=== PATIENT | male | born 1945 | race Caucasian/White ===

== ENCOUNTER 2016-11-23 20:48 | Inpatient (IN) ==
[~2016-11-23 20:48] MED LIST: *HR* Amiodarone 150 MG/3 ML VIAL IVPB ONE; *HR* EPINEPHrine 1 MG/10 ML SYRINGE IVP ONE; *HR* Magnesium Sulfate 2 GM/50 ML PIGGYBACK IVPB ONE; *HR* Norepinephrine 4 MG/4 ML VIAL IVC ONE
[2016-11-23] MEDS: Norepinephrine 4 MG in D5% in Water 250 ML IVC SCH (21:12)
--- NOTE | 2016-11-23 21:24 | Emergency Department Note ---
Disposition Clinical Impression: Acute myocardial infarction Qualifiers: Myocardial infarction ST status: ST elevation myocardial infarction Involved coronary artery: unspecified coronary artery Qualified Code(s): I21.3 - ST elevation (STEMI) myocardial infarction of unspecified site Disposition: Admitted As Inpatient Condition: Critical Time of Disposition: 21:00 CPR HPI - General Chief Complaint: ED Cardiac Arrest/CPR Stated Complaint: CODE Time Seen by Provider: 11/23/16 21:19 Source: patient Mode of arrival: ambulatory Limitations: no limitations Nursing Notes Reviewed: Yes Vital Signs Reviewed: Yes - History of Present Illness HPI Narrative: 71-year-old male who arrived to [facility] [place] emergency department after collapsing prior to arrival in 's vehicle. states that he was complaining of epigastric pain radiating into his back just prior to arrival. The patient was found unresponsive and was pulled out of his ' s vehicle area and the patient was brought into the emergency Department immediately and it was noted the patient did not have a pulse. The patient was apneic as well. The patient had CPR started on him in normal ACLS fashion. The patient was chosen to be intubated at that time. The patient continued to receive ACLS protocol. The patient did note to have fine ventricular fibrillation on monitor. The patient was shocked 4 times in total starting to 300 J doses and 2 with 360 doses. The patient also received 3 doses of epinephrine as well as 1 amp of bicarbonate, 1 bag of magnesium, a bolus of amiodarone, and 1 L fluid. The patient did have spontaneous return of circulation with a pulse in the upper 50s. The patient's blood pressure initially was in the 130s systolic. The patient was started on Levothroid, EKG was obtained. After observing what appears to be possible J-point elevation/ ischemia in lateral leads, the tool or die drawing checker was notified. After speaking with Dr. Mendenhall in cardiology P agreed that the patient can go to the Medical Device Engineer. Witnessed Arrest: Yes Pt Complaint: collapsed during rest Onset (ago): Just [employer] Timing confirmed by: spouse Place: other Bystander CPR Performed: No Downtime Before ACLS Arrival (mins): 0 Initial Findings in the Field: unresponsive ROSC in the Field: No - Related Data Allergies Allergy/AdvReac Type Severity Reaction Status Date / Time No Known Allergies Allergy Verified 11/23/16 21:45 Limitations: ROS unobtainable due to patients medical condition CPR PMH - Past Medical History Medical history: Reports: COPD, hyperlipidemia Male Surgical history: Reports: non-contributory Psychiatric history: Reports: no psych history - Social History Smoking Status: Current every day smoker Alcohol use: Reports: unknown Drug use: Reports: none Physical Exam - General Limitations: other (obtunded) - Head Head exam: atraumatic, normocephalic, normal inspection - ENT ENT exam: normal oropharynx, mucous membranes moist - Neck Neck exam: Present: normal inspection - Chest Chest inspection: Present: normal inspection - Respiratory Respiratory exam: Present: other (Respiratory arrest, ) - Cardiovascular Cardiovascular exam: Present: other (Vfib, PEA, then NSR) - Abdominal Exam Abdominal exam: Present: soft, normal bowel sounds. Absent: distention - Extremities Exam Extremities exam: Present: other (Mild cyanosis on initial exam) - Neurological Exam Neurological exam: Present: other (Obtunded) - Skin Skin exam: Present: cyanosis Course Vital Signs Temperature 0 F L 11/23/16 20:48 Pulse Rate 0 11/23/16 20:48 Respiratory Rate 0 11/23/16 20:48 Blood Pressure 0/0 11/23/16 20:48 O2 Sat by Pulse Oximetry 92 11/23/16 20:48 Temperature 96.8 F L 11/24/16 00:15 Pulse Rate 55 11/24/16 00:24 Respiratory Rate 18 11/24/16 00:30 Blood Pressure 102/59 11/24/16 00:15 O2 Sat by Pulse Oximetry 98 11/24/16 00:30 Oxygen Delivery Oxygen Delivery Ventilator Cardiac Arrest/CPR - Lab Data Result diagrams: 11/23/16 20:59 11/23/16 20:59 Lab Results 11/23/16 11/23/16 11/23/16 Range/Units 20:58 20:59 20:59 WBC 12.9 H (4.3-11.1) K/mcL RBC 5.54 H (4.19-5.50) M/mcL Hgb 17.2 H (12.9-16.9) g/dL Hct 53.3 H (37.5-50.1) % MCV 96.2 (83.0-100.0) fL MCH 31.0 (28.0-33.3) pg MCHC 32.3 (31.6-35.5) g/dL RDW 13.8 (11.5-14.5) % Plt Count 208 (140-400) K/mcL MPV 9.7 (9.4-12.4) fL Immature Gran % 0.5 (0-4) % Seg Neutrophils % 50.6 % Lymphocytes % 37.9 % Monocytes % 7.8 % Eosinophils % 2.7 % Basophils % 0.5 % Neutrophils # 6.5 (1.6-8.9) K/mcL Lymphocytes # 4.9 H (0.6-4.6) K/mcL Monocytes # 1.0 (0.0-1.3) K/mcL Eosinophils # 0.4 (0.0-0.6) K/mcL Basophils # 0.1 (0.0-0.2) K/mcL Nucleated RBCs/100 WBC 0.2 H (0) /100 WBC Sodium 140 (136-145) mEq/L Potassium 3.9 (3.5-4.5) mEq/L Chloride 101 (98-109) mEq/L Carbon Dioxide 29 (19-29) mEq/L BUN 14 (8-26) mg/dL Creatinine 1.35 H (0.72-1.25) mg/dL Est GFR ( Amer) > 60 (> 60) Est GFR (Non-Af Amer) 52 L (> 60) BUN/Creatinine Ratio 10 (6-26) Glucose 95 (70-99) mg/dL POC Glucose 108 H (58-89) Calculated Osmolality 290 (280-300) Lactic Acid (0.5-2.2) mmol/L Calcium 9.8 (8.6-10.8) mg/dL Total Bilirubin 0.5 (0.2-1.2) mg/dL AST 21 (5-34) Units/L ALT 26 (0-55) Units/L Alkaline Phosphatase 91 (38-126) Units/L Troponin I (0-0.03) ng/mL Serum Total Protein 8.0 (6.0-8.3) g/dL Albumin 4.1 (3.5-5.0) g/dL Globulin 3.9 H (2.4-3.5) g/dL Albumin/Globulin Ratio 1.1 (1.1-2.2) 04/06/17 04/06/17 Range/Units 20:59 20:59 WBC (4.3-11.1) K/mcL RBC (4.19-5.50) M/mcL Hgb (12.9-16.9) g/dL Hct (37.5-50.1) % MCV (83.0-100.0) fL MCH (28.0-33.3) pg MCHC (31.6-35.5) g/dL RDW (11.5-14.5) % Plt Count (140-400) K/mcL MPV (9.4-12.4) fL Immature Gran % (0-4) % Seg Neutrophils % % Lymphocytes % % Monocytes % % Eosinophils % % Basophils % % Neutrophils # (1.6-8.9) K/mcL Lymphocytes # (0.6-4.6) K/mcL Monocytes # (0.0-1.3) K/mcL Eosinophils # (0.0-0.6) K/mcL Basophils # (0.0-0.2) K/mcL Nucleated RBCs/100 WBC (0) /100 WBC Sodium (136-145) mEq/L Potassium (3.5-4.5) mEq/L Chloride (98-109) mEq/L Carbon Dioxide (19-29) mEq/L BUN (8-26) mg/dL Creatinine (0.72-1.25) mg/dL Est GFR ( Amer) (> 60) Est GFR (Non-Af Amer) (> 60) BUN/Creatinine Ratio (6-26) Glucose (70-99) mg/dL POC Glucose (58-89) Calculated Osmolality (280-300) Lactic Acid 2.4 H (0.5-2.2) mmol/L Calcium (8.6-10.8) mg/dL Total Bilirubin (0.2-1.2) mg/dL AST (5-34) Units/L ALT (0-55) Units/L Alkaline Phosphatase (38-126) Units/L Troponin I 0.05 H* (0-0.03) ng/mL Serum Total Protein (6.0-8.3) g/dL Albumin (3.5-5.0) g/dL Globulin (2.4-3.5) g/dL Albumin/Globulin Ratio (1.1-2.2) - EKG Data EKG attestation: Yes I reviewed and interpreted this EKG. EKG results narrative: Heart rate 66 bpm. QTC [address] elevation in leads V3, V4, V5. Reciprocal changes in leads 2, 3, aVF. Critical Care Time Critical Care Time: Yes Total Critical Care Time: 91 Attestation: Acute outpatient cardiac arrest w/ resuccitation in the ER; Attestation Statement - Attestation Attestation: Dr Maki note: Patient was seen in conjunction with resident Dr Li; please see his charting for complete documentation. I spent [id number] time with the patient and I agree with the patient's treatment and disposition. The patient was brought to the hospital by family in a private automobile. Apparently prior to getting out of the car he became unresponsive. He told the family he has been having chest pain for weeks and it got worse today. When he was found in the car by ER staff he had no pulse. He was brought quickly to the trauma bay 21 and CPR was started. Patient had immediate compressions, bag valve mask ventilation. He was intubated, an intraosseous line was started, multiple IVs were started, patient was given epinephrine medication. He was defibrillated many times for what we recognized as ventricular fibrillation. He was intubated stiffly without complication. After sustained efforts and CPR the patient was found to have a pulse. EKG is concerning for mild J-point elevation and an ST elevation DE. Dr. Davalos the catheter lab was called except the patient as a Medical Device Engineer patient and requested that "the patient. In the ER the patient is moving all 4 extremities and over the ventilator. Sedation was required.
[2016-11-23] MEDS ORDERED: *HR* FentaNYL (PF) 250 MCG/5 ML VIAL ONE (21:28)
[2016-11-23] MEDS ORDERED: *HR* Midazolam HCl 5 MG/5 ML VIAL IVP ONE (21:28)
[2016-11-23] MEDS ORDERED: *HR* Heparin 10,000 UNIT/10 ML VIAL ONE (21:29)
[2016-11-23] MEDS ORDERED: 0.9 % Sodium Chloride 1,000 ML ONE ×2 (21:29→21:45)
[2016-11-23] MEDS ORDERED: Nitroglycerin 1,000 MCG/10 ML VIAL IV ONE (21:29)
[2016-11-23] MEDS ORDERED: Heparin 1,000 UNITS/500 mL NS 500 ML ONE (21:29)
[2016-11-23 21:36] LABS: Basophils # 0.1 K/mcL (0.0-0.2); Basophils % 0.5 %; Eosinophils # 0.4 K/mcL (0.0-0.6); Eosinophils % 2.7 %; Hematocrit 53.3 % (37.5-50.1); Hemoglobin 17.2 g/dL (12.9-16.9); Immature Granulocytes % 0.5 % (0-4); Lymphocytes # 4.9 K/mcL (0.6-4.6); Lymphocytes % 37.9 %; Mean Corpuscular HGB Conc 32.3 g/dL (31.6-35.5); Mean Corpuscular Volume 96.2 fL (83.0-100.0); Mean Platelet Volume 9.7 fL (9.4-12.4); Monocytes % 7.8 %; Neutrophils # 6.5 K/mcL (1.6-8.9); Nucleated Red Blood Cells 0.2 /100 WBC (0); Platelet Count 208 K/mcL (140-400); Red Blood Count 5.54 M/mcL (4.19-5.50); Red Cell Distribution Width 13.8 % (11.5-14.5); Segmented Neutrophils % 50.6 %
[2016-11-23] MEDS ORDERED: *HR* LORazepam 2 MG/ML VIAL ONE (21:43)
[2016-11-23 21:47] LABS: Alanine Aminotransferase 26 Units/L (0-55); Albumin 4.1 g/dL (3.5-5.0); Albumin/Globulin Ratio 1.1 (1.1-2.2); Alkaline Phosphatase 91 Units/L (38-126); Aspartate Amino Transferase 21 Units/L (5-34); BUN/Creatinine Ratio 10 (6-26); Bilirubin,Total 0.5 mg/dL (0.2-1.2); Blood Urea Nitrogen 14 mg/dL (8-26); Calcium 9.8 mg/dL (8.6-10.8); Carbon Dioxide 29 mEq/L (19-29); Chloride 101 mEq/L (98-109); Globulin 3.9 g/dL (2.4-3.5); Glucose 95 mg/dL (70-99); Osmolality,Calculated 290 (280-300); Potassium 3.9 mEq/L (3.5-4.5); Sodium 140 mEq/L (136-145); eGFR For African Americans > 60 (> 60); eGFR For Non-African Americans 52 (> 60)
--- NOTE | 2016-11-23 21:58 | Pre-Sedation Evaluation ---
Pre-sedation evaluation - Pre-sedation checklist Date of procedure: 11/23/16 Procedure: [facility] Recent Vitals: Last Vital Signs Temp 0 F L 11/23/16 20:48 Pulse 0 11/23/16 20:48 Resp 0 11/23/16 20:48 BP 0/0 11/23/16 20:48 Pulse Ox 92 11/23/16 21:10 H&P (including ROS) documented in medical record: Yes Previous reaction to sedatives/anesthetics: No Dietary Status: unknown Airway Assessment: Patient can open mouth completely, TMJ function normal ASA Classification *see protocol: CLASS II-Mild systemic disease, E-EMERGENCY- Add to any of the above to indicate emergent Plan of Care: Pt appropriate candidate for procedure/moderate/conscious sedation , Risks/benefits of procedure/sedation discussed w/ patient/family, If not NPO; Risk of intake outweiged by necessity to perform procedure
[2016-11-23] MEDS ORDERED: *HR* Morphine 2 MG/ML SYRINGE IVP PRN (22:00)
[2016-11-23] MEDS ORDERED: Ondansetron 4 MG/2 ML VIAL IVP PRN (22:00)
[2016-11-23] MEDS ORDERED: Tirofiban 12.5 MG/250ML 12.5 MG/250 ML BAG IVC SCH (22:00)
--- NOTE | 2016-11-23 22:00 | Cardiology History & Physical ---
Date of Encounter: 11/23/16 Time of Encounter: 22:00 Assessment and Plan (1) Cardiac arrest Current Visit: Yes Status: Acute Emergent LHC. Therapeutic hypothermia was discussed with ED and to be initiated there with ice packs to optimize possible neurological recovery. Prognosis poor. The assessment and plan as outlined above was discussed with the patient and/or family members who expressed understanding and agreement. All questions were answered. (2) STEMI (ST elevation myocardial infarction) Current Visit: Yes Status: Acute Anterior current of injury. Emergent LHC to delineate any coronary disease amenable to intervention. EF assessment will be complete.The assessment and plan as outlined above was discussed with the patient and/or family members who expressed understanding and agreement. All questions were answered. Qualifiers: Involved coronary artery: other coronary artery Qualified Code(s): I21.29 - ST elevation (STEMI) myocardial infarction involving other sites History of Present Illness Chief complaint: VF cardiac arrest HPI: Mr. Syed is a 71 year old male with no previous cardiac history who arrived to [facility] emergency department after collapsing prior to arrival in 's vehicle. states that he was complaining of epigastric pain radiating into his back just prior to arrival and has had ongoing chest discomfort for more than a week. The patient was found unresponsive and was pulled out of his 's vehicle area and the patient was brought into the emergency Department immediately and it was noted the patient was pulseless. He underwent ACLS for approximately 15 minutes. The patient was chosen to be intubated at that time. The patient continued to receive ACLS protocol. The patient did note to have fine ventricular fibrillation on monitor. The patient was shocked 4 times in total starting to 300 J doses and 2 with 360 doses. The patient also received 3 doses of epinephrine as well as 1 amp of bicarb, 1 bag of magnesium, a bolus of amiodarone, and 1 L fluid. The patient did have spontaneous return of circulation with a pulse in the upper 50s. The patient's blood pressure initially was in the 130s systolic. The patient was started on Levothroid, EKG was obtained. EKG was suggestive of anterior current of injury and STEMI page was activated. Past Med Surg Social Fam HX - Past Medical History Medical history: COPD, hyperlipidemia Psychiatric history: no psych history - Past Surgical History Surgical History: non-contributory - Social History Smoking Status: Current every day smoker Smokeless Tobacco Status: Yes Alcohol use: unknown Drug use: none Medications and Allergies Celecoxib [Celebrex] 200 mg PO BID 11/24/16 [History] Duloxetine HCl [Cymbalta] 60 mg PO DAILY 11/24/16 [History] Furosemide [Lasix] 20 mg PO DAILY PRN 11/24/16 [History] Umeclidinium Brm/Vilanterol Tr [Anoro Ellipta 62.5-25 Mcg INH] 1 puff IH DAILY 11/24/16 [History] Allergies No Known Allergies Allergy (Verified 11/23/16 21:45) ROS unobtainable: due to endotracheal tube, due to mental status All Systems Review: A 10-system review of systems was performed and is negative for pertinent findings except as documented above in the HPI. Physical Examination Vital Signs, Last 4 Hours Temp Pulse Resp BP Pulse Ox 11/23/16 21:10 92 11/23/16 20:48 0 F L 0 0 0/0 0 General: Other (intubated/sedated) HEENT: Atraumatic, Normocephaly Neck: No JVD Cardiac: Reg Rate and Rhythm Lungs: Other (coarse BS) Neuro: Other (intubated/sedated) Abdomen: Soft Skin: No rashes noted on visualized skin Musculoskeletal: No Chest Wall Tenderness Extremities: No Edema Results 11/26/16 03:29 11/26/16 14:35 Lab Results 11/23/16 11/23/16 11/23/16 20:59 20:59 20:59 WBC 12.9 H Hgb 17.2 H Hct 53.3 H Plt Count 208 Sodium 140 Potassium 3.9 Chloride 101 Carbon Dioxide 29 BUN 14 Creatinine 1.35 H Glucose 95 Calcium 9.8 Total Bilirubin 0.5 AST 21 ALT 26 Alkaline Phosphatase 91 Troponin I 0.05 H* - EKG Interpretation EKG results cardiology: personally reviewed (anterior current of injury)
[2016-11-23] MEDS ORDERED: Amiodarone Premix 360 MG/200 ML BAG IVC ONE (22:14)
[2016-11-23] MEDS ORDERED: Tirofiban 12.5 MG/250ML 12.5 MG/250 ML BAG ONE (22:20)
[2016-11-23] MEDS ORDERED: *HR* Ticagrelor 90 MG TABLET ONE (22:23)
[2016-11-23 23:03] LABS: ABG Base Excess -6.3 mEq/L (-2.0 to 3.0); ABG HCO3 23.9 mEQ/L (21-27); ABG Oxygen Saturation 98 % (95-98); ABG PCO2 67 mmHg (35-45); ABG PO2 132 mmHg (85-104)
[2016-11-23 23:06] LABS: ABG PH 7.16 pH Units (7.32-7.45); Blood Gas FiO2 100 %; Blood Gas Respiration Rate 12; Blood Gas VT 550 cc
[2016-11-23] MEDS ORDERED: 0.9 % Sodium Chloride 500 ML ONE (23:31)
--- NOTE | 2016-11-23 23:44 | Invasive Diagnostic Lab Proc ---
Name: Noah Syed Date of Study: 11/23/2016 Date: 1945 Ht: 70.1in Medical Record#: [id number] Age: 71 Wt: 287.00lb Gender: Male BSA: 2.44 Order #: [id number] BMI: 41.09 Physicians Procedure Physician: Hipolito Mendenhall MD, [facility] Referring MD: Referring MD: Staff Name Position Time In Marizol Hernandez RN Monitor 10:12 PM Federico Prescott RN Waiter Waitress 10:12 PM Angela, Aleah RT (R) Scrub 10:13 PM Indications Indication STEMI Procedures Performed Procedure L HRT ARTERY/VENTRICLE ANGIO PRQ CARD REVASC FL 1 VSL CENTRAL LINE PLACEMENT Pre-Procedure Checklist H\\T\\P is on chart. ID band is on and ID verified with patient. Patient NPO for procedure The procedure was described for the patient and questions were answered. Blood Pressure: 115/70 ECG is on chart. Rhythm: NSR Plan of Care Patient will tolerate the procedure without complications. Adequate level of comfort will be maintained. Hemodynamics will remain stable Patient will recover from procedure without complications. Respiratory function will be maintained. Cardiac rhythm will remain stable. Patient temperature will be maintained. Patient and/or family have verbalized understanding of the procedure. Patient Education Chief Complaint/Reason for Test: Cardiac Cath Developmental Category: Geriatric (65+ years) Developmentally Appropriate for Age: No Learning Barriers: Sedated Education Needs: Procedure Education Method: Verbal Information Taught: Cardiac Cath Educational Evaluation: Not ready to learn Note: STEMI, patient intubated and unresponsive, patient is not ready to learn at this time. Family will be educated Intravenous Access Time IV Size Location DC'd Fluid/Drip Rate Units RN 09:58 PM 18g 1 08/23" Patent On Arrival Rt upper extremity Amiodarone 33.3 ml/hr 09:58 PM 18g 1 4" Patent On Arrival Lt Antecubital Levophed 15 mcg/min 09:58 PM IO RLE tibia 11:02 PM Central Line Rt Femoral Allergies No Known Allergies NKMA Vital Signs Time BP (mmHg) HR (bpm) O2 Sat. RR (bpm) LOC 10:13 PM / % 1 = Reflexes present/moves spontaneously 10:13 PM / % 1 = Reflexes present/moves spontaneously 10:29 PM / % 1 = Reflexes present/moves spontaneously 10:05 PM 73 / 63 75 100 % 10:08 PM 115 / 70 74 95 % 19 10:10 PM 122 / 76 75 96 % 16 10:15 PM 105 / 61 67 % 32 10:21 PM 112 / 69 75 97 % 29 10:26 PM 124 / 75 75 97 % 19 10:30 PM 131 / 76 73 97 % 20 10:35 PM 130 / 79 69 97 % 10:40 PM 134 / 78 71 98 % 26 10:45 PM 130 / 80 71 97 % 17 10:51 PM 139 / 72 68 97 % 10:58 PM 129 / 73 67 98 % 19 10:44 PM / % 1 = Reflexes present/moves spontaneously 11:00 PM / % 1 = Reflexes present/moves spontaneously Procedural Medications Time Medication Dose Units Method Given By 10:16 PM Amiodarone 1 mg/min Intravenous Federico Prescott RN 10:19 PM Levophed 15 mcg/min Intravenous Federico Prescott RN 10:24 PM Aggrastat Bolus: 66.5 ml Intravenous Federico Prescott RN 10:24 PM Aggrastat 5mg/100ml 24 ml Intravenous Federico Prescott RN 10:33 PM Brilinta 180 mg OG Federico Prescott RN 09:58 PM Levophed 7.5 mcg/min Intravenous 09:58 PM versed 3.1 ml/hr Intravenous 10:12 PM Heparin 4000 units Intravenous Federico Prescott RN 11:08 PM Bicard 1 amp Intravenous Federico Prescott RN ASA Classification: CLASS II- Mild systemic disease (i.e. well-controlled diabetes, hypertension, asthma, cigarette smoking) Emergent Procedure: ASA score is assumed Osei Score Preprocedure Postprocedure Activity 0- Unable to move extremities or lift head Activity 0- Unable to move extremities or lift head Circulation 2- SBP +/= 20 points of pre-anesthetic level Circulation 2- SBP +/= 20 points of pre-anesthetic level Consciousness 0- Non-responsive Consciousness 0- Non-responsive O2 Saturation 0- O2 saturation 90% even with O2 supplement O2 Saturation 0- O2 saturation 90% even with O2 supplement Respiratory 1- Labored or limited respiration requires airway Respiratory 1- Labored or limited respiration requires airway Total Score 3 Total Score 3 Contrast Agent: Isovue Diagnostic Contrast: 166 ml Total Contrast: 166 ml Fluoro Dose: 1070 mGy Activated Clotting Time Time Seconds to Clot 10:49 PM 154 Procedure Log Time Note Enter By 09:57 PM Patient arrived to lab, ET tube in place, Respiratory at bedside, defib pads in place scoates 09:57 PM Pt arrived to label stitcher 2 at 21:57 scoates 09:58 PM Patient arrived at 21:58 with Levophed Intravenous drip @ 7.5 mcg/min scoates 09:58 PM Patient arrived at 21:58 with versed Intravenous drip @ 3.1 ml/hr scoates 10:04 PM CathStat 10:04 PM Case Start 10:05 PM Vitals capture started with the following parameters, Patient=Adult, Interval=5 min, Initial Svsehxji=207 mmHg, Deflation Rate=5 mmHg, Cuff placed on Left Arm 10:05 PM HR=75 bpm, NIBP=73/63 mmhg, FhD9=129.0 % 10:07 PM NIBP STAT measurement started. 10:08 PM HR=74 bpm, IQIZ=969/70 mmhg, SpO2=95.0 %, Resp=19 B/min 10:10 PM HR=75 bpm, QLGK=739/76 mmhg, SpO2=96.0 %, Resp=16 B/min, Comment=nsr 10:12 PM Time out performed according to hospital policy scoates 10:12 PM Marizol Hernandez RN Position: Monitor Time in: 22:12 scoates 10:12 PM Time: 22:12 Heparin 4000 units Intravenous Given by Federico Prescott RN scoates 10:12 PM Federico Prescott RN Position: Waiter Waitress Time in: 22:12 scoates 10:13 PM Sites, Aleah RT (R) Position: Scrub Time in: 22:13 scoates 10:13 PM Patient charges- Angio tray pack, Navilyst 3mm J, Pulse Oximetry and ACIST tubing and transducer scoates 10:13 PM Case Delayed No scoates 10:13 PM Hair removed from procedure site in emergency department using clippers. Bilateral groin prepped with Chloraprep by Marizol Hernandez RN, safety strap applied then patient was draped. Skin intact. scoates 10:13 PM Physician arrived 22:13 scoates 10:13 PM Meet and greet completed scoates 10:13 PM Procedure start 22: scoates 10:13 PM Time: 22:13 Patient comfortable and pain free: Yes scoates 10:13 PM Time: 22:13LOC: 1 = Reflexes present/moves spontaneously scoates 10:13 PM Clinical Presentation: STEMI or equivalent scoates 10:14 PM Access obtained by percutaneous puncture. 6Fr 11cm Terumo [place] sheath placed in right Femoral artery. [id number] scoates 10:15 PM HR=67 bpm, UPRG=192/61 mmhg, Resp=32 B/min, Comment=nsr 10:16 PM Time: 22:16 Amiodarone 1 mg/min Intravenous Given by Federico Prescott RN Juarez pump scoates 10:16 PM Recorded Pressure: Ao, HR=67, Condition=Condition 1 (Aorta) Ao 89/70/80 10:17 PM 5Fr FL 4 catheter inserted over the wire DNC scoates 10:17 PM LCA angiography performed in multiple views. scoates 10:18 PM Lesion found in Proximal LAD. Pre Stenosis: 100 Pre OZIEL Flow: 0: No Flow/No perfusion scoates 10:18 PM Coronary Dominance: right scoates 10:18 PM Catheter removed scoates 10:18 PM 5Fr FR 4 catheter inserted over the wire DNC scoates 10:19 PM RCA angiography performed in multiple views. scoates 10:19 PM Lesion found in Proximal RCA. Pre Stenosis: 30 Pre OZIEL Flow: scoates 10:19 PM Lesion found in Distal RCA. Pre Stenosis: 50 Pre OZIEL Flow: scoates 10:20 PM Time: 22:19 Levophed 15 mcg/min Intravenous Given by Federico Prescott RN Juarez pump scoates 10:20 PM PCI Status Emergency scoates 10:20 PM 6Fr EBU 3.5 Medtronic guide catheter was used to cannulate the PCI vessel successfully. reused? No scoates 10:21 PM HR=75 bpm, ZAWC=938/69 mmhg, SpO2=97.0 %, Resp=29 B/min 10:21 PM .014 PT Graphix 182cm guide wire across target lesion- successful. reused? No scoates 10:23 PM Inflation device was opened. scoates 10:23 PM Guide catheter removed intact. scoates 10:23 PM 6Fr CLS 3.5 Runway guide catheter was used to cannulate the PCI vessel successfully. reused? No scoates 10:23 PM Recorded Pressure: Ao, HR=73, Condition=Condition 1 (Aorta) Ao 104/74/87 10:24 PM Time: 22:24 Aggrastat Bolus: 66.5 ml Intravenous Given by Federico Prescott RN Juarez pump scoates 10:24 PM Time: 22:24 Aggrastat 5mg/100ml 24 ml Intravenous Given by Federico Prescott RN Juarez pump scoates 10:26 PM HR=75 bpm, RIWX=564/75 mmhg, SpO2=97.0 %, Resp=19 B/min, Comment=nsr 10:27 PM 2.5 mm x 15 mm Emerge Monorail balloon across target lesion- successful. reused? No scoates 10:28 PM Balloon inflated @ 10 jayden for 8 seconds scoates 10:28 PM Balloon inflated @ 14 jayden for 8 seconds scoates 10:29 PM Time: 22:13 Patient comfortable and pain free: Yes scoates 10:29 PM Time: 22:13LOC: 1 = Reflexes present/moves spontaneously scoates 10:29 PM Balloon catheter removed intact. scoates 10:30 PM 3.0mm x 24mm Synergy drug-eluting stent across target lesion- successful Lot #[id number] scoates 10:30 PM Recorded Pressure: Ao, HR=76, Condition=Condition 1 (Aorta) Ao 110/80/94 10:30 PM HR=73 bpm, MOHO=188/76 mmhg, SpO2=97.0 %, Resp=20 B/min, Comment=nsr 10:31 PM Stent deployed @ 16 jayden for 22 seconds scoates 10:32 PM OG tube placement verified with xray and by asculation by Federico MARRERO scoates 10:33 PM Time: 22:33 Brilinta 180 mg OG Given by Federico Prescott RN scoates 10:34 PM Stent delivery system removed intact. scoates 10:34 PM 3.5 mm x 20mm NC Emerge balloon across target lesion- successful. reused? No scoates 10:34 PM Balloon inflated @ 20 jayden for 15 seconds scoates 10:35 PM Balloon inflated @ 20 jayden for 15 seconds scoates 10:35 PM Balloon inflated @ 20 jayden for 6 seconds scoates 10:35 PM Recorded Pressure: Ao, HR=70, Condition=Condition 1 (Aorta) Ao 110/80/95 10:35 PM HR=69 bpm, ZSIB=003/79 mmhg, SpO2=97.0 %, Comment=nsr 10:37 PM Balloon catheter removed intact. scoates 10:37 PM 3.75 mm x 21mm NC Emerge balloon across target lesion- successful. reused? No scoates 10:37 PM Recorded Pressure: Ao, HR=72, Condition=Condition 1 (Aorta) Ao 112/80/95 10:38 PM Balloon inflated @ 16 jayden for 12 seconds scoates 10:38 PM Balloon inflated @ 20 jayden for 6 seconds scoates 10:40 PM Balloon inflated @ 24 jayden for 12 seconds scoates 10:40 PM HR=71 bpm, KBJN=873/78 mmhg, SpO2=98.0 %, Resp=26 B/min, Comment=nsr 10:41 PM Balloon catheter removed intact. scoates 10:41 PM Guide wire removed intact. scoates 10:44 PM Time: 22:29LOC: 1 = Reflexes present/moves spontaneously scoates 10:44 PM Time: 22:29 Patient comfortable and pain free: Yes scoates 10:44 PM Recorded Pressure: LV, HR=70, Condition=Condition 1 (Left Ventricle) LV 120/20/36 10:45 PM Recorded Pressure: LV, HR=70, Condition=Condition 1 (Left Ventricle) LV 49/-12/-2 10:45 PM HR=71 bpm, VESW=571/80 mmhg, SpO2=97.0 %, Resp=17 B/min, Comment=nsr 10:45 PM Recorded Pressure: LV, Ao, HR=71, Condition=Condition 1 (Left Ventricle) LV 125/21/43, (Aorta) Ao 122/78/97 10:46 PM Guide catheter removed intact. scoates 10:46 PM 5Fr Pigtail catheter inserted over the wire [facility] scoates 10:46 PM Catheter selectively placed in left ventricle scoates 10:46 PM Bolus angiogram of left Ventricle complete: 12 ml/sec for a total of 30 mls scoates 10:46 PM Catheter removed scoates 10:46 PM Bolus angiogram of right Femoral complete: 4 ml/sec for a total of 7 mls scoates 10:49 PM At 22:49 the ACT was 154 seconds. scoates 10:50 PM Procedure completed at 22:50 scoates 10:51 PM Sign out completed: Radiation Dose 1070 mGy Fluoro Time: 8.3 Isovue 370 - 200ml contrast 166 ml given by Hipolito Mendenhall MD, FACC. Complications: NoneCardiac Rehab Consult needed: YesConfirmed administered medications: Yes scoates 10:51 PM Isovue 370 - 200ml,1 Bottle(s) used. scoates 10:51 PM HR=68 bpm, PJUM=712/72 mmhg, SpO2=97.0 % 10:56 PM Central line placement complete to the R fem. scoates 10:57 PM aware of ACT, No more heparin ordered, no order to removed sheath at this time scoates 10:57 PM Vitals capture stopped. 10:57 PM Vitals capture started with the following parameters, Patient=Adult, Interval=5 min, Initial Umlrlyxj=386 mmHg, Deflation Rate=5 mmHg, Cuff placed on Left Arm 10:58 PM HR=67 bpm, BHKP=868/73 mmhg, SpO2=98 %, Resp=19 B/min 11:00 PM Time: 22:44 Patient comfortable and pain free: Yes scoates 11:00 PM Time: 22:44LOC: 1 = Reflexes present/moves spontaneously scoates 11:07 PM critical PH 7.16, Dr. Mendenhall notified, 1 amp bicarb ordered, RTS changed vent settings as well scoates 11:09 PM Time: 23:08 Bicard 1 amp Intravenous Given by Federico Prescott RN scoates 11:13 PM Post ECG NSR scoates 11:13 PM Post Blood Pressure 129/73 scoates 11:14 PM Site status No bleeding/hematoma - Rt Groin as reported by Sites, Aleah RT (R) at 23:14 scoates 11:14 PM Opsite applied scoates 11:14 PM Plavix, Effient or Brilinta given Yes scoates 11:14 PM Delay to floor No scoates 11:14 PM Family placed in consult room. scoates 11:14 PM Complications: None scoates 11:14 PM Fluoro Time: 8.3 scoates 11:14 PM Isovue 370 - 200ml contrast 166 ml given by Hipolito Mendenhall MD, FACC. scoates 11:14 PM Radiation Dose 1070 mGy scoates 11:15 PM 23:15 Post Pulses Bilateral DP 1+ scoates 11:15 PM Time: 23:00LOC: 1 = Reflexes present/moves spontaneously scoates 11:21 PM Report given to Maeve MARRERO Pt taken to ICU Room #7. 23:21 scoates 11:26 PM Patient out of room: 23:26 scoates 11:26 PM Education needs Procedure, Plan of Care, and Responsibilities of Patient in Care scoates 11:26 PM Information taught Cardiac Cath and PCI scoates 11:26 PM Learning barriers :Sedated and Cognitive scoates 11:26 PM Education Methods Verbal scoates 11:27 PM Education evaluation Not ready to learn, patient intubated and unresponsive scoates 11:29 PM Patient out of room: 23:29 scoates 11:29 PM patient taken to ICU at this time, on life pack, accompanied by Federico RN, Aleah ALCANTAR, and 3 respiratory therapists scoates Complications Complication None None Hemodynamics Pressures Site Systolic/A Wave Diastolic/V Wave Mean AO 89 70 80 AO 104 74 87 AO 110 80 94 AO 110 80 95 AO 112 80 95 LV 125 21 43 AO 122 78 97 LV 120 20 36 Post Procedure Information Blood Pressure: 129/73 mmHg Rhythm: NSR Post procedural instructions were given Closure Device Time Device Success/Fail 11/23/2016 11:21:00 PM Manual Compression - sheath to be pulled in ICU Site Checks Time Location Status Staff Sheath In? Note 11:14 PM Rt Groin No bleeding/hematoma Sites, Aleah RT (R) Pulses Time Site Pre-Procedure Post-Procedure Note 11/23/2016 11:15:00 PM Bilateral DP 1+ 11:15:00 PM Bilateral DP 1+ Updated by Marizol Boone RN on 11/23/2016 11:37:36 PM electronically signed on 11/23/2016 11:38:16 PM with status of Final
[2016-11-24] MEDS: FentaNYL (PF) 1,000 MCG in 0.9 % Sodium Chloride 80 ML IVC SCH ×3 (00:05→18:18)
[2016-11-24 00:25] LABS: INR 1.2; Prothrombin Time 12.5 Seconds (9.4-12.1)
[2016-11-24] MEDS: WATER IVC SCH ×2 (01:25→22:00)
[2016-11-24] MEDS: ROCURONIUM BROMIDE IVC SCH ×2 (01:25→22:00)
[2016-11-24] MEDS: D5 IVC SCH ×2 (01:25→22:00)
[2016-11-24] MEDS ORDERED: Amiodarone Premix 360 MG/200 ML BAG IVC ONE (03:19)
[2016-11-24 03:46] LABS: Basophils % 0.2 %; Eosinophils % 0.1 %; Immature Granulocytes % 1.5 % (0-4); Lymphocytes # 0.7 K/mcL (0.6-4.6); Lymphocytes % 3.9 %; Mean Corpuscular HGB Conc 32.7 g/dL (31.6-35.5); Mean Corpuscular Hemoglobin 31.1 pg (28.0-33.3); Mean Corpuscular Volume 95.3 fL (83.0-100.0); Mean Platelet Volume 9.4 fL (9.4-12.4); Monocytes # 1.3 K/mcL (0.0-1.3); Monocytes % 7.2 %; Neutrophils # 15.1 K/mcL (1.6-8.9); Platelet Count 219 K/mcL (140-400); Red Blood Count 5.14 M/mcL (4.19-5.50); Red Cell Distribution Width 13.9 % (11.5-14.5); Segmented Neutrophils % 87.1 %
[2016-11-24 04:03] LABS: BUN/Creatinine Ratio 15 (6-26); Blood Urea Nitrogen 18 mg/dL (8-26); Carbon Dioxide 18 mEq/L (19-29); Chloride 106 mEq/L (98-109); Glucose 228 mg/dL (70-99); Osmolality,Calculated 293 (280-300); Potassium 4.5 mEq/L (3.5-4.5); Sodium 137 mEq/L (136-145); eGFR For African Americans > 60 (> 60); eGFR For Non-African Americans > 60 (> 60)
[2016-11-24] MEDS: *HR* Enoxaparin 40 MG/0.4 ML SYRINGE SQ SCH (06:01)
[2016-11-24] MEDS: Aspirin 81 MG TAB.CHEW PO SCH (08:38)
[2016-11-24] MEDS: *HR* Ticagrelor 90 MG TABLET PO SCH ×2 (08:38→21:03)
--- NOTE | 2016-11-24 08:59 | Cardiology Progress Note ---
Date of Encounter: 11/24/16 Time of Encounter: 08:57 Assessment and Plan (1) Ventilatory failure Current Visit: Yes Status: Acute (2) Ischemic cardiomyopathy Current Visit: Yes Status: Acute (3) Cardiac arrest Current Visit: Yes Status: Acute Acute STEMI, cardiac arrest, s/p ACLS, emergent LHC with ABDON x1 to LAD. Resultant ischemic cardiomyopathy, LVEF by ventriculogram 30%. Currently intubated, sedated in ICU. Hemodynamically relatively stable - sinus bradycardia, MAP 60s. If BP/MAP worsens, will need to start pressors, but will monitor for now. Appreciate ICU consult re: ventilator, hypothermic protocol. Maintain Mg > 2, K > 4. Avoid ACEi/BB given hypotension/bradycardia. Continue aspirin/statin/Brilinita. Repeat chest xray. Poor prognosis given critical condition. Echocardiogram pending. The assessment and plan as outlined above was discussed with the patient and/or family members who expressed understanding and agreement. All questions were answered. (4) STEMI (ST elevation myocardial infarction) Current Visit: Yes Status: Acute Qualifiers: Qualified Code(s): I21.29 - ST elevation (STEMI) myocardial infarction involving other sites Discussion w patient/family: The assessment and plan as outlined above was discussed with the patient and/or family members who expressed understanding and agreement. All questions were answered. Thank you for involving us in the care of your patient. Please call with any questions. Subjective Principal diagnosis: STEMI, VF arrest Interval history: Events of last night noted. Reamins sedated, intubated, hypothermic protocol. HR 40s - sinus. Occasional junctional rhythm. MAP 65. Currently not on pressors. Objective Vital Signs, Last 4 Hours Temp Pulse Resp BP Pulse Ox 11/24/16 08:41 90.7 F L 40 18 86/52 100 11/24/16 08:17 18 91/55 100 11/24/16 07:32 89.6 F L 37 18 93/56 100 11/24/16 06:18 18 128/72 100 11/24/16 06:00 90.9 F L 35 18 131/74 100 11/24/16 05:00 92.1 F L 40 18 126/74 100 General: Other (Critically ill, but appears comfortable at this time. ) HEENT: Atraumatic, Normocephaly, Mucus Membranes Moist Cardiac: Other (Distant, bradycardic, no obvious murmurs) Lungs: Other (Mostly clear, no rhonchi on ventilator.) Abdomen: Soft, Non-Tender, Other (Venous/arterial sheats appear normal. No bleeding/hematoma. ) Skin: No rashes noted on visualized skin Musculoskeletal: No Chest Wall Tenderness Extremities: No Clubbing, No Cyanosis, No Edema Results 11/24/16 03:35 11/24/16 03:35 Lab Results 11/24/16 11/24/16 11/24/16 00:10 03:35 03:35 WBC 17.3 H Hgb 16.0 Hct 49.0 Plt Count 219 INR 1.2 Sodium 137 Potassium 4.5 Chloride 106 Carbon Dioxide 18 L BUN 18 Creatinine 1.18 Glucose 228 H Calcium 8.0 L D - Imaging and Cardiology Cardiac cath: report reviewed - EKG Interpretation EKG results cardiology: personally reviewed Consult Discharge Plan - Plan Referrals: NO,PCP [Primary Care Provider] -
[2016-11-24 09:01] LABS: ABG Base Excess -0.5 mEq/L (-2.0 to 3.0); ABG HCO3 24.2 mEQ/L (21-27); ABG Oxygen Saturation 95 % (95-98); ABG PCO2 39 mmHg (35-45); ABG PO2 77 mmHg (85-104); ABG TCO2 25.4 mEq/L (20-26); Blood Gas FiO2 60 %
--- NOTE | 2016-11-24 09:17 | Pulmonology Consult Note ---
<Henry Luu - Last Filed: 11/24/16 11:19> Date of Encounter: 11/24/16 Time of Encounter: 09:07 Assessment and Plan (1) Cardiac arrest Current Visit: Yes Status: Acute 71M hx of COPD, HLD, tobacco abuse presented unresponsive to ER, found to be in v. fib, underwent ACLSx 4 rounds, emergent intubation 4 times defibrillated, had ROSC and then emergent LHC where he had 100% occlusion of LAD and had a drug eluting stent placed. Then transfereed to ICU and started on hypothermia protocol. EKG showed a J-point elevation and ST elevation in leads V3-V4-V5. 2nd to STEMI LHC EF 25-30% CXR shows diffuse b/l patchy opacities Hypothermia protocol: Temperature goal between 34-36 degrees Celsius. Continue for 32 hours. Temperature goal reached at 4AM today, will d/c hypothermia tomorrow at noon. MAP 80-100: continue levaphed and titrate accordingly Glucose control: goal 140-180. Currently 135 Q4H accucheks. If glucose >200 will consider starting insulin drip. Electrolyte protocol: replace mag and ionized calcium and potassium as needed: Goal Mag>2 Goal K>4 Continue aspirin, statin,brilinita CXR in AM Cardiology on board NPO CBC and BMP in morning (2) Cardiogenic shock Current Visit: Yes Status: Acute 2nd to NSTEMI: lactic acid 2.4>3.0 will recheck later afternoon CXR shows b/l diffuse roger infiltrate: this is due to cardiogenic pulmonary edema. EF of 25-30%. Less likely ARDS leukocytosis elevation 2nd to cardiogenic shock: post stress elevation: CBC in AM continue levaphed (3) Acute and chronic respiratory failure Current Visit: Yes Status: Acute 2nd to cardiogenic shock and STEMI CXR diffuse patchy opacities explained by cardiogenic pulmonary edema Intubated and sedated, and paralyzed continue versed, fentanyl, and rocuronium CXR tomorrow AM GI prophylaxis Repeat ABG in afternoon Qualifiers: Respiratory failure complication: hypoxia and hypercapnia Qualified Code(s) : J96.21 - Acute and chronic respiratory failure with hypoxia; J96.22 - Acute and chronic respiratory failure with hypercapnia (4) DVT prophylaxis Current Visit: Yes Status: Acute Lovenox SQ 40mg History of Present Illness Consult date: 11/24/16 Requesting physician: Hipolito Mendenhall Reason for consult: other (vent management/hyopthermia protocol) Chief complaint: cardiac arrest History of present illness: 71 y/o male hx of COPD, HLD, cigarette smoking presented to ER with . Patient collapsed in car. He was having epigastric pain with radiation to back before arrival. He was pulled out of car brought to ER and found not to have pulse. ACLS was initiated and patient was intubated. Patient had ventricular fibrillation, was defibrillated 4 times in total. He recieved 3 doses of epi and 1 amp of bicarb, 1 bag of mag, a bolus of amiodaronae and 1L fluid. Had ROSC with pulse in 50s and BP in 130 systolic. Started on levophed. EKG showed ischemia in lateral leads. Underwent emergent LHC. Found to have complete LAD occlusion was received 1 drug eluding stent and sent to ICU for vent management and hypothermia protocol. Past Med Surg Social Fam HX - Past Medical History Medical history: COPD, hyperlipidemia Psychiatric history: no psych history - Past Surgical History Surgical History: non-contributory, other ([facility] 11/24/2016) - Social History Smoking Status: Current every day smoker Smokeless Tobacco Status: Yes Alcohol use: unknown Drug use: none Medications and Allergies Celecoxib [Celebrex] 200 mg PO BID 11/24/16 [History] Duloxetine HCl [Cymbalta] 60 mg PO DAILY 11/24/16 [History] Furosemide [Lasix] 20 mg PO DAILY PRN 11/24/16 [History] Umeclidinium Brm/Vilanterol Tr [Anoro Ellipta 62.5-25 Mcg INH] 1 puff IH DAILY 11/24/16 [History] Allergies No Known Allergies Allergy (Verified 11/23/16 21:45) ROS unobtainable: due to endotracheal tube All Systems: A 10-system review of systems was performed and is negative for pertinent findings except as documented above in the HPI. Physical Examination Vital Signs: Vital Signs, Last 4 Hours Temp Pulse Resp BP Pulse Ox 11/24/16 08:41 90.7 F L 40 18 86/52 100 11/24/16 08:17 18 91/55 100 11/24/16 07:32 89.6 F L 37 18 93/56 100 11/24/16 06:18 18 128/72 100 11/24/16 06:00 90.9 F L 35 18 131/74 100 General appearance: comatose Eyes: nonicteric ENT: other (intubated) Effort: other (mechanical ventilatior) Inspection: normal Auscultation: bilateral: diminished breath sounds, wheezes Cardiovascular: regular rate and rhythm, PVC's noted Gastrointestinal: absent bowel sounds, non-distended Integumentary: other (right I/o removed, right femoral CVC) Extremities: no edema, pulses normal, cool (hypothermia protocol ), cyanosis unable to assess due to mental status Ventilator Settings Ventilator Settings: Ventilator Settings, Last 8 Hours Ventilator Mode A/C Ventilator Mode A/C Ventilator Mode A/C Ventilator Mode A/C Ventilator Mode A/C Ventilator Mode A/C Ventilator Mode A/C Ventilator Mode A/C Ventilator Mode A/C Ventilator Mode A/C Ventilator Mode A/C Ventilator Mode A/C Ventilator Mode A/C Ventilator Mode A/C Ventilator Mode A/C Ventilator Mode A/C Ventilator Mode A/C Ventilator Mode A/C Ventilator Mode A/C Ventilator Mode A/C Ventilator Mode A/C Ventilator Mode A/C Ventilator Tidal Volume 550 Setting Ventilator Tidal Volume 550 Setting Ventilator Tidal Volume 550 Setting Ventilator Tidal Volume 550 Setting Ventilator Tidal Volume 550 Setting Ventilator Tidal Volume 550 Setting Ventilator Tidal Volume 550 Setting Ventilator Tidal Volume 550 Setting Ventilator Tidal Volume 550 Setting Ventilator Tidal Volume 550 Setting Ventilator Tidal Volume 550 Setting Ventilator Tidal Volume 550 Setting Ventilator Tidal Volume 550 Setting Ventilator Tidal Volume 550 Setting Ventilator Tidal Volume 550 Setting Ventilator Tidal Volume 550 Setting Ventilator Tidal Volume 550 Setting Ventilator Tidal Volume 550 Setting Ventilator Tidal Volume 550 Setting Ventilator Tidal Volume 550 Setting Ventilator Tidal Volume 550 Setting Ventilator Tidal Volume 550 Setting Ventilator Respiratory Rate 18 Setting Ventilator Respiratory Rate 18 Setting Ventilator Respiratory Rate 18 Setting Ventilator Respiratory Rate 18 Setting Ventilator Respiratory Rate 18 Setting Ventilator Respiratory Rate 18 Setting Ventilator Respiratory Rate 18 Setting Ventilator Respiratory Rate 18 Setting Ventilator Respiratory Rate 18 Setting Ventilator Respiratory Rate 18 Setting Ventilator Respiratory Rate 18 Setting Ventilator Respiratory Rate 18 Setting Ventilator Respiratory Rate 18 Setting Ventilator Respiratory Rate 18 Setting Ventilator Respiratory Rate 18 Setting Ventilator Respiratory Rate 18 Setting Ventilator Respiratory Rate 18 Setting Ventilator Respiratory Rate 18 Setting Ventilator Respiratory Rate 18 Setting Ventilator Respiratory Rate 18 Setting Ventilator Respiratory Rate 18 Setting Ventilator Respiratory Rate 18 Setting Actual Respiratory Rate 18 Actual Respiratory Rate 18 Actual Respiratory Rate 18 Actual Respiratory Rate 18 Actual Respiratory Rate 18 Actual Respiratory Rate 18 Actual Respiratory Rate 18 Actual Respiratory Rate 18 Actual Respiratory Rate 18 Actual Respiratory Rate 18 Actual Respiratory Rate 18 Actual Respiratory Rate 18 Actual Respiratory Rate 18 Actual Respiratory Rate 18 Actual Respiratory Rate 18 Actual Respiratory Rate 18 Actual Respiratory Rate 18 Actual Respiratory Rate 18 Actual Respiratory Rate 18 Actual Respiratory Rate 18 Actual Respiratory Rate 18 Actual Respiratory Rate 18 Positive End Expiratory 5 Pressure Positive End Expiratory 5 Pressure Positive End Expiratory 5 Pressure Positive End Expiratory 5 Pressure Positive End Expiratory 5 Pressure Positive End Expiratory 5 Pressure Positive End Expiratory 5 Pressure Positive End Expiratory 5 Pressure Positive End Expiratory 5 Pressure Positive End Expiratory 5 Pressure Positive End Expiratory 5 Pressure Positive End Expiratory 5 Pressure Positive End Expiratory 5 Pressure Positive End Expiratory 5 Pressure Positive End Expiratory 5 Pressure Positive End Expiratory 5 Pressure Positive End Expiratory 5 Pressure Positive End Expiratory 5 Pressure Positive End Expiratory 5 Pressure Positive End Expiratory 5 Pressure Positive End Expiratory 5 Pressure Positive End Expiratory 5 Pressure Peak Inspiratory Airway 34 Pressure Peak Inspiratory Airway 34 Pressure Peak Inspiratory Airway 33 Pressure Peak Inspiratory Airway 34 Pressure Peak Inspiratory Airway 33 Pressure Peak Inspiratory Airway 33 Pressure Peak Inspiratory Airway 33 Pressure Peak Inspiratory Airway 33 Pressure Peak Inspiratory Airway 33 Pressure Peak Inspiratory Airway 33 Pressure Peak Inspiratory Airway 33 Pressure Peak Inspiratory Airway 33 Pressure Peak Inspiratory Airway 33 Pressure Peak Inspiratory Airway 33 Pressure Peak Inspiratory Airway 33 Pressure Peak Inspiratory Airway 33 Pressure Peak Inspiratory Airway 34 Pressure Peak Inspiratory Airway 34 Pressure Peak Inspiratory Airway 34 Pressure Peak Inspiratory Airway 34 Pressure Peak Inspiratory Airway 36 Pressure Peak Inspiratory Airway 36 Pressure Results - Laboratory Findings CBC and BMP: 11/24/16 03:35 11/24/16 03:35 ABG ABG pH 7.40 pH Units (7.32-7.45) 11/24/16 08:50 ABG pCO2 39 mmHg (35-45) 11/24/16 08:50 ABG pO2 77 mmHg (85-104) L 11/24/16 08:50 ABG O2 Saturation 95 % (95-98) 11/24/16 08:50 PT/INR, D-dimer PT 12.5 Seconds (9.4-12.1) H 11/24/16 00:10 Abnormal lab findings: Abnormal lab results WBC 17.3 K/mcL (4.3-11.1) H 11/24/16 03:35 Neutrophils # 15.1 K/mcL (1.6-8.9) H 11/24/16 03:35 Nucleated RBCs/100 WBC 0.2 /100 WBC (0) H 11/23/16 20:59 PT 12.5 Seconds (9.4-12.1) H 11/24/16 00:10 ABG pO2 77 mmHg (85-104) L 11/24/16 08:50 Carbon Dioxide 18 mEq/L (19-29) L 11/24/16 03:35 Glucose 228 mg/dL (70-99) H 11/24/16 03:35 POC Glucose 158 (58-89) H 11/24/16 07:41 Lactic Acid 2.4 mmol/L (0.5-2.2) H 11/23/16 20:59 Calcium 8.0 mg/dL (8.6-10.8) L D 11/24/16 03:35 Troponin I 0.05 ng/mL (0-0.03) H* 11/23/16 20:59 Globulin 3.9 g/dL (2.4-3.5) H 11/23/16 20:59 - Diagnostic Findings Chest x-ray: report reviewed - Clinical Findings Intake & Output: Intake & Output 11/23/16 11/24/16 11/24/16 23:59 07:59 15:59 Intake Total 0 / 0 790 / 790 0 / 0 Output Total 850 / 850 Balance 0 / 0 -60 / -60 0 / 0 Weight 124.3 kg Consult Discharge Plan - Plan Referrals: NO,PCP [Primary Care Provider] - <Seun Garcia - Last Filed: 11/24/16 23:48> Date of Encounter: 11/24/16 All Systems: A 10-system review of systems was performed and is negative for pertinent findings except as documented above in the HPI. Physical Examination Vital Signs: Vital Signs, Last 4 Hours Temp Pulse Resp BP Pulse Ox 11/24/16 16:13 94.1 F L 48 18 150/86 99 11/24/16 16:11 18 138/78 99 11/24/16 15:06 94.7 F L 48 18 138/78 99 11/24/16 14:02 94.8 F L 48 18 138/78 99 11/24/16 13:34 95 F L 48 18 132/76 99 Ventilator Settings Ventilator Settings: Ventilator Settings, Last 8 Hours Ventilator Mode A/C Ventilator Mode A/C Ventilator Mode A/C Ventilator Mode A/C Ventilator Mode A/C Ventilator Mode A/C Ventilator Mode A/C Ventilator Mode A/C Ventilator Mode A/C Ventilator Mode A/C Ventilator Tidal Volume 550 Setting Ventilator Tidal Volume 550 Setting Ventilator Tidal Volume 550 Setting Ventilator Tidal Volume 550 Setting Ventilator Tidal Volume 550 Setting Ventilator Tidal Volume 550 Setting Ventilator Tidal Volume 550 Setting Ventilator Tidal Volume 550 Setting Ventilator Tidal Volume 550 Setting Ventilator Tidal Volume 550 Setting Ventilator Respiratory Rate 18 Setting Ventilator Respiratory Rate 18 Setting Ventilator Respiratory Rate 18 Setting Ventilator Respiratory Rate 18 Setting Ventilator Respiratory Rate 18 Setting Ventilator Respiratory Rate 18 Setting Ventilator Respiratory Rate 18 Setting Ventilator Respiratory Rate 18 Setting Ventilator Respiratory Rate 18 Setting Ventilator Respiratory Rate 18 Setting Actual Respiratory Rate 18 Actual Respiratory Rate 18 Actual Respiratory Rate 18 Actual Respiratory Rate 18 Actual Respiratory Rate 18 Actual Respiratory Rate 18 Actual Respiratory Rate 18 Actual Respiratory Rate 18 Actual Respiratory Rate 18 Actual Respiratory Rate 18 Positive End Expiratory 5 Pressure Positive End Expiratory 5 Pressure Positive End Expiratory 5 Pressure Positive End Expiratory 5 Pressure Positive End Expiratory 5 Pressure Positive End Expiratory 5 Pressure Positive End Expiratory 5 Pressure Positive End Expiratory 5 Pressure Positive End Expiratory 5 Pressure Positive End Expiratory 5 Pressure Peak Inspiratory Airway 35 Pressure Peak Inspiratory Airway 35 Pressure Peak Inspiratory Airway 32 Pressure Peak Inspiratory Airway 32 Pressure Peak Inspiratory Airway 33 Pressure Peak Inspiratory Airway 32 Pressure Peak Inspiratory Airway 32 Pressure Peak Inspiratory Airway 32 Pressure Peak Inspiratory Airway 34 Pressure Peak Inspiratory Airway 34 Pressure Results - Laboratory Findings CBC and BMP: 11/24/16 03:35 11/24/16 03:35 ABG ABG pH 7.44 pH Units (7.32-7.45) 11/24/16 14:05 ABG pCO2 35 mmHg (35-45) 11/24/16 14:05 ABG pO2 113 mmHg (85-104) H 11/24/16 14:05 ABG O2 Saturation 99 % (95-98) H 11/24/16 14:05 PT/INR, D-dimer PT 12.5 Seconds (9.4-12.1) H 11/24/16 00:10 Abnormal lab findings: Abnormal lab results WBC 17.3 K/mcL (4.3-11.1) H 11/24/16 03:35 Neutrophils # 15.1 K/mcL (1.6-8.9) H 11/24/16 03:35 Nucleated RBCs/100 WBC 0.2 /100 WBC (0) H 11/23/16 20:59 PT 12.5 Seconds (9.4-12.1) H 11/24/16 00:10 ABG pO2 113 mmHg (85-104) H 11/24/16 14:05 ABG O2 Saturation 99 % (95-98) H 11/24/16 14:05 Carbon Dioxide 18 mEq/L (19-29) L 11/24/16 03:35 Glucose 228 mg/dL (70-99) H 11/24/16 03:35 POC Glucose 111 (58-89) H 11/24/16 16:12 Lactic Acid 3.0 mmol/L (0.5-2.2) H 11/24/16 08:50 Calcium 8.0 mg/dL (8.6-10.8) L D 11/24/16 03:35 Troponin I 0.05 ng/mL (0-0.03) H* 11/23/16 20:59 Globulin 3.9 g/dL (2.4-3.5) H 11/23/16 20:59 - Clinical Findings Intake & Output: Intake & Output 11/24/16 11/24/16 11/24/16 07:59 15:59 23:59 Intake Total 790 / 790 165.9 / 165.9 Output Total 850 / 850 450 / 450 Balance -60 / -60 -284.1 / -284.1 Weight 124.3 kg - Attending Attestation I examined this patient and my medical decision-making was reviewed with the NEWS CORRESPONDENT/PA/Advanced Practice Nurse/Resident Physician. I agree with the documented findings, disposition and treatment plan as described except to the extent set forth below. Patient seen and examined. Labs, radiology, chart personally reviewed. 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 There is a possibility that patient has anoxic/hypoxic brain injury and hopefully Targeted Temp. Therapy and change fo target 32-36 C. Pulmonary: Acceptable oxygenation and ventilation. Lowered FIO2 gradually to keep SPO2 >90%. Repeat ABG was reviewed. Cardiovascular: cardiogentic shock and keep MAP to the higher range around 80 mmHg. Cardiology is following up as well. GI: Nutrition per dietary and GI prophylaxis per routine. Keep NPO for now. Heme: DVT prophylaxis per routine ID: CXR more suggestive of pulmonary edema and no evidence of infection Renal; urine out put and renal funtion reviewed Endorcine: blood glucose is monitored. Tight controlo of hyper calcemai. Lines: all lines checked and no evidence of infections Skin: skin care to prevent pressure ulcers per nursing routine care I spent 35 min of Critical Care time with this patient. It involved decision making of high complexity to assess, manipulate, and support vital organ system failure and/or to prevent further life threatening deterioration of the patient' s condition. The time involved in the performance of separately reportable procedures was not counted toward critical care time.
[2016-11-24 09:18] LABS: Magnesium 2.5 mg/dL (1.6-2.6)
--- NOTE | 2016-11-24 09:45 | Invasive Diagnostic Lab ---
Name: Noah Syed Date of Study: 11/23/2016 Date: 1945 Ht: 178.0 cm /70.1 in Medical Record#: [id number] Age: 71 Wt: 130.2 kg / 287.00 lb Account/Order#: [id number] Gender: Male BSA: 2.44 Order #: [id number] Fluoro Dose: 1070 mGy BMI: 41.09 Procedure Physician: Hipolito Mendenhall MD, [facility] Referring MD: Referring MD: Procedures Performed: LEFT HEART CATH PCI of Acute ND CENTRAL LINE PLACEMENT Indications: STEMI, Cardiac Arrest Impressions: There is severe one vessel coronary artery disease. There is severe LV Dysfunction EF 25-30% Patient had successful PTCA/Drug-Eluting Stent placement in the proximal LAD. Guarded neurological prognosis Recommendations: Optimal medical therapy of patient's disease. Aggressive risk factor modification. Patient being referred for cardiac rehab. Supportive care in ICU with therapeutic hypothermia with neurological evaluation over next 36-48 hours History/Risk Factors: EMERGENT LHC, patient intubated and unresponsive, limited history Dyslipidemia Current/Recent Smoker Chronic Lung Disease Procedure Access obtained in the right Femoral artery by percutaneous puncture Patient had successful PTCA/Drug-Eluting Stent placement in the proximal LAD. Complications: None, None Contrast: Isovue 166ml Closure Device: Manual Compression - sheath to be pulled in ICU Hemodynamics: Pressures Site Systolic/ A Wave Diastolic/ V Wave End Diastolic/ Mean HR AO 89 70 80 67 AO 104 74 87 73 AO 110 80 94 76 AO 110 80 95 70 AO 112 80 95 72 LV 125 21 43 71 AO 122 78 97 70 LV 120 20 36 70 LV Ventriculography Ejection Method: LV Gram Ejection Fraction: 25-30% Wall Motion: FRAZIER Anterobasal Severe Hypokinesis Anterolateral Severe Hypokinesis Apical: Severe Hypokinesis Inferoapical Normal Inferobasal Normal Coronary Dominance: right Lesion Findings/Interventions * Left Main Coronary Artery The LMCA has 30% stenosis * Left Anterior Descending There is a 24 mm long, 100% stenosis in the Proximal-mid LAD. The lesion has a OZIEL flow of 0. An intervention was performed on the Proximal LAD with a final stenosis of 0%. There were no lesion complications. The final OZIEL flow was 3. Small diagonal 1 was occluded after PCI, unable to wire/pass balloon. Patient hemodynamically stable. * Circumflex The Circumflex has 30% stenosis The 1st Marginal has 30% stenosis * Right Coronary Artery There is a 30% stenosis in the Proximal RCA. There is a 50% stenosis in the Distal RCA. Interventional Device(s) Vessel Segment Type Name Diameter (mm) Length (mm) Proximal LAD Balloon Emerge Monorail 2.5 15 Proximal LAD Drug Eluting Stent Synergy 3 24 Proximal LAD Balloon NC Emerge 3.5 20 Proximal LAD Balloon NC Emerge 3.75 21 Updated by Marizol Boone RN on 11/23/2016 11:37:03 PM Hipolito Mendenhall MD, FACC electronically signed on 11/24/2016 9:39:06 AM with status of Final
[2016-11-24] MEDS: Norepinephrine 4 MG in D5% in Water 250 ML IVC SCH (10:34)
[2016-11-24] MEDS ORDERED: Sodium Phosphate 30 MMOL in D5% in Water 100 ML IVPB PRN (10:59)
[2016-11-24] MEDS ORDERED: Lacri-Lube 3.5 GM TUBE BOTH EYES PRN (10:59)
[2016-11-24] MEDS: Lacri-Lube 3.5 GM TUBE BOTH EYES SCH ×3 (11:34→21:03)
[2016-11-24] MEDS: Pantoprazole 40 MG VIAL IVP SCH (11:34)
[2016-11-24] MEDS ORDERED: Perflutren Lipid Microsphere 1.3 ML in 0.9 % Sodium Chloride 8.7 ML IVP ONE (13:23)
[2016-11-24 14:29] LABS: ABG Base Excess 0.2 mEq/L (-2.0 to 3.0); ABG HCO3 23.8 mEQ/L (21-27); ABG Oxygen Saturation 99 % (95-98); ABG PCO2 35 mmHg (35-45); ABG PH 7.44 pH Units (7.32-7.45); ABG PO2 113 mmHg (85-104); ABG TCO2 24.9 mEq/L (20-26); Blood Gas FiO2 60 %
--- NOTE | 2016-11-24 16:22 | Electrocardiograph Report ---
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
--- NOTE | 2016-11-24 16:22 | Electrocardiograph Report ---
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
--- NOTE | 2016-11-24 16:46 | ECHO - Doppler Report ---
Echo with Imaging Enhancement Agent Name: Noah Syed Date of Study: 11/24/2016 Date: 1945 Ht: 70.0 in Medical Record#: [id number] Age: 71 Wt: 274.0 lb Gender: Male BSA: 2.39 Order #: [id number] Location: [facility] Room #: ICU07 Reading Physician: Renetta Egan DO Sql Server Architect: Rafal Solitario RN Ordering Physician: Hipolito Mendenhall MD, [facility] Primary Physician: None Indications: Acute Coronary Syndrome Impressions: LVEF 15-20%. Severe global reduction of LV systolic function. Definity was given. There is no evidence of left ventricular thrombus. There is evidence of moderate diastolic dysfunction of the left ventricle. RV is not well visualized in all views. In the subcostal view, RV size and function appear normal. Mild aortic regurgitation. Mild mitral regurgitation. No pulmonary hypertension. Left Ventricular Wall Motion: Rest Echo Findings The apex, apical inferior, mid inferior, basal inferior, apical anterior, mid anterior, basal anterior, apical septal, mid inferior septal, basal inferior septal, apical lateral, mid anterior lateral, basal anterior lateral, mid anterior septal, mid inferior lateral, basal anterior septal and basal inferior lateral webster were hypokinetic. Findings: Study Quality * Technically sub-optimal due to body habitus. ECG Findings * Sinus bradycardia. Aortic Valve * Aortic valve not well visualized. * No aortic stenosis. * Mild aortic regurgitation. Mitral Valve * Normal mitral valve structure. * No mitral stenosis. * Mild mitral regurgitation. Tricuspid Valve * Tricuspid valve not well visualized. * Trace tricuspid regurgitation. * Estimated RA pressure is 3 mmHg. Pulmonic Valve * Pulmonic valve is not well visualized. * No pulmonic stenosis. * No pulmonic regurgitation. Pulmonary Artery * Pulmonary artery not well visualized. Left Atrium * Normal left atrial size. Right Atrium * Normal right atrial size. Left Ventricle * Moderate left ventricular diastolic dysfunction. * There is no LV thrombus. * Definity echo contrast was used. * LVEF 15-20%. * Normal LV size. Pericardium * There is no pericardial effusion present. Interatrial Septum * No evidence of PFO by color Doppler. IVC * Normal IVC dimensions and inspiratory collapse. Aorta * Suboptimally evaluated. Right Ventricle * RV is not well visualized in all views (Poor SAX, off-axis apicals). In the subcostal view, RV size and function appear normal. Lat S Juan normal. History 10/27/2012 a Previous Echo was performed. Contrast: Definity 1.3 ml in 8.7 ml of saline 3 ml. Measurements: BP: 137/ 78 2D Normal Values IVSd: 1.10 cm 0.6 - 1.0 cm LVIDd: 5.60 cm 3.7 - 5.6 cm LVPWd: 1.30 cm 0.6 - 1.1 cm LVIDs: 3.80 cm 1.5 - 3.6 cm LA: 3.30 cm 2.0 - 4.0cm %FS: 30.90 cm >25 % LA volume: 80 Mitral Valve Peak E:.49 m/sec Peak A:.33 m/sec E/A Ratio:1.5 Peak E' Lat Juan:2.92 cm/s Peak E' Med Juan:3.31 cm/s E/E' Lat Ratio:16.9 E/E' Med Ratio:14.9 Aortic Valve AI pressure Half-time: 932.00 msec Updated by Renetta Egan on 11/24/2016 4:38:52 PM electronically signed on 11/24/2016 4:41:30 PM with status of Final Wall Motion Gandhi: 1=Normal, 2=Hypokinesis, 3=Akinesis, 4=Dyskinesis, 5=Aneurysmal, 6=Hyperkinetic, X=Not Visualized (Blank)=Missing
[2016-11-24] MEDS: Chlorhexidine Rinse 15 ML MOUTHWASH MM SCH (21:02)
[2016-11-25] MEDS: FentaNYL (PF) 1,000 MCG in 0.9 % Sodium Chloride 80 ML IVC SCH
[2016-11-25] MEDS: Lacri-Lube 3.5 GM TUBE BOTH EYES SCH ×7 (00:01→23:50)
[2016-11-25 03:58] LABS: Basophils % 0.2 %; Eosinophils # 0.1 K/mcL (0.0-0.6); Eosinophils % 0.9 %; Hematocrit 44.9 % (37.5-50.1); Hemoglobin 15.2 g/dL (12.9-16.9); Immature Granulocytes % 0.3 % (0-4); Lymphocytes # 1.1 K/mcL (0.6-4.6); Lymphocytes % 10.8 %; Mean Corpuscular HGB Conc 33.9 g/dL (31.6-35.5); Mean Corpuscular Hemoglobin 31.4 pg (28.0-33.3); Mean Corpuscular Volume 92.8 fL (83.0-100.0); Mean Platelet Volume 9.6 fL (9.4-12.4); Monocytes # 0.7 K/mcL (0.0-1.3); Monocytes % 6.8 %; Neutrophils # 8.3 K/mcL (1.6-8.9); Platelet Count 153 K/mcL (140-400); Red Blood Count 4.84 M/mcL (4.19-5.50); Red Cell Distribution Width 14.1 % (11.5-14.5)
[2016-11-25 04:08] LABS: Ionized Calcium 1.11 mmol/L (1.15-1.35)
[2016-11-25 04:10] LABS: BUN/Creatinine Ratio 25 (6-26); Blood Urea Nitrogen 19 mg/dL (8-26); Calcium 8.3 mg/dL (8.6-10.8); Carbon Dioxide 21 mEq/L (19-29); Chloride 107 mEq/L (98-109); Glucose 111 mg/dL (70-99); Osmolality,Calculated 289 (280-300); Potassium 4.1 mEq/L (3.5-4.5); Sodium 138 mEq/L (136-145); eGFR For African Americans > 60 (> 60); eGFR For Non-African Americans > 60 (> 60)
[2016-11-25 04:39] LABS: ABG Base Excess 1.5 mEq/L (-2.0 to 3.0); ABG HCO3 24.9 mEQ/L (21-27); ABG Oxygen Saturation 96 % (95-98); ABG PCO2 35 mmHg (35-45); ABG PH 7.46 pH Units (7.32-7.45); ABG PO2 75 mmHg (85-104)
[2016-11-25 04:41] LABS: Blood Gas FiO2 40 %
[2016-11-25] MEDS: *HR* Enoxaparin 40 MG/0.4 ML SYRINGE SQ SCH (06:20)
[2016-11-25] MEDS: FentaNYL (PF) 3,000 MCG in 0.9 % Sodium Chloride 240 ML IVC SCH (06:20)
--- NOTE | 2016-11-25 07:14 | Pulmonology Progress Note ---
<Otilio Wright - Last Filed: 11/25/16 10:30> Date of Encounter: 11/25/16 Time of Encounter: 07:14 Assessment and Plan (1) Cardiac arrest with ventricular fibrillation Current Visit: Yes Status: Acute Pt is still on hypothermia protocol, current temp is 93.2F, this will continue until noon today, and will reassess again during that time, family members were all updated at bed time. Initially in the ER, he was found to be in v. fib arrest, underwent ACLSx 4 rounds, emergent intubation performed, had ROSC and then emergent LHC where he had 100% occlusion of LAD and had a drug eluting stent placed. Then transfereed to ICU and started on hypothermia protocol. Temperature goal between 34-36 degrees Celsius. Continue for 32 hours (until today's noon). MAP 80-100: continue levaphed and titrate accordingly Glucose control: goal 140-180. Electrolyte protocol: replace mag and ionized calcium and potassium as needed: Goal Mag>2 and Goal K>4. Continue aspirin, statin, brilinita, echo showed LVEF 15 to 20% with severe global reduction of LV sys fxn and moderate diastolic dys fxn. (2) Cardiogenic shock Current Visit: Yes Status: Acute His lactic acid now normalized, repeated CXR showed improved pulmonary edema, currently he is on levophed and MAP is above 80, LHC showed 100% occlusion of LAD and had a drug eluting stent placed, echo showed EF of 15 to 20%, will con' t with pressor support now. (3) CAD (coronary artery disease) Current Visit: Yes Status: Acute LHC showed 100% occlusion of LAD and had a drug eluting stent placed, cardiology on board, con't statin, ASA and brilinta. Qualifiers: Qualified Code(s): I25.10 - Atherosclerotic heart disease of [place] coronary artery without angina pectoris (4) Lactic acidosis Current Visit: Yes Status: Acute Resolved, likely 2/2 circulatory failure from v-fib arrest, currently on levophed, MAP is above 80 with good pulses and perfusion. (5) Leucocytosis Current Visit: Yes Status: Acute Resolved, likely reactive from v-fib arrest, no sign of infection, no indication for abx, will con't to monitor it. Qualifiers: Qualified Code(s): D72.829 - Elevated white blood cell count, unspecified (6) DVT prophylaxis Current Visit: Yes Status: Acute Lovenox SQ daily. Subjective Principal diagnosis: V-Fib arrest Interval history: Pt seen and examined, no acute events overnight, currently on hypothermia protocol, ends at noon today, current temp is 93.2F, currently onn rocuronium, fentanyl and versed drip. Objective PUL Vital signs: Last Vital Signs Temp 93.2 F L 11/25/16 07:00 Pulse 47 11/25/16 07:00 Resp 18 11/25/16 07:00 BP 142/80 11/25/16 07:00 Pulse Ox 98 11/25/16 07:00 General appearance: no acute distress, other (on iv sedation) Eyes: nonicteric ENT: oropharynx moist Neck: supple Auscultation: bilateral: diminished breath sounds, wheezes Cardiovascular: regular rate and rhythm Gastrointestinal: hypoactive bowel sounds, soft, non-distended Integumentary: normal Extremities: no edema, no clubbing, pulses normal, cool (hypothermia protocol) Musculoskeletal: no deformities pupils equal and round, other (iv sedation) Ventilator Settings Ventilator Settings: Ventilator Settings, Last 8 Hours Ventilator Mode A/C Ventilator Mode A/C Ventilator Mode A/C Ventilator Mode A/C Ventilator Mode A/C Ventilator Mode A/C Ventilator Mode A/C Ventilator Tidal Volume 550 Setting Ventilator Tidal Volume 550 Setting Ventilator Tidal Volume 550 Setting Ventilator Tidal Volume 550 Setting Ventilator Tidal Volume 550 Setting Ventilator Tidal Volume 550 Setting Ventilator Tidal Volume 550 Setting Ventilator Respiratory Rate 18 Setting Ventilator Respiratory Rate 18 Setting Ventilator Respiratory Rate 18 Setting Ventilator Respiratory Rate 18 Setting Ventilator Respiratory Rate 18 Setting Ventilator Respiratory Rate 18 Setting Ventilator Respiratory Rate 18 Setting Actual Respiratory Rate 18 Actual Respiratory Rate 18 Actual Respiratory Rate 18 Actual Respiratory Rate 18 Actual Respiratory Rate 18 Actual Respiratory Rate 18 Positive End Expiratory 5 Pressure Positive End Expiratory 5 Pressure Positive End Expiratory 5 Pressure Positive End Expiratory 5 Pressure Positive End Expiratory 5 Pressure Positive End Expiratory 5 Pressure Positive End Expiratory 5 Pressure Peak Inspiratory Airway 45 Pressure Peak Inspiratory Airway 42 Pressure Peak Inspiratory Airway 43 Pressure Peak Inspiratory Airway 41 Pressure Peak Inspiratory Airway 40 Pressure Peak Inspiratory Airway 40 Pressure Results - Laboratory Findings CBC and BMP: 11/25/16 03:45 11/25/16 03:45 ABG ABG pH 7.46 pH Units (7.32-7.45) H 11/25/16 04:30 ABG pCO2 35 mmHg (35-45) 11/25/16 04:30 ABG pO2 75 mmHg (85-104) L 11/25/16 04:30 ABG O2 Saturation 96 % (95-98) 11/25/16 04:30 PT/INR, D-dimer PT 12.5 Seconds (9.4-12.1) H 11/24/16 00:10 Abnormal lab findings: Abnormal lab results Nucleated RBCs/100 WBC 0.2 /100 WBC (0) H 11/23/16 20:59 PT 12.5 Seconds (9.4-12.1) H 11/24/16 00:10 ABG pH 7.46 pH Units (7.32-7.45) H 11/25/16 04:30 ABG pO2 75 mmHg (85-104) L 11/25/16 04:30 Glucose 111 mg/dL (70-99) H 11/25/16 03:45 POC Glucose 118 (58-89) H 11/25/16 06:12 Lactic Acid 3.0 mmol/L (0.5-2.2) H 11/24/16 08:50 Calcium 8.3 mg/dL (8.6-10.8) L 11/25/16 03:45 Ionized Calcium 1.11 mmol/L (1.15-1.35) L 11/25/16 03:45 Troponin I 0.05 ng/mL (0-0.03) H* 11/23/16 20:59 Globulin 3.9 g/dL (2.4-3.5) H 11/23/16 20:59 - Clinical Findings Intake & Output: Intake & Output 11/24/16 11/24/16 11/25/16 15:59 23:59 07:59 Intake Total 165.9 / 165.9 90.0 / 90.0 174.1 / 174.1 Output Total 450 / 450 425 / 425 300 / 300 Balance -284.1 / -284.1 -335.0 / -335.0 -125.9 / -125.9 Weight 127.5 kg Consult Discharge Plan - Plan Referrals: NO,PCP [Primary Care Provider] - <Seun Garcia - Last Filed: 11/25/16 11:28> Date of Encounter: 11/25/16 Objective PUL Vital signs: Last Vital Signs Temp 95.7 F L 04/08/17 11:07 Pulse 65 11/25/16 11:07 Resp 16 11/25/16 11:07 BP 128/61 11/25/16 11:07 Pulse Ox 97 11/25/16 11:07 Ventilator Settings Ventilator Settings: Ventilator Settings, Last 8 Hours Ventilator Mode A/C Ventilator Mode A/C Ventilator Mode A/C Ventilator Mode A/C Ventilator Mode A/C Ventilator Mode A/C Ventilator Mode A/C Ventilator Mode A/C Ventilator Mode A/C Ventilator Tidal Volume 550 Setting Ventilator Tidal Volume 550 Setting Ventilator Tidal Volume 550 Setting Ventilator Tidal Volume 550 Setting Ventilator Tidal Volume 550 Setting Ventilator Tidal Volume 550 Setting Ventilator Tidal Volume 550 Setting Ventilator Tidal Volume 550 Setting Ventilator Tidal Volume 550 Setting Ventilator Respiratory Rate 16 Setting Ventilator Respiratory Rate 16 Setting Ventilator Respiratory Rate 16 Setting Ventilator Respiratory Rate 16 Setting Ventilator Respiratory Rate 16 Setting Ventilator Respiratory Rate 18 Setting Ventilator Respiratory Rate 18 Setting Ventilator Respiratory Rate 18 Setting Ventilator Respiratory Rate 18 Setting Actual Respiratory Rate 16 Actual Respiratory Rate 16 Actual Respiratory Rate 16 Actual Respiratory Rate 16 Actual Respiratory Rate 16 Actual Respiratory Rate 18 Actual Respiratory Rate 18 Actual Respiratory Rate 18 Positive End Expiratory 5 Pressure Positive End Expiratory 5 Pressure Positive End Expiratory 5 Pressure Positive End Expiratory 5 Pressure Positive End Expiratory 5 Pressure Positive End Expiratory 5 Pressure Positive End Expiratory 5 Pressure Positive End Expiratory 5 Pressure Positive End Expiratory 5 Pressure Peak Inspiratory Airway 38 Pressure Peak Inspiratory Airway 39 Pressure Peak Inspiratory Airway 38 Pressure Peak Inspiratory Airway 38 Pressure Peak Inspiratory Airway 44 Pressure Peak Inspiratory Airway 45 Pressure Peak Inspiratory Airway 42 Pressure Peak Inspiratory Airway 43 Pressure Results - Laboratory Findings CBC and BMP: 11/25/16 03:45 11/25/16 03:45 ABG ABG pH 7.46 pH Units (7.32-7.45) H 11/25/16 04:30 ABG pCO2 35 mmHg (35-45) 11/25/16 04:30 ABG pO2 75 mmHg (85-104) L 11/25/16 04:30 ABG O2 Saturation 96 % (95-98) 11/25/16 04:30 PT/INR, D-dimer PT 12.5 Seconds (9.4-12.1) H 11/24/16 00:10 Abnormal lab findings: Abnormal lab results Nucleated RBCs/100 WBC 0.2 /100 WBC (0) H 11/23/16 20:59 PT 12.5 Seconds (9.4-12.1) H 11/24/16 00:10 ABG pH 7.46 pH Units (7.32-7.45) H 11/25/16 04:30 ABG pO2 75 mmHg (85-104) L 11/25/16 04:30 Glucose 111 mg/dL (70-99) H 11/25/16 03:45 POC Glucose 123 (58-89) H 11/25/16 11:05 Calcium 8.3 mg/dL (8.6-10.8) L 11/25/16 03:45 Ionized Calcium 1.11 mmol/L (1.15-1.35) L 11/25/16 03:45 Troponin I 0.05 ng/mL (0-0.03) H* 11/23/16 20:59 Globulin 3.9 g/dL (2.4-3.5) H 11/23/16 20:59 - Clinical Findings Intake & Output: Intake & Output 11/24/16 11/25/16 11/25/16 23:59 07:59 15:59 Intake Total 90.0 / 90.0 174.1 / 174.1 Output Total 425 / 425 450 / 450 Balance -335.0 / -335.0 -275.9 / -275.9 Weight 127.5 kg - Attending Attestation I examined this patient and my medical decision-making was reviewed with the MASTER COOK/PA/Advanced Practice Nurse/Resident Physician. I agree with the documented findings, disposition and treatment plan as described except to the extent set forth below. Patient seen and examined. Labs, radiology, chart personally reviewed. 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 Pulmonary: Acceptable oxygenation and ventilation and lower RR on the vent due to respiratory alkalosis and his CXR on my review there is improvement of his pulmonary edema. No plan for any SBT at this time. Cardiovascular: Cardiogenic shock and continue Levophed. Rewarming will start around noon today. I'm hoping he will have meaningful neurological recovery after ROSC. Discussed with family at bedside. GI: Nutrition per dietary and GI prophylaxis per routine. Keep NPO for now. Heme: DVT prophylaxis per routine ID: no evidence of infections. Renal; urine out put and renal funtion reviewed Endorcine: blood glucose is monitored Lines: all lines checked and no evidence of infections Skin: skin care to prevent pressure ulcers per nursing routine care I spent 35 min of Critical Care time with this patient. It involved decision making of high complexity to assess, manipulate, and support vital organ system failure and/or to prevent further life threatening deterioration of the patient' s condition. The time involved in the performance of separately reportable procedures was not counted toward critical care time.
[2016-11-25] MEDS: Pantoprazole 40 MG VIAL IVP SCH (08:21)
[2016-11-25] MEDS: Chlorhexidine Rinse 15 ML MOUTHWASH MM SCH ×2 (08:21→22:07)
[2016-11-25] MEDS: Aspirin 81 MG TAB.CHEW PO SCH (08:21)
[2016-11-25] MEDS: *HR* Ticagrelor 90 MG TABLET PO SCH ×2 (08:21→22:08)
[2016-11-25] MEDS ORDERED: *HR* Meperidine 25 MG/ML SYRINGE IVP PRN ×2 (10:01→10:09)
--- NOTE | 2016-11-25 11:56 | Cardiology Progress Note ---
Date of Encounter: 11/25/16 Time of Encounter: 11:54 Assessment and Plan (1) Ventilatory failure Current Visit: Yes Status: Acute Cardiac arrest s/p LHC. Appreciate ICU support. (2) Ischemic cardiomyopathy Current Visit: Yes Status: Acute Severe ICMP s/p STEMI/cardiac arrest/PCI to LAD. LVEF 15-20% per TTE. BP remains hypertensive, but HR somewhat bradycardic. May not tolerate aggressive BB dose. Will hold BB until warming process completed, sedation decreased - HR should hopefully improve. Start ACEi. Rhonchi of lungs and pulmonary edema on CXR - start low dose lasix. Consider aldactone in near future. Continue DAPT, statin for ACS event and PCI. (3) Cardiac arrest Current Visit: Yes Status: Acute Acute STEMI, cardiac arrest, s/p ACLS, emergent LHC with ABDON x1 to LAD. Resultant ischemic cardiomyopathy. Currently intubated, sedated in ICU. Remains hemodynamically stable. If BP/MAP worsens, will need to start pressors, but will monitor for now. Appreciate ICU care re: ventilator, hypothermic protocol. Maintain Mg > 2, K > 4. Poor prognosis given critical condition. (4) STEMI (ST elevation myocardial infarction) Current Visit: Yes Status: Acute See comments under ICMP/cardiac arrest. Qualifiers: Involved coronary artery: other coronary artery Qualified Code(s): I21.29 - ST elevation (STEMI) myocardial infarction involving other sites Discussion w patient/family: The assessment and plan as outlined above was discussed with the patient and/or family members who expressed understanding and agreement. All questions were answered. Thank you for involving us in the care of your patient. Please call with any questions. Subjective Principal diagnosis: V-Fib arrest Interval history: Overall, patient remains stable. Still sedated, intubated. Warming protocol started. HR 50s-60s. BP actually hypertensive. Remains off pressors. Objective Vital Signs, Last 4 Hours Temp Pulse Resp BP Pulse Ox 11/25/16 11:07 95.7 F L 58 16 128/61 97 11/25/16 10:15 95.9 F L 62 16 140/74 99 11/25/16 09:38 95.4 F L 62 16 137/76 99 11/25/16 08:21 94.5 F L 55 16 150/80 99 11/25/16 08:04 16 155/87 99 General: Other (Sedated, intubated, critical condition. ) HEENT: Atraumatic, Normocephaly Cardiac: Other (Distant, but regular. No obvious murmurs. ) Neuro: Other (Sedated) Abdomen: Soft, Non-Tender Skin: No rashes noted on visualized skin Musculoskeletal: No Chest Wall Tenderness Extremities: No Clubbing, No Cyanosis, No Edema Results 11/25/16 03:45 11/25/16 03:45 Lab Results 11/25/16 11/25/16 03:45 03:45 WBC 10.2 Hgb 15.2 Hct 44.9 Plt Count 153 Sodium 138 Potassium 4.1 Chloride 107 Carbon Dioxide 21 BUN 19 Creatinine 0.76 Glucose 111 H Calcium 8.3 L Magnesium 2.0 - Imaging and Cardiology Echo: report reviewed Cardiac cath: report reviewed Consult Discharge Plan - Plan Referrals: NO,PCP [Primary Care Provider] -
[2016-11-25 17:10] LABS: Basophils % 0.2 %; Hematocrit 45.6 % (37.5-50.1); Hemoglobin 14.7 g/dL (12.9-16.9); Immature Granulocytes % 0.3 % (0-4); Lymphocytes # 0.7 K/mcL (0.6-4.6); Lymphocytes % 5.1 %; Mean Corpuscular HGB Conc 32.2 g/dL (31.6-35.5); Mean Corpuscular Hemoglobin 30.9 pg (28.0-33.3); Mean Corpuscular Volume 95.8 fL (83.0-100.0); Mean Platelet Volume 9.9 fL (9.4-12.4); Monocytes % 7.7 %; Neutrophils # 11.2 K/mcL (1.6-8.9); Platelet Count 182 K/mcL (140-400); Red Blood Count 4.76 M/mcL (4.19-5.50); Red Cell Distribution Width 14.4 % (11.5-14.5); Segmented Neutrophils % 86.7 %
[2016-11-25] MEDS: Furosemide 40 MG/4 ML VIAL IVP SCH (17:15)
[2016-11-25 17:21] LABS: BUN/Creatinine Ratio 20 (6-26); Blood Urea Nitrogen 22 mg/dL (8-26); Calcium 8.1 mg/dL (8.6-10.8); Carbon Dioxide 24 mEq/L (19-29); Chloride 105 mEq/L (98-109); Glucose 137 mg/dL (70-99); Osmolality,Calculated 291 (280-300); Potassium 4.9 mEq/L (3.5-4.5); Sodium 138 mEq/L (136-145); eGFR For African Americans > 60 (> 60); eGFR For Non-African Americans > 60 (> 60)
[2016-11-25] MEDS ORDERED: Magnesium Sulfate 2 GM in D5% in Water 100 ML IVPB STA (18:00)
[2016-11-25] MEDS: Magnesium Sulfate 2 GM in D5% in Water 100 ML IVPB PRN (18:03)
--- NOTE | 2016-11-25 18:10 | Event Note ---
Date of Encounter: 11/25/16 Time of Encounter: 18:03 Patient being re-warmed, sedation stopped. Some spontaneous movement witnessed. Patient demonstrated a prolonged period of polymorphic VT/torsades de pointes. QTc prolonged > 500 ms. Pharmacy contacted and will review for any prolonging QT drugs. Recent BMP - normal K+. Previous magnesium pending, but previous normal. Going ahead with magnesium bolus. Currently on low dose norepinephrine. Will continue to monitor. Further recommendations to follow. Family updated, prognosis is very poor.
[2016-11-25] MEDS: Norepinephrine 4 MG in D5% in Water 250 ML IVC SCH (22:08)
[2016-11-25 22:43] LABS: Basophils % 0.1 %; Hematocrit 44.8 % (37.5-50.1); Hemoglobin 14.5 g/dL (12.9-16.9); Immature Granulocytes % 0.4 % (0-4); Lymphocytes # 0.8 K/mcL (0.6-4.6); Lymphocytes % 5.3 %; Mean Corpuscular HGB Conc 32.4 g/dL (31.6-35.5); Mean Corpuscular Volume 95.9 fL (83.0-100.0); Monocytes # 1.2 K/mcL (0.0-1.3); Monocytes % 7.4 %; Neutrophils # 13.8 K/mcL (1.6-8.9); Platelet Count 200 K/mcL (140-400); Red Blood Count 4.67 M/mcL (4.19-5.50); Red Cell Distribution Width 14.5 % (11.5-14.5); Segmented Neutrophils % 86.8 %
[2016-11-25 22:49] LABS: INR 1.1; Prothrombin Time 12.4 Seconds (9.4-12.1)
[2016-11-25 22:50] LABS: Ionized Calcium 1.05 mmol/L (1.15-1.35)
[2016-11-25 22:51] LABS: Activated Partial Thrombo Time 32.3 Seconds (26.0-36.0)
[2016-11-25 23:00] LABS: Alanine Aminotransferase 91 Units/L (0-55); Albumin/Globulin Ratio 0.9 (1.1-2.2); Alkaline Phosphatase 73 Units/L (38-126); Aspartate Amino Transferase 95 Units/L (5-34); BUN/Creatinine Ratio 17 (6-26); Blood Urea Nitrogen 23 mg/dL (8-26); Calcium 8.1 mg/dL (8.6-10.8); Carbon Dioxide 25 mEq/L (19-29); Chloride 104 mEq/L (98-109); Globulin 3.2 g/dL (2.4-3.5); Glucose 180 mg/dL (70-99); Magnesium 2.4 mg/dL (1.6-2.6); Osmolality,Calculated 294 (280-300); Potassium 4.3 mEq/L (3.5-4.5); Sodium 138 mEq/L (136-145); eGFR For African Americans > 60 (> 60); eGFR For Non-African Americans 53 (> 60)
[2016-11-25] MEDS ORDERED: Amiodarone Premix 360 MG/200 ML BAG IVC ONE (23:03)
[2016-11-25] MEDS ORDERED: Amiodarone Premix 150 MG/100 ML BAG IVPB ONE (23:03)
[2016-11-25 23:10] LABS: Bilirubin,Total 0.9 mg/dL (0.2-1.2); Total Protein 6.2 g/dL (6.0-8.3)
--- NOTE | 2016-11-25 23:14 | Event Note ---
Date of Encounter: 11/25/16 Time of Encounter: 23:04 I responded to a code blue as called by ICU staff on this patient. Pt developed polymorphic VT and was pulseless. He received defibrillation at 200 J and chest compressions for one round before I arrived. Once I arrived, he has a pulse and stable BP. Telemetry showed PVC's intermixed with sinus rhythm. EKG revealed sinus rhythm with lateral wall ischemia -- unchanged from prior EKG today. However, his QTc was improved now and 421 ms. I called and discussed with Dr. Denis. He recommended starting Amiodarone bolus and drip per protocol. I ordered STAT labs, which are pending. I will correct electrolytes as needed. I updated the family and conveyed to them the poor prognosis. Patient remains full code for now.
[2016-11-25 23:24] LABS: ABG Base Excess 1.7 mEq/L (-2.0 to 3.0); ABG HCO3 27.2 mEQ/L (21-27); ABG Oxygen Saturation 93 % (95-98); ABG PCO2 45 mmHg (35-45); ABG PH 7.39 pH Units (7.32-7.45); ABG PO2 66 mmHg (85-104); ABG TCO2 28.6 mEq/L (20-26)
[2016-11-25 23:25] LABS: Blood Gas FiO2 40 %
[2016-11-25] MEDS: Calcium Gluconate 1,000 MG in D5% in Water 100 ML IVPB PRN (23:36)
[2016-11-25] MEDS: D5 IVC SCH (23:51)
[2016-11-25] MEDS: WATER IVC SCH (23:51)
[2016-11-25] MEDS: ROCURONIUM BROMIDE IVC SCH (23:51)
[2016-11-26] MEDS ORDERED: Magnesium Sulfate 2 GM in D5% in Water 100 ML IVPB ONE (00:10)
[2016-11-26] MEDS ORDERED: 0.9 % Sodium Chloride 1,000 ML ONE (01:08)
[2016-11-26 03:42] LABS: Basophils % 0.1 %; Hematocrit 41.3 % (37.5-50.1); Hemoglobin 13.5 g/dL (12.9-16.9); Immature Granulocytes % 0.3 % (0-4); Lymphocytes # 0.5 K/mcL (0.6-4.6); Lymphocytes % 3.5 %; Mean Corpuscular HGB Conc 32.7 g/dL (31.6-35.5); Mean Corpuscular Hemoglobin 31.3 pg (28.0-33.3); Mean Corpuscular Volume 95.6 fL (83.0-100.0); Mean Platelet Volume 9.9 fL (9.4-12.4); Monocytes # 0.8 K/mcL (0.0-1.3); Monocytes % 6.1 %; Neutrophils # 12.5 K/mcL (1.6-8.9); Platelet Count 180 K/mcL (140-400); Red Blood Count 4.32 M/mcL (4.19-5.50); Red Cell Distribution Width 14.4 % (11.5-14.5)
[2016-11-26 03:52] LABS: BUN/Creatinine Ratio 17 (6-26); Blood Urea Nitrogen 22 mg/dL (8-26); Calcium 8.4 mg/dL (8.6-10.8); Carbon Dioxide 24 mEq/L (19-29); Chloride 104 mEq/L (98-109); Glucose 195 mg/dL (70-99); Magnesium 2.8 mg/dL (1.6-2.6); Osmolality,Calculated 293 (280-300); Potassium 4.1 mEq/L (3.5-4.5); Sodium 137 mEq/L (136-145); eGFR For African Americans > 60 (> 60); eGFR For Non-African Americans 54 (> 60)
[2016-11-26] MEDS: Lacri-Lube 3.5 GM TUBE BOTH EYES SCH ×5 (04:22→20:19)
[2016-11-26 04:33] LABS: ABG Base Excess 2.5 mEq/L (-2.0 to 3.0); ABG HCO3 27.9 mEQ/L (21-27); ABG Oxygen Saturation 93 % (95-98); ABG PCO2 45 mmHg (35-45); ABG PO2 66 mmHg (85-104); ABG TCO2 29.3 mEq/L (20-26)
[2016-11-26 04:34] LABS: Blood Gas FiO2 40 %; Blood Gas PEEP 5 cm H2O; Blood Gas Respiration Rate 16; Blood Gas VT 550 cc
[2016-11-26] MEDS: Calcium Gluconate 1,000 MG in D5% in Water 100 ML IVPB PRN ×2 (05:12→20:19)
[2016-11-26] MEDS: *HR* Enoxaparin 40 MG/0.4 ML SYRINGE SQ SCH (05:14)
[2016-11-26] MEDS: Amiodarone Premix 360 MG/200 ML BAG IVC SCH ×2 (05:32→17:58)
[2016-11-26] MEDS: FentaNYL (PF) 3,000 MCG in 0.9 % Sodium Chloride 240 ML IVC SCH (05:33)
--- NOTE | 2016-11-26 05:51 | Pulmonology Progress Note ---
Addendum entered and electronically signed by Otilio Wright DO 11/26/16 12:52: Head CT showed large left middle cerebral artery territory infarct involving nearly the entire left middle artery territory that appears to be subacute, no significant midline shift. Neurology has been consulted, family members were updated on the result of head CT, code status was discussed with them with telecommunications support and neurologist, changing code status to DNR CCA, NO CHEST COMPRESSION and 1 SHOCK is allowed in case of cardiac arrest requiring defibrillation. Original Note: <Otilio Wright - Last Filed: 11/26/16 12:08> Date of Encounter: 11/26/16 Time of Encounter: 05:51 Assessment and Plan (1) Cardiac arrest with ventricular fibrillation Current Visit: Yes Status: Acute Hypothermic protocol stopped at noon yesterday, around 6 PM last night patient had a prolonged period of polymorphic ventricular tachycardia/torsades de pointes, QTc prolonged more than 500 ms, magnesium bolus was given. Around 11 PM GRAYSON CUBA was called, patient developed pulseless polymorphic ventricular tachycardia and he received one-time defibrillation at 200 J with CPR 1 and soon after, patient's pulse came back with stable blood pressure, currently patient is on amiodarone drip, family members were all updated at bed time this morning. Initially in the ER, he was found to be in v. fib arrest, underwent ACLSx 4 rounds, emergent intubation performed, had ROSC and then emergent LHC where he had 100% occlusion of LAD and had a drug eluting stent placed. Then transfereed to ICU and started on hypothermia protocol. Continue aspirin, statin, lisinopril, and brilinita, echo showed LVEF 15 to 20% with severe global reduction of LV sys fxn and moderate diastolic dys fxn. We will obtain Head CT without contrast today to assess for anoxic brain injury from cardiac arrest 2 days ago. (2) Cardiogenic shock Current Visit: Yes Status: Acute His lactic acid now normalized, repeated CXR showed improved pulmonary edema, currently he is on levophed and MAP is above 80, LHC showed 100% occlusion of LAD and had a drug eluting stent placed, echo showed EF of 15 to 20%, will con' t with pressor support now. (3) CAD (coronary artery disease) Current Visit: Yes Status: Acute LHC showed 100% occlusion of LAD and had a drug eluting stent placed, cardiology on board, con't statin, lisinopril, ASA and brilinta. Qualifiers: Qualified Code(s): I25.10 - Atherosclerotic heart disease of [place] coronary artery without angina pectoris (4) Lactic acidosis Current Visit: Yes Status: Acute Resolved, likely 2/2 circulatory failure from v-fib arrest, currently on levophed, MAP is above 80 with good pulses and perfusion. (5) Leucocytosis Current Visit: Yes Status: Acute Improving, likely reactive from v-fib arrest, no sign of infection, no indication for abx, will con't to monitor it. Qualifiers: Qualified Code(s): D72.829 - Elevated white blood cell count, unspecified (6) DVT prophylaxis Current Visit: Yes Status: Acute Lovenox SQ daily. Subjective Principal diagnosis: V-Fib arrest Interval history: Pt seen and examined, hypothermic protocol stopped at noon yesterday, around 6 PM last night patient had a prolonged period of polymorphic ventricular tachycardia/torsades de pointes, QTc prolonged more than 500 ms, magnesium bolus was given. Around 11 PM GRAYSON CUBA was called, patient developed pulseless polymorphic ventricular tachycardia and he received one-time defibrillation at 200 J with CPR 1 and soon after, patient's pulse came back with stable blood pressure. This morning patient made nonpurposeful movement, remained on IV sedation. Objective PUL Vital signs: Last Vital Signs Temp 98.3 F 11/26/16 03:49 Pulse 61 11/26/16 05:00 Resp 16 11/26/16 05:00 BP 99/60 11/26/16 05:00 Pulse Ox 95 11/26/16 05:00 General appearance: no acute distress, other (On IV sedation) Eyes: nonicteric ENT: oropharynx moist Neck: supple Auscultation: bilateral: diminished breath sounds (at base) Cardiovascular: regular rate and rhythm Gastrointestinal: normoactive bowel sounds, soft, non-distended Integumentary: normal Extremities: no cyanosis, no edema, no clubbing, pink and warm, pulses normal Musculoskeletal: no deformities pupils equal and round (Constricted), other (On IV sedation, intermittent nonpurposeful movements) Ventilator Settings Ventilator Settings: Ventilator Settings, Last 8 Hours Ventilator Mode VC+ Ventilator Mode A/C Ventilator Mode A/C Ventilator Mode A/C Ventilator Mode A/C Ventilator Mode A/C Ventilator Mode VC+ Ventilator Tidal Volume 550 Setting Ventilator Tidal Volume 550 Setting Ventilator Tidal Volume 550 Setting Ventilator Tidal Volume 550 Setting Ventilator Tidal Volume 550 Setting Ventilator Tidal Volume 550 Setting Ventilator Tidal Volume 550 Setting Ventilator Respiratory Rate 16 Setting Ventilator Respiratory Rate 16 Setting Ventilator Respiratory Rate 16 Setting Ventilator Respiratory Rate 16 Setting Ventilator Respiratory Rate 16 Setting Ventilator Respiratory Rate 16 Setting Ventilator Respiratory Rate 16 Setting Actual Respiratory Rate 16 Actual Respiratory Rate 16 Actual Respiratory Rate 16 Actual Respiratory Rate 16 Actual Respiratory Rate 16 Positive End Expiratory 5 Pressure Positive End Expiratory 5 Pressure Positive End Expiratory 5 Pressure Positive End Expiratory 5 Pressure Positive End Expiratory 5 Pressure Positive End Expiratory 5 Pressure Positive End Expiratory 5 Pressure Peak Inspiratory Airway 33 Pressure Peak Inspiratory Airway 34 Pressure Peak Inspiratory Airway 36 Pressure Peak Inspiratory Airway 35 Pressure Peak Inspiratory Airway 33 Pressure Results - Laboratory Findings CBC and BMP: 11/26/16 03:29 11/26/16 03:29 ABG ABG pH 7.40 pH Units (7.32-7.45) 11/26/16 04:25 ABG pCO2 45 mmHg (35-45) 11/26/16 04:25 ABG pO2 66 mmHg (85-104) L 11/26/16 04:25 ABG O2 Saturation 93 % (95-98) L 11/26/16 04:25 PT/INR, D-dimer PT 12.4 Seconds (9.4-12.1) H 11/25/16 22:30 Abnormal lab findings: Abnormal lab results WBC 13.8 K/mcL (4.3-11.1) H 11/26/16 03:29 Neutrophils # 12.5 K/mcL (1.6-8.9) H 11/26/16 03:29 Lymphocytes # 0.5 K/mcL (0.6-4.6) L 11/26/16 03:29 Nucleated RBCs/100 WBC 0.2 /100 WBC (0) H 11/23/16 20:59 PT 12.4 Seconds (9.4-12.1) H 11/25/16 22:30 ABG pO2 66 mmHg (85-104) L 11/26/16 04:25 ABG HCO3 27.9 mEQ/L (21-27) H 11/26/16 04:25 ABG Total CO2 29.3 mEq/L (20-26) H 11/26/16 04:25 ABG O2 Saturation 93 % (95-98) L 11/26/16 04:25 Creatinine 1.31 mg/dL (0.72-1.25) H 11/26/16 03:29 Est GFR (Non-Af Amer) 54 (> 60) L 11/26/16 03:29 Glucose 195 mg/dL (70-99) H 11/26/16 03:29 POC Glucose 168 (58-89) H 11/25/16 23:48 Lactic Acid 2.3 mmol/L (0.5-2.2) H 11/25/16 22:30 Calcium 8.4 mg/dL (8.6-10.8) L 11/26/16 03:29 Ionized Calcium 1.08 mmol/L (1.15-1.35) L 11/26/16 04:03 Magnesium 2.8 mg/dL (1.6-2.6) H 11/26/16 03:29 AST 95 Units/L (5-34) H 11/25/16 22:30 ALT 91 Units/L (0-55) H 11/25/16 22:30 Troponin I 24.64 ng/mL (0-0.03) H* 11/25/16 22:30 Albumin 3.0 g/dL (3.5-5.0) L D 11/25/16 22:30 Albumin/Globulin Ratio 0.9 (1.1-2.2) L 11/25/16 22:30 - Clinical Findings Intake & Output: Intake & Output 11/25/16 11/25/16 11/26/16 15:59 23:59 07:59 Intake Total 190 / 190 424 / 424 764 / 764 Output Total 100 / 100 950 / 950 100 / 100 Balance 90 / 90 -526 / -526 664 / 664 Weight 129 kg Consult Discharge Plan - Plan Referrals: NO,PCP [Primary Care Provider] - <Seun Garcia - Last Filed: 11/26/16 20:05> Date of Encounter: 11/26/16 Objective PUL Vital signs: Last Vital Signs Temp 98.3 F 11/26/16 07:18 Pulse 63 11/26/16 09:00 Resp 16 11/26/16 09:00 BP 105/58 11/26/16 09:00 Pulse Ox 94 11/26/16 09:00 Ventilator Settings Ventilator Settings: Ventilator Settings, Last 8 Hours Ventilator Mode VC+ Ventilator Mode VC+ Ventilator Mode VC+ Ventilator Mode VC+ Ventilator Mode VC+ Ventilator Mode VC+ Ventilator Mode A/C Ventilator Mode A/C Ventilator Tidal Volume 550 Setting Ventilator Tidal Volume 550 Setting Ventilator Tidal Volume 550 Setting Ventilator Tidal Volume 550 Setting Ventilator Tidal Volume 550 Setting Ventilator Tidal Volume 550 Setting Ventilator Tidal Volume 550 Setting Ventilator Tidal Volume 550 Setting Ventilator Respiratory Rate 16 Setting Ventilator Respiratory Rate 16 Setting Ventilator Respiratory Rate 16 Setting Ventilator Respiratory Rate 16 Setting Ventilator Respiratory Rate 16 Setting Ventilator Respiratory Rate 16 Setting Ventilator Respiratory Rate 16 Setting Ventilator Respiratory Rate 16 Setting Actual Respiratory Rate 16 Actual Respiratory Rate 16 Actual Respiratory Rate 16 Actual Respiratory Rate 25 Actual Respiratory Rate 19 Actual Respiratory Rate 16 Actual Respiratory Rate 16 Positive End Expiratory 5 Pressure Positive End Expiratory 5 Pressure Positive End Expiratory 5 Pressure Positive End Expiratory 5 Pressure Positive End Expiratory 5 Pressure Positive End Expiratory 5 Pressure Positive End Expiratory 5 Pressure Positive End Expiratory 5 Pressure Peak Inspiratory Airway 30 Pressure Peak Inspiratory Airway 31 Pressure Peak Inspiratory Airway 31 Pressure Peak Inspiratory Airway 42 Pressure Peak Inspiratory Airway 35 Pressure Peak Inspiratory Airway 33 Pressure Peak Inspiratory Airway 34 Pressure Results - Laboratory Findings CBC and BMP: 11/26/16 03:29 11/26/16 14:35 ABG ABG pH 7.40 pH Units (7.32-7.45) 11/26/16 04:25 ABG pCO2 45 mmHg (35-45) 11/26/16 04:25 ABG pO2 66 mmHg (85-104) L 11/26/16 04:25 ABG O2 Saturation 93 % (95-98) L 11/26/16 04:25 PT/INR, D-dimer PT 12.4 Seconds (9.4-12.1) H 11/25/16 22:30 Abnormal lab findings: Abnormal lab results WBC 13.8 K/mcL (4.3-11.1) H 11/26/16 03:29 Neutrophils # 12.5 K/mcL (1.6-8.9) H 11/26/16 03:29 Lymphocytes # 0.5 K/mcL (0.6-4.6) L 11/26/16 03:29 Nucleated RBCs/100 WBC 0.2 /100 WBC (0) H 11/23/16 20:59 PT 12.4 Seconds (9.4-12.1) H 11/25/16 22:30 ABG pO2 66 mmHg (85-104) L 11/26/16 04:25 ABG HCO3 27.9 mEQ/L (21-27) H 11/26/16 04:25 ABG Total CO2 29.3 mEq/L (20-26) H 11/26/16 04:25 ABG O2 Saturation 93 % (95-98) L 11/26/16 04:25 Creatinine 1.31 mg/dL (0.72-1.25) H 11/26/16 03:29 Est GFR (Non-Af Amer) 54 (> 60) L 11/26/16 03:29 Glucose 195 mg/dL (70-99) H 11/26/16 03:29 POC Glucose 168 (58-89) H 11/25/16 23:48 Lactic Acid 2.3 mmol/L (0.5-2.2) H 11/25/16 22:30 Calcium 8.4 mg/dL (8.6-10.8) L 11/26/16 03:29 Ionized Calcium 1.08 mmol/L (1.15-1.35) L 11/26/16 04:03 Magnesium 2.8 mg/dL (1.6-2.6) H 11/26/16 03:29 AST 95 Units/L (5-34) H 11/25/16 22:30 ALT 91 Units/L (0-55) H 11/25/16 22:30 Troponin I 24.64 ng/mL (0-0.03) H* 11/25/16 22:30 Albumin 3.0 g/dL (3.5-5.0) L D 11/25/16 22:30 Albumin/Globulin Ratio 0.9 (1.1-2.2) L 11/25/16 22:30 - Clinical Findings Intake & Output: Intake & Output 11/25/16 11/26/16 11/26/16 23:59 07:59 15:59 Intake Total 424 / 424 979 / 979 145 / 145 Output Total 950 / 950 100 / 100 Balance -526 / -526 879 / 879 145 / 145 Weight 129 kg - Attending Attestation I examined this patient and my medical decision-making was reviewed with the COMPUTER SYSTEMS SOFTWARE ARCHITECT/PA/Advanced Practice Nurse/Resident Physician. I agree with the documented findings, disposition and treatment plan as described except to the extent set forth below. Patient seen and examined. Labs, radiology, chart personally reviewed. Agree with resident's history and physical, assessment, plan with following comments: VIDEO OPERATOR: Patient does not follows commands, however family stated he did and he is not moving the right side for that reason will need head CT to evaluate for any VIDEO OPERATOR events/strokes after his code blue, Pulmonary: Acceptable oxygenation and ventilation. Briefly changed to spontaneous breathing trial and clearly patient is breathing over the vent. Continue vent support at this time since patient still requiring vasopressor and mental status is not normal. Cardiovascular: Cardiogenic shock status post ROSC. Patient had defibrillation for cardiac events/arrhythmia. Management per cardiology team. GI: Nutrition per dietary and GI prophylaxis per routine Heme: DVT prophylaxis per routine ID: No evidence of infections however aspiration pneumonia could have happened, but he is not requiring any higher FIO2 and no need for antibiotics for now and will closely monitor. Renal; urine out put and renal funtion reviewed Endorcine: blood glucose is monitored Lines: all lines checked and no evidence of infections Skin: skin care to prevent pressure ulcers per nursing routine care Discussed with the family at the bedside Dr. Evelio Zimmerman (neurologist) and myself in the presence of nurses had family meeting and explained to them about the poor prognosis because of the stroke and his cardiomyopathy and we discussed transferring to [place] for further intervention versus supportive care and family stated patient would not wish to be on life supports for long time or being in nursing homes. They don't want any more chest compression, however because he responded to defibrillation last night, they want to try defibrillation and medications, but no chest compression and if continue to have arrythmias, they don't want patient to have repeated shocks. Palliative consult would be appropriate to be consulted tomorrow. Primary team notified. I spent 45 min of Critical Care time with this patient. It involved decision making of high complexity to assess, manipulate, and support vital organ system failure and/or to prevent further life threatening deterioration of the patient' s condition. The time involved in the performance of separately reportable procedures was not counted toward critical care time.
[2016-11-26] MEDS: Aspirin 81 MG TAB.CHEW PO SCH (07:47)
[2016-11-26] MEDS: Chlorhexidine Rinse 15 ML MOUTHWASH MM SCH ×2 (07:47→22:13)
[2016-11-26] MEDS: Furosemide 40 MG/4 ML VIAL IVP SCH (07:47)
[2016-11-26] MEDS: *HR* Ticagrelor 90 MG TABLET PO SCH ×2 (07:47→22:13)
[2016-11-26] MEDS: Pantoprazole 40 MG VIAL IVP SCH (07:48)
[2016-11-26] MEDS ORDERED: *HR* EPINEPHrine 1 MG/10 ML SYRINGE IVP ONE (08:52)
[2016-11-26] MEDS ORDERED: *HR* Amiodarone Premix 150 MG/100 ML BAG IVPB ONE (08:52)
[2016-11-26] MEDS ORDERED: *HR* Amiodarone Premix 360 MG/200 ML BAG IVC ONE (08:52)
[2016-11-26] MEDS ORDERED: *HR* Magnesium Sulfate 2 GM/50 ML PIGGYBACK IVPB ONE (08:52)
[2016-11-26] MEDS: Norepinephrine 4 MG in D5% in Water 250 ML IVC SCH (11:46)
--- NOTE | 2016-11-26 11:53 | Cardiology Progress Note ---
Date of Encounter: 11/26/16 Time of Encounter: 11:50 Assessment and Plan (1) Ventilatory failure Current Visit: Yes Status: Acute Cardiac arrest s/p LHC, PCI, severe CMP. Now with large MCA stroke. Appreciate ICU support. (2) Ischemic cardiomyopathy Current Visit: Yes Status: Acute Severe ICMP s/p STEMI/cardiac arrest/PCI to LAD. LVEF 15-20% per TTE. Intermittently requiring low dose levophed this AM, so unable to tolerate BB/ ACEi therapy. Prolonged QTc improved, TdP seems better. Less ventricular ectopy since starting amiodarone. Continue DAPT, statin therapy. (3) Cardiac arrest Current Visit: Yes Status: Acute Acute STEMI, cardiac arrest, s/p ACLS, emergent LHC with ABDON x1 to LAD. Resultant ischemic cardiomyopathy. Appreciate ICU care re: ventilator, hypothermic protocol. Maintain Mg > 2, K > 4. Poor prognosis given critical condition. (4) STEMI (ST elevation myocardial infarction) Current Visit: Yes Status: Acute See comments under ICMP/cardiac arrest. Qualifiers: Involved coronary artery: other coronary artery Qualified Code(s): I21.29 - ST elevation (STEMI) myocardial infarction involving other sites (5) Acute ischemic left MCA stroke Current Visit: Yes Status: Acute Newly diagnosed large left MCA stroke. Neurology consultation requested. Discussion w patient/family: The assessment and plan as outlined above was discussed with the patient and/or family members who expressed understanding and agreement. All questions were answered. Thank you for involving us in the care of your patient. Please call with any questions. Subjective Principal diagnosis: V-Fib arrest Interval history: Events of yesterday noted. Patient seen and examined earlier this morning. Prolonged QT, Torsades de pointes. Responsed well to magnesium bolus, but returned in the evening requiring defribillation x1. QT shortened overnight. Placed on amiodarone frequent ventricular ventricular ectopy, which seems improved. Patient off sedation this am, but on low dose levophed. Some movement noted by nursing and family, but appeared one sided. CT obtained, which demonstrated a large MCA infarct. Objective Vital Signs, Last 4 Hours Temp Pulse Resp BP Pulse Ox 11/26/16 11:36 16 127/72 96 11/26/16 11:13 98.3 F 59 16 125/77 96 11/26/16 10:53 63 17 125/71 96 11/26/16 09:00 63 16 105/58 94 11/26/16 08:06 59 16 137/72 94 11/26/16 07:54 18 114/77 94 General: Other (critically ill) HEENT: Atraumatic, Normocephaly, Mucus Membranes Moist Neck: No JVD Cardiac: Other (Slightly irregular rhythm, but no significant murmurs appreciated. Distant. ) Lungs: Other (Few rhonchi noted. ) Neuro: Other (Off sedation. Some movement reported. ) Abdomen: Soft, Non-Tender, Other (Obese) Skin: No rashes noted on visualized skin Musculoskeletal: No Chest Wall Tenderness Extremities: No Clubbing, No Cyanosis, Other (Mild edema) Results 11/26/16 03:29 11/26/16 03:29 Lab Results 11/25/16 11/25/16 11/25/16 16:30 16:30 16:30 WBC 13.0 H Hgb 14.7 Hct 45.6 Plt Count 182 INR APTT 33.2 Sodium 138 Potassium 4.9 H Chloride 105 Carbon Dioxide 24 BUN 22 Creatinine 1.09 Glucose 137 H Calcium 8.1 L Magnesium Total Bilirubin AST ALT Alkaline Phosphatase Troponin I 11/25/16 11/25/16 11/25/16 16:55 22:30 22:30 WBC 15.9 H Hgb 14.5 Hct 44.8 Plt Count 200 INR 1.1 APTT 32.3 Sodium Potassium Chloride Carbon Dioxide BUN Creatinine Glucose Calcium Magnesium 2.1 Total Bilirubin AST ALT Alkaline Phosphatase Troponin I 11/25/16 11/25/16 11/26/16 22:30 22:30 03:29 WBC 13.8 H Hgb 13.5 Hct 41.3 Plt Count 180 INR APTT Sodium 138 Potassium 4.3 Chloride 104 Carbon Dioxide 25 BUN 23 Creatinine 1.32 H Glucose 180 H Calcium 8.1 L Magnesium 2.4 Total Bilirubin 0.9 D AST 95 H ALT 91 H Alkaline Phosphatase 73 Troponin I 24.64 H* 11/26/16 03:29 WBC Hgb Hct Plt Count INR APTT Sodium 137 Potassium 4.1 Chloride 104 Carbon Dioxide 24 BUN 22 Creatinine 1.31 H Glucose 195 H Calcium 8.4 L Magnesium 2.8 H Total Bilirubin AST ALT Alkaline Phosphatase Troponin I - Imaging and Cardiology Echo: report reviewed Cardiac cath: report reviewed - EKG Interpretation EKG results cardiology: personally reviewed (QT improved on today's ecg.) Consult Discharge Plan - Plan Referrals: NO,PCP [Primary Care Provider] -
--- NOTE | 2016-11-26 12:50 | Neurology - Consult Note ---
Date of Encounter: 11/26/16 Time of Encounter: 12:46 Assessment and Plan (1) Acute ischemic left MCA stroke Current Visit: Yes Status: Acute This case is indeed a very complicated. I suspect that after the initial myocardial infarction inadequate cerebral perfusion likely resulted in some element of anoxic brain injury. I also believe that he likely suffered from the acute left cerebral hemispheric infarction at around the same time that the FL occurred. The CT scan of the brain showed a tremendously large area of infarct involving most of the territory of the left middle cerebral artery. Only sparing of a minor bit of the anterior territory of the left middle cerebral artery. Considering movements of the fourth day of this I believe that we will have likely reached the maximal point of cerebral edema. Because of this, large infarction he is going to have permanent right hemiparesis as well as some element of expressive or receptive aphasia. He may also have some severe cognitive difficulties on top of this if he did not fact suffered anoxic brain injury. Also because of the tremendous amount of injury to his heart and the fact that he has an ejection fraction of around only 15% a good outcome here is not likely. Dr. Garcia and I had a very extensive discussion with multiple family members and nursing addressing are concerns and expectations with the family. We did explain to the family that a good outcome in this case is not likely. The family at this point I am however is not ready to withhold all advanced life support measures. However in the event of a cardiopulmonary arrest we will follow through with the shocks and 1 round of medication therapy. If there is no response after one full round of the protocol then they are willing to allow nature to take its course. We are in full agreement with this decision. I will follow. Clinical care time spent with the patient, speaking with the family, reviewing the chart, and reviewing test results including the CT scan of the brain was 90 minutes. The documentation in the history of HPI and plan were at least partially created by [employer] voice recognition technology by Dr. Zimmerman. Errors in grammar, wording or other phrases may exist. If errors are found after the documentation signed, they will be addressed individually in the addendum section of this document when appropriate. History of Present Illness HPI: Mr. Syed is a 71 year old male who is seen for neurologic consultation in the intensive care unit secondary to acute left cerebral hemispheric infarct following a myocardial infarction infarction and possible anoxic brain injury. The abdomen was admitted to the [facility] on 11/23/2016. However apparently he has been complaining of chest pain for weeks now. While in the car was widely apparently acutely lost consciousness. He was unresponsive. It is unsure whether he was breathing or had agonal respirations. She brought him to the [facility] where he was unconscious upon arrival and pulseless. Apparently 3 or 4 rounds of CPR were initiated. Ultimately he was found to have had an acute STEMI. Immediate cardiac catheterization revealed that the LAD was on percent occluded. He has been minimally responsive since the onset. However, he was late last night identified to not be moving the right arm. It is questionable as to whether or not he has better has not been following commands. A stat CT scan of the head revealed a very large infarct involving most of the left middle cerebral artery territory. There is also a question of subacute areas of infarct present as well. There is mass effect to some extent however the ventricular system was not occluded. There is no hydrocephalus. However there are loss of cortical sulci markings in the left cerebral hemisphere. Past Med Surg Social Fam HX - Past Medical History Medical history: COPD, hyperlipidemia Psychiatric history: no psych history - Past Surgical History Surgical History: non-contributory, other ([facility] 11/24/2016) - Social History Smoking Status: Current every day smoker Smokeless Tobacco Status: Yes Alcohol use: unknown Drug use: none Medications and Allergies Celecoxib [Celebrex] 200 mg PO BID 11/24/16 [History] Duloxetine HCl [Cymbalta] 60 mg PO DAILY 11/24/16 [History] Furosemide [Lasix] 20 mg PO DAILY PRN 11/24/16 [History] Umeclidinium Brm/Vilanterol Tr [Anoro Ellipta 62.5-25 Mcg INH] 1 puff IH DAILY 11/24/16 [History] Allergies No Known Allergies Allergy (Verified 11/23/16 21:45) ROS unobtainable: due to mental status All Systems: A 10-system review of systems was performed and is negative for pertinent findings except as documented above in the HPI. Physical Examination - Vital Signs Vital Signs: Initial Vital Signs Temp Pulse Resp BP Pulse Ox 0 F L 0 0 0/0 92 11/23/16 20:48 11/23/16 20:48 11/23/16 20:48 11/23/16 20:48 11/23/16 20:48 - Exam Exam: Neurologic examination was performed and finds the following: Cerebral-he is currently unconscious. He does not open his eyes to voice however does open his eyes to tactile stimulation. He does have a left gaze preference but does not make specific eye contact. 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 Without constant stimulation he quickly drift back off into unconsciousness. There are no spontaneous movements identified there are no involuntary movements identified. No posturing is present. Cranial nerves-pupils both equal and reactive to light. There is no pupillary dilatation. He does have a left gaze preference. I am unable to inspect most of the other cranial nerves. He is breathing slightly above the ventilator. Motor exam-he does have flaccid paralysis of the right upper and right lower extremities. He has good tone and movement of the left upper extremity. He does withdrawal to tactile stimulation of the plantar aspect of the left foot. I believe this is reflex activity. He does not voluntarily follow commands only with movement. No involuntary movements identified. No atrophy is present. Sensory examination-on this portion of the examination is difficult to assess in a comatose patient. However he does respond appropriately to tactile stimulation involving the left hemisoma. DTRs-absent throughout. No Babinski signs are present. No clonus is present. Results - Laboratory Findings CBC and BMP: 11/26/16 03:29 11/26/16 03:29 Abnormal lab findings: Abnormal lab results WBC 13.8 K/mcL (4.3-11.1) H 11/26/16 03:29 Neutrophils # 12.5 K/mcL (1.6-8.9) H 11/26/16 03:29 Lymphocytes # 0.5 K/mcL (0.6-4.6) L 11/26/16 03:29 Nucleated RBCs/100 WBC 0.2 /100 WBC (0) H 11/23/16 20:59 PT 12.4 Seconds (9.4-12.1) H 11/25/16 22:30 ABG pO2 66 mmHg (85-104) L 11/26/16 04:25 ABG HCO3 27.9 mEQ/L (21-27) H 11/26/16 04:25 ABG Total CO2 29.3 mEq/L (20-26) H 11/26/16 04:25 ABG O2 Saturation 93 % (95-98) L 11/26/16 04:25 Creatinine 1.31 mg/dL (0.72-1.25) H 11/26/16 03:29 Est GFR (Non-Af Amer) 54 (> 60) L 11/26/16 03:29 Glucose 195 mg/dL (70-99) H 11/26/16 03:29 POC Glucose 117 (58-89) H 11/26/16 11:11 Lactic Acid 2.3 mmol/L (0.5-2.2) H 11/25/16 22:30 Calcium 8.4 mg/dL (8.6-10.8) L 11/26/16 03:29 Ionized Calcium 1.08 mmol/L (1.15-1.35) L 11/26/16 04:03 Magnesium 2.8 mg/dL (1.6-2.6) H 11/26/16 03:29 AST 95 Units/L (5-34) H 11/25/16 22:30 ALT 91 Units/L (0-55) H 11/25/16 22:30 Troponin I 24.64 ng/mL (0-0.03) H* 11/25/16 22:30 Albumin 3.0 g/dL (3.5-5.0) L D 11/25/16 22:30 Albumin/Globulin Ratio 0.9 (1.1-2.2) L 11/25/16 22:30 Consult Discharge Plan - Plan Referrals: NO,PCP [Primary Care Provider] -
[2016-11-26 14:55] LABS: Ionized Calcium 1.08 mmol/L (1.15-1.35)
[2016-11-26 15:03] LABS: BUN/Creatinine Ratio 21 (6-26); Blood Urea Nitrogen 26 mg/dL (8-26); Calcium 8.1 mg/dL (8.6-10.8); Carbon Dioxide 26 mEq/L (19-29); Chloride 104 mEq/L (98-109); Glucose 143 mg/dL (70-99); Magnesium 2.4 mg/dL (1.6-2.6); Osmolality,Calculated 293 (280-300); Potassium 3.9 mEq/L (3.5-4.5); Sodium 138 mEq/L (136-145); eGFR For African Americans > 60 (> 60); eGFR For Non-African Americans 57 (> 60)
[2016-11-26 15:30] LABS: Phosphorous 2.6 mg/dL (2.3-4.7)
[2016-11-27] MEDS: Lacri-Lube 3.5 GM TUBE BOTH EYES SCH ×6 (00:27→21:07)
[2016-11-27] MEDS: D5 IVC SCH (00:27)
[2016-11-27] MEDS: WATER IVC SCH (00:27)
[2016-11-27] MEDS: ROCURONIUM BROMIDE IVC SCH (00:27)
[2016-11-27] MEDS: FentaNYL (PF) 3,000 MCG in 0.9 % Sodium Chloride 240 ML IVC SCH (03:07)
[2016-11-27] MEDS: Amiodarone Premix 360 MG/200 ML BAG IVC SCH ×3 (03:08→17:48)
[2016-11-27 04:35] LABS: ABG Base Excess 4.6 mEq/L (-2.0 to 3.0); ABG HCO3 28.3 mEQ/L (21-27); ABG Oxygen Saturation 99 % (95-98); ABG PCO2 38 mmHg (35-45); ABG PH 7.48 pH Units (7.32-7.45); ABG PO2 108 mmHg (85-104); ABG TCO2 29.5 mEq/L (20-26); Blood Gas FiO2 40 %
[2016-11-27 04:43] LABS: BUN/Creatinine Ratio 23 (6-26); Basophils % 0.1 %; Blood Urea Nitrogen 26 mg/dL (8-26); Carbon Dioxide 24 mEq/L (19-29); Chloride 103 mEq/L (98-109); Hematocrit 37.4 % (37.5-50.1); Hemoglobin 12.3 g/dL (12.9-16.9); Immature Granulocytes % 0.5 % (0-4); Ionized Calcium 1.09 mmol/L (1.15-1.35); Lymphocytes # 0.9 K/mcL (0.6-4.6); Mean Corpuscular HGB Conc 32.9 g/dL (31.6-35.5); Mean Corpuscular Hemoglobin 31.1 pg (28.0-33.3); Mean Corpuscular Volume 94.7 fL (83.0-100.0); Mean Platelet Volume 10.1 fL (9.4-12.4); Monocytes # 0.9 K/mcL (0.0-1.3); Monocytes % 7.3 %; Neutrophils # 9.8 K/mcL (1.6-8.9); Platelet Count 142 K/mcL (140-400); Potassium 3.8 mEq/L (3.5-4.5); Red Blood Count 3.95 M/mcL (4.19-5.50); Red Cell Distribution Width 14.2 % (11.5-14.5); Segmented Neutrophils % 84.1 %; Sodium 136 mEq/L (136-145); eGFR For African Americans > 60 (> 60)
[2016-11-27 04:44] LABS: Calcium 8.4 mg/dL (8.6-10.8); Glucose 128 mg/dL (70-99); Osmolality,Calculated 288 (280-300); eGFR For Non-African Americans > 60 (> 60)
[2016-11-27] MEDS ORDERED: *HR* Atropine Sulfate 1 MG/10 ML SYRINGE ONE (04:50)
[2016-11-27] MEDS ORDERED: 0.9 % Sodium Chloride 1,000 ML ONE (04:50)
[2016-11-27] MEDS: Potassium Chloride 40 MEQ/200 ML BAG IVPB PRN ×2 (05:54→18:19)
[2016-11-27] MEDS: *HR* Enoxaparin 40 MG/0.4 ML SYRINGE SQ SCH (05:54)
[2016-11-27 05:56] LABS: Magnesium 2.2 mg/dL (1.6-2.6)
[2016-11-27] MEDS: Calcium Gluconate 1,000 MG in D5% in Water 100 ML IVPB PRN ×2 (06:19→18:20)
--- NOTE | 2016-11-27 08:04 | Cardiology Progress Note ---
Date of Encounter: 11/27/16 Time of Encounter: 08:00 Assessment and Plan (1) Cardiac arrest Current Visit: Yes Status: Acute s/p VF arrest with tDP with prolonged QT secondary to hypothermia. Continue amiodarone. Occasional bradycardia without hypotension. The assessment and plan as outlined above was discussed with the patient and/or family members who expressed understanding and agreement. All questions were answered. (2) STEMI (ST elevation myocardial infarction) Current Visit: Yes Status: Acute s/p PCI LAD. Aspirin/brilinta, and statin. Qualifiers: Involved coronary artery: other coronary artery Qualified Code(s): I21.29 - ST elevation (STEMI) myocardial infarction involving other sites (3) Acute ischemic left MCA stroke Current Visit: Yes Status: Acute Per Neurology: This case is indeed a very complicated. I suspect that after the initial myocardial infarction inadequate cerebral perfusion likely resulted in some element of anoxic brain injury. I also believe that he likely suffered from the acute left cerebral hemispheric infarction at around the same time that the [place] occurred. The CT scan of the brain showed a tremendously large area of infarct involving most of the territory of the left middle cerebral artery. Only sparing of a minor bit of the anterior territory of the left middle cerebral artery. Considering movements of the fourth day of this I believe that we will have likely reached the maximal point of cerebral edema. Because of this, large infarction he is going to have permanent right hemiparesis as well as some element of expressive or receptive aphasia. He may also have some severe cognitive difficulties on top of this if he did not fact suffered anoxic brain injury. Also because of the tremendous amount of injury to his heart and the fact that he has an ejection fraction of around only 15% a good outcome here is not likely. Dr. Garcia and I had a very extensive discussion with multiple family members and nursing addressing are concerns and expectations with the family. We did explain to the family that a good outcome in this case is not likely. The family at this point I am however is not ready to withhold all advanced life support measures. However in the event of a cardiopulmonary arrest we will follow through with the shocks and 1 round of medication therapy. If there is no response after one full round of the protocol then they are willing to allow nature to take its course. We are in full agreement with this decision. I will follow. Clinical care time spent with the patient, speaking with the family, reviewing the chart, and reviewing test results including the CT scan of the brain was 90 minutes. The documentation in the history of HPI and plan were at least partially created by [employer] voice recognition technology by Dr. Zimmerman. Errors in grammar, wording or other phrases may exist. If errors are found after the documentation signed, they will be addressed individually in the addendum section of this document when appropriate. (4) CHF (congestive heart failure) Current Visit: Yes Status: Acute BB/ACEI when tolerated. Qualifiers: Congestive heart failure type: systolic Congestive heart failure chronicity : acute Qualified Code(s): I50.21 - Acute systolic (congestive) heart failure Discussion w patient/family: The assessment and plan as outlined above was discussed with the patient and/or family members who expressed understanding and agreement. All questions were answered. Thank you for involving us in the care of your patient. Please call with any questions. Subjective Principal diagnosis: V-Fib arrest Interval history: Patient is intubated / sedated. He opens eyes and moves left arm/leg to voice but not purposefully to me. Objective Vital Signs, Last 4 Hours Pulse Pulse Resp BP Pulse Ox 11/27/16 07:33 67 11/27/16 06:10 16 102/71 95 11/27/16 06:00 67 16 102/71 95 11/27/16 05:33 56 11/27/16 05:00 56 16 118/71 96 11/27/16 04:19 16 122/66 98 General: Other (intubated / sedated) HEENT: Atraumatic Neck: No JVD Cardiac: Other (bradycardia S1 S 2) Lungs: Normal Breath Sounds Neuro: Other (eyes and left side move to voice) Abdomen: Soft Skin: No rashes noted on visualized skin Musculoskeletal: No Chest Wall Tenderness Extremities: No Edema Results 11/27/16 04:20 11/27/16 04:20 Lab Results 11/26/16 11/27/16 11/27/16 14:35 04:20 04:20 WBC 11.7 H Hgb 12.3 L Hct 37.4 L Plt Count 142 Sodium 138 136 Potassium 3.9 3.8 Chloride 104 103 Carbon Dioxide 26 24 BUN 26 26 Creatinine 1.25 1.11 Glucose 143 H 128 H Calcium 8.1 L 8.4 L Magnesium 2.4 2.2 - EKG Interpretation EKG results cardiology: personally reviewed Consult Discharge Plan - Plan Referrals: NO,PCP [Primary Care Provider] -
[2016-11-27] MEDS: Chlorhexidine Rinse 15 ML MOUTHWASH MM SCH ×2 (09:08→21:07)
[2016-11-27] MEDS: Pantoprazole 40 MG VIAL IVP SCH (09:08)
[2016-11-27] MEDS: Furosemide 40 MG/4 ML VIAL IVP SCH (09:08)
[2016-11-27] MEDS: *HR* Ticagrelor 90 MG TABLET PO SCH ×2 (09:09→21:06)
[2016-11-27] MEDS: Aspirin 81 MG TAB.CHEW PO SCH (09:09)
--- NOTE | 2016-11-27 09:27 | Electrocardiograph Report ---
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
--- NOTE | 2016-11-27 09:53 | Neurology Progress Note ---
<Otilio Wright - Last Filed: 11/27/16 11:45> Date of Encounter: 11/27/16 Time of Encounter: 09:53 Assessment and Plan (1) Acute ischemic left MCA stroke Current Visit: Yes Status: Acute Head CT showed large left middle cerebral artery territory infarct involving nearly the entire left middle artery territory that appears to be subacute, no significant midline shift, likely this is due to anoxic brain injury resulted from v-fib cardiac arrest that happened when he presented to the ER initially, likely pt will suffer permanent right hemiparesis as well as some element of expressive aphasia on top of severe cognitive difficulties as a result of this huge left MCA infarction, after long discussion with family member yesterday with floorwalker, code status has changed to DNR CCA but it changed to full code last night, no chest compression but one round of shock and medication therapy, pt is currently on ASA, statin and brillinta, with stable BP, we will con't to follow along with ICU team. Subjective Principal diagnosis: Large left middle cerebral artery territory infarct Interval history: Pt seen and examined, no acute events overnight, currently he is still on fentanyl IV sedation, patient will open his eyes to voice and somewhat squeeze my hand on the left side and follow simple commands by moving his left lower leg but this could just be reflex activity to tactile stimulation and not necessary voluntarily following commands, flaccid paralysis of the right upper and right lower extremities. Objective - Constitutional Vitals: Temp Pulse Resp BP Pulse Ox 98.5 F 53 16 113/72 98 11/27/16 08:30 11/27/16 09:00 11/27/16 09:00 11/27/16 09:00 11/27/16 09:00 General appearance: Present: A&O X 0 (on iv sedation), morbidly obese, no acute distress. Absent: cooperative - Head Head exam: Present: atraumatic, normal inspection, normocephalic - Eye Eye exam: Present: PERRL (but no pupillary dilatation). Absent: EOMI (left gaze preference) - Extremities Exam Extremities exam: Present: warm, radial pulses palpable and symetrical Additional comments: Squeeze my hand on the left side and follow simple commands by moving his left lower leg but this could just be reflex activity to tactile stimulation and not necessary voluntarily following commands, flaccid paralysis of the right upper and right lower extremities. - Neurological Exam Sensorimotor examination: Present: other (on iv sedation, difficult to assess full neuro exam on comatose pt, but he does respond appropriately to tactile stimulation involving left upper/lower extremities, he has good tone/movement of left upper extremity.) Mental Status Examination: Present: does not follow commands, opens eyes to voice. Absent: alert (on iv sedation), makes eye contact, follows simple commands, answers questions by nodding yes or no Results - Laboratory Findings CBC and BMP: 11/27/16 04:20 11/27/16 04:20 Abnormal lab findings: Abnormal lab results WBC 11.7 K/mcL (4.3-11.1) H 11/27/16 04:20 RBC 3.95 M/mcL (4.19-5.50) L 11/27/16 04:20 Hgb 12.3 g/dL (12.9-16.9) L 11/27/16 04:20 Hct 37.4 % (37.5-50.1) L 11/27/16 04:20 Neutrophils # 9.8 K/mcL (1.6-8.9) H 11/27/16 04:20 Nucleated RBCs/100 WBC 0.2 /100 WBC (0) H 11/23/16 20:59 PT 12.4 Seconds (9.4-12.1) H 11/25/16 22:30 ABG pH 7.48 pH Units (7.32-7.45) H 11/27/16 04:23 ABG pO2 108 mmHg (85-104) H 11/27/16 04:23 ABG HCO3 28.3 mEQ/L (21-27) H 11/27/16 04:23 ABG Total CO2 29.5 mEq/L (20-26) H 11/27/16 04:23 ABG O2 Saturation 99 % (95-98) H 11/27/16 04:23 ABG Base Excess 4.6 mEq/L (-2.0 to 3.0) H 11/27/16 04:23 Glucose 128 mg/dL (70-99) H 11/27/16 04:20 POC Glucose 121 (58-89) H 11/26/16 16:07 Lactic Acid 2.3 mmol/L (0.5-2.2) H 11/25/16 22:30 Calcium 8.4 mg/dL (8.6-10.8) L 11/27/16 04:20 Ionized Calcium 1.09 mmol/L (1.15-1.35) L 11/27/16 04:20 AST 95 Units/L (5-34) H 11/25/16 22:30 ALT 91 Units/L (0-55) H 11/25/16 22:30 Troponin I 24.64 ng/mL (0-0.03) H* 11/25/16 22:30 Albumin 3.0 g/dL (3.5-5.0) L D 11/25/16 22:30 Albumin/Globulin Ratio 0.9 (1.1-2.2) L 11/25/16 22:30 Consult Discharge Plan - Plan Referrals: NO,PCP [Primary Care Provider] - <Evelio Zimmerman - Last Filed: 11/27/16 14:44> Date of Encounter: 11/27/16 Time of Encounter: 14:36 Assessment and Plan (1) Acute ischemic left MCA stroke Current Visit: Yes Status: Acute As above. Pt. is somewhat more alert today, however still not following commands , not absolutely convinced he visually tracts. No attempts to speak on the vent. Family is still very hopeful. Will check stat CT brain to assess swelling. Subjective Interval history: The chart was reviewed, the pt was seen and examined independently, case discussed with Dr. Wright and nursing. I agree with Dr. Wright's assessment as stated above. Objective - Constitutional Vitals: Temp Pulse Resp BP Pulse Ox 97.7 F 51 16 128/69 96 11/27/16 13:13 11/27/16 14:00 11/27/16 14:00 11/27/16 14:00 11/27/16 14:00 - Neurological Exam Sensorimotor examination: Present: other Motor Examination: Present: other (Normal tone of the LUE/LLE, moves them freely. Flaccid paralysis of the RUE/RLE. No involuntary movements.) Mental Status Examination: Present: does not follow commands Additional comments: Pt. does turn his head away from noxious stimulation and grimmaces. He is not following commands however. Results - Laboratory Findings CBC and BMP: 11/27/16 04:20 11/27/16 04:20 Abnormal lab findings: Abnormal lab results WBC 11.7 K/mcL (4.3-11.1) H 11/27/16 04:20 RBC 3.95 M/mcL (4.19-5.50) L 11/27/16 04:20 Hgb 12.3 g/dL (12.9-16.9) L 11/27/16 04:20 Hct 37.4 % (37.5-50.1) L 11/27/16 04:20 Neutrophils # 9.8 K/mcL (1.6-8.9) H 11/27/16 04:20 Nucleated RBCs/100 WBC 0.2 /100 WBC (0) H 11/23/16 20:59 PT 12.4 Seconds (9.4-12.1) H 11/25/16 22:30 ABG pH 7.48 pH Units (7.32-7.45) H 11/27/16 04:23 ABG pO2 108 mmHg (85-104) H 11/27/16 04:23 ABG HCO3 28.3 mEQ/L (21-27) H 11/27/16 04:23 ABG Total CO2 29.5 mEq/L (20-26) H 11/27/16 04:23 ABG O2 Saturation 99 % (95-98) H 11/27/16 04:23 ABG Base Excess 4.6 mEq/L (-2.0 to 3.0) H 11/27/16 04:23 Glucose 128 mg/dL (70-99) H 11/27/16 04:20 POC Glucose 121 (58-89) H 11/26/16 16:07 Lactic Acid 2.3 mmol/L (0.5-2.2) H 11/25/16 22:30 Calcium 8.4 mg/dL (8.6-10.8) L 11/27/16 04:20 Ionized Calcium 1.09 mmol/L (1.15-1.35) L 11/27/16 04:20 AST 95 Units/L (5-34) H 11/25/16 22:30 ALT 91 Units/L (0-55) H 11/25/16 22:30 Troponin I 24.64 ng/mL (0-0.03) H* 11/25/16 22:30 Albumin 3.0 g/dL (3.5-5.0) L D 11/25/16 22:30 Albumin/Globulin Ratio 0.9 (1.1-2.2) L 11/25/16 22:30
[2016-11-27] MEDS ORDERED: Lidocaine -MPF 1% 5 ML AMPUL INFILT ONE (15:07)
--- NOTE | 2016-11-27 16:20 | Pulmonology Progress Note ---
<Jordi Bingham - Last Filed: 11/27/16 16:18> Date of Encounter: 11/27/16 Time of Encounter: 16:18 Assessment and Plan (1) Cardiac arrest with ventricular fibrillation Current Visit: Yes Status: Acute Initially in the ER, he was found to be in v. fib arrest, underwent ACLSx 4 rounds, emergent intubation performed, had ROSC and then emergent LHC where he had 100% occlusion of LAD and had a drug eluting stent placed. Then transfereed to ICU and started on hypothermia protocol. Continue aspirin, statin, lisinopril, and brilinita, echo showed LVEF 15 to 20% with severe global reduction of LV sys fxn and moderate diastolic dys fxn. Repeat head CT ordered today per neurology. Prognosis discussed further with family today. Will consult palliative care tomorrow morning. Consult to nutrition to start trickle tube feedings. Continue amiodarone drip. (2) Cardiogenic shock Current Visit: Yes Status: Acute Repeated CXR showed improved pulmonary edema, currently he is on levophed and MAP is above 80, LHC showed 100% occlusion of LAD and had a drug eluting stent placed, echo showed EF of 15 to 20%, will continue with pressor support now. (3) CAD (coronary artery disease) Current Visit: Yes Status: Acute LHC showed 100% occlusion of LAD and had a drug eluting stent placed, cardiology on board, continue statin, lisinopril, ASA and brilinta. Qualifiers: Coronary Disease-Associated Artery/Lesion type: [place] artery [place] vs. transplanted heart: [place] heart Associated angina: angina presence unspecified Qualified Code(s): I25.10 - Atherosclerotic heart disease of [place] coronary artery without angina pectoris (4) Lactic acidosis Current Visit: Yes Status: Acute Most likely secondary to cardiac arrest. Currently on levophed. (5) Leucocytosis Current Visit: Yes Status: Acute Improving, continue to monitor. No signs of infection at this time. 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 Has been stable today. Underwent repeat head CT per neurology. Has been stable today without any additional events. He remains on IV sedation and is intubated. Objective PUL Vital signs: Last Vital Signs Temp 97.7 F 11/27/16 13:13 Pulse 57 11/27/16 15:53 Resp 16 11/27/16 15:00 BP 140/84 11/27/16 15:00 Pulse Ox 96 11/27/16 15:00 General appearance: other (sedated) Neck: supple Auscultation: bilateral: diminished breath sounds Cardiovascular: regular rate and rhythm Gastrointestinal: normoactive bowel sounds, soft, non-distended Integumentary: normal Extremities: no cyanosis Musculoskeletal: no deformities other (sedated) Ventilator Settings Ventilator Settings: Ventilator Settings, Last 8 Hours Ventilator Mode VC+ Ventilator Mode VC+ Ventilator Mode VC+ Ventilator Mode VC+ Ventilator Mode VC+ Ventilator Mode VC+ Ventilator Mode VC+ Ventilator Tidal Volume 550 Setting Ventilator Tidal Volume 550 Setting Ventilator Tidal Volume 550 Setting Ventilator Tidal Volume 550 Setting Ventilator Tidal Volume 550 Setting Ventilator Tidal Volume 550 Setting Ventilator Tidal Volume 550 Setting Ventilator Respiratory Rate 16 Setting Ventilator Respiratory Rate 16 Setting Ventilator Respiratory Rate 16 Setting Ventilator Respiratory Rate 16 Setting Ventilator Respiratory Rate 16 Setting Ventilator Respiratory Rate 16 Setting Ventilator Respiratory Rate 16 Setting Actual Respiratory Rate 16 Actual Respiratory Rate 16 Actual Respiratory Rate 16 Actual Respiratory Rate 16 Actual Respiratory Rate 16 Actual Respiratory Rate 16 Actual Respiratory Rate 16 Positive End Expiratory 5 Pressure Positive End Expiratory 5 Pressure Positive End Expiratory 5 Pressure Positive End Expiratory 5 Pressure Positive End Expiratory 5 Pressure Positive End Expiratory 5 Pressure Positive End Expiratory 5 Pressure Peak Inspiratory Airway 36 Pressure Peak Inspiratory Airway 38 Pressure Peak Inspiratory Airway 36 Pressure Peak Inspiratory Airway 38 Pressure Peak Inspiratory Airway 38 Pressure Peak Inspiratory Airway 38 Pressure Peak Inspiratory Airway 40 Pressure Results - Laboratory Findings CBC and BMP: 11/27/16 04:20 11/27/16 04:20 ABG ABG pH 7.48 pH Units (7.32-7.45) H 11/27/16 04:23 ABG pCO2 38 mmHg (35-45) 11/27/16 04:23 ABG pO2 108 mmHg (85-104) H 11/27/16 04:23 ABG O2 Saturation 99 % (95-98) H 11/27/16 04:23 PT/INR, D-dimer PT 12.4 Seconds (9.4-12.1) H 11/25/16 22:30 Abnormal lab findings: Abnormal lab results WBC 11.7 K/mcL (4.3-11.1) H 11/27/16 04:20 RBC 3.95 M/mcL (4.19-5.50) L 11/27/16 04:20 Hgb 12.3 g/dL (12.9-16.9) L 11/27/16 04:20 Hct 37.4 % (37.5-50.1) L 11/27/16 04:20 Neutrophils # 9.8 K/mcL (1.6-8.9) H 11/27/16 04:20 Nucleated RBCs/100 WBC 0.2 /100 WBC (0) H 11/23/16 20:59 PT 12.4 Seconds (9.4-12.1) H 11/25/16 22:30 ABG pH 7.48 pH Units (7.32-7.45) H 11/27/16 04:23 ABG pO2 108 mmHg (85-104) H 11/27/16 04:23 ABG HCO3 28.3 mEQ/L (21-27) H 11/27/16 04:23 ABG Total CO2 29.5 mEq/L (20-26) H 11/27/16 04:23 ABG O2 Saturation 99 % (95-98) H 11/27/16 04:23 ABG Base Excess 4.6 mEq/L (-2.0 to 3.0) H 11/27/16 04:23 Glucose 128 mg/dL (70-99) H 11/27/16 04:20 POC Glucose 121 (58-89) H 11/26/16 16:07 Lactic Acid 2.3 mmol/L (0.5-2.2) H 11/25/16 22:30 Calcium 8.4 mg/dL (8.6-10.8) L 11/27/16 04:20 Ionized Calcium 1.09 mmol/L (1.15-1.35) L 11/27/16 04:20 AST 95 Units/L (5-34) H 11/25/16 22:30 ALT 91 Units/L (0-55) H 11/25/16 22:30 Troponin I 24.64 ng/mL (0-0.03) H* 11/25/16 22:30 Albumin 3.0 g/dL (3.5-5.0) L D 11/25/16 22:30 Albumin/Globulin Ratio 0.9 (1.1-2.2) L 11/25/16 22:30 - Clinical Findings Intake & Output: Intake & Output 11/27/16 11/27/16 11/27/16 07:59 15:59 23:59 Intake Total 225 / 225 310 / 310 Output Total 300 / 300 1100 / 1100 Balance -75 / -75 -790 / -790 Weight 126.6 kg Consult Discharge Plan - Plan Referrals: NO,PCP [Primary Care Provider] - <Stevan Mccracken - Last Filed: 11/27/16 17:06> Date of Encounter: 11/27/16 Objective PUL Vital signs: Last Vital Signs Temp 97.7 F 11/27/16 13:13 Pulse 57 11/27/16 15:53 Resp 16 11/27/16 15:00 BP 140/84 11/27/16 15:00 Pulse Ox 96 11/27/16 15:00 Ventilator Settings Ventilator Settings: Ventilator Settings, Last 8 Hours Ventilator Mode VC+ Ventilator Mode VC+ Ventilator Mode VC+ Ventilator Mode VC+ Ventilator Mode VC+ Ventilator Mode VC+ Ventilator Tidal Volume 550 Setting Ventilator Tidal Volume 550 Setting Ventilator Tidal Volume 550 Setting Ventilator Tidal Volume 550 Setting Ventilator Tidal Volume 550 Setting Ventilator Tidal Volume 550 Setting Ventilator Respiratory Rate 16 Setting Ventilator Respiratory Rate 16 Setting Ventilator Respiratory Rate 16 Setting Ventilator Respiratory Rate 16 Setting Ventilator Respiratory Rate 16 Setting Ventilator Respiratory Rate 16 Setting Actual Respiratory Rate 16 Actual Respiratory Rate 16 Actual Respiratory Rate 16 Actual Respiratory Rate 16 Actual Respiratory Rate 16 Actual Respiratory Rate 16 Positive End Expiratory 5 Pressure Positive End Expiratory 5 Pressure Positive End Expiratory 5 Pressure Positive End Expiratory 5 Pressure Positive End Expiratory 5 Pressure Positive End Expiratory 5 Pressure Peak Inspiratory Airway 36 Pressure Peak Inspiratory Airway 38 Pressure Peak Inspiratory Airway 36 Pressure Peak Inspiratory Airway 38 Pressure Peak Inspiratory Airway 38 Pressure Peak Inspiratory Airway 38 Pressure Results - Laboratory Findings CBC and BMP: 11/27/16 04:20 11/27/16 16:25 ABG ABG pH 7.48 pH Units (7.32-7.45) H 11/27/16 04:23 ABG pCO2 38 mmHg (35-45) 11/27/16 04:23 ABG pO2 108 mmHg (85-104) H 11/27/16 04:23 ABG O2 Saturation 99 % (95-98) H 11/27/16 04:23 PT/INR, D-dimer PT 12.4 Seconds (9.4-12.1) H 11/25/16 22:30 Abnormal lab findings: Abnormal lab results WBC 11.7 K/mcL (4.3-11.1) H 11/27/16 04:20 RBC 3.95 M/mcL (4.19-5.50) L 11/27/16 04:20 Hgb 12.3 g/dL (12.9-16.9) L 11/27/16 04:20 Hct 37.4 % (37.5-50.1) L 11/27/16 04:20 Neutrophils # 9.8 K/mcL (1.6-8.9) H 11/27/16 04:20 Nucleated RBCs/100 WBC 0.2 /100 WBC (0) H 11/23/16 20:59 PT 12.4 Seconds (9.4-12.1) H 11/25/16 22:30 ABG pH 7.48 pH Units (7.32-7.45) H 11/27/16 04:23 ABG pO2 108 mmHg (85-104) H 11/27/16 04:23 ABG HCO3 28.3 mEQ/L (21-27) H 11/27/16 04:23 ABG Total CO2 29.5 mEq/L (20-26) H 11/27/16 04:23 ABG O2 Saturation 99 % (95-98) H 11/27/16 04:23 ABG Base Excess 4.6 mEq/L (-2.0 to 3.0) H 11/27/16 04:23 Glucose 128 mg/dL (70-99) H 11/27/16 04:20 POC Glucose 121 (58-89) H 11/26/16 16:07 Lactic Acid 2.3 mmol/L (0.5-2.2) H 11/25/16 22:30 Calcium 8.4 mg/dL (8.6-10.8) L 11/27/16 04:20 Ionized Calcium 1.09 mmol/L (1.15-1.35) L 11/27/16 04:20 AST 95 Units/L (5-34) H 11/25/16 22:30 ALT 91 Units/L (0-55) H 11/25/16 22:30 Troponin I 24.64 ng/mL (0-0.03) H* 11/25/16 22:30 Albumin 3.0 g/dL (3.5-5.0) L D 11/25/16 22:30 Albumin/Globulin Ratio 0.9 (1.1-2.2) L 11/25/16 22:30 - Clinical Findings Intake & Output: Intake & Output 11/27/16 11/27/16 11/27/16 07:59 15:59 23:59 Intake Total 225 / 225 310 / 310 Output Total 300 / 300 1100 / 1100 Balance -75 / -75 -790 / -790 Weight 126.6 kg - Attending Attestation I have reviewed the documentation, examined the pt, reviewed labs and imaging, and discussed the case on multidisciplinary rounds. Agree with the documentation above. Pt has poor prognosis. Discussed prognosis with pt's and explained that his prognosis is very poor and recovery potential limited beyond his current state. He remains full code in the event of acute dysrhythmia but no further. Discussed what pt's wishes would be for further life prolonging measures such as trach and PEG.
[2016-11-27 16:49] LABS: Potassium 3.8 mEq/L (3.5-4.5)
[2016-11-27 17:07] LABS: Ionized Calcium 1.07 mmol/L (1.15-1.35)
[2016-11-28] MEDS: Lacri-Lube 3.5 GM TUBE BOTH EYES SCH ×7 (00:21→23:33)
[2016-11-28] MEDS: Albuterol 2.5 MG/3 ML NEBULIZER IH PRN ×2 (01:12→04:22)
[2016-11-28 04:51] LABS: Ionized Calcium 1.11 mmol/L (1.15-1.35)
[2016-11-28 05:00] LABS: Phosphorous 2.5 mg/dL (2.3-4.7)
[2016-11-28 05:05] LABS: Magnesium 1.9 mg/dL (1.6-2.6)
[2016-11-28] MEDS: *HR* Enoxaparin 40 MG/0.4 ML SYRINGE SQ SCH (05:14)
[2016-11-28] MEDS: Magnesium Sulfate 2 GM in D5% in Water 100 ML IVPB PRN (05:40)
[2016-11-28] MEDS: Amiodarone Premix 360 MG/200 ML BAG IVC SCH ×2 (07:08→20:10)
--- NOTE | 2016-11-28 08:48 | Neurology Progress Note ---
<Otilio Wright - Last Filed: 11/28/16 08:44> Date of Encounter: 11/28/16 Time of Encounter: 08:44 Assessment and Plan (1) Acute ischemic left MCA stroke Current Visit: Yes Status: Acute Repeated head CT yesterday showed stable large zone of encephalomalacia, left middle cerebral artery distribution nonhemorrhagic infarction, the degree of mass effect and sulcal compression is unchanged. 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 This morning patient was on CPAP breathing trial, hopefully patient can be extubated today and weaned off of IV fentanyl sedation , and then we can fully assess his current neurological status, no neurological improvement compared to yesterday, he still does not follow simple commands but responds to tactile stimulation with reflex activity on the left upper/lower extremities. 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 Objective - Constitutional Vitals: Temp Pulse Resp BP Pulse Ox 98.1 F 58 19 164/100 97 11/28/16 07:35 11/28/16 08:05 11/28/16 08:14 11/28/16 08:14 11/28/16 08:14 General appearance: Present: A&O X 0 (on light fentanyl iv sedation), morbidly obese, no acute distress. Absent: cooperative - Head Head exam: Present: atraumatic, normal inspection, normocephalic - Eye Eye exam: Present: normal appearance, PERRL. Absent: periorbital swelling Pupils: Absent: irregular, unequal - Extremities Exam Extremities exam: Present: normal capillary refill, warm, radial pulses palpable and symetrical. Absent: pedal edema Additional comments: Squeeze my hand on the left side but does not follow simple commands, moving his left lower leg occasionally but this could just be reflex activity to tactile stimulation, flaccid paralysis of the right upper and right lower extremities. - Neurological Exam Sensorimotor examination: Present: flaccid paralysis (On right upper and lower extremities), other (on iv sedation, difficult to assess full neuro exam on comatose pt, but he does respond appropriately to tactile stimulation involving left upper/lower extremities, he has good tone/movement of left upper extremity. ). Absent: rigidity Motor Examination: Absent: grossly full strength in all extremities, full strength in all major muscle groups Mental Status Examination: Present: does not follow commands, opens eyes to voice. Absent: alert, follows commands appropriately, answers questions appropriately, makes eye contact, follows simple commands, answers questions by nodding yes or no Results - Laboratory Findings CBC and BMP: 11/27/16 04:20 11/28/16 04:30 Abnormal lab findings: Abnormal lab results WBC 11.7 K/mcL (4.3-11.1) H 11/27/16 04:20 RBC 3.95 M/mcL (4.19-5.50) L 11/27/16 04:20 Hgb 12.3 g/dL (12.9-16.9) L 11/27/16 04:20 Hct 37.4 % (37.5-50.1) L 11/27/16 04:20 Neutrophils # 9.8 K/mcL (1.6-8.9) H 11/27/16 04:20 Nucleated RBCs/100 WBC 0.2 /100 WBC (0) H 11/23/16 20:59 PT 12.4 Seconds (9.4-12.1) H 11/25/16 22:30 ABG pH 7.48 pH Units (7.32-7.45) H 11/27/16 04:23 ABG pO2 108 mmHg (85-104) H 11/27/16 04:23 ABG HCO3 28.3 mEQ/L (21-27) H 11/27/16 04:23 ABG Total CO2 29.5 mEq/L (20-26) H 11/27/16 04:23 ABG O2 Saturation 99 % (95-98) H 11/27/16 04:23 ABG Base Excess 4.6 mEq/L (-2.0 to 3.0) H 11/27/16 04:23 Glucose 128 mg/dL (70-99) H 11/27/16 04:20 POC Glucose 114 (58-89) H 11/28/16 00:06 Lactic Acid 2.3 mmol/L (0.5-2.2) H 11/25/16 22:30 Calcium 8.4 mg/dL (8.6-10.8) L 11/27/16 04:20 Ionized Calcium 1.11 mmol/L (1.15-1.35) L 11/28/16 04:30 AST 95 Units/L (5-34) H 11/25/16 22:30 ALT 91 Units/L (0-55) H 11/25/16 22:30 Troponin I 24.64 ng/mL (0-0.03) H* 11/25/16 22:30 Albumin 3.0 g/dL (3.5-5.0) L D 11/25/16 22:30 Albumin/Globulin Ratio 0.9 (1.1-2.2) L 11/25/16 22:30 Consult Discharge Plan - Plan Referrals: NO,PCP [Primary Care Provider] - <Evelio Zimmerman - Last Filed: 11/28/16 14:54> Date of Encounter: 11/28/16 Time of Encounter: 14:48 Assessment and Plan (1) Acute ischemic left MCA stroke Current Visit: Yes Status: Acute I agree with Dr. Wright's examination and assessment as stated above. The patient seems to be stabilizing. He is increasingly more alert, however I am not convinced that he is processing external stimuli on a higher level. He is not following commands. He does tend to search and look toward his left. I see no voluntary or involuntary movements of the right upper or right lower extremities. It was explained to the family that he may stabilizing his condition. At this point in time the issue of nutrition is coming to the forefront. From a neurologic perspective, only time will tell to what extent he fully recovers. Again, he may have anoxic encephalopathy superimposed on the acute very large left MCA infarct. This will ultimately resulted in severe speech and language difficulties, as well as permanent right hemapheresis. Rehabilitation, will be difficult under the circumstances. I will follow peripherally. Subjective Interval history: The chart was reviewed, patient was seen and examined independently. Case was discussed with Dr. Wright, as well as ICU personnel. I agree with Dr. Wright's assessment as stated above. Objective - Constitutional Vitals: Temp Pulse Resp BP Pulse Ox 98.0 F 63 14 177/75 98 11/28/16 11:32 11/28/16 13:00 11/28/16 13:45 11/28/16 13:45 11/28/16 13:45 Results - Laboratory Findings CBC and BMP: 11/27/16 04:20 11/28/16 04:30 Abnormal lab findings: Abnormal lab results WBC 11.7 K/mcL (4.3-11.1) H 11/27/16 04:20 RBC 3.95 M/mcL (4.19-5.50) L 11/27/16 04:20 Hgb 12.3 g/dL (12.9-16.9) L 11/27/16 04:20 Hct 37.4 % (37.5-50.1) L 11/27/16 04:20 Neutrophils # 9.8 K/mcL (1.6-8.9) H 11/27/16 04:20 Nucleated RBCs/100 WBC 0.2 /100 WBC (0) H 11/23/16 20:59 PT 12.4 Seconds (9.4-12.1) H 11/25/16 22:30 ABG pH 7.48 pH Units (7.32-7.45) H 11/27/16 04:23 ABG pO2 108 mmHg (85-104) H 11/27/16 04:23 ABG HCO3 28.3 mEQ/L (21-27) H 11/27/16 04:23 ABG Total CO2 29.5 mEq/L (20-26) H 11/27/16 04:23 ABG O2 Saturation 99 % (95-98) H 11/27/16 04:23 ABG Base Excess 4.6 mEq/L (-2.0 to 3.0) H 11/27/16 04:23 Glucose 128 mg/dL (70-99) H 11/27/16 04:20 POC Glucose 134 (58-89) H 11/28/16 11:07 Lactic Acid 2.3 mmol/L (0.5-2.2) H 11/25/16 22:30 Calcium 8.4 mg/dL (8.6-10.8) L 11/27/16 04:20 Ionized Calcium 1.11 mmol/L (1.15-1.35) L 11/28/16 04:30 AST 95 Units/L (5-34) H 11/25/16 22:30 ALT 91 Units/L (0-55) H 11/25/16 22:30 Troponin I 24.64 ng/mL (0-0.03) H* 11/25/16 22:30 Albumin 3.0 g/dL (3.5-5.0) L D 11/25/16 22:30 Albumin/Globulin Ratio 0.9 (1.1-2.2) L 11/25/16 22:30
--- NOTE | 2016-11-28 08:59 | Palliative - Consult Note ---
<CeballosSergio - Last Filed: 11/28/16 11:38> Date of Encounter: 11/28/16 Time of Encounter: 08:53 - Assessment and Plan (1) Goals of care, counseling/discussion Current Visit: Yes Status: Acute Assessment and plan: Discussed at length with [place] and their daughter about code status and they are agreeable to changing him to DNR - CCA - DO NOT RE-INTUBATE They would like more family to present during time of extubation but are still hopeful that he can make some recovery and tolerate being off ventilator Spoke to family that given his two episodes of cardiac arrest and significant CVA, he certainly has poor prognosis (2) Cardiac arrest Current Visit: Yes Status: Acute Assessment and plan: Management per primary team, he is currently intubated and sedated on Amio drip Plan is to wean sedation and extubate today once necessary family is present (3) Acute ischemic left MCA stroke Current Visit: Yes Status: Acute Assessment and plan: Large infarct in left MCA territory seen, head CT yesterday showed stable size and appearance Management per Neurology team Palliative-CN HPI - Data of Consult Patient: new to practice Consult date: 11/28/16 Requesting Physician: Hipolito Mendenhall MD Primary Care Provider: PCP NO - Consult Narrative Palliative Care/Comfort Measures: Palliative care Reason for consult: cardiac arrest, discuss goals of care History of present illness: Mr. Syed is a 71 year old male who presented in cardiac arrest on November 23. He received 4 rounds of CPR including 4 shocks and 3 doses of epinephrine. STEMI alert was activated and he was emergently taken to the [facility] where 100 % occlusion of LAD with ABDON. He was transferred to the ICU still intubated and was started on hypothermia protocol. Unfortunately on the night of November 25, another CODE BLUE was called as he went into pulseless V. tach but he had return of spontaneous circulation after 1 round of CPR. He is to have right- sided weakness while intubated and sedated in ICU, and head CT demonstrated a large left middle cerebral territory CVA. Family is currently at bedside including [place] and their daughter. They recently changed his code status last Sunday from DNR-CCA to full code and still desire aggressive care for now until he can be off sedation/intubation to fully assess his neurological function. He does not have a living will or elected a medical power of city attorney. CC: Hipolito Mendenhall MD Past Med Surg Social Fam HX - Past Medical History Medical history: COPD, hyperlipidemia Psychiatric history: no psych history - Past Surgical History Surgical History: non-contributory - Social History Smoking Status: Current every day smoker Smokeless Tobacco Status: Yes Alcohol use: unknown Drug use: none Medications and Allergies Celecoxib [Celebrex] 200 mg PO BID 11/24/16 [History] Duloxetine HCl [Cymbalta] 60 mg PO DAILY 11/24/16 [History] Furosemide [Lasix] 20 mg PO DAILY PRN 11/24/16 [History] Umeclidinium Brm/Vilanterol Tr [Anoro Ellipta 62.5-25 Mcg INH] 1 puff IH DAILY 11/24/16 [History] Allergies No Known Allergies Allergy (Verified 11/23/16 21:45) ROS unobtainable: due to endotracheal tube Palliative Care-Exam - Constitutional Vitals: Temp Pulse Resp BP Pulse Ox 98.1 F 58 19 164/100 97 11/28/16 07:35 11/28/16 08:05 11/28/16 08:14 11/28/16 08:14 11/28/16 08:14 General appearance: Present: obese - Head Head Exam: Present: atraumatic, normal inspection, normocephalic - Eye Eye exam: Present: PERRL - ENT ENT exam: Present: mucous membranes moist - Respiratory Respiratory exam: Present: rhonchi - Cardiovascular Cardiovascular exam: Present: bradycardia Additional comments: distant heart sounds - GI/Abdominal Exam GI/Abdominal exam: Present: normal bowel sounds, soft - Neurological Exam Additional comments: 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, absent on right side; does not track objects or make purposeful movements Internal Medicine - CN: Reslt - Labs CBC & Chem 7: 11/27/16 04:20 11/28/16 04:30 Labs: BMP 11/27/16 11/28/16 16:25 04:30 Potassium 3.8 4.0 - ABG Interpretation ABG results: ABG ABG pH 7.48 pH Units (7.32-7.45) H 11/27/16 04:23 ABG pCO2 38 mmHg (35-45) 11/27/16 04:23 ABG pO2 108 mmHg (85-104) H 11/27/16 04:23 ABG O2 Saturation 99 % (95-98) H 11/27/16 04:23 PT/INR, D-dimer PT 12.4 Seconds (9.4-12.1) H 11/25/16 22:30 - Impressions Impressions Head CT 11/27/16 14:43 IMPRESSION: Stable large zone of encephalomalacia, left middle cerebral artery distribution nonhemorrhagic infarction. The degree of mass effect and sulcal compression is unchanged. Persistent moderate fluid in the maxillary and sphenoid sinuses. D/ / Bismark Branch MD / Bismark Branch MD Interpreting Provider: Bismark Branch MD Consult Discharge Plan - Plan Referrals: NO,PCP [Primary Care Provider] - Palliative Quality Palliative Quality: Screen for Code Status: Yes, Screen for Goals of Care: Yes, Screen for Pain: NA, If Pain Regimen Started, Initiate Bowel Regimen: NA, Screen for Nausea/Vomitting: NA Code Status: 11/24/16 11:54 FULL [Resuscitation Status: Active] [RES] Routine Comment: Resuscitation Status: Full Code 11/26/16 19:48 FULL [Resuscitation Status: Active] [RES] Routine Comment: Resuscitation Status: Full Code 11/26/16 20:36 FULL [Resuscitation Status: Active] [RES] Routine Comment: Per pt's . Dr Al was notified by RN Resuscitation Status: Full Code <Reed Garnica - Last Filed: 11/28/16 12:04> Date of Encounter: 11/28/16 Palliative-CN HPI - Data of Consult Requesting Physician: Hipolito Mendenhall MD Primary Care Provider: PCP NO - Consult Narrative History of present illness: Mr. Syed is a 71 year old male CC: Hipolito Mendenhall MD Palliative Care-Exam - Constitutional Vitals: Temp Pulse Resp BP Pulse Ox 98.0 F 63 17 159/89 98 11/28/16 11:32 11/28/16 11:32 11/28/16 11:23 11/28/16 11:23 11/28/16 11:23 Internal Medicine - CN: Reslt - Labs CBC & Chem 7: 11/27/16 04:20 11/28/16 04:30 Labs: BMP 11/27/16 11/28/16 16:25 04:30 Potassium 3.8 4.0 - ABG Interpretation ABG results: ABG ABG pH 7.48 pH Units (7.32-7.45) H 11/27/16 04:23 ABG pCO2 38 mmHg (35-45) 11/27/16 04:23 ABG pO2 108 mmHg (85-104) H 11/27/16 04:23 ABG O2 Saturation 99 % (95-98) H 11/27/16 04:23 PT/INR, D-dimer PT 12.4 Seconds (9.4-12.1) H 11/25/16 22:30 - Impressions Impressions Head CT 11/27/16 14:43 IMPRESSION: Stable large zone of encephalomalacia, left middle cerebral artery distribution nonhemorrhagic infarction. The degree of mass effect and sulcal compression is unchanged. Persistent moderate fluid in the maxillary and sphenoid sinuses. D/ / Bismark Branch MD / Bismark Branch MD Interpreting Provider: Bismark Branch MD - Attending Attestation I examined this patient and my medical decision-making was reviewed with the ISOLATION WASHER/PA/Advanced Practice Nurse/Resident Physician. I agree with the documented findings, disposition and treatment plan as described except to the extent set forth below. Palliative Quality Code Status: 11/24/16 11:54 FULL [Resuscitation Status: Active] [RES] Routine Comment: Resuscitation Status: Full Code 11/26/16 19:48 FULL [Resuscitation Status: Active] [RES] Routine Comment: Resuscitation Status: Full Code 11/28/16 11:19 CODE [Resuscitation Status: Active] [RES] Routine Comment: currently intubated, but do not RE-intubate Resuscitation Status: [id number]
[2016-11-28] MEDS: Pantoprazole 40 MG VIAL IVP SCH (09:31)
[2016-11-28] MEDS: Aspirin 81 MG TAB.CHEW PO SCH (09:31)
[2016-11-28] MEDS: *HR* Ticagrelor 90 MG TABLET PO SCH ×2 (09:31→20:27)
[2016-11-28] MEDS: Furosemide 40 MG/4 ML VIAL IVP SCH (09:31)
[2016-11-28] MEDS: Chlorhexidine Rinse 15 ML MOUTHWASH MM SCH ×2 (09:31→20:27)
--- NOTE | 2016-11-28 10:15 | Cardiology Progress Note ---
Date of Encounter: 11/28/16 Time of Encounter: 08:30 Assessment and Plan (1) Cardiac arrest Current Visit: Yes Status: Acute s/p VF arrest and 4 rounds ACLS. Continue amiodarone gtt. Convert to oral when able. Occasional bradycardia. Avg HR 54 bpm, min HR 44. No recurrent ventricular arrhythmia seen. S/p PCI to his proximal LAD. Potassium 4.0 and magnesium 1.9 today. The assessment and plan as outlined above was discussed with the patient and/or family members who expressed understanding and agreement. All questions were answered. (2) STEMI (ST elevation myocardial infarction) Current Visit: Yes Status: Acute s/p PCI to the proximal LAD. Aspirin/brilinta, and statin. Add BB when able. Qualifiers: Involved coronary artery: other coronary artery Qualified Code(s): I21.29 - ST elevation (STEMI) myocardial infarction involving other sites (3) Ischemic cardiomyopathy Current Visit: Yes Status: Acute Severe ICMP s/p STEMI/cardiac arrest/PCI to LAD. LVEF 15-20% per TTE. Initially unable to tolerate BB/ACEi therapy. Levophed now off. Now hypertensive. Prolonged QTc improved. Repeat EKG today. No ventricular ectopy over last 24 hours. Continue DAPT, statin therapy. Start harrison-inhibitor and bb. Now hypertensive, discussed with neurology resident, if ok with wild from b/p standpoint start low dose lisinopril. No bb d/t bradycardia at this time continue amio. Agree with IV lasix. 1+ BLE edema. (4) Acute ischemic left MCA stroke Current Visit: Yes Status: Acute Per nuerology: Repeated head CT yesterday showed stable large zone of encephalomalacia, left middle cerebral artery distribution nonhemorrhagic infarction, the degree of mass effect and sulcal compression is unchanged. 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 This morning patient was on CPAP breathing trial, hopefully patient can be extubated today and weaned off of IV fentanyl sedation , and then we can fully assess his current neurological status, no neurological improvement compared to yesterday, he still does not follow simple commands but responds to tactile stimulation with reflex activity on the left upper/lower extremities. Per cardiology: Appreciate neurology input. CVA likely result from v-fib arrest. Palliative care consulted today. Discussion w patient/family: The assessment and plan as outlined above was discussed with the patient and/or family members who expressed understanding and agreement. All questions were answered. Thank you for involving us in the care of your patient. Please call with any questions. Subjective Principal diagnosis: STEMI/ Large left middle cerebral artery territory infarct Interval history: Pt opening eyes and moving left side. Appears to be non-purposeful. Will not follow commands. No acute distress noted. On c-pap trial. Palliative care to see today. at bedside. Denies questions. Objective Vital Signs, Last 4 Hours Temp Pulse Resp BP Pulse Ox 11/28/16 09:26 16 169/94 98 11/28/16 09:00 57 16 169/94 98 11/28/16 08:14 19 164/100 97 11/28/16 08:05 58 11/28/16 08:00 58 13 164/91 96 11/28/16 07:35 98.1 F 11/28/16 06:21 13 157/85 96 General: Other (Opening eyes on ventilator. ) HEENT: Atraumatic, Normocephaly, Mucus Membranes Moist, Other (ET tube intact.) Neck: No JVD, Normal carotid pulses Cardiac: Reg Rate and Rhythm, Other (SB- junctional rhythm ) Lungs: Normal Breath Sounds, No Wheeze, Rales, Rhonchi Neuro: Other (Moving left side. Non-purposeful movement. ) Abdomen: Soft, Other (Round) Skin: No rashes noted on visualized skin Musculoskeletal: No Chest Wall Tenderness Extremities: Other (1+ BLE edema. ) Results 11/27/16 04:20 11/28/16 04:30 Lab Results 11/27/16 11/28/16 16:25 04:30 Potassium 3.8 4.0 Magnesium 1.9 Consult Discharge Plan - Plan Referrals: NO,PCP [Primary Care Provider] -
--- NOTE | 2016-11-28 13:09 | Pulmonology Progress Note ---
<Roman Rao - Last Filed: 11/28/16 16:10> Date of Encounter: 11/28/16 Time of Encounter: 13:07 Assessment and Plan (1) Cardiac arrest with ventricular fibrillation Current Visit: Yes Status: Acute Initially in the ER - found to be in V. Fib arrest. Underwent ACLS x4 rounds, emergent incubation, had ROSC. Emergent LHC found 100% occlusion of LAD with subsequent placement of drug eluding stent. Transferred to ICU where hypothermia protocol initiated. [facility] Nov: 100% LAD occlusion with ABDON placement. EF 15-20%. Continue aspirin, statin, lisinopril, brilinita. Continue amiodarone drip. Continue fentanyl drip. Will plan to extubate tonight. If patient does well, will plan for rehabilitation. Else, will plan for palliative care. Cardiology following. Their input appreciated. (2) Acute ischemic left MCA stroke Current Visit: Yes Status: Acute Likely due to anoxic brain injury secondary from V. Fib cardiac arrest. Patient on fentanyl sedation; complete evaluation of neurologic status is impaired. No neurologic improvement from yesterday. CT Nov: Radiology interpretation as zone of stable encephalomalacia, left MCA distribution nonhemorrhagic infarction. The degree of mass effect and sulcal compression is unchanged. Neurology on board. Their input is appreciated. (3) Cardiogenic shock Current Visit: Yes Status: Acute As above. (4) CAD (coronary artery disease) Current Visit: Yes Status: Acute As above. Qualifiers: Coronary Disease-Associated Artery/Lesion type: [place] artery [place] vs. transplanted heart: standing [place] heart Associated angina: angina presence unspecified Qualified Code(s): I25.10 - Atherosclerotic heart disease of [place] coronary artery without angina pectoris (5) Lactic acidosis Current Visit: Yes Status: Acute Likely secondary to cardiac arrest. (6) Leucocytosis Current Visit: Yes Status: Acute Improving. No clinical signs of infection at this time. Will continue to monitor. Qualifiers: Leukocytosis type: unspecified Qualified Code(s): D72.829 - Elevated white blood cell count, unspecified (7) DVT prophylaxis Current Visit: Yes Status: Acute Lovenox SQ Qdaily. Subjective Principal diagnosis: STEMI/ Large left middle cerebral artery territory infarct Interval history: ICU day 6. Patient seen and examined. He has been stable today. Repeat head CT per neurology. He remains intubated on IV Fentanyl sedation. I spoke with his daughter at bedside. She re-affirmed his code status was changed, no re- intubation, no feeding tube. She is in contact with family members; she requests extubation trial around 19:00 this evening when the patient's other children can be bedside. Objective PUL Vital signs: Last Vital Signs Temp 98.0 F 11/28/16 11:32 Pulse 63 11/28/16 11:32 Resp 17 11/28/16 11:23 BP 159/89 11/28/16 11:23 Pulse Ox 98 11/28/16 11:23 General appearance: other (sedated, intubated) Eyes: nonicteric ENT: oropharynx moist Neck: supple Auscultation: bilateral: diminished breath sounds Cardiovascular: regular rate and rhythm Gastrointestinal: normoactive bowel sounds, soft, non-distended Integumentary: normal Extremities: no cyanosis, cool, edema (trace bilateral pedal edema) Ventilator Settings Ventilator Settings: Ventilator Settings, Last 8 Hours Ventilator Mode CPAP Ventilator Mode CPAP Ventilator Mode CPAP Ventilator Mode CPAP Ventilator Mode CPAP Ventilator Mode CPAP Ventilator Mode CPAP Ventilator Mode CPAP Actual Respiratory Rate 19 Actual Respiratory Rate 15 Actual Respiratory Rate 15 Actual Respiratory Rate 15 Actual Respiratory Rate 15 Actual Respiratory Rate 18 Actual Respiratory Rate 15 Actual Respiratory Rate 15 Positive End Expiratory 5 Pressure Positive End Expiratory 5 Pressure Positive End Expiratory 5 Pressure Positive End Expiratory 5 Pressure Positive End Expiratory 5 Pressure Positive End Expiratory 5 Pressure Positive End Expiratory 5 Pressure Positive End Expiratory 5 Pressure Peak Inspiratory Airway 16 Pressure Peak Inspiratory Airway 16 Pressure Peak Inspiratory Airway 16 Pressure Peak Inspiratory Airway 16 Pressure Peak Inspiratory Airway 16 Pressure Peak Inspiratory Airway 17 Pressure Peak Inspiratory Airway 17 Pressure Peak Inspiratory Airway 17 Pressure Results - Laboratory Findings CBC and BMP: 11/27/16 04:20 11/28/16 04:30 ABG ABG pH 7.48 pH Units (7.32-7.45) H 11/27/16 04:23 ABG pCO2 38 mmHg (35-45) 11/27/16 04:23 ABG pO2 108 mmHg (85-104) H 11/27/16 04:23 ABG O2 Saturation 99 % (95-98) H 11/27/16 04:23 PT/INR, D-dimer PT 12.4 Seconds (9.4-12.1) H 11/25/16 22:30 Abnormal lab findings: Abnormal lab results WBC 11.7 K/mcL (4.3-11.1) H 11/27/16 04:20 RBC 3.95 M/mcL (4.19-5.50) L 11/27/16 04:20 Hgb 12.3 g/dL (12.9-16.9) L 11/27/16 04:20 Hct 37.4 % (37.5-50.1) L 11/27/16 04:20 Neutrophils # 9.8 K/mcL (1.6-8.9) H 11/27/16 04:20 Nucleated RBCs/100 WBC 0.2 /100 WBC (0) H 11/23/16 20:59 PT 12.4 Seconds (9.4-12.1) H 11/25/16 22:30 ABG pH 7.48 pH Units (7.32-7.45) H 11/27/16 04:23 ABG pO2 108 mmHg (85-104) H 11/27/16 04:23 ABG HCO3 28.3 mEQ/L (21-27) H 11/27/16 04:23 ABG Total CO2 29.5 mEq/L (20-26) H 11/27/16 04:23 ABG O2 Saturation 99 % (95-98) H 11/27/16 04:23 ABG Base Excess 4.6 mEq/L (-2.0 to 3.0) H 11/27/16 04:23 Glucose 128 mg/dL (70-99) H 11/27/16 04:20 POC Glucose 134 (58-89) H 11/28/16 11:07 Lactic Acid 2.3 mmol/L (0.5-2.2) H 11/25/16 22:30 Calcium 8.4 mg/dL (8.6-10.8) L 11/27/16 04:20 Ionized Calcium 1.11 mmol/L (1.15-1.35) L 11/28/16 04:30 AST 95 Units/L (5-34) H 11/25/16 22:30 ALT 91 Units/L (0-55) H 11/25/16 22:30 Troponin I 24.64 ng/mL (0-0.03) H* 11/25/16 22:30 Albumin 3.0 g/dL (3.5-5.0) L D 11/25/16 22:30 Albumin/Globulin Ratio 0.9 (1.1-2.2) L 11/25/16 22:30 - Diagnostic Findings Chest x-ray: report reviewed CT scan - chest: report reviewed - Clinical Findings Intake & Output: Intake & Output 11/27/16 11/28/16 11/28/16 23:59 07:59 15:59 Intake Total 560 / 560 200 / 200 104 / 104 Output Total 350 / 350 425 / 425 1250 / 1250 Balance 210 / 210 -225 / -225 -1146 / -1146 Weight 125.9 kg Consult Discharge Plan - Plan Referrals: NO,PCP [Primary Care Provider] - <Stevan Mccracken - Last Filed: 11/29/16 07:40> Date of Encounter: 11/29/16 Objective PUL Vital signs: Last Vital Signs Temp 98.3 F 11/29/16 04:00 Pulse 85 11/29/16 06:00 Resp 18 11/29/16 06:00 BP 121/84 11/29/16 06:00 Pulse Ox 95 11/29/16 06:00 Ventilator Settings Ventilator Settings: Ventilator Settings, Last 8 Hours Ventilator Mode VC+ Ventilator Mode VC+ Ventilator Mode VC+ Ventilator Mode VC+ Ventilator Mode VC+ Ventilator Mode VC+ Ventilator Mode VC+ Ventilator Mode VC+ Ventilator Tidal Volume 550 Setting Ventilator Tidal Volume 550 Setting Ventilator Tidal Volume 550 Setting Ventilator Tidal Volume 550 Setting Ventilator Tidal Volume 550 Setting Ventilator Tidal Volume 550 Setting Ventilator Tidal Volume 550 Setting Ventilator Tidal Volume 550 Setting Ventilator Respiratory Rate 14 Setting Ventilator Respiratory Rate 14 Setting Ventilator Respiratory Rate 16 Setting Ventilator Respiratory Rate 16 Setting Ventilator Respiratory Rate 16 Setting Ventilator Respiratory Rate 16 Setting Ventilator Respiratory Rate 16 Setting Ventilator Respiratory Rate 16 Setting Actual Respiratory Rate 17 Actual Respiratory Rate 16 Actual Respiratory Rate 16 Actual Respiratory Rate 16 Positive End Expiratory 5 Pressure Positive End Expiratory 5 Pressure Positive End Expiratory 5 Pressure Positive End Expiratory 5 Pressure Positive End Expiratory 5 Pressure Positive End Expiratory 5 Pressure Positive End Expiratory 5 Pressure Positive End Expiratory 5 Pressure Peak Inspiratory Airway 16 Pressure Peak Inspiratory Airway 21 Pressure Peak Inspiratory Airway 30 Pressure Peak Inspiratory Airway 24 Pressure Results - Laboratory Findings CBC and BMP: 11/29/16 03:55 11/29/16 03:55 ABG ABG pH 7.47 pH Units (7.32-7.45) H 11/29/16 04:40 ABG pCO2 43 mmHg (35-45) 11/29/16 04:40 ABG pO2 65 mmHg (85-104) L 11/29/16 04:40 ABG O2 Saturation 94 % (95-98) L 11/29/16 04:40 PT/INR, D-dimer PT 12.4 Seconds (9.4-12.1) H 11/25/16 22:30 Abnormal lab findings: Abnormal lab results WBC 11.6 K/mcL (4.3-11.1) H 11/29/16 03:55 RBC 3.95 M/mcL (4.19-5.50) L 11/29/16 03:55 Hgb 12.5 g/dL (12.9-16.9) L 11/29/16 03:55 Neutrophils # 9.6 K/mcL (1.6-8.9) H 11/29/16 03:55 Monocytes # 1.4 K/mcL (0.0-1.3) H 11/29/16 03:55 Nucleated RBCs/100 WBC 0.2 /100 WBC (0) H 11/23/16 20:59 PT 12.4 Seconds (9.4-12.1) H 11/25/16 22:30 ABG pH 7.47 pH Units (7.32-7.45) H 11/29/16 04:40 ABG pO2 65 mmHg (85-104) L 11/29/16 04:40 ABG HCO3 31.3 mEQ/L (21-27) H 11/29/16 04:40 ABG Total CO2 32.6 mEq/L (20-26) H 11/29/16 04:40 ABG O2 Saturation 94 % (95-98) L 11/29/16 04:40 ABG Base Excess 6.8 mEq/L (-2.0 to 3.0) H 11/29/16 04:40 Potassium 3.2 mEq/L (3.5-4.5) L 11/29/16 03:55 Glucose 138 mg/dL (70-99) H 11/29/16 03:55 POC Glucose 122 (58-89) H 11/29/16 00:10 Lactic Acid 2.3 mmol/L (0.5-2.2) H 11/25/16 22:30 Calcium 8.5 mg/dL (8.6-10.8) L 11/29/16 03:55 Ionized Calcium 1.08 mmol/L (1.15-1.35) L 11/29/16 03:55 Total Bilirubin 1.4 mg/dL (0.2-1.2) H 11/29/16 03:55 AST 57 Units/L (5-34) H 11/29/16 03:55 Troponin I 24.64 ng/mL (0-0.03) H* 11/25/16 22:30 Serum Total Protein 5.7 g/dL (6.0-8.3) L 11/29/16 03:55 Albumin 2.5 g/dL (3.5-5.0) L 11/29/16 03:55 Albumin/Globulin Ratio 0.8 (1.1-2.2) L 11/29/16 03:55 - Clinical Findings Intake & Output: Intake & Output 11/28/16 11/28/16 11/29/16 15:59 23:59 07:59 Intake Total 214 / 214 200 / 200 Output Total 2400 / 2400 250 / 250 330 / 330 Balance -2186 / -2186 -50 / -50 -330 / -330 Weight 122.334 kg - Attending Attestation I have examined the pt and discussed his case on multidisciplinary rounds. I agree with documentation of the resident. Discussed case with pt's who feels that he would not want prolonged artificial life support. Will plan for terminal extubation. Encouraged pt's to wait until morning to ensure that all available resources are at our disposal for optimal management in the case of respiratory failure. She is agreeable. Will plan for extubation in the the morning with family at the bedside.
[2016-11-28] MEDS: FentaNYL (PF) 3,000 MCG in 0.9 % Sodium Chloride 240 ML IVC SCH (15:15)
--- NOTE | 2016-11-28 19:12 | Electrocardiograph Report ---
[address] [place] [address] Test Date: 2016-11-28 Pat Name: Noah Syed Department: 109 Room: [facility] Gender: M [employer]: [facility] : 1945 Requested By: Galindo Hutton Order Number: [id number] Reading MD: Jossie Walker Measurements Intervals [place] Rate: 56 P: 52 ND: 170 QRS: -3 QRSD: 99 T: 156 QT: 447 QTc: 439 Interpretive Statements SINUS BRADYCARDIA WITH OCCASIONAL SUPRAVENTRICULAR PREMATURE COMPLEXES SEPTAL MYOCARDIAL INFARCTION, PROBABLY OLD Electronically Signed On 11-28-2016 19:11:33 EDT by Jossie Walker
[2016-11-29] MEDS: Lacri-Lube 3.5 GM TUBE BOTH EYES SCH ×3 (04:09→11:21)
[2016-11-29 04:39] LABS: Ionized Calcium 1.08 mmol/L (1.15-1.35)
[2016-11-29 04:42] LABS: Basophils % 0.1 %; Eosinophils % 0.2 %; Hematocrit 37.8 % (37.5-50.1); Hemoglobin 12.5 g/dL (12.9-16.9); Immature Granulocytes % 0.6 % (0-4); Lymphocytes # 0.6 K/mcL (0.6-4.6); Lymphocytes % 4.9 %; Mean Corpuscular HGB Conc 33.1 g/dL (31.6-35.5); Mean Corpuscular Hemoglobin 31.6 pg (28.0-33.3); Mean Corpuscular Volume 95.7 fL (83.0-100.0); Mean Platelet Volume 10.2 fL (9.4-12.4); Monocytes # 1.4 K/mcL (0.0-1.3); Monocytes % 11.6 %; Neutrophils # 9.6 K/mcL (1.6-8.9); Platelet Count 168 K/mcL (140-400); Red Blood Count 3.95 M/mcL (4.19-5.50); Red Cell Distribution Width 13.9 % (11.5-14.5); Segmented Neutrophils % 82.6 %
[2016-11-29 04:53] LABS: ABG Base Excess 6.8 mEq/L (-2.0 to 3.0); ABG HCO3 31.3 mEQ/L (21-27); ABG Oxygen Saturation 94 % (95-98); ABG PCO2 43 mmHg (35-45); ABG PH 7.47 pH Units (7.32-7.45); ABG PO2 65 mmHg (85-104); ABG TCO2 32.6 mEq/L (20-26)
[2016-11-29 04:57] LABS: Blood Gas FiO2 30 %; Blood Gas PEEP 5 cm H2O; Blood Gas Respiration Rate 16; Blood Gas VT 550 cc
[2016-11-29 05:03] LABS: Alanine Aminotransferase 49 Units/L (0-55); Albumin 2.5 g/dL (3.5-5.0); Albumin/Globulin Ratio 0.8 (1.1-2.2); Alkaline Phosphatase 70 Units/L (38-126); Aspartate Amino Transferase 57 Units/L (5-34); BUN/Creatinine Ratio 24 (6-26); Bilirubin,Total 1.4 mg/dL (0.2-1.2); Blood Urea Nitrogen 24 mg/dL (8-26); Calcium 8.5 mg/dL (8.6-10.8); Carbon Dioxide 29 mEq/L (19-29); Chloride 102 mEq/L (98-109); Globulin 3.2 g/dL (2.4-3.5); Glucose 138 mg/dL (70-99); Magnesium 1.8 mg/dL (1.6-2.6); Osmolality,Calculated 296 (280-300); Phosphorous 2.8 mg/dL (2.3-4.7); Potassium 3.2 mEq/L (3.5-4.5); Sodium 140 mEq/L (136-145); Total Protein 5.7 g/dL (6.0-8.3); eGFR For African Americans > 60 (> 60); eGFR For Non-African Americans > 60 (> 60)
[2016-11-29] MEDS: *HR* Enoxaparin 40 MG/0.4 ML SYRINGE SQ SCH (05:33)
--- NOTE | 2016-11-29 08:09 | Neurology Progress Note ---
<Otilio Wright - Last Filed: 11/29/16 08:51> Date of Encounter: 11/29/16 Time of Encounter: 08:09 Assessment and Plan (1) Acute ischemic left MCA stroke Current Visit: Yes Status: Acute Patient is more alert than yesterday, currently he is on minimum fentanyl IV sedation and on CPAP breathing trial, when all family members are present in the room, patient will be ready to be extubated, when patient is completely off of IV sedation and extubated, then we can fully assess his current neurological status. Repeated head CT showed stable large zone of encephalomalacia, left middle cerebral artery distribution nonhemorrhagic infarction, the degree of mass effect and sulcal compression is unchanged. 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 From my perspective, he still does not follow simple commands but responds to tactile stimulation with reflex activity on the left upper/lower extremities, not so much of manifesting voluntary movement, patient seems to be stabilizing however he is not processing external stimuli on the higher level, will come back and reassess patient's neurological status after extubation and off of IV sedation. Subjective Principal diagnosis: STEMI/ Large left middle cerebral artery territory infarct Interval history: Pt seen and examined, no acute events overnight except patient pulled his Bell resulted in a traumatic bloody urine last night, currently he is still on light fentanyl IV sedation and he is on CPAP trial this morning, when all family members are in the room, patient will be ready to be extubated, he is more alert than yesterday however no significant neurological improvement compared to yesterday, patient will still open his eyes to voice and squeeze my hand on the left side to tactile stimulation, likely this is just a reflex activity, not so much of voluntary movement, from my perspective he is not following simple commands, he will move his left lower leg occasionally, 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 Objective - Constitutional Vitals: Temp Pulse Resp BP Pulse Ox 98.3 F 72 23 174/90 95 11/29/16 04:00 11/29/16 07:00 11/29/16 07:41 11/29/16 07:00 11/29/16 07:41 General appearance: Present: A&O X 0 (on light fentanyl iv sedation), morbidly obese, no acute distress. Absent: cooperative - Head Head exam: Present: atraumatic, normal inspection, normocephalic - Eye Eye exam: Present: PERRL (No dilation) - Extremities Exam Extremities exam: Present: normal capillary refill, normal inspection, pedal edema (Mild nonpitting bilateral), warm, radial pulses palpable and symetrical. Absent: cyanotic Additional comments: Squeeze my hand on the left side but does not follow simple commands, moving his left lower leg occasionally but this could just be reflex activity to tactile stimulation, flaccid paralysis of the right upper and right lower extremities. - Neurological Exam Sensorimotor examination: Present: flaccid paralysis (On right upper and lower extremities), other (on iv sedation, difficult to assess full neuro exam on sedation, but he does respond appropriately to tactile stimulation involving left upper/lower extremities, he has good tone/movement of left upper extremity) . Absent: rigidity Motor Examination: Absent: grossly full strength in all extremities, full strength in all major muscle groups Mental Status Examination: Present: awake, does not follow commands, opens eyes to voice. Absent: alert, oriented to person, oriented to place, oriented to time, follows commands appropriately, answers questions appropriately, makes eye contact, follows simple commands, answers questions by nodding yes or no Results - Laboratory Findings CBC and BMP: 11/29/16 03:55 11/29/16 03:55 Abnormal lab findings: Abnormal lab results WBC 11.6 K/mcL (4.3-11.1) H 11/29/16 03:55 RBC 3.95 M/mcL (4.19-5.50) L 11/29/16 03:55 Hgb 12.5 g/dL (12.9-16.9) L 11/29/16 03:55 Neutrophils # 9.6 K/mcL (1.6-8.9) H 11/29/16 03:55 Monocytes # 1.4 K/mcL (0.0-1.3) H 11/29/16 03:55 Nucleated RBCs/100 WBC 0.2 /100 WBC (0) H 11/23/16 20:59 PT 12.4 Seconds (9.4-12.1) H 11/25/16 22:30 ABG pH 7.47 pH Units (7.32-7.45) H 11/29/16 04:40 ABG pO2 65 mmHg (85-104) L 11/29/16 04:40 ABG HCO3 31.3 mEQ/L (21-27) H 11/29/16 04:40 ABG Total CO2 32.6 mEq/L (20-26) H 11/29/16 04:40 ABG O2 Saturation 94 % (95-98) L 11/29/16 04:40 ABG Base Excess 6.8 mEq/L (-2.0 to 3.0) H 11/29/16 04:40 Potassium 3.2 mEq/L (3.5-4.5) L 11/29/16 03:55 Glucose 138 mg/dL (70-99) H 11/29/16 03:55 POC Glucose 122 (58-89) H 11/29/16 00:10 Lactic Acid 2.3 mmol/L (0.5-2.2) H 11/25/16 22:30 Calcium 8.5 mg/dL (8.6-10.8) L 11/29/16 03:55 Ionized Calcium 1.08 mmol/L (1.15-1.35) L 11/29/16 03:55 Total Bilirubin 1.4 mg/dL (0.2-1.2) H 11/29/16 03:55 AST 57 Units/L (5-34) H 11/29/16 03:55 Troponin I 24.64 ng/mL (0-0.03) H* 11/25/16 22:30 Serum Total Protein 5.7 g/dL (6.0-8.3) L 11/29/16 03:55 Albumin 2.5 g/dL (3.5-5.0) L 11/29/16 03:55 Albumin/Globulin Ratio 0.8 (1.1-2.2) L 11/29/16 03:55 Consult Discharge Plan - Plan Referrals: NO,PCP [Primary Care Provider] - <Evelio Zimmerman - Last Filed: 11/29/16 14:54> Date of Encounter: 11/29/16 Time of Encounter: 14:45 Assessment and Plan (1) Acute ischemic left MCA stroke Current Visit: Yes Status: Acute Reluctant with the correction of the medical record. I agree that the left MCA stroke is likely the result of consequences from ventricular fibrillation versus a mural thrombus. However the anoxic brain injury was secondary to the subsequent WI, cardiogenic shock and subsequent global cerebral hypoperfusion. In any regard I did speak with his daughter today who is at the bedside. I otherwise agree with Dr. Wright's impressions as stated above. Ongoing risk factor mgmt will be paramount. I will revaluate at your request. Subjective Interval history: Chart was reviewed, patient is seen and examined independently. The case was discussed with Dr. Wright. He is increasingly more alert by the day. Today he definitely makes eye contact. He is awake alert and aware of what is going on. He does not however follow commands for me. He does not attempt to speak. He still maintains the flaccid right hemiparesis. No involuntary movements or seizure activity are identified. Objective - Constitutional Vitals: Temp Pulse Resp BP Pulse Ox 97.5 F L 75 16 128/79 99 11/29/16 09:00 11/29/16 14:00 11/29/16 14:00 11/29/16 14:00 11/29/16 14:00 - Neurological Exam Mental Status Examination: Present: makes eye contact (He does make eye contact for me.) Results - Laboratory Findings CBC and BMP: 11/29/16 03:55 11/29/16 03:55 Abnormal lab findings: Abnormal lab results WBC 11.6 K/mcL (4.3-11.1) H 11/29/16 03:55 RBC 3.95 M/mcL (4.19-5.50) L 11/29/16 03:55 Hgb 12.5 g/dL (12.9-16.9) L 11/29/16 03:55 Neutrophils # 9.6 K/mcL (1.6-8.9) H 11/29/16 03:55 Monocytes # 1.4 K/mcL (0.0-1.3) H 11/29/16 03:55 Nucleated RBCs/100 WBC 0.2 /100 WBC (0) H 11/23/16 20:59 PT 12.4 Seconds (9.4-12.1) H 11/25/16 22:30 ABG pH 7.47 pH Units (7.32-7.45) H 11/29/16 04:40 ABG pO2 65 mmHg (85-104) L 11/29/16 04:40 ABG HCO3 31.3 mEQ/L (21-27) H 11/29/16 04:40 ABG Total CO2 32.6 mEq/L (20-26) H 11/29/16 04:40 ABG O2 Saturation 94 % (95-98) L 11/29/16 04:40 ABG Base Excess 6.8 mEq/L (-2.0 to 3.0) H 11/29/16 04:40 Potassium 3.2 mEq/L (3.5-4.5) L 11/29/16 03:55 Glucose 138 mg/dL (70-99) H 11/29/16 03:55 POC Glucose 141 (58-89) H 11/29/16 12:13 Lactic Acid 2.3 mmol/L (0.5-2.2) H 11/25/16 22:30 Calcium 8.5 mg/dL (8.6-10.8) L 11/29/16 03:55 Ionized Calcium 1.08 mmol/L (1.15-1.35) L 11/29/16 03:55 Total Bilirubin 1.4 mg/dL (0.2-1.2) H 11/29/16 03:55 AST 57 Units/L (5-34) H 11/29/16 03:55 Troponin I 24.64 ng/mL (0-0.03) H* 11/25/16 22:30 Serum Total Protein 5.7 g/dL (6.0-8.3) L 11/29/16 03:55 Albumin 2.5 g/dL (3.5-5.0) L 11/29/16 03:55 Albumin/Globulin Ratio 0.8 (1.1-2.2) L 11/29/16 03:55
[2016-11-29] MEDS: Amiodarone Premix 360 MG/200 ML BAG IVC SCH (08:27)
[2016-11-29] MEDS: Chlorhexidine Rinse 15 ML MOUTHWASH MM SCH (08:27)
[2016-11-29] MEDS: Pantoprazole 40 MG VIAL IVP SCH (08:28)
[2016-11-29] MEDS: *HR* Ticagrelor 90 MG TABLET PO SCH ×2 (08:28→19:47)
[2016-11-29] MEDS: Furosemide 40 MG/4 ML VIAL IVP SCH (08:28)
[2016-11-29] MEDS: Aspirin 81 MG TAB.CHEW PO SCH (08:28)
--- NOTE | 2016-11-29 08:42 | Palliative Progress Note ---
<Sergio Ceballos - Last Filed: 11/29/16 08:39> Date of Encounter: 11/29/16 Time of Encounter: 08:39 - Assessment and plan (1) Goals of care, counseling/discussion Current Visit: Yes Status: Acute Assessment and plan: Family at bedside still wants to proceed to extubation today They have agreed to no re-intubation or CPR if he were to lose his pulse again and have repeatedly stated that he would not want trach/PEG Continue with DNR-CCA/DNI status Will re-evaluate hospice eligibility once extubated to fully assess neurological function (2) Cardiac arrest Current Visit: Yes Status: Acute Assessment and plan: Management per primary team, he is currently intubated and on Amio drip Plan is to extubate today once necessary family is present (3) Acute ischemic left MCA stroke Current Visit: Yes Status: Acute Assessment and plan: Large infarct in left MCA territory seen; repeat head CT showed stable size Management per Neurology team - Time Spent With Patient Total time spent is greater than 50% in coordination of care (as documented) at patient's floor/unit and/or counseling patient: - Subjective Interval history: Pt seen and examined this morning. He remains intubated but is awake and is holding 's hand upon entering the room. states that he has been more alert than yesterday and nods his heads when asking certain questions. However, when I tried asking him if he felt any pain he did not move his head nor was he was able to blink to yes/no questions. He did not follow commands appropriately when asking him to wiggle his toes. states that all necessary family members are present for when he gets extubated. - Constitutional Vitals: Abnormal lab results WBC 11.6 K/mcL (4.3-11.1) H 11/29/16 03:55 RBC 3.95 M/mcL (4.19-5.50) L 11/29/16 03:55 Hgb 12.5 g/dL (12.9-16.9) L 11/29/16 03:55 Neutrophils # 9.6 K/mcL (1.6-8.9) H 11/29/16 03:55 Monocytes # 1.4 K/mcL (0.0-1.3) H 11/29/16 03:55 Nucleated RBCs/100 WBC 0.2 /100 WBC (0) H 11/23/16 20:59 PT 12.4 Seconds (9.4-12.1) H 11/25/16 22:30 ABG pH 7.47 pH Units (7.32-7.45) H 11/29/16 04:40 ABG pO2 65 mmHg (85-104) L 11/29/16 04:40 ABG HCO3 31.3 mEQ/L (21-27) H 11/29/16 04:40 ABG Total CO2 32.6 mEq/L (20-26) H 11/29/16 04:40 ABG O2 Saturation 94 % (95-98) L 11/29/16 04:40 ABG Base Excess 6.8 mEq/L (-2.0 to 3.0) H 11/29/16 04:40 Potassium 3.2 mEq/L (3.5-4.5) L 11/29/16 03:55 Glucose 138 mg/dL (70-99) H 11/29/16 03:55 POC Glucose 122 (58-89) H 11/29/16 00:10 Lactic Acid 2.3 mmol/L (0.5-2.2) H 11/25/16 22:30 Calcium 8.5 mg/dL (8.6-10.8) L 11/29/16 03:55 Ionized Calcium 1.08 mmol/L (1.15-1.35) L 11/29/16 03:55 Total Bilirubin 1.4 mg/dL (0.2-1.2) H 11/29/16 03:55 AST 57 Units/L (5-34) H 11/29/16 03:55 Troponin I 24.64 ng/mL (0-0.03) H* 11/25/16 22:30 Serum Total Protein 5.7 g/dL (6.0-8.3) L 11/29/16 03:55 Albumin 2.5 g/dL (3.5-5.0) L 11/29/16 03:55 Albumin/Globulin Ratio 0.8 (1.1-2.2) L 11/29/16 03:55 - Head Head exam: Present: atraumatic, normal inspection, normocephalic - Eye Eye exam: Present: PERRL - Respiratory Respiratory exam: Present: rhonchi - Cardiovascular Cardiovascular exam: Present: RRR, +S1, +S2 - GI/Abdominal GI/Abdominal exam: Present: soft - Neurological Exam Additional comments: Still unable to move right side, but does have tool filer hand reflex when holding left hand and moves left arm and leg spontaneously Unable to track objects with eyes Palliative Quality Palliative Quality: Screen for Code Status: Yes, Screen for Goals of Care: Yes, Screen for Pain: NA, If Pain Regimen Started, Initiate Bowel Regimen: NA, Screen for Nausea/Vomitting: NA Code Status: 11/24/16 11:54 FULL [Resuscitation Status: Active] [RES] Routine Comment: Resuscitation Status: Full Code 11/26/16 19:48 FULL [Resuscitation Status: Active] [RES] Routine Comment: Resuscitation Status: Full Code 11/28/16 11:19 CODE [Resuscitation Status: Active] [RES] Routine Comment: currently intubated, but do not RE-intubate Resuscitation Status: [id number] - Labs CBC & Chem 7: 11/29/16 03:55 11/29/16 03:55 Labs: Laboratory Results - last 24 hr 11/28/16 11/28/16 11/29/16 11:07 17:49 00:10 WBC RBC Hgb Hct MCV MCH MCHC RDW Plt Count MPV Immature Gran % Seg Neutrophils % Lymphocytes % Monocytes % Eosinophils % Basophils % Neutrophils # Lymphocytes # Monocytes # Eosinophils # Basophils # ABG pH ABG pCO2 ABG pO2 ABG HCO3 ABG Total CO2 ABG O2 Saturation ABG Base Excess Respiration Rate Blood Gas Modality Inspired O2 Tidal Volume PEEP Sodium Potassium Chloride Carbon Dioxide BUN Creatinine Est GFR ( Amer) Est GFR (Non-Af Amer) BUN/Creatinine Ratio Glucose POC Glucose 134 H 122 H 122 H Calculated Osmolality Calcium Ionized Calcium Phosphorus Magnesium Total Bilirubin AST ALT Alkaline Phosphatase Ammonia Serum Total Protein Albumin Globulin Albumin/Globulin Ratio 11/29/16 11/29/16 11/29/16 03:55 03:55 04:38 WBC 11.6 H RBC 3.95 L Hgb 12.5 L Hct 37.8 MCV 95.7 MCH 31.6 MCHC 33.1 RDW 13.9 Plt Count 168 MPV 10.2 Immature Gran % 0.6 Seg Neutrophils % 82.6 Lymphocytes % 4.9 Monocytes % 11.6 Eosinophils % 0.2 Basophils % 0.1 Neutrophils # 9.6 H Lymphocytes # 0.6 Monocytes # 1.4 H Eosinophils # 0.0 Basophils # 0.0 ABG pH ABG pCO2 ABG pO2 ABG HCO3 ABG Total CO2 ABG O2 Saturation ABG Base Excess Respiration Rate Blood Gas Modality Inspired O2 Tidal Volume PEEP Sodium 140 Potassium 3.2 L Chloride 102 Carbon Dioxide 29 BUN 24 Creatinine 0.99 Est GFR ( Amer) > 60 Est GFR (Non-Af Amer) > 60 BUN/Creatinine Ratio 24 Glucose 138 H POC Glucose Calculated Osmolality 296 Calcium 8.5 L Ionized Calcium 1.08 L Phosphorus 2.8 Magnesium 1.8 Total Bilirubin 1.4 H AST 57 H ALT 49 Alkaline Phosphatase 70 Ammonia 24 Serum Total Protein 5.7 L Albumin 2.5 L Globulin 3.2 Albumin/Globulin Ratio 0.8 L 11/29/16 04:40 WBC RBC Hgb Hct MCV MCH MCHC RDW Plt Count MPV Immature Gran % Seg Neutrophils % Lymphocytes % Monocytes % Eosinophils % Basophils % Neutrophils # Lymphocytes # Monocytes # Eosinophils # Basophils # ABG pH 7.47 H ABG pCO2 43 ABG pO2 65 L ABG HCO3 31.3 H ABG Total CO2 32.6 H ABG O2 Saturation 94 L ABG Base Excess 6.8 H Respiration Rate 16 Blood Gas Modality VCT Inspired O2 30 Tidal Volume 550 PEEP 5 Sodium Potassium Chloride Carbon Dioxide BUN Creatinine Est GFR ( Amer) Est GFR (Non-Af Amer) BUN/Creatinine Ratio Glucose POC Glucose Calculated Osmolality Calcium Ionized Calcium Phosphorus Magnesium Total Bilirubin AST ALT Alkaline Phosphatase Ammonia Serum Total Protein Albumin Globulin Albumin/Globulin Ratio - ABG Interpretation ABG results: ABG ABG pH 7.47 pH Units (7.32-7.45) H 11/29/16 04:40 ABG pCO2 43 mmHg (35-45) 11/29/16 04:40 ABG pO2 65 mmHg (85-104) L 11/29/16 04:40 ABG O2 Saturation 94 % (95-98) L 11/29/16 04:40 PT/INR, D-dimer PT 12.4 Seconds (9.4-12.1) H 11/25/16 22:30 Consult Discharge Plan - Plan Referrals: NO,PCP [Primary Care Provider] - <Reed Garnica - Last Filed: 11/29/16 09:03> Date of Encounter: 11/29/16 - Time Spent With Patient Total time spent is greater than 50% in coordination of care (as documented) at patient's floor/unit and/or counseling patient: - Constitutional Vitals: Abnormal lab results WBC 11.6 K/mcL (4.3-11.1) H 11/29/16 03:55 RBC 3.95 M/mcL (4.19-5.50) L 11/29/16 03:55 Hgb 12.5 g/dL (12.9-16.9) L 11/29/16 03:55 Neutrophils # 9.6 K/mcL (1.6-8.9) H 11/29/16 03:55 Monocytes # 1.4 K/mcL (0.0-1.3) H 11/29/16 03:55 Nucleated RBCs/100 WBC 0.2 /100 WBC (0) H 11/23/16 20:59 PT 12.4 Seconds (9.4-12.1) H 11/25/16 22:30 ABG pH 7.47 pH Units (7.32-7.45) H 11/29/16 04:40 ABG pO2 65 mmHg (85-104) L 11/29/16 04:40 ABG HCO3 31.3 mEQ/L (21-27) H 11/29/16 04:40 ABG Total CO2 32.6 mEq/L (20-26) H 11/29/16 04:40 ABG O2 Saturation 94 % (95-98) L 11/29/16 04:40 ABG Base Excess 6.8 mEq/L (-2.0 to 3.0) H 11/29/16 04:40 Potassium 3.2 mEq/L (3.5-4.5) L 11/29/16 03:55 Glucose 138 mg/dL (70-99) H 11/29/16 03:55 POC Glucose 122 (58-89) H 11/29/16 00:10 Lactic Acid 2.3 mmol/L (0.5-2.2) H 11/25/16 22:30 Calcium 8.5 mg/dL (8.6-10.8) L 11/29/16 03:55 Ionized Calcium 1.08 mmol/L (1.15-1.35) L 11/29/16 03:55 Total Bilirubin 1.4 mg/dL (0.2-1.2) H 11/29/16 03:55 AST 57 Units/L (5-34) H 11/29/16 03:55 Troponin I 24.64 ng/mL (0-0.03) H* 11/25/16 22:30 Serum Total Protein 5.7 g/dL (6.0-8.3) L 11/29/16 03:55 Albumin 2.5 g/dL (3.5-5.0) L 11/29/16 03:55 Albumin/Globulin Ratio 0.8 (1.1-2.2) L 11/29/16 03:55 - Attending Attestation I examined this patient and my medical decision-making was reviewed with the [employer]/PA/Advanced Practice Nurse/Resident Physician. I agree with the documented findings, disposition and treatment plan as described except to the extent set forth below. pt to be extubated today will be on hospitalist service until eval is complete Palliative Quality Code Status: 11/24/16 11:54 FULL [Resuscitation Status: Active] [RES] Routine Comment: Resuscitation Status: Full Code 11/26/16 19:48 FULL [Resuscitation Status: Active] [RES] Routine Comment: Resuscitation Status: Full Code 11/28/16 11:19 CODE [Resuscitation Status: Active] [RES] Routine Comment: currently intubated, but do not RE-intubate Resuscitation Status: [id number] - Labs CBC & Chem 7: 11/29/16 03:55 11/29/16 03:55 Labs: Laboratory Results - last 24 hr 11/28/16 11/28/16 11/29/16 11:07 17:49 00:10 WBC RBC Hgb Hct MCV MCH MCHC RDW Plt Count MPV Immature Gran % Seg Neutrophils % Lymphocytes % Monocytes % Eosinophils % Basophils % Neutrophils # Lymphocytes # Monocytes # Eosinophils # Basophils # ABG pH ABG pCO2 ABG pO2 ABG HCO3 ABG Total CO2 ABG O2 Saturation ABG Base Excess Respiration Rate Blood Gas Modality Inspired O2 Tidal Volume PEEP Sodium Potassium Chloride Carbon Dioxide BUN Creatinine Est GFR ( Amer) Est GFR (Non-Af Amer) BUN/Creatinine Ratio Glucose POC Glucose 134 H 122 H 122 H Calculated Osmolality Calcium Ionized Calcium Phosphorus Magnesium Total Bilirubin AST ALT Alkaline Phosphatase Ammonia Serum Total Protein Albumin Globulin Albumin/Globulin Ratio 11/29/16 11/29/16 11/29/16 03:55 03:55 04:38 WBC 11.6 H RBC 3.95 L Hgb 12.5 L Hct 37.8 MCV 95.7 MCH 31.6 MCHC 33.1 RDW 13.9 Plt Count 168 MPV 10.2 Immature Gran % 0.6 Seg Neutrophils % 82.6 Lymphocytes % 4.9 Monocytes % 11.6 Eosinophils % 0.2 Basophils % 0.1 Neutrophils # 9.6 H Lymphocytes # 0.6 Monocytes # 1.4 H Eosinophils # 0.0 Basophils # 0.0 ABG pH ABG pCO2 ABG pO2 ABG HCO3 ABG Total CO2 ABG O2 Saturation ABG Base Excess Respiration Rate Blood Gas Modality Inspired O2 Tidal Volume PEEP Sodium 140 Potassium 3.2 L Chloride 102 Carbon Dioxide 29 BUN 24 Creatinine 0.99 Est GFR ( Amer) > 60 Est GFR (Non-Af Amer) > 60 BUN/Creatinine Ratio 24 Glucose 138 H POC Glucose Calculated Osmolality 296 Calcium 8.5 L Ionized Calcium 1.08 L Phosphorus 2.8 Magnesium 1.8 Total Bilirubin 1.4 H AST 57 H ALT 49 Alkaline Phosphatase 70 Ammonia 24 Serum Total Protein 5.7 L Albumin 2.5 L Globulin 3.2 Albumin/Globulin Ratio 0.8 L 11/29/16 04:40 WBC RBC Hgb Hct MCV MCH MCHC RDW Plt Count MPV Immature Gran % Seg Neutrophils % Lymphocytes % Monocytes % Eosinophils % Basophils % Neutrophils # Lymphocytes # Monocytes # Eosinophils # Basophils # ABG pH 7.47 H ABG pCO2 43 ABG pO2 65 L ABG HCO3 31.3 H ABG Total CO2 32.6 H ABG O2 Saturation 94 L ABG Base Excess 6.8 H Respiration Rate 16 Blood Gas Modality VCT Inspired O2 30 Tidal Volume 550 PEEP 5 Sodium Potassium Chloride Carbon Dioxide BUN Creatinine Est GFR ( Amer) Est GFR (Non-Af Amer) BUN/Creatinine Ratio Glucose POC Glucose Calculated Osmolality Calcium Ionized Calcium Phosphorus Magnesium Total Bilirubin AST ALT Alkaline Phosphatase Ammonia Serum Total Protein Albumin Globulin Albumin/Globulin Ratio - ABG Interpretation ABG results: ABG ABG pH 7.47 pH Units (7.32-7.45) H 11/29/16 04:40 ABG pCO2 43 mmHg (35-45) 11/29/16 04:40 ABG pO2 65 mmHg (85-104) L 11/29/16 04:40 ABG O2 Saturation 94 % (95-98) L 11/29/16 04:40 PT/INR, D-dimer PT 12.4 Seconds (9.4-12.1) H 11/25/16 22:30
[2016-11-29] MEDS: Potassium Chloride 40 MEQ/200 ML BAG IVPB PRN (08:48)
--- NOTE | 2016-11-29 09:03 | Pulmonology Progress Note ---
Date of Encounter: 11/29/16 Time of Encounter: 07:00 Assessment and Plan (1) Cardiac arrest with ventricular fibrillation Current Visit: Yes Status: Acute Initially in the ER - found to be in V. Fib arrest. Underwent ACLS x4 rounds, emergent incubation, had ROSC. Emergent LHC found 100% occlusion of LAD with subsequent placement of drug eluding stent. Transferred to ICU where hypothermia protocol initiated. [facility] 06 Apr: 100% LAD occlusion with ABDON placement. EF 15-20%. Continue aspirin, statin, lisinopril, brilinita. Continue amiodarone drip. Continue fentanyl drip. Will plan to extubate today with family present. Patient passed his breathing trial this morning. If patient does well, will plan for rehabilitation. Else, will plan for palliative care. Patient remains DNR-CCA-Do No re-intubate. Cardiology following. Their input appreciated. Palliative care following. Their input appreciated. (2) Acute ischemic left MCA stroke Current Visit: Yes Status: Acute Likely due to anoxic brain injury secondary from V. Fib cardiac arrest. Patient on fentanyl sedation; complete evaluation of neurologic status is impaired. CT Nov: Radiology interpretation as zone of stable encephalomalacia, left MCA distribution nonhemorrhagic infarction. The degree of mass effect and sulcal compression is unchanged. Neurologic improvement from yesterday - When asked if he is in pain, patient shakes head no. When asked if he want the intubation tube out, patient shakes head yes. When asked to squeeze left hand, patient squeezes multiple times. Neurology is following. Their input is appreciated. (3) Cardiogenic shock Current Visit: Yes Status: Acute As above. (4) CAD (coronary artery disease) Current Visit: Yes Status: Acute As above. Qualifiers: Qualified Code(s): I25.10 - Atherosclerotic heart disease of [place] coronary artery without angina pectoris (5) Lactic acidosis Current Visit: Yes Status: Acute Likely secondary to cardiac arrest. (6) Leucocytosis Current Visit: Yes Status: Acute Improving. No clinical signs of infection at this time. Will continue to monitor. Qualifiers: Qualified Code(s): D72.829 - Elevated white blood cell count, unspecified (7) DVT prophylaxis Current Visit: Yes Status: Acute Lovenox SQ Qdaily. Subjective Principal diagnosis: STEMI/ Large left middle cerebral artery territory infarct Interval history: ICU day 7. Patient seen and examined. No acute event overnight. He has been stable today. He remains intubated on IV Fentanyl sedation. I spoke with his daughter at bedside; patient's family remains hopeful. Patient is able to shake head no to deny pain and nod head yes to affirm he want the intubation tube out. Objective PUL Vital signs: Last Vital Signs Temp 97.5 F L 11/29/16 08:10 Pulse 72 11/29/16 08:00 Resp 17 11/29/16 08:00 BP 155/107 11/29/16 08:00 Pulse Ox 99 11/29/16 08:00 General appearance: no acute distress, other (intubated, lightly sedated on fentanyl, responds appropriatly to hand squeeze and simple question as documented in Plan.) Eyes: nonicteric ENT: oropharynx moist Neck: supple Effort: normal Auscultation: bilateral: diminished breath sounds Cardiovascular: regular rate and rhythm Gastrointestinal: normoactive bowel sounds, soft, non-tender Integumentary: normal Extremities: no cyanosis, pink and warm, edema (trace BL pedal edema.) Musculoskeletal: no deformities pupils equal and round, other (right side flaccid paralysis. moving left lower extremity intermittantly. able to squeeze left hand on command.) Ventilator Settings Ventilator Settings: Ventilator Settings, Last 8 Hours Ventilator Mode CPAP Ventilator Mode CPAP Ventilator Mode CPAP Ventilator Mode VC+ Ventilator Mode VC+ Ventilator Mode VC+ Ventilator Mode VC+ Ventilator Mode VC+ Ventilator Mode VC+ Ventilator Tidal Volume 550 Setting Ventilator Tidal Volume 550 Setting Ventilator Tidal Volume 550 Setting Ventilator Tidal Volume 550 Setting Ventilator Tidal Volume 550 Setting Ventilator Tidal Volume 550 Setting Ventilator Respiratory Rate 14 Setting Ventilator Respiratory Rate 14 Setting Ventilator Respiratory Rate 16 Setting Ventilator Respiratory Rate 16 Setting Ventilator Respiratory Rate 16 Setting Ventilator Respiratory Rate 16 Setting Actual Respiratory Rate 18 Actual Respiratory Rate 19 Actual Respiratory Rate 18 Actual Respiratory Rate 17 Actual Respiratory Rate 16 Actual Respiratory Rate 16 Positive End Expiratory 5 Pressure Positive End Expiratory 5 Pressure Positive End Expiratory 5 Pressure Positive End Expiratory 5 Pressure Positive End Expiratory 5 Pressure Positive End Expiratory 5 Pressure Positive End Expiratory 5 Pressure Positive End Expiratory 5 Pressure Positive End Expiratory 5 Pressure Peak Inspiratory Airway 17 Pressure Peak Inspiratory Airway 17 Pressure Peak Inspiratory Airway 17 Pressure Peak Inspiratory Airway 16 Pressure Peak Inspiratory Airway 21 Pressure Peak Inspiratory Airway 30 Pressure Results - Laboratory Findings CBC and BMP: 11/29/16 03:55 11/29/16 03:55 ABG ABG pH 7.47 pH Units (7.32-7.45) H 11/29/16 04:40 ABG pCO2 43 mmHg (35-45) 11/29/16 04:40 ABG pO2 65 mmHg (85-104) L 11/29/16 04:40 ABG O2 Saturation 94 % (95-98) L 11/29/16 04:40 PT/INR, D-dimer PT 12.4 Seconds (9.4-12.1) H 11/25/16 22:30 Abnormal lab findings: Abnormal lab results WBC 11.6 K/mcL (4.3-11.1) H 11/29/16 03:55 RBC 3.95 M/mcL (4.19-5.50) L 11/29/16 03:55 Hgb 12.5 g/dL (12.9-16.9) L 11/29/16 03:55 Neutrophils # 9.6 K/mcL (1.6-8.9) H 11/29/16 03:55 Monocytes # 1.4 K/mcL (0.0-1.3) H 11/29/16 03:55 Nucleated RBCs/100 WBC 0.2 /100 WBC (0) H 11/23/16 20:59 PT 12.4 Seconds (9.4-12.1) H 11/25/16 22:30 ABG pH 7.47 pH Units (7.32-7.45) H 11/29/16 04:40 ABG pO2 65 mmHg (85-104) L 11/29/16 04:40 ABG HCO3 31.3 mEQ/L (21-27) H 11/29/16 04:40 ABG Total CO2 32.6 mEq/L (20-26) H 11/29/16 04:40 ABG O2 Saturation 94 % (95-98) L 11/29/16 04:40 ABG Base Excess 6.8 mEq/L (-2.0 to 3.0) H 11/29/16 04:40 Potassium 3.2 mEq/L (3.5-4.5) L 11/29/16 03:55 Glucose 138 mg/dL (70-99) H 11/29/16 03:55 POC Glucose 122 (58-89) H 11/29/16 00:10 Lactic Acid 2.3 mmol/L (0.5-2.2) H 11/25/16 22:30 Calcium 8.5 mg/dL (8.6-10.8) L 11/29/16 03:55 Ionized Calcium 1.08 mmol/L (1.15-1.35) L 11/29/16 03:55 Total Bilirubin 1.4 mg/dL (0.2-1.2) H 11/29/16 03:55 AST 57 Units/L (5-34) H 11/29/16 03:55 Troponin I 24.64 ng/mL (0-0.03) H* 11/25/16 22:30 Serum Total Protein 5.7 g/dL (6.0-8.3) L 11/29/16 03:55 Albumin 2.5 g/dL (3.5-5.0) L 11/29/16 03:55 Albumin/Globulin Ratio 0.8 (1.1-2.2) L 11/29/16 03:55 - Clinical Findings Intake & Output: Intake & Output 11/28/16 11/29/16 11/29/16 23:59 07:59 15:59 Intake Total 200 / 200 200 / 200 Output Total 250 / 250 330 / 330 300 / 300 Balance -50 / -50 -330 / -330 -100 / -100 Weight 122.334 kg Consult Discharge Plan - Plan Referrals: NO,PCP [Primary Care Provider] -
--- NOTE | 2016-11-29 10:13 | Cardiology Progress Note ---
Date of Encounter: 11/29/16 Time of Encounter: 08:30 Assessment and Plan (1) Cardiac arrest Current Visit: Yes Status: Acute S/p v-fib arrest on admission with ACLS and tDP and prolonged QTc on 11/25/16. QTc back to normal. Repeat EKG yesterday showed Qtc at 439. Underwent hypothermia protocal. Intubated on c-pap trial this morning. Off sedation. Planning for extubation this morning with family at bedside. Now DNRCCA- DNI. Palliative care input appreciated. Continue amiodarone gtt for now. If he starts taking oral we will convert to pill form. (2) STEMI (ST elevation myocardial infarction) Current Visit: Yes Status: Acute s/p STEMI, PCI to the proximal LAD 11/23/16. Continue aspirin,brilinta, and statin. BB held d/t bradycarda and junctional rhythm. Qualifiers: Involved coronary artery: other coronary artery Qualified Code(s): I21.29 - ST elevation (STEMI) myocardial infarction involving other sites (3) Ischemic cardiomyopathy Current Visit: Yes Status: Acute Severe ICMP s/p STEMI/cardiac arrest/PCI to LAD. LVEF 15-20% per TTE. Continue DAPT, statin therapy. Tolerating harrison-inhibitor. BLE edema resolved. Appears euvolemic. On IV lasix. Decrease to 20 mg IV BID. Cummulative I&O -6553 ml. Telemetry review shows avg HR 65 bpm. Nocturnal bradycardia seen with HR as low as 40 BPM. No pauses. Occasional short runs of SVT seen. HR now 90's will add low dose carvedilol later today if HR stays elevated after extubation. (4) Acute ischemic left MCA stroke Current Visit: Yes Status: Acute Per neurology: Patient is more alert than yesterday, currently he is on minimum fentanyl IV sedation and on CPAP breathing trial, when all family members are present in the room, patient will be ready to be extubated, when patient is completely off of IV sedation and extubated, then we can fully assess his current neurological status. Repeated head CT showed stable large zone of encephalomalacia, left middle cerebral artery distribution nonhemorrhagic infarction, the degree of mass effect and sulcal compression is unchanged. 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 From my perspective, he still does not follow simple commands but responds to tactile stimulation with reflex activity on the left upper/lower extremities, not so much of manifesting voluntary movement, patient seems to be stabilizing however he is not processing external stimuli on the higher level, will come back and reassess patient's neurological status after extubation and off of IV sedation. Cardiology: S/p left MCA stroke likely anoxic brain injury from v-fib arrest per neurology. Re-evaluate neurologic status once extubated. Appreciate neurology input. Discussion w patient/family: The assessment and plan as outlined above was discussed with the patient and/or family members who expressed understanding and agreement. All questions were answered. Thank you for involving us in the care of your patient. Please call with any questions. Subjective Principal diagnosis: STEMI/ Large left middle cerebral artery territory infarct Interval history: Pt opening eyes and moving left side. Appears to be non-purposeful and some purposeful movement per family . Will not follow commands on my exam but very restless. No acute distress noted. On c-pap trial. Planning for extubation this morning. Objective Vital Signs, Last 4 Hours Temp Pulse Resp BP Pulse Ox 11/29/16 09:56 19 94 11/29/16 09:00 97.5 F L 64 14 171/84 94 11/29/16 08:10 97.5 F L 11/29/16 08:00 97.5 F L 72 17 155/107 99 11/29/16 07:41 18 95 11/29/16 07:00 72 18 174/90 99 General: Other (Awake and restless, intubated, non-purposeful movement on my exam. ) HEENT: Atraumatic, Normocephaly, Mucus Membranes Moist, Other (ET tube in place. ) Neck: No JVD, Normal carotid pulses Cardiac: Reg Rate and Rhythm, Normal S1 and S2, No Murmur Lungs: Normal Breath Sounds, No Wheeze, Rales, Rhonchi Neuro: Other (right side flaccid, favors left side. Pulling at things with left hand. Strong hand grasps left side and moves left leg. Raises head at times. ) Abdomen: Soft, Non-Tender Skin: No rashes noted on visualized skin Musculoskeletal: No Chest Wall Tenderness Extremities: No Clubbing, No Cyanosis, No Edema, Normal Pulses Results 11/29/16 03:55 11/29/16 03:55 Lab Results 11/29/16 11/29/16 03:55 03:55 WBC 11.6 H Hgb 12.5 L Hct 37.8 Plt Count 168 Sodium 140 Potassium 3.2 L Chloride 102 Carbon Dioxide 29 BUN 24 Creatinine 0.99 Glucose 138 H Calcium 8.5 L Magnesium 1.8 Total Bilirubin 1.4 H AST 57 H ALT 49 Alkaline Phosphatase 70 Consult Discharge Plan - Plan Referrals: NO,PCP [Primary Care Provider] -
[2016-11-29] MEDS: Calcium Gluconate 1,000 MG in D5% in Water 100 ML IVPB PRN (10:33)
[2016-11-29] MEDS ORDERED: Furosemide 20 MG/2 ML VIAL IVP SCH (10:33)
[2016-11-29] MEDS: Magnesium Sulfate 2 GM in D5% in Water 100 ML IVPB PRN (10:33)
--- NOTE | 2016-11-29 13:04 | Urology - Consult Note ---
Date of Encounter: 11/29/16 Time of Encounter: 13:01 - Assessment and Plan (1) Bell catheter problem Current Visit: Yes Status: Acute Assessment and plan: Urine is clearing without CBI or other intervention. I recommend continuing the Bell catheter at least 7 days to allow for urethral healing after the traumatic removal. At that point, the catheter can be removed at the discretion of the primary service. Patient is at high risk for recurrent retention because of his recent stroke. May require urologic evaluation in the future. Qualifiers: Encounter type: initial encounter Qualified Code(s): T83.9XXA - Unspecified complication of genitourinary prosthetic device, implant and graft, initial encounter Urology CN:HPI Consult date: 11/29/16 Reason for consult Urology: Gross Hematuria History of present illness: 71 yo ICU patient. traumatic Bell catheter removal with 10 mL balloon inflated last night. Catheter has been replaced with initial return of gross hematuria but has begun to clear during the day. No clot retention Past Med Surg Social Fam HX - Past Medical History Medical history: COPD, hyperlipidemia Psychiatric history: no psych history - Past Surgical History Surgical History: non-contributory - Social History Smoking Status: Current every day smoker Smokeless Tobacco Status: Yes Alcohol use: unknown Drug use: none Medications and Allergies Celecoxib [Celebrex] 200 mg PO BID 11/24/16 [History] Duloxetine HCl [Cymbalta] 60 mg PO DAILY 11/24/16 [History] Furosemide [Lasix] 20 mg PO DAILY PRN 11/24/16 [History] Umeclidinium Brm/Vilanterol Tr [Anoro Ellipta 62.5-25 Mcg INH] 1 puff IH DAILY 11/24/16 [History] Allergies No Known Allergies Allergy (Verified 11/23/16 21:45) Review of Systems ROS unobtainable: due to mental status Exam Initial Vital Signs Temp Pulse Resp BP Pulse Ox 0 F L 0 0 0/0 92 11/23/16 20:48 11/23/16 20:48 11/23/16 20:48 11/23/16 20:48 11/23/16 20:48 - General physical appearance Present: no distress - Eyes Present: other (Opens eyes to voice) - ENT Present: normal nares - Neck Present: no masses - Respiratory Present: normal respiratory effort - Abdomen Abdomen: Present: soft - Integumentary Present: no rash - Musculoskeletal Present: other - Additional Findings Bell catheter in place draining very slight hematuria, transparent in the catheter tube Urology Results - Labs 11/29/16 03:55 11/29/16 03:55 Abnormal lab results WBC 11.6 K/mcL (4.3-11.1) H 11/29/16 03:55 RBC 3.95 M/mcL (4.19-5.50) L 11/29/16 03:55 Hgb 12.5 g/dL (12.9-16.9) L 11/29/16 03:55 Neutrophils # 9.6 K/mcL (1.6-8.9) H 11/29/16 03:55 Monocytes # 1.4 K/mcL (0.0-1.3) H 11/29/16 03:55 Nucleated RBCs/100 WBC 0.2 /100 WBC (0) H 11/23/16 20:59 PT 12.4 Seconds (9.4-12.1) H 11/25/16 22:30 ABG pH 7.47 pH Units (7.32-7.45) H 11/29/16 04:40 ABG pO2 65 mmHg (85-104) L 11/29/16 04:40 ABG HCO3 31.3 mEQ/L (21-27) H 11/29/16 04:40 ABG Total CO2 32.6 mEq/L (20-26) H 11/29/16 04:40 ABG O2 Saturation 94 % (95-98) L 11/29/16 04:40 ABG Base Excess 6.8 mEq/L (-2.0 to 3.0) H 11/29/16 04:40 Potassium 3.2 mEq/L (3.5-4.5) L 11/29/16 03:55 Glucose 138 mg/dL (70-99) H 11/29/16 03:55 POC Glucose 141 (58-89) H 11/29/16 12:13 Lactic Acid 2.3 mmol/L (0.5-2.2) H 11/25/16 22:30 Calcium 8.5 mg/dL (8.6-10.8) L 11/29/16 03:55 Ionized Calcium 1.08 mmol/L (1.15-1.35) L 11/29/16 03:55 Total Bilirubin 1.4 mg/dL (0.2-1.2) H 11/29/16 03:55 AST 57 Units/L (5-34) H 11/29/16 03:55 Troponin I 24.64 ng/mL (0-0.03) H* 11/25/16 22:30 Serum Total Protein 5.7 g/dL (6.0-8.3) L 11/29/16 03:55 Albumin 2.5 g/dL (3.5-5.0) L 11/29/16 03:55 Albumin/Globulin Ratio 0.8 (1.1-2.2) L 11/29/16 03:55 Diabetes panel 11/29/16 Range/Units 03:55 Sodium 140 (136-145) mEq/L Potassium 3.2 L (3.5-4.5) mEq/L Chloride 102 (98-109) mEq/L Carbon Dioxide 29 (19-29) mEq/L BUN 24 (8-26) mg/dL Creatinine 0.99 (0.72-1.25) mg/dL Glucose 138 H (70-99) mg/dL Calcium 8.5 L (8.6-10.8) mg/dL AST 57 H (5-34) Units/L ALT 49 (0-55) Units/L Alkaline Phosphatase 70 (38-126) Units/L Albumin 2.5 L (3.5-5.0) g/dL Calcium panel 11/29/16 Range/Units 03:55 Calcium 8.5 L (8.6-10.8) mg/dL Phosphorus 2.8 (2.3-4.7) mg/dL Albumin 2.5 L (3.5-5.0) g/dL Pituitary panel 11/29/16 Range/Units 03:55 Sodium 140 (136-145) mEq/L Potassium 3.2 L (3.5-4.5) mEq/L Chloride 102 (98-109) mEq/L Carbon Dioxide 29 (19-29) mEq/L BUN 24 (8-26) mg/dL Creatinine 0.99 (0.72-1.25) mg/dL Glucose 138 H (70-99) mg/dL Calcium 8.5 L (8.6-10.8) mg/dL Adrenal panel 11/29/16 Range/Units 03:55 Sodium 140 (136-145) mEq/L Potassium 3.2 L (3.5-4.5) mEq/L Chloride 102 (98-109) mEq/L Carbon Dioxide 29 (19-29) mEq/L BUN 24 (8-26) mg/dL Creatinine 0.99 (0.72-1.25) mg/dL Glucose 138 H (70-99) mg/dL Calcium 8.5 L (8.6-10.8) mg/dL Total Bilirubin 1.4 H (0.2-1.2) mg/dL AST 57 H (5-34) Units/L ALT 49 (0-55) Units/L Alkaline Phosphatase 70 (38-126) Units/L Albumin 2.5 L (3.5-5.0) g/dL All other labs normal. Consult Discharge Plan - Plan Referrals: NO,PCP [Primary Care Provider] -
[2016-11-29] MEDS ORDERED: *HR* FentaNYL (PF) 100 MCG/2 ML VIAL IVP PRN (14:05)
[2016-11-29 16:45] LABS: Magnesium 2.3 mg/dL (1.6-2.6); Potassium 3.5 mEq/L (3.5-4.5)
[2016-11-29 17:08] LABS: Ionized Calcium 1.09 mmol/L (1.15-1.35)
[2016-11-29] MEDS ORDERED: Ondansetron 4 MG/2 ML VIAL IVP PRN (17:45)
[2016-11-29] MEDS ORDERED: Magnesium Sulfate 2 GM in D5% in Water 100 ML IVPB PRN (17:45)
[2016-11-29] MEDS ORDERED: Calcium Gluconate 1,000 MG in D5% in Water 100 ML IVPB PRN (17:45)
[2016-11-29] MEDS: Furosemide 20 MG TABLET PO SCH (18:18)
[2016-11-29] MEDS: Albuterol 2.5 MG/3 ML NEBULIZER IH PRN (19:43)
[2016-11-29] MEDS: *HR* Amiodarone 200 MG TABLET PO SCH (19:49)
[2016-11-29] MEDS: *HR* FentaNYL (PF) 100 MCG/2 ML VIAL IVP PRN ×2 (20:55→23:47)
[2016-11-30 03:09] LABS: Basophils % 0.1 %; Eosinophils % 0.3 %; Hematocrit 39.8 % (37.5-50.1); Immature Granulocytes % 0.5 % (0-4); Immature Platelets 4.9 % (1.1-6.1); Lymphocytes # 0.8 K/mcL (0.6-4.6); Lymphocytes % 7.4 %; Mean Corpuscular HGB Conc 32.7 g/dL (31.6-35.5); Mean Corpuscular Volume 94.8 fL (83.0-100.0); Mean Platelet Volume 9.7 fL (9.4-12.4); Monocytes # 1.6 K/mcL (0.0-1.3); Monocytes % 14.9 %; Neutrophils # 8.4 K/mcL (1.6-8.9); Platelet Count 205 K/mcL (140-400); Red Cell Distribution Width 13.7 % (11.5-14.5); Segmented Neutrophils % 76.8 %
[2016-11-30 03:29] LABS: BUN/Creatinine Ratio 24 (6-26); Blood Urea Nitrogen 24 mg/dL (8-26); Carbon Dioxide 28 mEq/L (19-29); Chloride 99 mEq/L (98-109); Glucose 101 mg/dL (70-99); Osmolality,Calculated 290 (280-300); Potassium 3.3 mEq/L (3.5-4.5); Sodium 138 mEq/L (136-145); eGFR For African Americans > 60 (> 60); eGFR For Non-African Americans > 60 (> 60)
[2016-11-30 03:40] LABS: Magnesium 2.3 mg/dL (1.6-2.6)
[2016-11-30] MEDS: *HR* Enoxaparin 40 MG/0.4 ML SYRINGE SQ SCH (05:01)
[2016-11-30] MEDS: Albuterol 2.5 MG/3 ML NEBULIZER IH PRN (08:08)
[2016-11-30] MEDS: Aspirin 81 MG TAB.CHEW PO SCH (08:14)
[2016-11-30] MEDS: *HR* Ticagrelor 90 MG TABLET PO SCH ×2 (08:14→20:58)
[2016-11-30] MEDS: Furosemide 20 MG TABLET PO SCH (08:15)
[2016-11-30] MEDS: Pantoprazole 40 MG VIAL IVP SCH (08:15)
[2016-11-30] MEDS: *HR* Amiodarone 200 MG TABLET PO SCH ×2 (08:15→20:58)
[2016-11-30] MEDS ORDERED: Albuterol 2.5 MG/3 ML NEBULIZER IH PRN (08:25)
--- NOTE | 2016-11-30 08:31 | Pulmonology Progress Note ---
Date of Encounter: 11/30/16 Time of Encounter: 08:27 Assessment and Plan (1) Cardiac arrest with ventricular fibrillation Current Visit: Yes Status: Acute Initially in the ER - found to be in V. Fib arrest. Underwent ACLS x4 rounds, emergent incubation, had ROSC. Emergent LHC found 100% occlusion of LAD with subsequent placement of drug eluding stent. Transferred to ICU where hypothermia protocol initiated. [facility] 06 Apr: 100% LAD occlusion with ABDON placement. EF 15-20%. - Continue aspirin, statin, lisinopril, brilinita. - Continue fentanyl 25mcg IVP PRN pain. Patient has done well since self-extubating yesterday. Currently on 4L NC. Breathing mildly labored; diffuse wheezes. - Begin duoneb scheduled Q6hr, albuterol neb Q2hr PRN. - Continue supplemental O2 PRN. Patient remains DNR-CCA-Do No re-intubate. - Consult to PT and OT. Cardiology following. Their input appreciated. Palliative care following. Their input appreciated. (2) Acute ischemic left MCA stroke Current Visit: Yes Status: Acute Likely due to anoxic brain injury secondary from V. Fib cardiac arrest. Patient on fentanyl sedation; complete evaluation of neurologic status is impaired. CT 10 Nov: Radiology interpretation as zone of stable encephalomalacia, left MCA distribution nonhemorrhagic infarction. The degree of mass effect and sulcal compression is unchanged. Neurologic improvement from yesterday - Patient responds to his name, follows you with his eyes and head as you walk around the room. When asked if he is in pain, patient shakes head no. Neurology is following. Their input is appreciated. (3) Cardiogenic shock Current Visit: Yes Status: Acute As above. (4) CAD (coronary artery disease) Current Visit: Yes Status: Acute As above. Qualifiers: Coronary Disease-Associated Artery/Lesion type: [place] artery [place] vs. transplanted heart: [place] heart Associated angina: angina presence unspecified Qualified Code(s): I25.10 - Atherosclerotic heart disease of [place] coronary artery without angina pectoris (5) Lactic acidosis Current Visit: Yes Status: Resolved Likely secondary to cardiac arrest. Resolved. (6) Leucocytosis Current Visit: Yes Status: Resolved Resolved. No clinical signs of infection at this time. Will continue to monitor. Qualifiers: Leukocytosis type: unspecified Qualified Code(s): D72.829 - Elevated white blood cell count, unspecified (7) DVT prophylaxis Current Visit: Yes Status: Acute Lovenox SQ Qdaily. Subjective Principal diagnosis: STEMI/ Large left middle cerebral artery territory infarct Interval history: ICU day 8. Patient seen and examined. No acute events overnight. He remains stable after self-extubation yesterday. He expresses desire to drink water; will repeat swallow study today. He denies pain. Patient's is bedside; she notes the patient has not slept in some time and is requesting a sleep aid. Discussed with her the risks of such medications in the context of the patient's current status; encouraged her to keep him awake and stimulated today so that he is more likely to sleep tonight. Patient recently attempted to pull out castaneda catheter causing some urethral trauma. Castaneda remains in place. Cardiology transitioned patient to PO medications anticipating successful swallow study and transfer to medical tele floor. Because of his non- reassuring swallow study yesterday, an NG tube order was placed. Patient expressed his desire to not have the NG tube; NG tube not placed. PO medications crushed, mixed with saline, and given PO which the patient tolerated well. Objective PUL Vital signs: Last Vital Signs Temp 98.7 F 11/30/16 07:36 Pulse 63 11/30/16 08:00 Resp 20 11/30/16 08:09 BP 145/90 11/30/16 08:00 Pulse Ox 97 11/30/16 08:09 General appearance: no acute distress, alert Eyes: nonicteric ENT: oropharynx dry Neck: supple Effort: mildly labored Auscultation: bilateral: diminished breath sounds, wheezes Cardiovascular: regular rate and rhythm Gastrointestinal: hypoactive bowel sounds, soft, non-tender, non-distended Integumentary: normal Extremities: no cyanosis, pink and warm, pulses normal, edema (trace bilateral pedal edema) Musculoskeletal: no deformities pupils equal and round, other (right sided flaccid paralysis. able to squeeze left hand and move left leg. GCS 15.) mood appropriate, affect normal Results - Laboratory Findings CBC and BMP: 11/30/16 03:05 11/30/16 03:05 ABG ABG pH 7.47 pH Units (7.32-7.45) H 11/29/16 04:40 ABG pCO2 43 mmHg (35-45) 11/29/16 04:40 ABG pO2 65 mmHg (85-104) L 11/29/16 04:40 ABG O2 Saturation 94 % (95-98) L 11/29/16 04:40 PT/INR, D-dimer PT 12.4 Seconds (9.4-12.1) H 11/25/16 22:30 Abnormal lab findings: Abnormal lab results Monocytes # 1.6 K/mcL (0.0-1.3) H 11/30/16 03:05 Nucleated RBCs/100 WBC 0.2 /100 WBC (0) H 11/23/16 20:59 PT 12.4 Seconds (9.4-12.1) H 11/25/16 22:30 ABG pH 7.47 pH Units (7.32-7.45) H 11/29/16 04:40 ABG pO2 65 mmHg (85-104) L 11/29/16 04:40 ABG HCO3 31.3 mEQ/L (21-27) H 11/29/16 04:40 ABG Total CO2 32.6 mEq/L (20-26) H 11/29/16 04:40 ABG O2 Saturation 94 % (95-98) L 11/29/16 04:40 ABG Base Excess 6.8 mEq/L (-2.0 to 3.0) H 11/29/16 04:40 Potassium 3.3 mEq/L (3.5-4.5) L 11/30/16 03:05 Glucose 101 mg/dL (70-99) H 11/30/16 03:05 POC Glucose 93 (58-89) H 11/30/16 02:34 Lactic Acid 2.3 mmol/L (0.5-2.2) H 11/25/16 22:30 Ionized Calcium 1.09 mmol/L (1.15-1.35) L 11/29/16 16:27 Total Bilirubin 1.4 mg/dL (0.2-1.2) H 11/29/16 03:55 AST 57 Units/L (5-34) H 11/29/16 03:55 Troponin I 24.64 ng/mL (0-0.03) H* 11/25/16 22:30 Serum Total Protein 5.7 g/dL (6.0-8.3) L 11/29/16 03:55 Albumin 2.5 g/dL (3.5-5.0) L 11/29/16 03:55 Albumin/Globulin Ratio 0.8 (1.1-2.2) L 11/29/16 03:55 - Clinical Findings Intake & Output: Intake & Output 11/29/16 11/30/16 11/30/16 23:59 07:59 15:59 Intake Total 310 / 310 Output Total 250 / 250 775 / 775 Balance 60 / 60 -775 / -775 Consult Discharge Plan - Plan Referrals: NO,PCP [Primary Care Provider] -
[2016-11-30] MEDS: Ipratropium/Albuterol Neb 3 ML IH SCH ×3 (11:18→22:19)
[2016-11-30] MEDS: Bisacodyl 10 MG RECTAL SUPPOSITORY RC SCH (12:05)
--- NOTE | 2016-11-30 12:21 | Palliative Progress Note ---
Date of Encounter: 11/30/16 Time of Encounter: 11:00 - Assessment and plan (1) Dysphagia Current Visit: Yes Status: Acute Assessment and plan: Speech therapy has been consulted and working with pt. Will re-eval tomorrow, possible modified barium testing. He may need some more time to recover from self extubation yesterday. Patient has made it known he does not desire NG tube for feeds. He is tolerated crushed meds in some water. Will follow closely. (2) Goals of care, counseling/discussion Current Visit: Yes Status: Acute Assessment and plan: Neuro status has improved, however, nutrition may still be an issue, and rt sided hemiparesis continues. With size of stroke, doubtful much recovery and pt will likely need rehab and possible placement. has left hospital, daughter at bedside. Discussed possible meeting with and kids involving social work tomorrow to discuss and give some education on options. Will continue to follow. - Time Spent With Patient Total time spent is greater than 50% in coordination of care (as documented) at patient's floor/unit and/or counseling patient: 25 - 35 minutes - Subjective Interval history: Patient awake and alert. Appears restless. Continues with expressive aphasia and right sided hemiparesis. Does follow some simple commands this am. Daughter at bedside. - Constitutional Vitals: Abnormal lab results Monocytes # 1.6 K/mcL (0.0-1.3) H 11/30/16 03:05 Nucleated RBCs/100 WBC 0.2 /100 WBC (0) H 11/23/16 20:59 PT 12.4 Seconds (9.4-12.1) H 11/25/16 22:30 ABG pH 7.47 pH Units (7.32-7.45) H 11/29/16 04:40 ABG pO2 65 mmHg (85-104) L 11/29/16 04:40 ABG HCO3 31.3 mEQ/L (21-27) H 11/29/16 04:40 ABG Total CO2 32.6 mEq/L (20-26) H 11/29/16 04:40 ABG O2 Saturation 94 % (95-98) L 11/29/16 04:40 ABG Base Excess 6.8 mEq/L (-2.0 to 3.0) H 11/29/16 04:40 Potassium 3.3 mEq/L (3.5-4.5) L 11/30/16 03:05 Glucose 101 mg/dL (70-99) H 11/30/16 03:05 POC Glucose 93 (58-89) H 11/30/16 02:34 Lactic Acid 2.3 mmol/L (0.5-2.2) H 11/25/16 22:30 Ionized Calcium 1.09 mmol/L (1.15-1.35) L 11/29/16 16:27 Total Bilirubin 1.4 mg/dL (0.2-1.2) H 11/29/16 03:55 AST 57 Units/L (5-34) H 11/29/16 03:55 Troponin I 24.64 ng/mL (0-0.03) H* 11/25/16 22:30 Serum Total Protein 5.7 g/dL (6.0-8.3) L 11/29/16 03:55 Albumin 2.5 g/dL (3.5-5.0) L 11/29/16 03:55 Albumin/Globulin Ratio 0.8 (1.1-2.2) L 11/29/16 03:55 General appearance: Present: no acute distress - Respiratory Respiratory exam: Present: decreased breath sounds, CTAB - Cardiovascular Cardiovascular exam: Present: +S1, +S2 - GI/Abdominal GI/Abdominal exam: Present: normal bowel sounds, soft - Extremities Exam Extremities exam: Present: normal capillary refill, normal inspection - Neurological Exam Neurological exam: Present: alert, altered Additional comments: Expressive aphasia. Right sided facial droop and hemiparesis. Follows some commands with left side. Smiling and making facial expressions to family - Skin Skin exam: Present: dry, pallor, warm Palliative Quality Palliative Quality: Screen for Code Status: Yes, Screen for Goals of Care: Yes, Screen for Pain: NA, If Pain Regimen Started, Initiate Bowel Regimen: NA, Screen for Nausea/Vomitting: NA Code Status: 11/24/16 11:54 FULL [Resuscitation Status: Active] [RES] Routine Comment: Resuscitation Status: Full Code 11/26/16 19:48 FULL [Resuscitation Status: Active] [RES] Routine Comment: Resuscitation Status: Full Code 11/28/16 11:19 CODE [Resuscitation Status: Active] [RES] Routine Comment: currently intubated, but do not RE-intubate Resuscitation Status: [id number] - Labs CBC & Chem 7: 11/30/16 03:05 11/30/16 03:05 Labs: Laboratory Results - last 24 hr 11/29/16 11/29/16 11/29/16 12:13 16:27 18:21 WBC RBC Hgb Hct MCV MCH MCHC RDW Plt Count MPV Immature Gran % Seg Neutrophils % Lymphocytes % Monocytes % Eosinophils % Basophils % Neutrophils # Lymphocytes # Monocytes # Eosinophils # Basophils # Immature Plt Fraction Sodium Potassium 3.5 Chloride Carbon Dioxide BUN Creatinine Est GFR ( Amer) Est GFR (Non-Af Amer) BUN/Creatinine Ratio Glucose POC Glucose 141 H 101 H Calculated Osmolality Calcium Ionized Calcium 1.09 L Magnesium 2.3 11/30/16 11/30/16 11/30/16 02:34 03:05 03:05 WBC 11.0 RBC 4.20 Hgb 13.0 Hct 39.8 MCV 94.8 MCH 31.0 MCHC 32.7 RDW 13.7 Plt Count 205 MPV 9.7 Immature Gran % 0.5 Seg Neutrophils % 76.8 Lymphocytes % 7.4 Monocytes % 14.9 Eosinophils % 0.3 Basophils % 0.1 Neutrophils # 8.4 Lymphocytes # 0.8 Monocytes # 1.6 H Eosinophils # 0.0 Basophils # 0.0 Immature Plt Fraction 4.9 Sodium 138 Potassium 3.3 L Chloride 99 Carbon Dioxide 28 BUN 24 Creatinine 1.01 Est GFR ( Amer) > 60 Est GFR (Non-Af Amer) > 60 BUN/Creatinine Ratio 24 Glucose 101 H POC Glucose 93 H Calculated Osmolality 290 Calcium 9.0 Ionized Calcium Magnesium 2.3 - ABG Interpretation ABG results: ABG ABG pH 7.47 pH Units (7.32-7.45) H 11/29/16 04:40 ABG pCO2 43 mmHg (35-45) 11/29/16 04:40 ABG pO2 65 mmHg (85-104) L 11/29/16 04:40 ABG O2 Saturation 94 % (95-98) L 11/29/16 04:40 PT/INR, D-dimer PT 12.4 Seconds (9.4-12.1) H 11/25/16 22:30 Consult Discharge Plan - Plan Referrals: NO,PCP [Primary Care Provider] -
[2016-11-30] MEDS: *HR* FentaNYL (PF) 100 MCG/2 ML VIAL IVP PRN ×3 (13:15→22:40)
[2016-11-30] MEDS ORDERED: Haloperidol Lactate 5 MG/ML VIAL ONE (18:04)
[2016-11-30] MEDS ORDERED: Haloperidol Lactate 5 MG/ML VIAL IVP ONE (18:07)
[2016-12-01 03:33] LABS: Basophils % 0.1 %; Eosinophils # 0.1 K/mcL (0.0-0.6); Eosinophils % 0.8 %; Hematocrit 40.1 % (37.5-50.1); Immature Granulocytes % 0.4 % (0-4); Lymphocytes # 1.1 K/mcL (0.6-4.6); Lymphocytes % 9.4 %; Mean Corpuscular HGB Conc 32.4 g/dL (31.6-35.5); Mean Corpuscular Hemoglobin 30.7 pg (28.0-33.3); Mean Corpuscular Volume 94.8 fL (83.0-100.0); Mean Platelet Volume 9.8 fL (9.4-12.4); Monocytes # 1.6 K/mcL (0.0-1.3); Monocytes % 14.3 %; Neutrophils # 8.4 K/mcL (1.6-8.9); Platelet Count 226 K/mcL (140-400); Red Blood Count 4.23 M/mcL (4.19-5.50); Red Cell Distribution Width 13.6 % (11.5-14.5)
[2016-12-01 03:48] LABS: BUN/Creatinine Ratio 27 (6-26); Blood Urea Nitrogen 25 mg/dL (8-26); Calcium 8.8 mg/dL (8.6-10.8); Carbon Dioxide 32 mEq/L (19-29); Chloride 103 mEq/L (98-109); Glucose 103 mg/dL (70-99); Osmolality,Calculated 299 (280-300); Potassium 3.4 mEq/L (3.5-4.5); Sodium 142 mEq/L (136-145); eGFR For African Americans > 60 (> 60); eGFR For Non-African Americans > 60 (> 60)
[2016-12-01] MEDS: Ipratropium/Albuterol Neb 3 ML IH SCH ×4 (04:02→22:50)
[2016-12-01] MEDS: *HR* Enoxaparin 40 MG/0.4 ML SYRINGE SQ SCH (06:05)
[2016-12-01] MEDS: Pantoprazole 40 MG VIAL IVP SCH (09:27)
--- NOTE | 2016-12-01 09:42 | Palliative Progress Note ---
Date of Encounter: 12/01/16 Time of Encounter: 11:30 - Assessment and plan (1) Agitation Current Visit: Yes Status: Acute Assessment and plan: Required Haldol in Icu yesterday, began on Seroquel last pm. Family does state that he has not slept well in last 2-3 days. At this point, he is restless but less alert. Not able to follow commands today. Monitor (2) Generalized pain Current Visit: Yes Status: Acute Assessment and plan: Fentanyl 25 mcg IVP currently being utilized for pain. Received x3 last 24 hours. Monitor (3) Dysphagia Current Visit: Yes Status: Acute Assessment and plan: Spoke with speech therapist - he was too lethargic and unable to follow commands this am. He has moist cough this am. + upper airway secretions heard with breathing. Less alert. (4) Goals of care, counseling/discussion Current Visit: Yes Status: Acute Assessment and plan: and 2 daughters updated on change in clinical condition. Patient with labored breathing and some apneic periods, congested. Discussed with them that I let Dr. Danielson know of his change of condition since I saw him yesterday and is very concerning. Angel Larios present and discussed rehab options. Discussed PEG placement for nutrition if it appears he is improving, but still would need supplemental nutrition. states she would consent if it appears he is improving and a good rehabilitation candidate, however, we did discuss that his condition today may begin another decline and discussed transition to comfort care. Will f/u this afternoon on pt clinical status. - Time Spent With Patient Total time spent is greater than 50% in coordination of care (as documented) at patient's floor/unit and/or counseling patient: Greater than 35 minutes - Subjective Interval history: Patient awake and alert. Continues with expressive aphasia and right sided hemiparesis. Difficult to awaken and drifts back to sleep quickly. Becomes agitated and restless at times. Color slightly dusky today and appears to be in moderate respiratory distress. Family at bedside. - Constitutional Vitals: Abnormal lab results WBC 11.2 K/mcL (4.3-11.1) H 12/01/16 03:26 Monocytes # 1.6 K/mcL (0.0-1.3) H 12/01/16 03:26 Nucleated RBCs/100 WBC 0.2 /100 WBC (0) H 11/23/16 20:59 PT 12.4 Seconds (9.4-12.1) H 11/25/16 22:30 ABG pH 7.47 pH Units (7.32-7.45) H 11/29/16 04:40 ABG pO2 65 mmHg (85-104) L 11/29/16 04:40 ABG HCO3 31.3 mEQ/L (21-27) H 11/29/16 04:40 ABG Total CO2 32.6 mEq/L (20-26) H 11/29/16 04:40 ABG O2 Saturation 94 % (95-98) L 11/29/16 04:40 ABG Base Excess 6.8 mEq/L (-2.0 to 3.0) H 11/29/16 04:40 Potassium 3.4 mEq/L (3.5-4.5) L 12/01/16 03:26 Carbon Dioxide 32 mEq/L (19-29) H 12/01/16 03:26 BUN/Creatinine Ratio 27 (6-26) H 12/01/16 03:26 Glucose 103 mg/dL (70-99) H 12/01/16 03:26 POC Glucose 108 (58-89) H 12/01/16 00:13 Lactic Acid 2.3 mmol/L (0.5-2.2) H 11/25/16 22:30 Ionized Calcium 1.09 mmol/L (1.15-1.35) L 11/29/16 16:27 Total Bilirubin 1.4 mg/dL (0.2-1.2) H 11/29/16 03:55 AST 57 Units/L (5-34) H 11/29/16 03:55 Troponin I 24.64 ng/mL (0-0.03) H* 11/25/16 22:30 Serum Total Protein 5.7 g/dL (6.0-8.3) L 11/29/16 03:55 Albumin 2.5 g/dL (3.5-5.0) L 11/29/16 03:55 Albumin/Globulin Ratio 0.8 (1.1-2.2) L 11/29/16 03:55 General appearance: Present: mild distress - Respiratory Additional comments: + upper airway secretions and scattered rhonchi to anterior chest - Cardiovascular Cardiovascular exam: Present: +S1, +S2 - GI/Abdominal GI/Abdominal exam: Present: normal bowel sounds, soft - Additional comments: Bell with lt pepper urine - Extremities Exam Extremities exam: Present: normal capillary refill, normal inspection - Neurological Exam Additional comments: Opens eyes when spoke to, but does not follow any commands and falls back to sleep quickly. No attempt to maintain communication with me as he did yesterday, , does not attempt to verbalize. Rt side remains flaccid. - Skin Skin exam: Present: dry, pallor, warm Palliative Quality Palliative Quality: Screen for Code Status: Yes, Screen for Goals of Care: Yes, Screen for Pain: NA, If Pain Regimen Started, Initiate Bowel Regimen: NA, Screen for Nausea/Vomitting: NA Code Status: 11/24/16 11:54 FULL [Resuscitation Status: Active] [RES] Routine Comment: Resuscitation Status: Full Code 11/26/16 19:48 FULL [Resuscitation Status: Active] [RES] Routine Comment: Resuscitation Status: Full Code 11/28/16 11:19 CODE [Resuscitation Status: Active] [RES] Routine Comment: currently intubated, but do not RE-intubate Resuscitation Status: [id number] - Labs CBC & Chem 7: 12/01/16 03:26 12/01/16 03:26 Labs: Laboratory Results - last 24 hr 11/30/16 12/01/16 12/01/16 17:15 00:13 03:26 WBC 11.2 H RBC 4.23 Hgb 13.0 Hct 40.1 MCV 94.8 MCH 30.7 MCHC 32.4 RDW 13.6 Plt Count 226 MPV 9.8 Immature Gran % 0.4 Seg Neutrophils % 75.0 Lymphocytes % 9.4 Monocytes % 14.3 Eosinophils % 0.8 Basophils % 0.1 Neutrophils # 8.4 Lymphocytes # 1.1 Monocytes # 1.6 H Eosinophils # 0.1 Basophils # 0.0 Sodium Potassium Chloride Carbon Dioxide BUN Creatinine Est GFR ( Amer) Est GFR (Non-Af Amer) BUN/Creatinine Ratio Glucose POC Glucose 108 H 108 H Calculated Osmolality Calcium 12/01/16 03:26 WBC RBC Hgb Hct MCV MCH MCHC RDW Plt Count MPV Immature Gran % Seg Neutrophils % Lymphocytes % Monocytes % Eosinophils % Basophils % Neutrophils # Lymphocytes # Monocytes # Eosinophils # Basophils # Sodium 142 Potassium 3.4 L Chloride 103 Carbon Dioxide 32 H BUN 25 Creatinine 0.93 Est GFR ( Amer) > 60 Est GFR (Non-Af Amer) > 60 BUN/Creatinine Ratio 27 H Glucose 103 H POC Glucose Calculated Osmolality 299 Calcium 8.8 - ABG Interpretation ABG results: ABG ABG pH 7.47 pH Units (7.32-7.45) H 11/29/16 04:40 ABG pCO2 43 mmHg (35-45) 11/29/16 04:40 ABG pO2 65 mmHg (85-104) L 11/29/16 04:40 ABG O2 Saturation 94 % (95-98) L 11/29/16 04:40 PT/INR, D-dimer PT 12.4 Seconds (9.4-12.1) H 11/25/16 22:30 Consult Discharge Plan - Plan Referrals: NO,PCP [Primary Care Provider] -
--- NOTE | 2016-12-01 13:12 | Pulmonology Progress Note ---
<Roman Rao - Last Filed: 12/01/16 13:22> Date of Encounter: 12/01/16 Time of Encounter: 07:00 Assessment and Plan (1) Cardiac arrest with ventricular fibrillation Current Visit: Yes Status: Acute Initially in the ER - found to be in V. Fib arrest. Underwent ACLS x4 rounds, emergent incubation, had ROSC. Emergent LHC found 100% occlusion of LAD with subsequent placement of drug eluding stent. Transferred to ICU where hypothermia protocol initiated. [facility] Nov: 100% LAD occlusion with ABDON placement. EF 15-20%. - Continue aspirin, statin, lisinopril, brilinita. - Continue fentanyl 25mcg IVP PRN pain. Patient has done well since self-extubating 11/29. Currently on 4L NC. Breathing mildly labored; diffuse wheezes. - Continue duoneb scheduled Q6hr, albuterol neb Q2hr PRN. - Continue supplemental O2 PRN. Patient remains DNR-CCA-Do No re-intubate. PT recommends inpatient physical therapy. Cardiology following. Their input appreciated. Palliative care following. Their input appreciated. Patient transferred from ICU to step down unit per cardiology. Remained in ICU due to bed availability. - Plan on transfer today. (2) Acute ischemic left MCA stroke Current Visit: Yes Status: Acute Likely due to anoxic brain injury secondary from V. Fib cardiac arrest. Patient on fentanyl sedation; complete evaluation of neurologic status is impaired. CT Nov: Radiology interpretation as zone of stable encephalomalacia, left MCA distribution nonhemorrhagic infarction. The degree of mass effect and sulcal compression is unchanged. Neurologically appears stable from yesterday - Patient responds to his name, follows you with his eyes and head as you walk around the room. When asked if he is in pain, patient shakes head no. He is able to follow basic commands with his left hand. Neurology is following. Their input is appreciated. (3) Cardiogenic shock Current Visit: Yes Status: Acute As above. (4) CAD (coronary artery disease) Current Visit: Yes Status: Acute As above. Qualifiers: Coronary Disease-Associated Artery/Lesion type: [place] artery [place] vs. transplanted heart: [place] heart Associated angina: angina presence unspecified Qualified Code(s): I25.10 - Atherosclerotic heart disease of [place] coronary artery without angina pectoris (5) Lactic acidosis Current Visit: Yes Status: Resolved Likely secondary to cardiac arrest. Resolved. (6) Leucocytosis Current Visit: Yes Status: Resolved Resolved. No clinical signs of infection at this time. Will continue to monitor. Qualifiers: Leukocytosis type: unspecified Qualified Code(s): D72.829 - Elevated white blood cell count, unspecified (7) DVT prophylaxis Current Visit: Yes Status: Acute Lovenox SQ Qdaily. Subjective Principal diagnosis: STEMI/ Large left middle cerebral artery territory infarct Interval history: ICU day 9. Patient seen and examined. No acute events overnight. He remains stable after self-extubation 11/29. Swallow study yesterday was not reassuring; he remains NPO. He denies pain. Objective PUL Vital signs: Last Vital Signs Temp 98.2 F 12/01/16 08:21 Pulse 77 12/01/16 11:00 Resp 20 12/01/16 11:00 BP 140/91 12/01/16 11:00 Pulse Ox 95 12/01/16 11:00 General appearance: no acute distress, other (mild sedation) Eyes: nonicteric ENT: oropharynx dry Neck: supple Effort: normal Auscultation: bilateral: diminished breath sounds Cardiovascular: regular rate and rhythm Gastrointestinal: hypoactive bowel sounds Integumentary: normal Extremities: no cyanosis, pink and warm, edema (trace bilateral pedal edema) Musculoskeletal: no deformities pupils equal and round, other (right flaccid paralysis, left upper and lower extremity strength 5/5.) affect normal Results - Laboratory Findings CBC and BMP: 12/01/16 03:26 12/01/16 03:26 ABG ABG pH 7.47 pH Units (7.32-7.45) H 11/29/16 04:40 ABG pCO2 43 mmHg (35-45) 11/29/16 04:40 ABG pO2 65 mmHg (85-104) L 11/29/16 04:40 ABG O2 Saturation 94 % (95-98) L 11/29/16 04:40 PT/INR, D-dimer PT 12.4 Seconds (9.4-12.1) H 11/25/16 22:30 Abnormal lab findings: Abnormal lab results WBC 11.2 K/mcL (4.3-11.1) H 12/01/16 03:26 Monocytes # 1.6 K/mcL (0.0-1.3) H 12/01/16 03:26 Nucleated RBCs/100 WBC 0.2 /100 WBC (0) H 11/23/16 20:59 PT 12.4 Seconds (9.4-12.1) H 11/25/16 22:30 ABG pH 7.47 pH Units (7.32-7.45) H 11/29/16 04:40 ABG pO2 65 mmHg (85-104) L 11/29/16 04:40 ABG HCO3 31.3 mEQ/L (21-27) H 11/29/16 04:40 ABG Total CO2 32.6 mEq/L (20-26) H 11/29/16 04:40 ABG O2 Saturation 94 % (95-98) L 11/29/16 04:40 ABG Base Excess 6.8 mEq/L (-2.0 to 3.0) H 11/29/16 04:40 Potassium 3.4 mEq/L (3.5-4.5) L 12/01/16 03:26 Carbon Dioxide 32 mEq/L (19-29) H 12/01/16 03:26 BUN/Creatinine Ratio 27 (6-26) H 12/01/16 03:26 Glucose 103 mg/dL (70-99) H 12/01/16 03:26 POC Glucose 108 (58-89) H 12/01/16 00:13 Lactic Acid 2.3 mmol/L (0.5-2.2) H 11/25/16 22:30 Ionized Calcium 1.09 mmol/L (1.15-1.35) L 11/29/16 16:27 Total Bilirubin 1.4 mg/dL (0.2-1.2) H 11/29/16 03:55 AST 57 Units/L (5-34) H 11/29/16 03:55 Troponin I 24.64 ng/mL (0-0.03) H* 11/25/16 22:30 Serum Total Protein 5.7 g/dL (6.0-8.3) L 11/29/16 03:55 Albumin 2.5 g/dL (3.5-5.0) L 11/29/16 03:55 Albumin/Globulin Ratio 0.8 (1.1-2.2) L 11/29/16 03:55 - Clinical Findings Intake & Output: Intake & Output 11/30/16 12/01/16 12/01/16 23:59 07:59 15:59 Output Total 400 / 400 525 / 525 Balance -400 / -400 -525 / -525 Weight 114 kg Consult Discharge Plan - Plan Referrals: NO,PCP [Primary Care Provider] - <Stevan Mccracken - Last Filed: 12/01/16 14:27> Date of Encounter: 12/01/16 Objective PUL Vital signs: Last Vital Signs Temp 98.2 F 12/01/16 08:21 Pulse 77 12/01/16 11:00 Resp 20 12/01/16 11:00 BP 140/91 12/01/16 11:00 Pulse Ox 95 12/01/16 11:00 Results - Laboratory Findings CBC and BMP: 12/01/16 03:26 12/01/16 03:26 ABG ABG pH 7.47 pH Units (7.32-7.45) H 11/29/16 04:40 ABG pCO2 43 mmHg (35-45) 11/29/16 04:40 ABG pO2 65 mmHg (85-104) L 11/29/16 04:40 ABG O2 Saturation 94 % (95-98) L 11/29/16 04:40 PT/INR, D-dimer PT 12.4 Seconds (9.4-12.1) H 11/25/16 22:30 Abnormal lab findings: Abnormal lab results WBC 11.2 K/mcL (4.3-11.1) H 12/01/16 03:26 Monocytes # 1.6 K/mcL (0.0-1.3) H 12/01/16 03:26 Nucleated RBCs/100 WBC 0.2 /100 WBC (0) H 11/23/16 20:59 PT 12.4 Seconds (9.4-12.1) H 11/25/16 22:30 ABG pH 7.47 pH Units (7.32-7.45) H 11/29/16 04:40 ABG pO2 65 mmHg (85-104) L 11/29/16 04:40 ABG HCO3 31.3 mEQ/L (21-27) H 11/29/16 04:40 ABG Total CO2 32.6 mEq/L (20-26) H 11/29/16 04:40 ABG O2 Saturation 94 % (95-98) L 11/29/16 04:40 ABG Base Excess 6.8 mEq/L (-2.0 to 3.0) H 11/29/16 04:40 Potassium 3.4 mEq/L (3.5-4.5) L 12/01/16 03:26 Carbon Dioxide 32 mEq/L (19-29) H 12/01/16 03:26 BUN/Creatinine Ratio 27 (6-26) H 12/01/16 03:26 Glucose 103 mg/dL (70-99) H 12/01/16 03:26 POC Glucose 108 (58-89) H 12/01/16 00:13 Lactic Acid 2.3 mmol/L (0.5-2.2) H 11/25/16 22:30 Ionized Calcium 1.09 mmol/L (1.15-1.35) L 11/29/16 16:27 Total Bilirubin 1.4 mg/dL (0.2-1.2) H 11/29/16 03:55 AST 57 Units/L (5-34) H 11/29/16 03:55 Troponin I 24.64 ng/mL (0-0.03) H* 11/25/16 22:30 Serum Total Protein 5.7 g/dL (6.0-8.3) L 11/29/16 03:55 Albumin 2.5 g/dL (3.5-5.0) L 11/29/16 03:55 Albumin/Globulin Ratio 0.8 (1.1-2.2) L 11/29/16 03:55 - Clinical Findings Intake & Output: Intake & Output 11/30/16 12/01/16 12/01/16 23:59 07:59 15:59 Output Total 400 / 400 525 / 525 Balance -400 / -400 -525 / -525 Weight 114 kg - Attending Attestation I have seen and examined the patient, reviewed all pertinent labs, and reviewed all imaging. The case was discussed in multidisciplinary Rounds and I agree with resident's note is written with the following additions. CNC SPECIALIST: Status post left middle cerebral stroke with near complete right hemiparesis. Patient's mental status improved significantly over the course of the past 3 days. Cardiovascular: Status post ventricular fibrillation arrest. Also status post PCI to left anterior descending. Now hemodynamically stable without evidence of ongoing ischemia. Currently stable without requirement for ongoing support. No acute issues. Pulmonary: Airway clearance appears improved after addition of bronchodilators. No acute issues. Nephrology: No acute issues. GI: Swallow study today pending the patient currently nothing by mouth. Patient refuses enteral feeding tubes. ID: No acute issues. Hem/Onc: No acute issues. Endocrinology: No acute issues. Musculoskeletal: Patient with severe deficits following large stroke. Has been evaluated by physical therapy and occupational therapy. Will plan for further discussion with patient and family regarding rehabilitation potential and discharge planning. Disposition: Appropriate for transfer to internal medicine service. Recommend continued discussion with social work occupational and physical therapy for most appropriate placement for optimized rehabilitation.
[2016-12-01] MEDS: Aspirin 81 MG TAB.CHEW PO SCH (17:33)
[2016-12-01] MEDS: Furosemide 20 MG TABLET PO SCH (17:34)
[2016-12-01] MEDS: *HR* Amiodarone 200 MG TABLET PO SCH ×2 (17:34→21:08)
[2016-12-01] MEDS: Bisacodyl 10 MG RECTAL SUPPOSITORY RC SCH (17:34)
[2016-12-01] MEDS: *HR* Ticagrelor 90 MG TABLET PO SCH ×2 (17:34→21:07)
--- NOTE | 2016-12-01 17:34 | Internal Medicine Consult Note ---
Date of Encounter: 12/01/16 Time of Encounter: 17:03 - Assessment and Plan (1) Acute and chronic respiratory failure Current Visit: Yes Status: Acute Assessment and plan: Pt self extubated. At this time he is quite wheezy and rhoncherous. Will add IV steroids and continue aerosols. He has a lot of secretions so will try Scopolamine. Qualifiers: Respiratory failure complication: hypoxia and hypercapnia Qualified Code(s) : J96.21 - Acute and chronic respiratory failure with hypoxia; J96.22 - Acute and chronic respiratory failure with hypercapnia (2) Acute ischemic left MCA stroke Current Visit: Yes Status: Acute Assessment and plan: Supportive care for now. (3) STEMI (ST elevation myocardial infarction) Current Visit: Yes Status: Acute Assessment and plan: S/P ABDON - has been on Brilinta but now NPO. Will change ASA to rectal. High risk for aspiration with PO intake. Will not keep in an NG. Qualifiers: Involved coronary artery: LAD coronary artery Qualified Code(s): I21.02 - ST elevation (STEMI) myocardial infarction involving left anterior descending coronary artery (4) Dysphagia Current Visit: Yes Status: Acute Assessment and plan: NPO for now. Qualifiers: Dysphagia type: oropharyngeal phase Qualified Code(s): R13.12 - Dysphagia, oropharyngeal phase (5) Agitation Current Visit: Yes Status: Acute (6) Generalized pain Current Visit: Yes Status: Acute Assessment and plan: PRN Morphine for now. Internal Medicine - CN: HPI - Data of Consult Patient: new to practice Consult date: 12/01/16 Requesting Physician: Hipolito Mendenhall MD - Consult Narrative History of present illness: Mr. Syed is a 71 year old male presented to ED and found to be in v fib arrest. He has successful ROSC and was taken to cardiac cath and had stent placed in LAD. Subsequently he was found to have a large L MCA distribution CVA. He self extubated on 11/29. He was transferred to [facility] this morning. This AM he was noted to be less responsive than he had been in the ICU. He is dyspneic and wheezing as well as having Omar Li respirations. He does not follow commands for me. There is some concern for worsening of the stroke. I did speak to his and daughter Muriel. feels he should have a PEG for nutrition to see if he can improve. Does not feel he can tolerate a Dobhoff. Continue DNRCCA/DNI Past Med Surg Social Fam HX - Past Medical History Medical history: COPD, hyperlipidemia Psychiatric history: no psych history - Past Surgical History Surgical History: angioplasty/stent - Social History Smoking Status: Current every day smoker Smokeless Tobacco Status: Yes Alcohol use: unknown Drug use: none - Additional Family History Additional family history: Family history unobtainable. Pt aphasic ROS unobtainable: due to mental status Internal Medicine - CN: Meds Celecoxib [Celebrex] 200 mg PO BID 11/24/16 [History] Duloxetine HCl [Cymbalta] 60 mg PO DAILY 11/24/16 [History] Furosemide [Lasix] 20 mg PO DAILY PRN 11/24/16 [History] Umeclidinium Brm/Vilanterol Tr [Anoro Ellipta 62.5-25 Mcg INH] 1 puff IH DAILY 11/24/16 [History] Allergies No Known Allergies Allergy (Verified 11/23/16 21:45) Internal Medicine - CN: Exam - Constitutional Vitals: Temp Pulse Resp BP Pulse Ox 98.5 F 79 16 126/96 97 12/01/16 15:00 12/01/16 15:00 12/01/16 15:51 12/01/16 15:00 12/01/16 15:51 General appearance IM: Present: disheveled Exam: Restless in bed. Does reach out and hold 's hand. - Head Head exam: Present: normocephalic - Eye Eye exam: Present: conjuntiva pink - ENT ENT exam: Present: mucous membranes dry - Neck Neck exam general surgery: Present: full ROM. Absent: lymphadenopathy, tenderness - Respiratory Respiratory exam: Present: chest wall tenderness, decreased breath sounds, prolonged expiratory phase, rhonchi, wheezes - Cardiovascular Cardiovascular exam IM: Present: RRR. Absent: systolic murmur, tachycardia - GI/Abdominal GI/Abdominal exam IM: Present: diminished bowel sounds, soft. Absent: tenderness - Extremities Exam Extremities exam IM: Present: pedal edema, warm - Neurological Exam Neurological exam: Present: alert, altered, motor sensory deficit - Expanded Neurological Exam Neurological exam expanded: Present: expressive aphasia Speech: Present: expressive aphasia Neuro motor strength exam: RUE: 0, RLE: 0 Internal Medicine - CN: Reslt - Labs CBC & Chem 7: 12/01/16 03:26 12/01/16 03:26 Labs: Short CBC 12/01/16 Range/Units 03:26 WBC 11.2 H (4.3-11.1) K/mcL Hgb 13.0 (12.9-16.9) g/dL Hct 40.1 (37.5-50.1) % Plt Count 226 (140-400) K/mcL Neutrophils # 8.4 (1.6-8.9) K/mcL BMP 12/01/16 03:26 Sodium 142 Potassium 3.4 L Chloride 103 Carbon Dioxide 32 H BUN 25 Creatinine 0.93 Glucose 103 H Calcium 8.8 - ABG Interpretation ABG results: ABG ABG pH 7.47 pH Units (7.32-7.45) H 11/29/16 04:40 ABG pCO2 43 mmHg (35-45) 11/29/16 04:40 ABG pO2 65 mmHg (85-104) L 11/29/16 04:40 ABG O2 Saturation 94 % (95-98) L 11/29/16 04:40 PT/INR, D-dimer PT 12.4 Seconds (9.4-12.1) H 11/25/16 22:30 Consult Discharge Plan - Plan Referrals: NO,PCP [Primary Care Provider] -
[2016-12-01] MEDS ORDERED: *HR* Morphine 2 MG/ML SYRINGE IVP ONE (17:37)
[2016-12-01] MEDS: Scopolamine Patch 1.5 MG PATCH.TD72 TD SCH (18:16)
[2016-12-01] MEDS: methylPREDNISolone 125 MG/2 ML VIAL IVP SCH ×2 (18:18→23:25)
[2016-12-02] MEDS: Ipratropium/Albuterol Neb 3 ML IH SCH ×4 (04:35→21:45)
[2016-12-02] MEDS: methylPREDNISolone 125 MG/2 ML VIAL IVP SCH ×3 (05:04→22:38)
[2016-12-02] MEDS: *HR* Enoxaparin 40 MG/0.4 ML SYRINGE SQ SCH (05:04)
[2016-12-02 05:39] LABS: Hematocrit 41.1 % (37.5-50.1); Hemoglobin 13.4 g/dL (12.9-16.9); Mean Corpuscular HGB Conc 32.6 g/dL (31.6-35.5); Mean Corpuscular Hemoglobin 31.3 pg (28.0-33.3); Mean Platelet Volume 9.6 fL (9.4-12.4); Platelet Count 235 K/mcL (140-400); Red Blood Count 4.28 M/mcL (4.19-5.50); Red Cell Distribution Width 13.6 % (11.5-14.5)
[2016-12-02 05:54] LABS: BUN/Creatinine Ratio 29 (6-26); Blood Urea Nitrogen 27 mg/dL (8-26); Calcium 9.3 mg/dL (8.6-10.8); Carbon Dioxide 28 mEq/L (19-29); Chloride 104 mEq/L (98-109); Glucose 156 mg/dL (70-99); Osmolality,Calculated 300 (280-300); Potassium 3.5 mEq/L (3.5-4.5); Sodium 141 mEq/L (136-145); eGFR For African Americans > 60 (> 60); eGFR For Non-African Americans > 60 (> 60)
[2016-12-02] MEDS: Bisacodyl 10 MG RECTAL SUPPOSITORY RC SCH (08:45)
[2016-12-02] MEDS: Pantoprazole 40 MG VIAL IVP SCH (08:45)
[2016-12-02] MEDS: Aspirin 81 MG TAB.CHEW PO SCH (08:45)
--- NOTE | 2016-12-02 11:47 | Palliative Progress Note ---
Date of Encounter: 12/02/16 Time of Encounter: 10:50 - Assessment and plan (1) Agitation Current Visit: Yes Status: Acute (2) Generalized pain Current Visit: Yes Status: Acute Assessment and plan: Has been transitioned to low dose Morphine per hospitalist. Monitor. Noted he does have history of chronic back pain from injury. Dr. Roman Barreto cares for his pain stimulator. (3) Dysphagia Current Visit: Yes Status: Acute Assessment and plan: Continues. Speech therapy following closely. Will likely require PEG Qualifiers: Dysphagia type: oropharyngeal phase Qualified Code(s): R13.12 - Dysphagia, oropharyngeal phase (4) Goals of care, counseling/discussion Current Visit: Yes Status: Acute Assessment and plan: Respiratory status has improved today and more communicative. Participated with PT and less agitated. D/W Dr. Danielson - if clinical status remains stable, likely surgical consult for PEG on Sunday. Palliative will f/u Sunday. - Time Spent With Patient Total time spent is greater than 50% in coordination of care (as documented) at patient's floor/unit and/or counseling patient: 25 - 35 minutes - Subjective Interval history: Patient more alert today, multiple visitors and in room. Follows commands with left side, right sided hemiparesis remains. PT in and he sat on edge of bed reports. Less congested and respirations not labored today - Constitutional Vitals: Abnormal lab results WBC 11.4 K/mcL (4.3-11.1) H 12/02/16 05:15 Monocytes # 1.6 K/mcL (0.0-1.3) H 12/01/16 03:26 Nucleated RBCs/100 WBC 0.2 /100 WBC (0) H 11/23/16 20:59 PT 12.4 Seconds (9.4-12.1) H 11/25/16 22:30 ABG pH 7.47 pH Units (7.32-7.45) H 11/29/16 04:40 ABG pO2 65 mmHg (85-104) L 11/29/16 04:40 ABG HCO3 31.3 mEQ/L (21-27) H 11/29/16 04:40 ABG Total CO2 32.6 mEq/L (20-26) H 11/29/16 04:40 ABG O2 Saturation 94 % (95-98) L 11/29/16 04:40 ABG Base Excess 6.8 mEq/L (-2.0 to 3.0) H 11/29/16 04:40 BUN 27 mg/dL (8-26) H 12/02/16 05:15 BUN/Creatinine Ratio 29 (6-26) H 12/02/16 05:15 Glucose 156 mg/dL (70-99) H 12/02/16 05:15 POC Glucose 132 (58-89) H 12/01/16 23:57 Lactic Acid 2.3 mmol/L (0.5-2.2) H 11/25/16 22:30 Ionized Calcium 1.09 mmol/L (1.15-1.35) L 11/29/16 16:27 Total Bilirubin 1.4 mg/dL (0.2-1.2) H 11/29/16 03:55 AST 57 Units/L (5-34) H 11/29/16 03:55 Troponin I 24.64 ng/mL (0-0.03) H* 11/25/16 22:30 Serum Total Protein 5.7 g/dL (6.0-8.3) L 11/29/16 03:55 Albumin 2.5 g/dL (3.5-5.0) L 11/29/16 03:55 Albumin/Globulin Ratio 0.8 (1.1-2.2) L 11/29/16 03:55 General appearance: Present: no acute distress - Respiratory Additional comments: Some upper airway secretions noted. Faint exp wheezed anterior chest - Cardiovascular Cardiovascular exam: Present: +S1, +S2 - GI/Abdominal GI/Abdominal exam: Present: normal bowel sounds, soft - Additional comments: Urine clear yellow - Extremities Exam Extremities exam: Present: normal capillary refill, normal inspection - Neurological Exam Neurological exam: Present: alert Additional comments: Remains with expressive aphagia. Right sided hemiparesis continues - Skin Skin exam: Present: dry, warm Palliative Quality Palliative Quality: Screen for Code Status: Yes, Screen for Goals of Care: Yes, Screen for Pain: NA, If Pain Regimen Started, Initiate Bowel Regimen: NA, Screen for Nausea/Vomitting: NA Code Status: 11/24/16 11:54 FULL [Resuscitation Status: Active] [RES] Routine Comment: Resuscitation Status: Full Code 11/26/16 19:48 FULL [Resuscitation Status: Active] [RES] Routine Comment: Resuscitation Status: Full Code 11/28/16 11:19 CODE [Resuscitation Status: Active] [RES] Routine Comment: currently intubated, but do not RE-intubate Resuscitation Status: [id number] - Labs CBC & Chem 7: 12/02/16 05:15 12/02/16 05:15 Labs: Laboratory Results - last 24 hr 12/01/16 12/02/16 12/02/16 23:57 05:15 05:15 WBC 11.4 H RBC 4.28 Hgb 13.4 Hct 41.1 MCV 96.0 MCH 31.3 MCHC 32.6 RDW 13.6 Plt Count 235 MPV 9.6 Sodium 141 Potassium 3.5 Chloride 104 Carbon Dioxide 28 BUN 27 H Creatinine 0.94 Est GFR ( Amer) > 60 Est GFR (Non-Af Amer) > 60 BUN/Creatinine Ratio 29 H Glucose 156 H POC Glucose 132 H Calculated Osmolality 300 Calcium 9.3 - Impressions Impressions Head CT 12/01/16 18:01 IMPRESSION: Large left middle cerebral artery territory infarct that is similar in appearance to the prior study. There is slight increased hyperdensity in the high aspect of the infarct that may represent cortical laminar necrosis versus petechial hemorrhage. No large hemorrhage. D/ / 12/01/2016 19:51:35 Mariama Grande MD / bcarter Interpreting Provider: Mariama Grande MD - ABG Interpretation ABG results: ABG ABG pH 7.47 pH Units (7.32-7.45) H 11/29/16 04:40 ABG pCO2 43 mmHg (35-45) 11/29/16 04:40 ABG pO2 65 mmHg (85-104) L 11/29/16 04:40 ABG O2 Saturation 94 % (95-98) L 11/29/16 04:40 PT/INR, D-dimer PT 12.4 Seconds (9.4-12.1) H 11/25/16 22:30 Consult Discharge Plan - Plan Referrals: NO,PCP [Primary Care Provider] -
[2016-12-02] MEDS ORDERED: *HR* Metoprolol 5 MG/5 ML VIAL IVP SCH (12:00)
[2016-12-02] MEDS: *HR* Ticagrelor 90 MG TABLET PO SCH ×2 (14:04→22:50)
[2016-12-02] MEDS: *HR* Amiodarone 200 MG TABLET PO SCH ×2 (14:04→22:50)
--- NOTE | 2016-12-02 14:07 | Internal Med Progress Note ---
Date of Encounter: 12/02/16 Time of Encounter: 08:00 - Assessment and plan (1) Acute and chronic respiratory failure Current Visit: Yes Status: Acute Assessment and plan: Appears due to upper airway congestion - ? related to self extubation. Currently on IV steroids and seems to be a little better today. Qualifiers: Respiratory failure complication: hypoxia and hypercapnia Qualified Code(s) : J96.21 - Acute and chronic respiratory failure with hypoxia; J96.22 - Acute and chronic respiratory failure with hypercapnia (2) Acute ischemic left MCA stroke Current Visit: Yes Status: Acute Assessment and plan: Supportive care at this time. (3) STEMI (ST elevation myocardial infarction) Current Visit: Yes Status: Acute Assessment and plan: Brlinta will be attempted to be given orally. Qualifiers: Involved coronary artery: LAD coronary artery Qualified Code(s): I21.02 - ST elevation (STEMI) myocardial infarction involving left anterior descending coronary artery (4) Dysphagia Current Visit: Yes Status: Acute Assessment and plan: Pt with significant dysphagia. Discussed with at bedside. Plan for consult to place PEG early in week. Qualifiers: Dysphagia type: oropharyngeal phase Qualified Code(s): R13.12 - Dysphagia, oropharyngeal phase (5) Agitation Current Visit: Yes Status: Acute Assessment and plan: Still quite restless. PRN pain meds. (6) Generalized pain Current Visit: Yes Status: Acute Assessment and plan: Related to CPR/resususcitation. - Subjective Interval history: Mr. Syed is currently admitted for acute cardiac arrest due to acute STEMI and cardiogenic shock. Subsequently he has had a large MCA CVA. He is high risk due to potential for aspiration and worsening respiratory and cardiac status. Mr. Syed is alert today. He follows commands and squeezes my hand with L hand. R side flaccid. Still with some wheezing but appears to be in upper airway. No fever or chills noted. No cough. No diarrhea. - Constitutional Vitals: Temp Pulse Resp BP Pulse Ox 98.1 F 74 20 153/95 98 12/02/16 07:58 12/02/16 07:58 12/02/16 11:00 12/02/16 07:58 12/02/16 11:00 General appearance: Present: disheveled Exam: Alert. Restless. - Head Head exam: Present: normocephalic - Eye Eye exam: Present: conjuntiva pink - ENT ENT exam: Present: mucous membranes dry - Respiratory Additional comments: Upper airway congestion noted. Lungs clear at this time. - Cardiovascular Cardiovascular exam: Present: distant heart sounds, RRR. Absent: tachycardia - GI/Abdominal GI/Abdominal exam: Present: normal bowel sounds, soft. Absent: tenderness - Extremities Exam Extremities exam: Present: pedal edema, warm - Neurological Exam Neurological exam: Present: alert Additional comments: Flaccid on R. Follows commands on L. - Skin Skin exam: Present: warm. Absent: rash Internal Medicine: Result - Labs CBC & Chem 7: 12/02/16 05:15 12/02/16 05:15 Labs: Short CBC 12/02/16 Range/Units 05:15 WBC 11.4 H (4.3-11.1) K/mcL Hgb 13.4 (12.9-16.9) g/dL Hct 41.1 (37.5-50.1) % Plt Count 235 (140-400) K/mcL BMP 12/02/16 05:15 Sodium 141 Potassium 3.5 Chloride 104 Carbon Dioxide 28 BUN 27 H Creatinine 0.94 Glucose 156 H Calcium 9.3 - ABG Interpretation ABG results: ABG ABG pH 7.47 pH Units (7.32-7.45) H 11/29/16 04:40 ABG pCO2 43 mmHg (35-45) 11/29/16 04:40 ABG pO2 65 mmHg (85-104) L 11/29/16 04:40 ABG O2 Saturation 94 % (95-98) L 11/29/16 04:40 PT/INR, D-dimer PT 12.4 Seconds (9.4-12.1) H 11/25/16 22:30 - Impressions Impressions Head CT 12/01/16 18:01 IMPRESSION: Large left middle cerebral artery territory infarct that is similar in appearance to the prior study. There is slight increased hyperdensity in the high aspect of the infarct that may represent cortical laminar necrosis versus petechial hemorrhage. No large hemorrhage. D/ / 12/01/2016 19:51:35 Mariama Grande MD / [email or web address] Interpreting Provider: Mariama Grande MD Consult Discharge Plan - Plan Referrals: NO,PCP [Primary Care Provider] -
[2016-12-02] MEDS: *HR* Morphine 2 MG/ML SYRINGE IVP PRN (18:19)
[2016-12-02] MEDS: *HR* Metoprolol 5 MG/5 ML VIAL IVP SCH (22:39)
[2016-12-03] MEDS: *HR* Morphine 2 MG/ML SYRINGE IVP PRN (00:35)
[2016-12-03] MEDS ORDERED: hydrOXYzine pamoate 25 MG CAPSULE PO ONE (02:48)
[2016-12-03] MEDS ORDERED: Haloperidol Lactate 5 MG/ML VIAL IVP ONE (02:58)
[2016-12-03] MEDS: methylPREDNISolone 125 MG/2 ML VIAL IVP SCH ×4 (03:18→21:05)
[2016-12-03] MEDS: *HR* Metoprolol 5 MG/5 ML VIAL IVP SCH ×4 (03:22→21:05)
[2016-12-03] MEDS: Ipratropium/Albuterol Neb 3 ML IH SCH ×4 (04:41→21:30)
[2016-12-03] MEDS: *HR* Enoxaparin 40 MG/0.4 ML SYRINGE SQ SCH (06:30)
[2016-12-03] MEDS ORDERED: *HR* Morphine 2 MG/ML SYRINGE IVP PRN (08:36)
[2016-12-03] MEDS ORDERED: Furosemide 40 MG/4 ML VIAL IVP SCH (09:00)
[2016-12-03] MEDS: Aspirin 81 MG TAB.CHEW PO SCH (09:41)
[2016-12-03] MEDS: *HR* Ticagrelor 90 MG TABLET PO SCH (09:49)
[2016-12-03] MEDS: *HR* Amiodarone 200 MG TABLET PO SCH (09:49)
[2016-12-03] MEDS: D5% in 0.45% NACL 1,000 ML IVC SCH (09:57)
[2016-12-03] MEDS: Levofloxacin 750 MG/150 ML 750 MG/150 ML BAG IVPB SCH (10:03)
[2016-12-03] MEDS: Pantoprazole 40 MG VIAL IVP SCH (10:11)
[2016-12-03] MEDS: Bisacodyl 10 MG RECTAL SUPPOSITORY RC SCH (10:12)
[2016-12-03] MEDS: Nicotine 14 MG PATCH.TD24 TD SCH (10:30)
[2016-12-03] MEDS: Budesonide Neb 0.25 MG/2 ML IH SCH ×2 (10:41→21:31)
--- NOTE | 2016-12-03 11:26 | Internal Med Progress Note ---
Date of Encounter: 12/03/16 Time of Encounter: 08:15 - Assessment and plan (1) Acute and chronic respiratory failure Current Visit: Yes Status: Acute Assessment and plan: Continues to have upper airway congestion - ? if related to self extubation. Will try some inhaled budesonide and continue IV steroids. Qualifiers: Respiratory failure complication: hypoxia and hypercapnia Qualified Code(s) : J96.21 - Acute and chronic respiratory failure with hypoxia; J96.22 - Acute and chronic respiratory failure with hypercapnia (2) Pneumonia Current Visit: Yes Status: Suspected Assessment and plan: Suspect patient may have had significant aspiration with the arrest. Has had bilateral infiltrates that are improving (? fluid). Has some leukocytosis still so will treat with Levaquin at this time. Qualifiers: Pneumonia type: aspiration pneumonia Aspiration pneumonia type: due to gastric secretions Laterality: bilateral Lung location: lower lobe of lung Qualified Code(s): J69.0 - Pneumonitis due to inhalation of food and vomit (3) Acute ischemic left MCA stroke Current Visit: Yes Status: Acute Assessment and plan: Supportive care at this time. Will reassess swallowing tomorrow. (4) STEMI (ST elevation myocardial infarction) Current Visit: Yes Status: Acute Assessment and plan: Appears to be tolerating oral Brilinta. Qualifiers: Involved coronary artery: LAD coronary artery Qualified Code(s): I21.02 - ST elevation (STEMI) myocardial infarction involving left anterior descending coronary artery (5) Dysphagia Current Visit: Yes Status: Acute Assessment and plan: Pt with significant dysphagia. Reassess speech tomorrow. If unable to take PO - anticipate PEG. Qualifiers: Dysphagia type: oropharyngeal phase Qualified Code(s): R13.12 - Dysphagia, oropharyngeal phase (6) Agitation Current Visit: Yes Status: Acute Assessment and plan: Still quite restless. PRN pain meds. (7) Generalized pain Current Visit: Yes Status: Acute Assessment and plan: Related to CPR/resususcitation. - Subjective Interval history: Mr. Syed is currently admitted for acute cardiac arrest due to acute STEMI and cardiogenic shock. Subsequently he has had a large MCA CVA. He is high risk due to potential for aspiration and worsening respiratory and cardiac status. Mr. Syed is alert but continues to be very restless. He is trying to get out of bed and slides down in bed. No fever noted. Still coughing and congested. Upper airway wheeze still noted. Does not rest well and has not been sleeping much. is here and says he seems to be trying to talk to her. Has been tolerating taking Brlinta and Amiodarone with minimal water. CXR yesterday shows improving bilateral infiltrates. - Constitutional Vitals: Temp Pulse Resp BP Pulse Ox 97.8 F 82 16 165/77 94 12/03/16 07:42 12/03/16 07:42 12/03/16 10:41 12/03/16 07:42 12/03/16 10:41 General appearance: Present: disheveled Exam: Restless in bed. - Head Head exam: Present: normocephalic - Eye Eye exam: Present: conjuntiva pink - ENT ENT exam: Present: mucous membranes dry - Respiratory Respiratory exam: Present: wheezes Additional comments: Upper airway wheeze noted when lying flat in bed. - Cardiovascular Cardiovascular exam: Present: RRR. Absent: tachycardia - GI/Abdominal GI/Abdominal exam: Present: soft. Absent: mass, tenderness - Extremities Exam Extremities exam: Present: pedal edema, warm. Absent: tenderness - Neurological Exam Neurological exam: Present: alert Additional comments: Flaccid on R. Expressive aphasia. - Psychiatric Psychiatric exam: Present: agitated - Skin Skin exam: Present: dry, warm. Absent: rash Internal Medicine: Result - Labs CBC & Chem 7: 12/02/16 05:15 12/02/16 05:15 - ABG Interpretation ABG results: ABG ABG pH 7.47 pH Units (7.32-7.45) H 11/29/16 04:40 ABG pCO2 43 mmHg (35-45) 11/29/16 04:40 ABG pO2 65 mmHg (85-104) L 11/29/16 04:40 ABG O2 Saturation 94 % (95-98) L 11/29/16 04:40 PT/INR, D-dimer PT 12.4 Seconds (9.4-12.1) H 11/25/16 22:30 - Impressions Impressions Chest X-Ray 12/02/16 16:46 IMPRESSION: Interval improvement in scattered airspace opacities. D/ / Ness Farooq MD / Ness Farooq MD Interpreting Provider: Ness Farooq MD Consult Discharge Plan - Plan Referrals: NO,PCP [Primary Care Provider] -
[2016-12-03] MEDS ORDERED: *HR* LORazepam 2 MG/ML VIAL IVP ONE (18:07)
[2016-12-03 18:59] LABS: Basophils % 0.1 %; Immature Granulocytes % 0.8 % (0-4); Lymphocytes # 0.5 K/mcL (0.6-4.6); Lymphocytes % 2.9 %; Mean Corpuscular HGB Conc 32.6 g/dL (31.6-35.5); Mean Corpuscular Hemoglobin 30.8 pg (28.0-33.3); Mean Corpuscular Volume 94.5 fL (83.0-100.0); Mean Platelet Volume 9.6 fL (9.4-12.4); Monocytes # 0.7 K/mcL (0.0-1.3); Monocytes % 3.9 %; Neutrophils # 15.4 K/mcL (1.6-8.9); Platelet Count 305 K/mcL (140-400); Red Blood Count 4.55 M/mcL (4.19-5.50); Red Cell Distribution Width 13.5 % (11.5-14.5); Segmented Neutrophils % 92.3 %
[2016-12-03] MEDS ORDERED: Vancomycin 1,750 MG in D5% in Water 250 ML IVPB SCH (19:00)
[2016-12-03 19:11] LABS: Alanine Aminotransferase 73 Units/L (0-55); Albumin 3.1 g/dL (3.5-5.0); Albumin/Globulin Ratio 0.8 (1.1-2.2); Alkaline Phosphatase 91 Units/L (38-126); Aspartate Amino Transferase 67 Units/L (5-34); BUN/Creatinine Ratio 26 (6-26); Bilirubin,Total 1.2 mg/dL (0.2-1.2); Blood Urea Nitrogen 34 mg/dL (8-26); Calcium 9.2 mg/dL (8.6-10.8); Carbon Dioxide 29 mEq/L (19-29); Chloride 109 mEq/L (98-109); Globulin 3.7 g/dL (2.4-3.5); Glucose 166 mg/dL (70-99); Osmolality,Calculated 321 (280-300); Potassium 3.2 mEq/L (3.5-4.5); Total Protein 6.8 g/dL (6.0-8.3); eGFR For African Americans > 60 (> 60); eGFR For Non-African Americans 54 (> 60)
[2016-12-03 19:12] LABS: Sodium 150 mEq/L (136-145)
[2016-12-03] MEDS: Piperacillin/Tazobactam 3.375 GM in D5% in Water (Mini-Bag+) 100 ML IVPB SCH (19:24)
[2016-12-03] MEDS: Vancomycin 1,750 MG in D5% in Water 500 ML IVPB SCH (23:02)
--- NOTE | 2016-12-03 23:54 | Event Note ---
<Jose M Wen - Last Filed: 12/04/16 03:42> Date of Encounter: 12/04/16 Time of Encounter: 23:30 Paged concerning electrolyte abnormalities -Elevated Na and low K in the setting of ACLS/Brain injury -Cr elevated.Patient failed swallow study. Started on fluids today. Inpatient pharmacy called and notified of Cr increase. Instructed to continue vanc. Working differential: New onset Diabetes Insipidus following traumatic brain injury. RISSA Plan -Labs ordered to evaluate. Awaiting results to treat. -Continue Vanc -Acute Hypernatremia: Consider D5w 1/2NS at 3 to 6mL/kg/hr till Na 145, then decrease fluids to 1mL/kg/hr till Na 140. -Consider adding Desmopressin if central DI <Fabian Kirkpatrick - Last Filed: 12/05/16 23:21> Date of Encounter: 12/04/16 My signature below is to certify that this patient is under my care and that I, or the Resident Physician, working with me (Dr. Wen), has had a face-to- face encounter with this patient. For this encounter, I have reviewed the documentation, treatment plan, and medical decision making. Cumulative laboratory and radiographic database was reviewed, considered and discussed. My medical decision-making was reviewed with the Resident Physician, Dr. Jose M Wen. I agree with the documented findings, disposition and treatment plan as described except to the extent set forth below. Orders written.
[2016-12-04] MEDS: Piperacillin/Tazobactam 3.375 GM in D5% in Water (Mini-Bag+) 100 ML IVPB SCH ×4 (00:12→23:55)
[2016-12-04 00:34] LABS: VBG HCO3 35.9 mEq/L (21-27); VBG PH 7.4 pH Units (7.32-7.42)
[2016-12-04 00:37] LABS: Bilirubin,Urine Negative (Negative); Blood,Urine Negative (Negative); Clarity,Urine Cloudy (Clear); Color,Urine Yellow (Yellow); Glucose,Urine (UA) Normal (Normal); Ketones,Urine Negative (Negative); Leukocyte Esterase,Urine Negative (Negative); Nitrite,Urine Negative (Negative); PH,Urine 5.5 pH Units (5.0-8.0); Protein,Urine Negative (Neg-Trace); Urobilinogen,Urine Normal (Normal)
[2016-12-04 00:39] LABS: Magnesium 2.8 mg/dL (1.6-2.6); Phosphorous 4.2 mg/dL (2.3-4.7)
[2016-12-04 00:40] LABS: Bacteria,Urine None Seen per hpf (None-Few); Hyaline Casts,Urine None Seen per lpf (None-Few); RBC,Urine 0-3 per hpf (0-3); Squamous Epithelial Cell,Urine Many per lpf (None-Few); WBC,Urine 0-3 per hpf (0-3)
[2016-12-04 00:41] LABS: Calcium 8.8 mg/dL (8.6-10.8); Potassium 3.6 mEq/L (3.5-4.5)
[2016-12-04 00:53] LABS: Creatinine,Urine 156 mg/dL
[2016-12-04 01:08] LABS: Sodium, Urine < 20.0 mEq/L
[2016-12-04] MEDS: *HR* Ticagrelor 90 MG TABLET PO SCH ×3 (03:07→21:03)
[2016-12-04] MEDS: *HR* Amiodarone 200 MG TABLET PO SCH ×3 (03:07→21:04)
[2016-12-04] MEDS: *HR* Metoprolol 5 MG/5 ML VIAL IVP SCH ×4 (03:08→21:02)
[2016-12-04] MEDS: methylPREDNISolone 125 MG/2 ML VIAL IVP SCH ×4 (03:17→21:03)
[2016-12-04] MEDS: Ipratropium/Albuterol Neb 3 ML IH SCH ×4 (05:30→22:58)
[2016-12-04] MEDS: *HR* Enoxaparin 40 MG/0.4 ML SYRINGE SQ SCH (05:56)
--- NOTE | 2016-12-04 09:03 | Palliative Progress Note ---
<Sergio Ceballos - Last Filed: 12/04/16 09:01> Date of Encounter: 12/04/16 Time of Encounter: 09:01 - Assessment and plan (1) Goals of care, counseling/discussion Current Visit: Yes Status: Acute Assessment and plan: Spoke to at bedside who is still in agreement with placing PEG tube and then rehab upon discharge Patient will be getting barium swallow likely tomorrow and may possibly get PEG tube sometime afterwards Will leave code status at DNR CCA/DNI (2) Dysphagia Current Visit: Yes Status: Acute Assessment and plan: Speech therapist following, appreciate recommendations Will await results of barium swallow prior to PEG placement Qualifiers: Dysphagia type: oropharyngeal phase Qualified Code(s): R13.12 - Dysphagia, oropharyngeal phase - Time Spent With Patient Total time spent is greater than 50% in coordination of care (as documented) at patient's floor/unit and/or counseling patient: - Subjective Interval history: Pt seen and examined this morning. He appears to be resting comfortably in bed and has his eyes open and is able to track objects. Still unable to talk or move his right side. is at beside and states that he does sometimes shake his head and respond to commands, but at the moment he is unable to move his toes or blink his eyes when asked. He also does not shake or nod his head when I asked him to tell me if he was in any pain. - Constitutional Vitals: Abnormal lab results WBC 16.7 K/mcL (4.3-11.1) H 12/03/16 18:39 Neutrophils # 15.4 K/mcL (1.6-8.9) H 12/03/16 18:39 Lymphocytes # 0.5 K/mcL (0.6-4.6) L 12/03/16 18:39 Nucleated RBCs/100 WBC 0.2 /100 WBC (0) H 11/23/16 20:59 PT 12.4 Seconds (9.4-12.1) H 11/25/16 22:30 ABG pH 7.47 pH Units (7.32-7.45) H 11/29/16 04:40 ABG pO2 65 mmHg (85-104) L 11/29/16 04:40 ABG HCO3 31.3 mEQ/L (21-27) H 11/29/16 04:40 ABG Total CO2 32.6 mEq/L (20-26) H 11/29/16 04:40 ABG O2 Saturation 94 % (95-98) L 11/29/16 04:40 ABG Base Excess 6.8 mEq/L (-2.0 to 3.0) H 11/29/16 04:40 VBG pCO2 58 mmHg (41-51) H 12/04/16 00:05 VBG pO2 63 mmHg (25-40) H 12/04/16 00:05 VBG HCO3 35.9 mEq/L (21-27) H 12/04/16 00:05 Sodium 148 mEq/L (136-145) H 12/04/16 00:05 BUN 34 mg/dL (8-26) H 12/04/16 00:05 Creatinine 1.44 mg/dL (0.72-1.25) H 12/04/16 00:05 Est GFR ( Amer) 59 (> 60) L 12/04/16 00:05 Est GFR (Non-Af Amer) 48 (> 60) L 12/04/16 00:05 Glucose 209 mg/dL (70-99) H 12/04/16 00:05 POC Glucose 139 (58-89) H 12/03/16 01:25 Calculated Osmolality 320 (280-300) H 12/04/16 00:05 Ionized Calcium 1.09 mmol/L (1.15-1.35) L 11/29/16 16:27 Magnesium 2.8 mg/dL (1.6-2.6) H 12/04/16 00:05 AST 67 Units/L (5-34) H 12/03/16 18:39 ALT 73 Units/L (0-55) H 12/03/16 18:39 Troponin I 24.64 ng/mL (0-0.03) H* 11/25/16 22:30 Albumin 3.1 g/dL (3.5-5.0) L 12/03/16 18:39 Globulin 3.7 g/dL (2.4-3.5) H 12/03/16 18:39 Albumin/Globulin Ratio 0.8 (1.1-2.2) L 12/03/16 18:39 Urine Clarity Cloudy (Clear) A 12/04/16 00:15 Ur Specific [place] 1.030 (1.010-1.025) H 12/04/16 00:15 Ur Squamous Epith Cells Many per lpf (None-Few) H 12/04/16 00:15 Urine Total Protein 15 mg/dL (1-14) H 12/04/16 00:15 General appearance: Present: obese - Head Head exam: Present: atraumatic, normal inspection, normocephalic - Eye Eye exam: Present: PERRL, sclera anicteric - Respiratory Respiratory exam: Present: rales - Cardiovascular Cardiovascular exam: Present: +S1, +S2 - GI/Abdominal GI/Abdominal exam: Present: soft. Absent: firm, guarding, rebound, rigid Palliative Quality Palliative Quality: Screen for Code Status: Yes, Screen for Goals of Care: Yes, Screen for Pain: NA, If Pain Regimen Started, Initiate Bowel Regimen: NA, Screen for Nausea/Vomitting: NA Code Status: 11/24/16 11:54 FULL [Resuscitation Status: Active] [RES] Routine Comment: Resuscitation Status: Full Code 11/26/16 19:48 FULL [Resuscitation Status: Active] [RES] Routine Comment: Resuscitation Status: Full Code 11/28/16 11:19 CODE [Resuscitation Status: Active] [RES] Routine Comment: currently intubated, but do not RE-intubate Resuscitation Status: [id number] - Labs CBC & Chem 7: 12/03/16 18:39 12/04/16 00:05 Labs: Laboratory Results - last 24 hr 12/03/16 12/03/16 12/04/16 18:39 18:39 00:05 WBC 16.7 H RBC 4.55 Hgb 14.0 Hct 43.0 MCV 94.5 MCH 30.8 MCHC 32.6 RDW 13.5 Plt Count 305 MPV 9.6 Immature Gran % 0.8 Seg Neutrophils % 92.3 Lymphocytes % 2.9 Monocytes % 3.9 Eosinophils % 0.0 Basophils % 0.1 Neutrophils # 15.4 H Lymphocytes # 0.5 L Monocytes # 0.7 Eosinophils # 0.0 Basophils # 0.0 VBG pH VBG pCO2 VBG pO2 VBG HCO3 Sodium 150 H D 148 H Potassium 3.2 L 3.6 Chloride 109 109 Carbon Dioxide 29 28 BUN 34 H 34 H Creatinine 1.30 H 1.44 H Est GFR ( Amer) > 60 59 L Est GFR (Non-Af Amer) 54 L 48 L BUN/Creatinine Ratio 26 24 Glucose 166 H 209 H Calculated Osmolality 321 H 320 H Lactic Acid Calcium 9.2 8.8 Phosphorus Magnesium Total Bilirubin 1.2 AST 67 H ALT 73 H Alkaline Phosphatase 91 Serum Total Protein 6.8 Albumin 3.1 L Globulin 3.7 H Albumin/Globulin Ratio 0.8 L Urine Color Urine Clarity Urine pH Ur Specific [place] Urine Protein Urine Glucose (UA) Urine Ketones Urine Blood Urine Nitrite Urine Bilirubin Urine Urobilinogen Ur Leukocyte Esterase Urine Microscopic RBC Urine Microscopic WBC Ur Squamous Epith Cells Urine Bacteria Hyaline Casts Ur Culture Indicated? Urine Osmolality Urine Creatinine Protein/Creatinin Ratio Urine Sodium Urine Total Protein 12/04/16 12/04/16 12/04/16 00:05 00:05 00:05 WBC RBC Hgb Hct MCV MCH MCHC RDW Plt Count MPV Immature Gran % Seg Neutrophils % Lymphocytes % Monocytes % Eosinophils % Basophils % Neutrophils # Lymphocytes # Monocytes # Eosinophils # Basophils # VBG pH 7.40 VBG pCO2 58 H VBG pO2 63 H VBG HCO3 35.9 H Sodium Potassium Chloride Carbon Dioxide BUN Creatinine Est GFR ( Amer) Est GFR (Non-Af Amer) BUN/Creatinine Ratio Glucose Calculated Osmolality Lactic Acid 1.5 Calcium Phosphorus 4.2 Magnesium 2.8 H Total Bilirubin AST ALT Alkaline Phosphatase Serum Total Protein Albumin Globulin Albumin/Globulin Ratio Urine Color Urine Clarity Urine pH Ur Specific [place] Urine Protein Urine Glucose (UA) Urine Ketones Urine Blood Urine Nitrite Urine Bilirubin Urine Urobilinogen Ur Leukocyte Esterase Urine Microscopic RBC Urine Microscopic WBC Ur Squamous Epith Cells Urine Bacteria Hyaline Casts Ur Culture Indicated? Urine Osmolality Urine Creatinine Protein/Creatinin Ratio Urine Sodium Urine Total Protein 12/04/16 12/04/16 12/04/16 00:15 00:15 00:15 WBC RBC Hgb Hct MCV MCH MCHC RDW Plt Count MPV Immature Gran % Seg Neutrophils % Lymphocytes % Monocytes % Eosinophils % Basophils % Neutrophils # Lymphocytes # Monocytes # Eosinophils # Basophils # VBG pH VBG pCO2 VBG pO2 VBG HCO3 Sodium Potassium Chloride Carbon Dioxide BUN Creatinine Est GFR ( Amer) Est GFR (Non-Af Amer) BUN/Creatinine Ratio Glucose Calculated Osmolality Lactic Acid Calcium Phosphorus Magnesium Total Bilirubin AST ALT Alkaline Phosphatase Serum Total Protein Albumin Globulin Albumin/Globulin Ratio Urine Color Yellow Urine Clarity Cloudy A Urine pH 5.5 Ur Specific [place] 1.030 H Urine Protein Negative Urine Glucose (UA) Normal Urine Ketones Negative Urine Blood Negative Urine Nitrite Negative Urine Bilirubin Negative Urine Urobilinogen Normal Ur Leukocyte Esterase Negative Urine Microscopic RBC 0-3 Urine Microscopic WBC 0-3 Ur Squamous Epith Cells Many H Urine Bacteria None Seen Hyaline Casts None Seen Ur Culture Indicated? NO Urine Osmolality 850 Urine Creatinine 156 Protein/Creatinin Ratio 0.10 Urine Sodium < 20.0 Urine Total Protein 15 H - ABG Interpretation ABG results: ABG ABG pH 7.47 pH Units (7.32-7.45) H 11/29/16 04:40 ABG pCO2 43 mmHg (35-45) 11/29/16 04:40 ABG pO2 65 mmHg (85-104) L 11/29/16 04:40 ABG O2 Saturation 94 % (95-98) L 11/29/16 04:40 PT/INR, D-dimer PT 12.4 Seconds (9.4-12.1) H 11/25/16 22:30 Consult Discharge Plan - Plan Referrals: NO,PCP [Primary Care Provider] - <Reed Garnica - Last Filed: 12/04/16 15:55> Date of Encounter: 12/04/16 - Time Spent With Patient Total time spent is greater than 50% in coordination of care (as documented) at patient's floor/unit and/or counseling patient: - Constitutional Vitals: Abnormal lab results WBC 16.7 K/mcL (4.3-11.1) H 12/03/16 18:39 Neutrophils # 15.4 K/mcL (1.6-8.9) H 12/03/16 18:39 Lymphocytes # 0.5 K/mcL (0.6-4.6) L 12/03/16 18:39 Nucleated RBCs/100 WBC 0.2 /100 WBC (0) H 11/23/16 20:59 PT 12.4 Seconds (9.4-12.1) H 11/25/16 22:30 ABG pH 7.47 pH Units (7.32-7.45) H 11/29/16 04:40 ABG pO2 65 mmHg (85-104) L 11/29/16 04:40 ABG HCO3 31.3 mEQ/L (21-27) H 11/29/16 04:40 ABG Total CO2 32.6 mEq/L (20-26) H 11/29/16 04:40 ABG O2 Saturation 94 % (95-98) L 11/29/16 04:40 ABG Base Excess 6.8 mEq/L (-2.0 to 3.0) H 11/29/16 04:40 VBG pCO2 58 mmHg (41-51) H 12/04/16 00:05 VBG pO2 63 mmHg (25-40) H 12/04/16 00:05 VBG HCO3 35.9 mEq/L (21-27) H 12/04/16 00:05 Potassium 3.1 mEq/L (3.5-4.5) L 12/04/16 14:10 BUN 33 mg/dL (8-26) H 12/04/16 14:10 Creatinine 1.27 mg/dL (0.72-1.25) H 12/04/16 14:10 Est GFR (Non-Af Amer) 56 (> 60) L 12/04/16 14:10 Glucose 326 mg/dL (70-99) H 12/04/16 14:10 POC Glucose 175 (58-89) H 12/03/16 22:55 Calculated Osmolality 312 (280-300) H 12/04/16 14:10 Calcium 8.4 mg/dL (8.6-10.8) L 12/04/16 14:10 Ionized Calcium 1.09 mmol/L (1.15-1.35) L 11/29/16 16:27 Magnesium 2.8 mg/dL (1.6-2.6) H 12/04/16 00:05 AST 67 Units/L (5-34) H 12/03/16 18:39 ALT 73 Units/L (0-55) H 12/03/16 18:39 Troponin I 24.64 ng/mL (0-0.03) H* 11/25/16 22:30 Albumin 3.1 g/dL (3.5-5.0) L 12/03/16 18:39 Globulin 3.7 g/dL (2.4-3.5) H 12/03/16 18:39 Albumin/Globulin Ratio 0.8 (1.1-2.2) L 12/03/16 18:39 Urine Clarity Cloudy (Clear) A 12/04/16 00:15 Ur Specific [place] 1.030 (1.010-1.025) H 12/04/16 00:15 Ur Squamous Epith Cells Many per lpf (None-Few) H 12/04/16 00:15 Urine Total Protein 15 mg/dL (1-14) H 12/04/16 00:15 - Attending Attestation I examined this patient and my medical decision-making was reviewed with the Resident Physician. I agree with the documented findings, disposition and treatment plan as described except to the extent set forth below. Palliative Quality Code Status: 11/24/16 11:54 FULL [Resuscitation Status: Active] [RES] Routine Comment: Resuscitation Status: Full Code 11/26/16 19:48 FULL [Resuscitation Status: Active] [RES] Routine Comment: Resuscitation Status: Full Code 11/28/16 11:19 CODE [Resuscitation Status: Active] [RES] Routine Comment: currently intubated, but do not RE-intubate Resuscitation Status: [id number] - Labs CBC & Chem 7: 12/03/16 18:39 12/04/16 14:10 Labs: Laboratory Results - last 24 hr 12/03/16 12/03/16 12/03/16 05:28 18:39 18:39 WBC 16.7 H RBC 4.55 Hgb 14.0 Hct 43.0 MCV 94.5 MCH 30.8 MCHC 32.6 RDW 13.5 Plt Count 305 MPV 9.6 Immature Gran % 0.8 Seg Neutrophils % 92.3 Lymphocytes % 2.9 Monocytes % 3.9 Eosinophils % 0.0 Basophils % 0.1 Neutrophils # 15.4 H Lymphocytes # 0.5 L Monocytes # 0.7 Eosinophils # 0.0 Basophils # 0.0 VBG pH VBG pCO2 VBG pO2 VBG HCO3 Sodium 150 H D Potassium 3.2 L Chloride 109 Carbon Dioxide 29 BUN 34 H Creatinine 1.30 H Est GFR ( Amer) > 60 Est GFR (Non-Af Amer) 54 L BUN/Creatinine Ratio 26 Glucose 166 H POC Glucose 145 H Calculated Osmolality 321 H Lactic Acid Calcium 9.2 Phosphorus Magnesium Total Bilirubin 1.2 AST 67 H ALT 73 H Alkaline Phosphatase 91 Serum Total Protein 6.8 Albumin 3.1 L Globulin 3.7 H Albumin/Globulin Ratio 0.8 L Urine Color Urine Clarity Urine pH Ur Specific [place] Urine Protein Urine Glucose (UA) Urine Ketones Urine Blood Urine Nitrite Urine Bilirubin Urine Urobilinogen Ur Leukocyte Esterase Urine Microscopic RBC Urine Microscopic WBC Ur Squamous Epith Cells Urine Bacteria Hyaline Casts Ur Culture Indicated? Urine Osmolality Urine Creatinine Protein/Creatinin Ratio Urine Sodium Urine Total Protein 12/03/16 12/04/16 12/04/16 22:55 00:05 00:05 WBC RBC Hgb Hct MCV MCH MCHC RDW Plt Count MPV Immature Gran % Seg Neutrophils % Lymphocytes % Monocytes % Eosinophils % Basophils % Neutrophils # Lymphocytes # Monocytes # Eosinophils # Basophils # VBG pH VBG pCO2 VBG pO2 VBG HCO3 Sodium 148 H Potassium 3.6 Chloride 109 Carbon Dioxide 28 BUN 34 H Creatinine 1.44 H Est GFR ( Amer) 59 L Est GFR (Non-Af Amer) 48 L BUN/Creatinine Ratio 24 Glucose 209 H POC Glucose 175 H Calculated Osmolality 320 H Lactic Acid 1.5 Calcium 8.8 Phosphorus Magnesium Total Bilirubin AST ALT Alkaline Phosphatase Serum Total Protein Albumin Globulin Albumin/Globulin Ratio Urine Color Urine Clarity Urine pH Ur Specific [place] Urine Protein Urine Glucose (UA) Urine Ketones Urine Blood Urine Nitrite Urine Bilirubin Urine Urobilinogen Ur Leukocyte Esterase Urine Microscopic RBC Urine Microscopic WBC Ur Squamous Epith Cells Urine Bacteria Hyaline Casts Ur Culture Indicated? Urine Osmolality Urine Creatinine Protein/Creatinin Ratio Urine Sodium Urine Total Protein 12/04/16 12/04/16 12/04/16 00:05 00:05 00:15 WBC RBC Hgb Hct MCV MCH MCHC RDW Plt Count MPV Immature Gran % Seg Neutrophils % Lymphocytes % Monocytes % Eosinophils % Basophils % Neutrophils # Lymphocytes # Monocytes # Eosinophils # Basophils # VBG pH 7.40 VBG pCO2 58 H VBG pO2 63 H VBG HCO3 35.9 H Sodium Potassium Chloride Carbon Dioxide BUN Creatinine Est GFR ( Amer) Est GFR (Non-Af Amer) BUN/Creatinine Ratio Glucose POC Glucose Calculated Osmolality Lactic Acid Calcium Phosphorus 4.2 Magnesium 2.8 H Total Bilirubin AST ALT Alkaline Phosphatase Serum Total Protein Albumin Globulin Albumin/Globulin Ratio Urine Color Yellow Urine Clarity Cloudy A Urine pH 5.5 Ur Specific [place] 1.030 H Urine Protein Negative Urine Glucose (UA) Normal Urine Ketones Negative Urine Blood Negative Urine Nitrite Negative Urine Bilirubin Negative Urine Urobilinogen Normal Ur Leukocyte Esterase Negative Urine Microscopic RBC 0-3 Urine Microscopic WBC 0-3 Ur Squamous Epith Cells Many H Urine Bacteria None Seen Hyaline Casts None Seen Ur Culture Indicated? NO Urine Osmolality Urine Creatinine Protein/Creatinin Ratio Urine Sodium Urine Total Protein 12/04/16 12/04/16 12/04/16 00:15 00:15 14:10 WBC RBC Hgb Hct MCV MCH MCHC RDW Plt Count MPV Immature Gran % Seg Neutrophils % Lymphocytes % Monocytes % Eosinophils % Basophils % Neutrophils # Lymphocytes # Monocytes # Eosinophils # Basophils # VBG pH VBG pCO2 VBG pO2 VBG HCO3 Sodium 141 Potassium 3.1 L Chloride 105 Carbon Dioxide 29 BUN 33 H Creatinine 1.27 H Est GFR ( Amer) > 60 Est GFR (Non-Af Amer) 56 L BUN/Creatinine Ratio 26 Glucose 326 H POC Glucose Calculated Osmolality 312 H Lactic Acid Calcium 8.4 L Phosphorus Magnesium Total Bilirubin AST ALT Alkaline Phosphatase Serum Total Protein Albumin Globulin Albumin/Globulin Ratio Urine Color Urine Clarity Urine pH Ur Specific [place] Urine Protein Urine Glucose (UA) Urine Ketones Urine Blood Urine Nitrite Urine Bilirubin Urine Urobilinogen Ur Leukocyte Esterase Urine Microscopic RBC Urine Microscopic WBC Ur Squamous Epith Cells Urine Bacteria Hyaline Casts Ur Culture Indicated? Urine Osmolality 850 Urine Creatinine 156 Protein/Creatinin Ratio 0.10 Urine Sodium < 20.0 Urine Total Protein 15 H - ABG Interpretation ABG results: ABG ABG pH 7.47 pH Units (7.32-7.45) H 11/29/16 04:40 ABG pCO2 43 mmHg (35-45) 11/29/16 04:40 ABG pO2 65 mmHg (85-104) L 11/29/16 04:40 ABG O2 Saturation 94 % (95-98) L 11/29/16 04:40 PT/INR, D-dimer PT 12.4 Seconds (9.4-12.1) H 11/25/16 22:30
[2016-12-04] MEDS: D5% in 0.45% NACL 1,000 ML IVC SCH (09:32)
[2016-12-04] MEDS: Pantoprazole 40 MG VIAL IVP SCH (09:36)
[2016-12-04] MEDS: Levofloxacin 750 MG/150 ML 750 MG/150 ML BAG IVPB SCH (09:46)
[2016-12-04] MEDS: Aspirin 81 MG TAB.CHEW PO SCH (09:47)
[2016-12-04] MEDS: Nicotine 14 MG PATCH.TD24 TD SCH (09:49)
[2016-12-04] MEDS: Budesonide Neb 0.25 MG/2 ML IH SCH ×2 (10:30→22:58)
[2016-12-04] MEDS ORDERED: 0.9 % Sodium Chloride 1,000 ML IVC SCH (10:30)
[2016-12-04] MEDS: Vancomycin 1,750 MG in D5% in Water 500 ML IVPB SCH (11:57)
[2016-12-04] MEDS: Scopolamine Patch 1.5 MG PATCH.TD72 TD SCH (12:04)
[2016-12-04 14:35] LABS: BUN/Creatinine Ratio 26 (6-26); Blood Urea Nitrogen 33 mg/dL (8-26); Calcium 8.4 mg/dL (8.6-10.8); Carbon Dioxide 29 mEq/L (19-29); Chloride 105 mEq/L (98-109); Glucose 326 mg/dL (70-99); Osmolality,Calculated 312 (280-300); Potassium 3.1 mEq/L (3.5-4.5); Sodium 141 mEq/L (136-145); eGFR For African Americans > 60 (> 60); eGFR For Non-African Americans 56 (> 60)
--- NOTE | 2016-12-04 14:47 | Internal Med Progress Note ---
Date of Encounter: 12/04/16 Time of Encounter: 08:20 - Assessment and plan (1) Acute and chronic respiratory failure Current Visit: Yes Status: Acute Assessment and plan: Continues to wheeze despite steroids and abx but saturation has been stable. Will continue current plan of care today and anticipate starting to taper steroids tomorrow. Qualifiers: Respiratory failure complication: hypoxia and hypercapnia Qualified Code(s) : J96.21 - Acute and chronic respiratory failure with hypoxia; J96.22 - Acute and chronic respiratory failure with hypercapnia (2) Pneumonia Current Visit: Yes Status: Suspected Assessment and plan: Abx adjusted yesterday when patient had low grade fever. Cultures pending. Will continue therapy as ordered for now. Qualifiers: Pneumonia type: aspiration pneumonia Aspiration pneumonia type: due to gastric secretions Laterality: bilateral Lung location: lower lobe of lung Qualified Code(s): J69.0 - Pneumonitis due to inhalation of food and vomit (3) Hypokalemia Current Visit: Yes Status: Acute Assessment and plan: Replace today. (4) Acute ischemic left MCA stroke Current Visit: Yes Status: Acute Assessment and plan: Supportive care at this time. MBS tomorrow. (5) STEMI (ST elevation myocardial infarction) Current Visit: Yes Status: Acute Assessment and plan: Appears to be tolerating oral Brilinta. Qualifiers: Involved coronary artery: LAD coronary artery Qualified Code(s): I21.02 - ST elevation (STEMI) myocardial infarction involving left anterior descending coronary artery (6) Dysphagia Current Visit: Yes Status: Acute Assessment and plan: MBS ordered for tomorrow. Qualifiers: Dysphagia type: oropharyngeal phase Qualified Code(s): R13.12 - Dysphagia, oropharyngeal phase (7) Agitation Current Visit: Yes Status: Acute Assessment and plan: Slept well last night with Ativan. Will reorder at night PRN. (8) Generalized pain Current Visit: Yes Status: Acute Assessment and plan: Related to CPR/resususcitation. - Subjective Interval history: Mr. Syed is currently admitted for acute cardiac arrest due to acute STEMI and cardiogenic shock. Subsequently he has had a large MCA CVA. He is high risk due to potential for aspiration and worsening respiratory and cardiac status. Mr. Syed is less restless today. He was able to relax and sleep some last evening with Ativan and Benadryl. He is to have MBS tomorrow to further evaluate swallowing. He is tolerating taking pills in applesauce. No fever or chills. Still wheezing but has better more productive cough. - Constitutional Vitals: Temp Pulse Resp BP Pulse Ox 97.8 F 84 26 133/91 94 12/04/16 11:21 12/04/16 11:21 12/04/16 11:21 12/04/16 11:21 12/04/16 11:21 General appearance: Present: disheveled - Head Head exam: Present: normocephalic - Eye Eye exam: Present: conjuntiva pink - ENT ENT exam: Present: mucous membranes dry - Respiratory Respiratory exam: Present: decreased breath sounds, wheezes - Cardiovascular Cardiovascular exam: Present: distant heart sounds, RRR. Absent: tachycardia - GI/Abdominal GI/Abdominal exam: Present: soft. Absent: tenderness - Extremities Exam Extremities exam: Present: warm. Absent: tenderness - Neurological Exam Neurological exam: Present: alert, motor sensory deficit Additional comments: Flaccid on R. - Skin Skin exam: Present: warm. Absent: rash Internal Medicine: Result - Labs CBC & Chem 7: 12/03/16 18:39 12/04/16 14:10 Labs: Short CBC 12/03/16 Range/Units 18:39 WBC 16.7 H (4.3-11.1) K/mcL Hgb 14.0 (12.9-16.9) g/dL Hct 43.0 (37.5-50.1) % Plt Count 305 (140-400) K/mcL Neutrophils # 15.4 H (1.6-8.9) K/mcL BMP 12/03/16 12/04/16 12/04/16 18:39 00:05 14:10 Sodium 150 H D 148 H 141 Potassium 3.2 L 3.6 3.1 L Chloride 109 109 105 Carbon Dioxide 29 28 29 BUN 34 H 34 H 33 H Creatinine 1.30 H 1.44 H 1.27 H Glucose 166 H 209 H 326 H Calcium 9.2 8.8 8.4 L Liver Function 12/03/16 Range/Units 18:39 Total Bilirubin 1.2 (0.2-1.2) mg/dL AST 67 H (5-34) Units/L ALT 73 H (0-55) Units/L Alkaline Phosphatase 91 (38-126) Units/L Albumin 3.1 L (3.5-5.0) g/dL Urine 12/04/16 Range/Units 00:15 Urine Color Yellow (Yellow) Urine Clarity Cloudy A (Clear) Urine pH 5.5 (5.0-8.0) pH Units Ur Specific [place] 1.030 H (1.010-1.025) Urine Protein Negative (Neg-Trace) mg/dL Urine Glucose (UA) Normal (Normal) mg/dL - ABG Interpretation ABG results: ABG ABG pH 7.47 pH Units (7.32-7.45) H 11/29/16 04:40 ABG pCO2 43 mmHg (35-45) 11/29/16 04:40 ABG pO2 65 mmHg (85-104) L 11/29/16 04:40 ABG O2 Saturation 94 % (95-98) L 11/29/16 04:40 PT/INR, D-dimer PT 12.4 Seconds (9.4-12.1) H 11/25/16 22:30 Consult Discharge Plan - Plan Referrals: NO,PCP [Primary Care Provider] -
[2016-12-04] MEDS ORDERED: *HR* Alteplase (Cathflo) 2 MG VIAL IVP ONE (17:05)
[2016-12-04] MEDS: Bisacodyl 10 MG RECTAL SUPPOSITORY RC SCH (17:07)
[2016-12-04] MEDS: *HR* LORazepam 2 MG/ML VIAL IVP PRN (21:03)
[2016-12-04] MEDS ORDERED: Haloperidol Lactate 5 MG/ML VIAL IVP STA (23:28)
[2016-12-04] MEDS ORDERED: *HR* LORazepam 2 MG/ML VIAL IVP STA (23:28)
[2016-12-04] MEDS ORDERED: Divalproex (24 HR) 250 MG TABLET PO SCH (23:30)
[2016-12-05] MEDS: methylPREDNISolone 125 MG/2 ML VIAL IVP SCH ×4 (02:17→20:58)
[2016-12-05] MEDS: *HR* Metoprolol 5 MG/5 ML VIAL IVP SCH ×4 (02:17→20:59)
[2016-12-05 03:39] LABS: Hemoglobin 13.3 g/dL (12.9-16.9); Mean Corpuscular HGB Conc 32.4 g/dL (31.6-35.5); Mean Corpuscular Hemoglobin 31.5 pg (28.0-33.3); Mean Corpuscular Volume 97.2 fL (83.0-100.0); Mean Platelet Volume 9.9 fL (9.4-12.4); Platelet Count 258 K/mcL (140-400); Red Blood Count 4.22 M/mcL (4.19-5.50); Red Cell Distribution Width 13.6 % (11.5-14.5)
[2016-12-05 03:52] LABS: BUN/Creatinine Ratio 23 (6-26); Blood Urea Nitrogen 29 mg/dL (8-26); Calcium 8.2 mg/dL (8.6-10.8); Carbon Dioxide 27 mEq/L (19-29); Chloride 106 mEq/L (98-109); Glucose 345 mg/dL (70-99); Magnesium 2.5 mg/dL (1.6-2.6); Osmolality,Calculated 320 (280-300); Potassium 3.4 mEq/L (3.5-4.5); Sodium 145 mEq/L (136-145); eGFR For African Americans > 60 (> 60); eGFR For Non-African Americans 57 (> 60)
[2016-12-05] MEDS ORDERED: Haloperidol Lactate 5 MG/ML VIAL IVP STA (03:57)
[2016-12-05] MEDS ORDERED: *HR* LORazepam 2 MG/ML VIAL IVP STA (03:57)
[2016-12-05] MEDS ORDERED: *HR* LORazepam 2 MG/ML VIAL ONE (04:05)
[2016-12-05] MEDS ORDERED: Haloperidol Lactate 5 MG/ML VIAL ONE (04:05)
[2016-12-05] MEDS: Ipratropium/Albuterol Neb 3 ML IH SCH ×4 (04:22→21:52)
[2016-12-05] MEDS: *HR* Enoxaparin 40 MG/0.4 ML SYRINGE SQ SCH (05:50)
[2016-12-05] MEDS: Piperacillin/Tazobactam 3.375 GM in D5% in Water (Mini-Bag+) 100 ML IVPB SCH ×3 (08:06→23:36)
[2016-12-05] MEDS: Levofloxacin 750 MG/150 ML 750 MG/150 ML BAG IVPB SCH (08:08)
[2016-12-05] MEDS: Pantoprazole 40 MG VIAL IVP SCH (08:09)
--- NOTE | 2016-12-05 08:25 | Palliative Progress Note ---
<Sergio Ceballos - Last Filed: 12/05/16 08:23> Date of Encounter: 12/05/16 Time of Encounter: 08:23 - Assessment and plan (1) Goals of care, counseling/discussion Current Visit: Yes Status: Acute Assessment and plan: Speech therapist will be doing modified bariums swallow today before he will be considered for PEG No family at bedside currently; his code status remains at DNR CCA/DNI (2) Dysphagia Current Visit: Yes Status: Acute Assessment and plan: Speech therapist following, appreciate recommendations Will await results of barium swallow prior to PEG placement Qualifiers: Dysphagia type: oropharyngeal phase Qualified Code(s): R13.12 - Dysphagia, oropharyngeal phase - Time Spent With Patient Total time spent is greater than 50% in coordination of care (as documented) at patient's floor/unit and/or counseling patient: - Subjective Interval history: Pt seen and examined this morning. There is no one at bedside this morning but he appears comfortable and not in any distress. He still does not follow commands appropriately but does open eyes spontaneously and appears to track objects. According to RN, he had an episode of agitation last night that required Ativan and Haldol. - Constitutional Vitals: Abnormal lab results WBC 16.3 K/mcL (4.3-11.1) H 12/05/16 03:20 Neutrophils # 15.4 K/mcL (1.6-8.9) H 12/03/16 18:39 Lymphocytes # 0.5 K/mcL (0.6-4.6) L 12/03/16 18:39 Nucleated RBCs/100 WBC 0.2 /100 WBC (0) H 11/23/16 20:59 PT 12.4 Seconds (9.4-12.1) H 11/25/16 22:30 ABG pH 7.47 pH Units (7.32-7.45) H 11/29/16 04:40 ABG pO2 65 mmHg (85-104) L 11/29/16 04:40 ABG HCO3 31.3 mEQ/L (21-27) H 11/29/16 04:40 ABG Total CO2 32.6 mEq/L (20-26) H 11/29/16 04:40 ABG O2 Saturation 94 % (95-98) L 11/29/16 04:40 ABG Base Excess 6.8 mEq/L (-2.0 to 3.0) H 11/29/16 04:40 VBG pCO2 58 mmHg (41-51) H 12/04/16 00:05 VBG pO2 63 mmHg (25-40) H 12/04/16 00:05 VBG HCO3 35.9 mEq/L (21-27) H 12/04/16 00:05 Potassium 3.4 mEq/L (3.5-4.5) L 12/05/16 03:20 BUN 29 mg/dL (8-26) H 12/05/16 03:20 Est GFR (Non-Af Amer) 57 (> 60) L 12/05/16 03:20 Glucose 345 mg/dL (70-99) H 12/05/16 03:20 POC Glucose 163 (58-89) H 12/04/16 12:05 Calculated Osmolality 320 (280-300) H 12/05/16 03:20 Calcium 8.2 mg/dL (8.6-10.8) L 12/05/16 03:20 Ionized Calcium 1.09 mmol/L (1.15-1.35) L 11/29/16 16:27 AST 67 Units/L (5-34) H 12/03/16 18:39 ALT 73 Units/L (0-55) H 12/03/16 18:39 Troponin I 24.64 ng/mL (0-0.03) H* 11/25/16 22:30 Albumin 3.1 g/dL (3.5-5.0) L 12/03/16 18:39 Globulin 3.7 g/dL (2.4-3.5) H 12/03/16 18:39 Albumin/Globulin Ratio 0.8 (1.1-2.2) L 12/03/16 18:39 Urine Clarity Cloudy (Clear) A 12/04/16 00:15 Ur Specific [place] 1.030 (1.010-1.025) H 12/04/16 00:15 Ur Squamous Epith Cells Many per lpf (None-Few) H 12/04/16 00:15 Urine Total Protein 15 mg/dL (1-14) H 12/04/16 00:15 General appearance: Present: no acute distress, obese. Absent: cooperative - Head Head exam: Present: atraumatic, normal inspection - Eye Eye exam: Present: PERRL, sclera anicteric - Respiratory Respiratory exam: Present: rales, wheezes. Absent: respiratory distress - Cardiovascular Cardiovascular exam: Present: irregular rhythm, +S1, +S2 - GI/Abdominal GI/Abdominal exam: Present: soft. Absent: firm, guarding - Extremities Exam Extremities exam: Absent: pedal edema, tenderness - Neurological Exam Neurological exam: Present: altered, speech deficit. Absent: oriented X3 Additional comments: still unable to move right side, but does not follow commands Palliative Quality Palliative Quality: Screen for Code Status: Yes, Screen for Goals of Care: Yes, Screen for Pain: NA, If Pain Regimen Started, Initiate Bowel Regimen: NA, Screen for Nausea/Vomitting: NA Code Status: 11/24/16 11:54 FULL [Resuscitation Status: Active] [RES] Routine Comment: Resuscitation Status: Full Code 11/26/16 19:48 FULL [Resuscitation Status: Active] [RES] Routine Comment: Resuscitation Status: Full Code 11/28/16 11:19 CODE [Resuscitation Status: Active] [RES] Routine Comment: currently intubated, but do not RE-intubate Resuscitation Status: [id number] - Labs CBC & Chem 7: 12/05/16 03:20 12/05/16 03:20 Labs: Laboratory Results - last 24 hr 12/03/16 12/03/16 12/04/16 05:28 22:55 05:12 WBC RBC Hgb Hct MCV MCH MCHC RDW Plt Count MPV Sodium Potassium Chloride Carbon Dioxide BUN Creatinine Est GFR ( Amer) Est GFR (Non-Af Amer) BUN/Creatinine Ratio Glucose POC Glucose 145 H 175 H 119 H Calculated Osmolality Calcium Magnesium 12/04/16 12/04/16 12/05/16 12:05 14:10 03:20 WBC 16.3 H RBC 4.22 Hgb 13.3 Hct 41.0 MCV 97.2 MCH 31.5 MCHC 32.4 RDW 13.6 Plt Count 258 MPV 9.9 Sodium 141 Potassium 3.1 L Chloride 105 Carbon Dioxide 29 BUN 33 H Creatinine 1.27 H Est GFR ( Amer) > 60 Est GFR (Non-Af Amer) 56 L BUN/Creatinine Ratio 26 Glucose 326 H POC Glucose 163 H Calculated Osmolality 312 H Calcium 8.4 L Magnesium 12/05/16 03:20 WBC RBC Hgb Hct MCV MCH MCHC RDW Plt Count MPV Sodium 145 Potassium 3.4 L Chloride 106 Carbon Dioxide 27 BUN 29 H Creatinine 1.25 Est GFR ( Amer) > 60 Est GFR (Non-Af Amer) 57 L BUN/Creatinine Ratio 23 Glucose 345 H POC Glucose Calculated Osmolality 320 H Calcium 8.2 L Magnesium 2.5 - ABG Interpretation ABG results: ABG ABG pH 7.47 pH Units (7.32-7.45) H 11/29/16 04:40 ABG pCO2 43 mmHg (35-45) 11/29/16 04:40 ABG pO2 65 mmHg (85-104) L 11/29/16 04:40 ABG O2 Saturation 94 % (95-98) L 11/29/16 04:40 PT/INR, D-dimer PT 12.4 Seconds (9.4-12.1) H 11/25/16 22:30 Consult Discharge Plan - Plan Referrals: NO,PCP [Primary Care Provider] - <Reed Garnica - Last Filed: 12/05/16 09:47> Date of Encounter: 12/05/16 - Time Spent With Patient Total time spent is greater than 50% in coordination of care (as documented) at patient's floor/unit and/or counseling patient: - Constitutional Vitals: Abnormal lab results WBC 16.3 K/mcL (4.3-11.1) H 12/05/16 03:20 Neutrophils # 15.4 K/mcL (1.6-8.9) H 12/03/16 18:39 Lymphocytes # 0.5 K/mcL (0.6-4.6) L 12/03/16 18:39 Nucleated RBCs/100 WBC 0.2 /100 WBC (0) H 11/23/16 20:59 PT 12.4 Seconds (9.4-12.1) H 11/25/16 22:30 ABG pH 7.47 pH Units (7.32-7.45) H 11/29/16 04:40 ABG pO2 65 mmHg (85-104) L 11/29/16 04:40 ABG HCO3 31.3 mEQ/L (21-27) H 11/29/16 04:40 ABG Total CO2 32.6 mEq/L (20-26) H 11/29/16 04:40 ABG O2 Saturation 94 % (95-98) L 11/29/16 04:40 ABG Base Excess 6.8 mEq/L (-2.0 to 3.0) H 11/29/16 04:40 VBG pCO2 58 mmHg (41-51) H 12/04/16 00:05 VBG pO2 63 mmHg (25-40) H 12/04/16 00:05 VBG HCO3 35.9 mEq/L (21-27) H 12/04/16 00:05 Potassium 3.4 mEq/L (3.5-4.5) L 12/05/16 03:20 BUN 29 mg/dL (8-26) H 12/05/16 03:20 Est GFR (Non-Af Amer) 57 (> 60) L 12/05/16 03:20 Glucose 345 mg/dL (70-99) H 12/05/16 03:20 POC Glucose 163 (58-89) H 12/04/16 12:05 Calculated Osmolality 320 (280-300) H 12/05/16 03:20 Calcium 8.2 mg/dL (8.6-10.8) L 12/05/16 03:20 Ionized Calcium 1.09 mmol/L (1.15-1.35) L 11/29/16 16:27 AST 67 Units/L (5-34) H 12/03/16 18:39 ALT 73 Units/L (0-55) H 12/03/16 18:39 Troponin I 24.64 ng/mL (0-0.03) H* 11/25/16 22:30 Albumin 3.1 g/dL (3.5-5.0) L 12/03/16 18:39 Globulin 3.7 g/dL (2.4-3.5) H 12/03/16 18:39 Albumin/Globulin Ratio 0.8 (1.1-2.2) L 12/03/16 18:39 Urine Clarity Cloudy (Clear) A 12/04/16 00:15 Ur Specific [place] 1.030 (1.010-1.025) H 12/04/16 00:15 Ur Squamous Epith Cells Many per lpf (None-Few) H 12/04/16 00:15 Urine Total Protein 15 mg/dL (1-14) H 12/04/16 00:15 - Attending Attestation I examined this patient and my medical decision-making was reviewed with the Resident Physician. I agree with the documented findings, disposition and treatment plan as described except to the extent set forth below. Palliative Quality Code Status: 11/24/16 11:54 FULL [Resuscitation Status: Active] [RES] Routine Comment: Resuscitation Status: Full Code 11/26/16 19:48 FULL [Resuscitation Status: Active] [RES] Routine Comment: Resuscitation Status: Full Code 11/28/16 11:19 CODE [Resuscitation Status: Active] [RES] Routine Comment: currently intubated, but do not RE-intubate Resuscitation Status: [id number] - Labs CBC & Chem 7: 12/05/16 03:20 12/05/16 03:20 Labs: Laboratory Results - last 24 hr 12/03/16 12/03/16 12/04/16 05:28 22:55 05:12 WBC RBC Hgb Hct MCV MCH MCHC RDW Plt Count MPV Sodium Potassium Chloride Carbon Dioxide BUN Creatinine Est GFR ( Amer) Est GFR (Non-Af Amer) BUN/Creatinine Ratio Glucose POC Glucose 145 H 175 H 119 H Calculated Osmolality Calcium Magnesium 12/04/16 12/04/16 12/05/16 12:05 14:10 03:20 WBC 16.3 H RBC 4.22 Hgb 13.3 Hct 41.0 MCV 97.2 MCH 31.5 MCHC 32.4 RDW 13.6 Plt Count 258 MPV 9.9 Sodium 141 Potassium 3.1 L Chloride 105 Carbon Dioxide 29 BUN 33 H Creatinine 1.27 H Est GFR ( Amer) > 60 Est GFR (Non-Af Amer) 56 L BUN/Creatinine Ratio 26 Glucose 326 H POC Glucose 163 H Calculated Osmolality 312 H Calcium 8.4 L Magnesium 12/05/16 03:20 WBC RBC Hgb Hct MCV MCH MCHC RDW Plt Count MPV Sodium 145 Potassium 3.4 L Chloride 106 Carbon Dioxide 27 BUN 29 H Creatinine 1.25 Est GFR ( Amer) > 60 Est GFR (Non-Af Amer) 57 L BUN/Creatinine Ratio 23 Glucose 345 H POC Glucose Calculated Osmolality 320 H Calcium 8.2 L Magnesium 2.5 - Impressions Impressions Videofluoroscopic Swallow 12/05/16 00:01 IMPRESSION: The examination was terminated as the patient was unable to initiate swallowing. Please see separate speech pathology report for full discussion of findings and recommendations. D/ / 12/05/2016 09:21:56 Renny Eason MD / Elsy Correa Interpreting Provider: Renny Eason MD - ABG Interpretation ABG results: ABG ABG pH 7.47 pH Units (7.32-7.45) H 11/29/16 04:40 ABG pCO2 43 mmHg (35-45) 11/29/16 04:40 ABG pO2 65 mmHg (85-104) L 11/29/16 04:40 ABG O2 Saturation 94 % (95-98) L 11/29/16 04:40 PT/INR, D-dimer PT 12.4 Seconds (9.4-12.1) H 11/25/16 22:30
[2016-12-05] MEDS ORDERED: Aminoglycoside Consult 1 EACH MC ONE (08:33)
[2016-12-05] MEDS ORDERED: Potassium Chloride 40 MEQ/200 ML BAG IVPB ONE (08:50)
[2016-12-05] MEDS: *HR* Ticagrelor 90 MG TABLET PO SCH ×2 (10:46→20:59)
[2016-12-05] MEDS: Aspirin 81 MG TAB.CHEW PO SCH (10:46)
[2016-12-05] MEDS: *HR* Amiodarone 200 MG TABLET PO SCH ×2 (10:48→20:59)
[2016-12-05] MEDS: Divalproex (24 HR) 250 MG TABLET PO SCH ×2 (10:48→20:59)
[2016-12-05] MEDS: Nicotine 14 MG PATCH.TD24 TD SCH (11:03)
[2016-12-05] MEDS: Bisacodyl 10 MG RECTAL SUPPOSITORY RC SCH (11:03)
[2016-12-05] MEDS: Budesonide Neb 0.25 MG/2 ML IH SCH ×2 (11:04→21:55)
[2016-12-05] MEDS: Vancomycin 1,500 MG in D5% in Water 250 ML IVPB SCH (14:05)
--- NOTE | 2016-12-05 18:14 | Internal Med Progress Note ---
Date of Encounter: 12/05/16 Time of Encounter: 09:00 - Assessment and plan (1) Acute and chronic respiratory failure Current Visit: Yes Status: Acute Assessment and plan: Persistent wheezing. Will start to decrease steroids. Continue abx at this time. Qualifiers: Respiratory failure complication: hypoxia and hypercapnia Qualified Code(s) : J96.21 - Acute and chronic respiratory failure with hypoxia; J96.22 - Acute and chronic respiratory failure with hypercapnia (2) Pneumonia Current Visit: Yes Status: Suspected Assessment and plan: Cultures negative thus far. D/C Levaquin but continue Zosyn/Vanc Qualifiers: Pneumonia type: aspiration pneumonia Aspiration pneumonia type: due to gastric secretions Laterality: bilateral Lung location: lower lobe of lung Qualified Code(s): J69.0 - Pneumonitis due to inhalation of food and vomit (3) Hypokalemia Current Visit: Yes Status: Acute Assessment and plan: Replace today. (4) Acute ischemic left MCA stroke Current Visit: Yes Status: Acute Assessment and plan: Supportive care at this time. If more awake will repeat MBS (5) STEMI (ST elevation myocardial infarction) Current Visit: Yes Status: Acute Assessment and plan: Appears to be tolerating oral Brilinta. Qualifiers: Involved coronary artery: LAD coronary artery Qualified Code(s): I21.02 - ST elevation (STEMI) myocardial infarction involving left anterior descending coronary artery (6) Dysphagia Current Visit: Yes Status: Acute Assessment and plan: Was not awake this AM. May need to repeat MBS tomorrow. If fails needs PEG Qualifiers: Dysphagia type: oropharyngeal phase Qualified Code(s): R13.12 - Dysphagia, oropharyngeal phase (7) Agitation Current Visit: Yes Status: Acute Assessment and plan: PRN Ativan and Benadryl. (8) Generalized pain Current Visit: Yes Status: Acute Assessment and plan: Related to CPR/resususcitation. (9) Steroid-induced hyperglycemia Current Visit: Yes Status: Acute Assessment and plan: Decreasing steroids today. - Subjective Interval history: Mr. Syed is currently admitted for acute cardiac arrest due to acute STEMI and cardiogenic shock. Subsequently he has had a large MCA CVA. He is high risk due to potential for aspiration and worsening respiratory and cardiac status. Mr. Syed was very restless last night and received Haldol. He is very somnolent today. Not following commands. No fever or chills. Did not swallow during MBS - ? sedation. - Constitutional Vitals: Temp Pulse Resp BP Pulse Ox 98.4 F 64 17 132/92 96 12/04/16 20:20 12/05/16 11:56 12/05/16 11:07 12/05/16 11:56 12/05/16 11:56 General appearance: Present: disheveled - Head Head exam: Present: normocephalic - Eye Eye exam: Present: conjuntiva pink - ENT ENT exam: Present: mucous membranes dry - Respiratory Respiratory exam: Present: wheezes. Absent: rales, rhonchi - Cardiovascular Cardiovascular exam: Present: RRR. Absent: tachycardia - GI/Abdominal GI/Abdominal exam: Present: distended, soft. Absent: tenderness - Extremities Exam Extremities exam: Present: warm. Absent: pedal edema - Neurological Exam Neurological exam: Present: alert, motor sensory deficit - Skin Skin exam: Present: warm. Absent: rash Internal Medicine: Result - Labs CBC & Chem 7: 12/05/16 03:20 12/05/16 03:20 Labs: Short CBC 12/05/16 Range/Units 03:20 WBC 16.3 H (4.3-11.1) K/mcL Hgb 13.3 (12.9-16.9) g/dL Hct 41.0 (37.5-50.1) % Plt Count 258 (140-400) K/mcL [facility] 12/05/16 03:20 Sodium 145 Potassium 3.4 L Chloride 106 Carbon Dioxide 27 BUN 29 H Creatinine 1.25 Glucose 345 H Calcium 8.2 L - ABG Interpretation ABG results: ABG ABG pH 7.47 pH Units (7.32-7.45) H 11/29/16 04:40 ABG pCO2 43 mmHg (35-45) 11/29/16 04:40 ABG pO2 65 mmHg (85-104) L 11/29/16 04:40 ABG O2 Saturation 94 % (95-98) L 11/29/16 04:40 PT/INR, D-dimer PT 12.4 Seconds (9.4-12.1) H 11/25/16 22:30 - Impressions Impressions Videofluoroscopic Swallow 12/05/16 00:01 IMPRESSION: The examination was terminated as the patient was unable to initiate swallowing. Please see separate speech pathology report for full discussion of findings and recommendations. D/ / 12/05/2016 09:21:56 Renny Eason MD / Elsy Correa Interpreting Provider: Renny Eason MD Consult Discharge Plan - Plan Referrals: NO,PCP [Primary Care Provider] -
[2016-12-06] MEDS: *HR* Metoprolol 5 MG/5 ML VIAL IVP SCH ×2 (02:16→11:19)
[2016-12-06] MEDS: Vancomycin 1,500 MG in D5% in Water 250 ML IVPB SCH (02:16)
[2016-12-06] MEDS: methylPREDNISolone 125 MG/2 ML VIAL IVP SCH ×3 (02:16→18:33)
[2016-12-06] MEDS: Ipratropium/Albuterol Neb 3 ML IH SCH ×4 (03:58→22:22)
[2016-12-06 04:40] LABS: Hematocrit 41.4 % (37.5-50.1); Hemoglobin 12.9 g/dL (12.9-16.9); Mean Corpuscular HGB Conc 31.2 g/dL (31.6-35.5); Mean Corpuscular Hemoglobin 30.3 pg (28.0-33.3); Mean Corpuscular Volume 97.2 fL (83.0-100.0); Mean Platelet Volume 9.9 fL (9.4-12.4); Platelet Count 222 K/mcL (140-400); Red Blood Count 4.26 M/mcL (4.19-5.50); Red Cell Distribution Width 13.4 % (11.5-14.5)
[2016-12-06 04:55] LABS: BUN/Creatinine Ratio 23 (6-26); Blood Urea Nitrogen 28 mg/dL (8-26); Calcium 7.8 mg/dL (8.6-10.8); Carbon Dioxide 26 mEq/L (19-29); Chloride 103 mEq/L (98-109); Osmolality,Calculated 314 (280-300); Potassium 3.4 mEq/L (3.5-4.5); eGFR For African Americans > 60 (> 60); eGFR For Non-African Americans 58 (> 60)
[2016-12-06 04:58] LABS: Sodium 136 mEq/L (136-145)
[2016-12-06 05:00] LABS: Glucose 572 mg/dL (70-99)
[2016-12-06] MEDS: *HR* Enoxaparin 40 MG/0.4 ML SYRINGE SQ SCH (06:42)
--- NOTE | 2016-12-06 09:38 | Palliative Progress Note ---
<Sergio Ceballos - Last Filed: 12/06/16 09:36> Date of Encounter: 12/06/16 Time of Encounter: 09:36 - Assessment and plan (1) Goals of care, counseling/discussion Current Visit: Yes Status: Acute Assessment and plan: Speech therapist will repeat modified bariums swallow today before he will be considered for PEG No events overnight and he has not been on any sedation Keep code status at DNR CCA/DNI (2) Dysphagia Current Visit: Yes Status: Acute Assessment and plan: Speech therapist following, appreciate recommendations Will await results of barium swallow prior to consideration of PEG Qualifiers: Dysphagia type: oropharyngeal phase Qualified Code(s): R13.12 - Dysphagia, oropharyngeal phase - Time Spent With Patient Total time spent is greater than 50% in coordination of care (as documented) at patient's floor/unit and/or counseling patient: - Subjective Interval history: Pt seen and examined this morning. is at bedside and states patient has been trying to speak this morning. He did indeed make some noise when I tried talking to him, but it was incomprehensible. He still is unable to fully follow commands when I ask him to blink, nod, or wiggle his toes. According to and staff, patient had no events overnight and did not require and sedation like the night before. - Constitutional Vitals: Abnormal lab results WBC 13.0 K/mcL (4.3-11.1) H 12/06/16 04:08 MCHC 31.2 g/dL (31.6-35.5) L 12/06/16 04:08 Neutrophils # 15.4 K/mcL (1.6-8.9) H 12/03/16 18:39 Lymphocytes # 0.5 K/mcL (0.6-4.6) L 12/03/16 18:39 Nucleated RBCs/100 WBC 0.2 /100 WBC (0) H 11/23/16 20:59 PT 12.4 Seconds (9.4-12.1) H 11/25/16 22:30 ABG pH 7.47 pH Units (7.32-7.45) H 11/29/16 04:40 ABG pO2 65 mmHg (85-104) L 11/29/16 04:40 ABG HCO3 31.3 mEQ/L (21-27) H 11/29/16 04:40 ABG Total CO2 32.6 mEq/L (20-26) H 11/29/16 04:40 ABG O2 Saturation 94 % (95-98) L 11/29/16 04:40 ABG Base Excess 6.8 mEq/L (-2.0 to 3.0) H 11/29/16 04:40 VBG pCO2 58 mmHg (41-51) H 12/04/16 00:05 VBG pO2 63 mmHg (25-40) H 12/04/16 00:05 VBG HCO3 35.9 mEq/L (21-27) H 12/04/16 00:05 Potassium 3.4 mEq/L (3.5-4.5) L 12/06/16 04:08 BUN 28 mg/dL (8-26) H 12/06/16 04:08 Est GFR (Non-Af Amer) 58 (> 60) L 12/06/16 04:08 Glucose 572 mg/dL (70-99) H* 12/06/16 04:08 POC Glucose 146 (58-89) H 12/06/16 05:03 Calculated Osmolality 314 (280-300) H 12/06/16 04:08 Calcium 7.8 mg/dL (8.6-10.8) L 12/06/16 04:08 Ionized Calcium 1.09 mmol/L (1.15-1.35) L 11/29/16 16:27 AST 67 Units/L (5-34) H 12/03/16 18:39 ALT 73 Units/L (0-55) H 12/03/16 18:39 Troponin I 24.64 ng/mL (0-0.03) H* 11/25/16 22:30 Albumin 3.1 g/dL (3.5-5.0) L 12/03/16 18:39 Globulin 3.7 g/dL (2.4-3.5) H 12/03/16 18:39 Albumin/Globulin Ratio 0.8 (1.1-2.2) L 12/03/16 18:39 Urine Clarity Cloudy (Clear) A 12/04/16 00:15 Ur Specific [place] 1.030 (1.010-1.025) H 12/04/16 00:15 Ur Squamous Epith Cells Many per lpf (None-Few) H 12/04/16 00:15 Urine Total Protein 15 mg/dL (1-14) H 12/04/16 00:15 Vancomycin Trough 7.1 mcg/mL (10-20) L 12/05/16 10:53 General appearance: Present: no acute distress, obese - Head Head exam: Present: atraumatic, normal inspection - Eye Eye exam: Present: PERRL, sclera anicteric - Respiratory Respiratory exam: Present: rales, wheezes - Cardiovascular Cardiovascular exam: Present: irregular rhythm, +S1, +S2 - GI/Abdominal GI/Abdominal exam: Present: normal bowel sounds, soft. Absent: firm, hernia - Extremities Exam Extremities exam: Present: pedal edema (trace) - Neurological Exam Neurological exam: Present: alert, speech deficit Additional comments: He is trying to talk by making sounds today, which is new Still does not follow commands appropriately, but appears more alert this morning Palliative Quality Palliative Quality: Screen for Code Status: Yes, Screen for Goals of Care: Yes, Screen for Pain: NA, If Pain Regimen Started, Initiate Bowel Regimen: NA, Screen for Nausea/Vomitting: NA Code Status: 11/24/16 11:54 FULL [Resuscitation Status: Active] [RES] Routine Comment: Resuscitation Status: Full Code 11/26/16 19:48 FULL [Resuscitation Status: Active] [RES] Routine Comment: Resuscitation Status: Full Code 11/28/16 11:19 CODE [Resuscitation Status: Active] [RES] Routine Comment: currently intubated, but do not RE-intubate Resuscitation Status: [id number] - Labs CBC & Chem 7: 12/06/16 04:08 12/06/16 04:08 Labs: Laboratory Results - last 24 hr 12/05/16 12/05/16 12/05/16 10:11 10:53 18:26 WBC RBC Hgb Hct MCV MCH MCHC RDW Plt Count MPV Sodium Potassium Chloride Carbon Dioxide BUN Creatinine Est GFR ( Amer) Est GFR (Non-Af Amer) BUN/Creatinine Ratio Glucose POC Glucose 146 H 156 H Calculated Osmolality Calcium Vancomycin Trough 7.1 L 12/05/16 12/06/16 12/06/16 23:41 04:08 04:08 WBC 13.0 H RBC 4.26 Hgb 12.9 Hct 41.4 MCV 97.2 MCH 30.3 MCHC 31.2 L RDW 13.4 Plt Count 222 MPV 9.9 Sodium 136 D Potassium 3.4 L Chloride 103 Carbon Dioxide 26 BUN 28 H Creatinine 1.23 Est GFR ( Amer) > 60 Est GFR (Non-Af Amer) 58 L BUN/Creatinine Ratio 23 Glucose 572 H* POC Glucose 135 H Calculated Osmolality 314 H Calcium 7.8 L Vancomycin Trough 12/06/16 05:03 WBC RBC Hgb Hct MCV MCH MCHC RDW Plt Count MPV Sodium Potassium Chloride Carbon Dioxide BUN Creatinine Est GFR ( Amer) Est GFR (Non-Af Amer) BUN/Creatinine Ratio Glucose POC Glucose 146 H Calculated Osmolality Calcium Vancomycin Trough - ABG Interpretation ABG results: ABG ABG pH 7.47 pH Units (7.32-7.45) H 11/29/16 04:40 ABG pCO2 43 mmHg (35-45) 11/29/16 04:40 ABG pO2 65 mmHg (85-104) L 11/29/16 04:40 ABG O2 Saturation 94 % (95-98) L 11/29/16 04:40 PT/INR, D-dimer PT 12.4 Seconds (9.4-12.1) H 11/25/16 22:30 Consult Discharge Plan - Plan Referrals: NO,PCP [Primary Care Provider] - <Reed Garnica - Last Filed: 12/06/16 11:49> Date of Encounter: 12/06/16 - Time Spent With Patient Total time spent is greater than 50% in coordination of care (as documented) at patient's floor/unit and/or counseling patient: - Constitutional Vitals: Abnormal lab results WBC 13.0 K/mcL (4.3-11.1) H 12/06/16 04:08 MCHC 31.2 g/dL (31.6-35.5) L 12/06/16 04:08 Neutrophils # 15.4 K/mcL (1.6-8.9) H 12/03/16 18:39 Lymphocytes # 0.5 K/mcL (0.6-4.6) L 12/03/16 18:39 Nucleated RBCs/100 WBC 0.2 /100 WBC (0) H 11/23/16 20:59 PT 12.4 Seconds (9.4-12.1) H 11/25/16 22:30 ABG pH 7.47 pH Units (7.32-7.45) H 11/29/16 04:40 ABG pO2 65 mmHg (85-104) L 11/29/16 04:40 ABG HCO3 31.3 mEQ/L (21-27) H 11/29/16 04:40 ABG Total CO2 32.6 mEq/L (20-26) H 11/29/16 04:40 ABG O2 Saturation 94 % (95-98) L 11/29/16 04:40 ABG Base Excess 6.8 mEq/L (-2.0 to 3.0) H 11/29/16 04:40 VBG pCO2 58 mmHg (41-51) H 12/04/16 00:05 VBG pO2 63 mmHg (25-40) H 12/04/16 00:05 VBG HCO3 35.9 mEq/L (21-27) H 12/04/16 00:05 Potassium 3.4 mEq/L (3.5-4.5) L 12/06/16 04:08 BUN 28 mg/dL (8-26) H 12/06/16 04:08 Est GFR (Non-Af Amer) 58 (> 60) L 12/06/16 04:08 Glucose 572 mg/dL (70-99) H* 12/06/16 04:08 POC Glucose 146 (58-89) H 12/06/16 05:03 Calculated Osmolality 314 (280-300) H 12/06/16 04:08 Calcium 7.8 mg/dL (8.6-10.8) L 12/06/16 04:08 Ionized Calcium 1.09 mmol/L (1.15-1.35) L 11/29/16 16:27 AST 67 Units/L (5-34) H 12/03/16 18:39 ALT 73 Units/L (0-55) H 12/03/16 18:39 Troponin I 24.64 ng/mL (0-0.03) H* 11/25/16 22:30 Albumin 3.1 g/dL (3.5-5.0) L 12/03/16 18:39 Globulin 3.7 g/dL (2.4-3.5) H 12/03/16 18:39 Albumin/Globulin Ratio 0.8 (1.1-2.2) L 12/03/16 18:39 Urine Clarity Cloudy (Clear) A 12/04/16 00:15 Ur Specific [place] 1.030 (1.010-1.025) H 12/04/16 00:15 Ur Squamous Epith Cells Many per lpf (None-Few) H 12/04/16 00:15 Urine Total Protein 15 mg/dL (1-14) H 12/04/16 00:15 Vancomycin Trough 7.1 mcg/mL (10-20) L 12/05/16 10:53 - Attending Attestation I examined this patient and my medical decision-making was reviewed with the Resident Physician. I agree with the documented findings, disposition and treatment plan as described except to the extent set forth below. please see addenda to the note pt is trying to speak and moves r side well and is able to gesture with it Palliative Quality Code Status: 11/24/16 11:54 FULL [Resuscitation Status: Active] [RES] Routine Comment: Resuscitation Status: Full Code 11/26/16 19:48 FULL [Resuscitation Status: Active] [RES] Routine Comment: Resuscitation Status: Full Code 11/28/16 11:19 CODE [Resuscitation Status: Active] [RES] Routine Comment: currently intubated, but do not RE-intubate Resuscitation Status: [id number] - Labs CBC & Chem 7: 12/06/16 04:08 12/06/16 04:08 Labs: Laboratory Results - last 24 hr 12/05/16 12/05/16 12/05/16 10:11 18:26 23:41 WBC RBC Hgb Hct MCV MCH MCHC RDW Plt Count MPV Sodium Potassium Chloride Carbon Dioxide BUN Creatinine Est GFR ( Amer) Est GFR (Non-Af Amer) BUN/Creatinine Ratio Glucose POC Glucose 146 H 156 H 135 H Calculated Osmolality Calcium 12/06/16 12/06/16 12/06/16 04:08 04:08 05:03 WBC 13.0 H RBC 4.26 Hgb 12.9 Hct 41.4 MCV 97.2 MCH 30.3 MCHC 31.2 L RDW 13.4 Plt Count 222 MPV 9.9 Sodium 136 D Potassium 3.4 L Chloride 103 Carbon Dioxide 26 BUN 28 H Creatinine 1.23 Est GFR ( Amer) > 60 Est GFR (Non-Af Amer) 58 L BUN/Creatinine Ratio 23 Glucose 572 H* POC Glucose 146 H Calculated Osmolality 314 H Calcium 7.8 L - Impressions Impressions Videofluoroscopic Swallow 12/06/16 08:51 IMPRESSION: 1. Silent aspiration with nectar thick liquid. Trace penetration with honey thick liquid by cup. Please see separate speech pathology report for full discussion of findings and recommendations. D/ / Genaro Ramirez MD / Genaro Ramirez MD Interpreting Provider: Genaro Ramirez MD - ABG Interpretation ABG results: ABG ABG pH 7.47 pH Units (7.32-7.45) H 11/29/16 04:40 ABG pCO2 43 mmHg (35-45) 11/29/16 04:40 ABG pO2 65 mmHg (85-104) L 11/29/16 04:40 ABG O2 Saturation 94 % (95-98) L 11/29/16 04:40 PT/INR, D-dimer PT 12.4 Seconds (9.4-12.1) H 11/25/16 22:30
[2016-12-06] MEDS: Budesonide Neb 0.25 MG/2 ML IH SCH ×2 (09:57→22:23)
[2016-12-06] MEDS ORDERED: 0.9 % Sodium Chloride w KCl 20 MEQ/1,000 ML MLS IVC SCH ×2 (10:15→13:30)
[2016-12-06] MEDS: Piperacillin/Tazobactam 3.375 GM in D5% in Water (Mini-Bag+) 100 ML IVPB SCH ×2 (11:19→18:34)
[2016-12-06] MEDS: Pantoprazole 40 MG VIAL IVP SCH (11:19)
[2016-12-06] MEDS: *HR* Amiodarone 200 MG TABLET PO SCH ×2 (11:21→20:27)
[2016-12-06] MEDS: Aspirin 81 MG TAB.CHEW PO SCH (11:21)
[2016-12-06] MEDS: Levofloxacin 750 MG/150 ML 750 MG/150 ML BAG IVPB SCH (11:21)
[2016-12-06] MEDS: Bisacodyl 10 MG RECTAL SUPPOSITORY RC SCH (11:21)
[2016-12-06] MEDS: *HR* Ticagrelor 90 MG TABLET PO SCH ×2 (11:21→20:28)
[2016-12-06] MEDS: Divalproex (24 HR) 250 MG TABLET PO SCH (11:21)
[2016-12-06] MEDS: Nicotine 14 MG PATCH.TD24 TD SCH (11:22)
--- NOTE | 2016-12-06 12:46 | Internal Med Progress Note ---
Date of Encounter: 12/06/16 Time of Encounter: 10:00 - Assessment and plan (1) Acute and chronic respiratory failure Current Visit: Yes Status: Acute Assessment and plan: Weaning steroids. Continue oxygen as needed. Qualifiers: Respiratory failure complication: hypoxia and hypercapnia Qualified Code(s) : J96.21 - Acute and chronic respiratory failure with hypoxia; J96.22 - Acute and chronic respiratory failure with hypercapnia (2) Pneumonia Current Visit: Yes Status: Suspected Assessment and plan: Negative cultures thus far. Will continue IV abx. Qualifiers: Pneumonia type: aspiration pneumonia Aspiration pneumonia type: due to gastric secretions Laterality: bilateral Lung location: lower lobe of lung Qualified Code(s): J69.0 - Pneumonitis due to inhalation of food and vomit (3) Hypokalemia Current Visit: Yes Status: Acute Assessment and plan: Replace again today. (4) Acute ischemic left MCA stroke Current Visit: Yes Status: Acute Assessment and plan: Passed MBS. Starting PO diet. (5) STEMI (ST elevation myocardial infarction) Current Visit: Yes Status: Acute Assessment and plan: Appears to be tolerating oral Brilinta. Qualifiers: Involved coronary artery: LAD coronary artery Qualified Code(s): I21.02 - ST elevation (STEMI) myocardial infarction involving left anterior descending coronary artery (6) Dysphagia Current Visit: Yes Status: Acute Assessment and plan: Starting PO diet today. Speech therapy. Qualifiers: Dysphagia type: oropharyngeal phase Qualified Code(s): R13.12 - Dysphagia, oropharyngeal phase (7) Agitation Current Visit: Yes Status: Acute Assessment and plan: PRN Ativan and Benadryl. (8) Generalized pain Current Visit: Yes Status: Acute Assessment and plan: Related to CPR/resususcitation. (9) Steroid-induced hyperglycemia Current Visit: Yes Status: Acute Assessment and plan: Do not feel that this AM blood sugar on BMP was accurate. Tapering steroids. May need to start medications now that taking PO. - Subjective Interval history: Mr. Syed is currently admitted for acute cardiac arrest due to acute STEMI and cardiogenic shock. Subsequently he has had a large MCA CVA. He is high risk due to potential for aspiration and worsening respiratory and cardiac status. Mr. Syed was more alert and interactive today. He had MBS and passed so is on puree and honey thick diet. He is following commands and attempting to speak to us. At times his words are almost clear - i.e. water, food, ice. No GI symptoms. Bell still in place but now he is more alert. - Constitutional Vitals: Temp Pulse Resp BP Pulse Ox 98.1 F 89 16 153/99 94 12/06/16 11:38 12/06/16 11:38 12/06/16 11:38 12/06/16 11:38 12/06/16 11:38 General appearance: Present: disheveled - Head Head exam: Present: normocephalic - Eye Eye exam: Present: conjuntiva pink - ENT ENT exam: Present: mucous membranes dry - Respiratory Respiratory exam: Present: decreased breath sounds, wheezes. Absent: rales, rhonchi - Cardiovascular Cardiovascular exam: Present: RRR. Absent: tachycardia - GI/Abdominal GI/Abdominal exam: Present: soft. Absent: tenderness - Extremities Exam Extremities exam: Present: pedal edema, warm. Absent: tenderness - Neurological Exam Neurological exam: Present: alert, motor sensory deficit Additional comments: More alert today. Trying to speak. R side flaccid. - Skin Skin exam: Present: warm. Absent: rash Internal Medicine: Result - Labs CBC & Chem 7: 12/06/16 04:08 12/06/16 04:08 Labs: Short CBC 12/06/16 Range/Units 04:08 WBC 13.0 H (4.3-11.1) K/mcL Hgb 12.9 (12.9-16.9) g/dL Hct 41.4 (37.5-50.1) % Plt Count 222 (140-400) K/mcL [facility] 12/06/16 04:08 Sodium 136 D Potassium 3.4 L Chloride 103 Carbon Dioxide 26 BUN 28 H Creatinine 1.23 Glucose 572 H* Calcium 7.8 L - ABG Interpretation ABG results: ABG ABG pH 7.47 pH Units (7.32-7.45) H 11/29/16 04:40 ABG pCO2 43 mmHg (35-45) 11/29/16 04:40 ABG pO2 65 mmHg (85-104) L 11/29/16 04:40 ABG O2 Saturation 94 % (95-98) L 11/29/16 04:40 PT/INR, D-dimer PT 12.4 Seconds (9.4-12.1) H 11/25/16 22:30 - Impressions Impressions Videofluoroscopic Swallow 12/06/16 08:51 IMPRESSION: 1. Silent aspiration with nectar thick liquid. Trace penetration with honey thick liquid by cup. Please see separate speech pathology report for full discussion of findings and recommendations. D/ / Genaro Ramirez MD / Genaro Ramirez MD Interpreting Provider: Genaro Ramirez MD Consult Discharge Plan - Plan Referrals: NO,PCP [Primary Care Provider] -
[2016-12-07] MEDS: *HR* LORazepam 2 MG/ML VIAL IVP PRN (00:26)
[2016-12-07] MEDS: methylPREDNISolone 125 MG/2 ML VIAL IVP SCH ×2 (00:28→14:53)
[2016-12-07] MEDS: Piperacillin/Tazobactam 3.375 GM in D5% in Water (Mini-Bag+) 100 ML IVPB SCH ×3 (00:33→14:53)
[2016-12-07] MEDS: Ipratropium/Albuterol Neb 3 ML IH SCH ×4 (03:55→23:01)
[2016-12-07] MEDS: *HR* Enoxaparin 40 MG/0.4 ML SYRINGE SQ SCH (05:17)
[2016-12-07 05:27] LABS: BUN/Creatinine Ratio 26 (6-26); Blood Urea Nitrogen 33 mg/dL (8-26); Calcium 8.6 mg/dL (8.6-10.8); Carbon Dioxide 27 mEq/L (19-29); Chloride 115 mEq/L (98-109); Glucose 187 mg/dL (70-99); Magnesium 2.4 mg/dL (1.6-2.6); Osmolality,Calculated 324 (280-300); Potassium 4.2 mEq/L (3.5-4.5); eGFR For African Americans > 60 (> 60); eGFR For Non-African Americans 57 (> 60)
[2016-12-07 05:28] LABS: Sodium 151 mEq/L (136-145)
[2016-12-07] MEDS: *HR* Amiodarone 200 MG TABLET PO SCH ×2 (08:43→22:20)
[2016-12-07] MEDS: *HR* Ticagrelor 90 MG TABLET PO SCH ×2 (08:43→22:19)
[2016-12-07] MEDS: Bisacodyl 10 MG RECTAL SUPPOSITORY RC SCH (08:43)
[2016-12-07] MEDS: Pantoprazole 40 MG VIAL IVP SCH (08:44)
[2016-12-07] MEDS: Aspirin 81 MG TAB.CHEW PO SCH (08:44)
[2016-12-07] MEDS: Nicotine 14 MG PATCH.TD24 TD SCH (08:46)
[2016-12-07] MEDS: Budesonide Neb 0.25 MG/2 ML IH SCH (10:49)
--- NOTE | 2016-12-07 11:25 | Electrocardiograph Report ---
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
--- NOTE | 2016-12-07 14:31 | Internal Med Progress Note ---
Date of Encounter: 12/07/16 Time of Encounter: 08:30 - Assessment and plan (1) Acute and chronic respiratory failure Current Visit: Yes Status: Acute Assessment and plan: Maintaining oxygen saturations today. Change to PO steroids tomorrow. Qualifiers: Respiratory failure complication: hypoxia and hypercapnia Qualified Code(s) : J96.21 - Acute and chronic respiratory failure with hypoxia; J96.22 - Acute and chronic respiratory failure with hypercapnia (2) Pneumonia Current Visit: Yes Status: Suspected Assessment and plan: On IV abx. Will recheck CXR tomorrow. Qualifiers: Pneumonia type: aspiration pneumonia Aspiration pneumonia type: due to gastric secretions Laterality: bilateral Lung location: lower lobe of lung Qualified Code(s): J69.0 - Pneumonitis due to inhalation of food and vomit (3) Hypokalemia Current Visit: Yes Status: Acute Assessment and plan: Improved today. Recheck in AM. (4) Acute ischemic left MCA stroke Current Visit: Yes Status: Acute Assessment and plan: Neurologically about the same. Tolerating some PO diet. (5) Hypernatremia Current Visit: Yes Status: Acute Assessment and plan: Start D5W at low rate. (6) STEMI (ST elevation myocardial infarction) Current Visit: Yes Status: Acute Assessment and plan: Appears to be tolerating oral Brilinta. Qualifiers: Involved coronary artery: LAD coronary artery Qualified Code(s): I21.02 - ST elevation (STEMI) myocardial infarction involving left anterior descending coronary artery (7) Dysphagia Current Visit: Yes Status: Acute Assessment and plan: On PO diet. Qualifiers: Dysphagia type: oropharyngeal phase Qualified Code(s): R13.12 - Dysphagia, oropharyngeal phase (8) Agitation Current Visit: Yes Status: Acute Assessment and plan: PRN Ativan and Benadryl. Will start low dose Seroquel tonight. (9) Generalized pain Current Visit: Yes Status: Acute Assessment and plan: Related to CPR/resususcitation. (10) Steroid-induced hyperglycemia Current Visit: Yes Status: Acute Assessment and plan: Improved (11) Discharge planning issues Current Visit: Yes Status: Chronic Assessment and plan: Working on d/c planning - needs SNF. - Subjective Interval history: Mr. Syed is currently admitted for acute cardiac arrest due to acute STEMI and cardiogenic shock. Subsequently he has had a large MCA CVA. He is high risk due to potential for aspiration and worsening respiratory and cardiac status. Mr. Syed is alert today but still restless. Trying to get out of bed. Follows commands intermittently. Trying to speak but no words out. Ate about 15% of breakfast today. - Constitutional Vitals: Temp Pulse Resp BP Pulse Ox 97.6 F 68 22 151/86 94 12/07/16 11:00 12/07/16 11:00 12/07/16 11:00 12/07/16 11:00 12/07/16 11:00 General appearance: Present: disheveled - Head Head exam: Present: normocephalic - Eye Eye exam: Present: conjuntiva pink - ENT ENT exam: Present: mucous membranes dry - Respiratory Respiratory exam: Present: decreased breath sounds, prolonged expiratory phase, wheezes - Cardiovascular Cardiovascular exam: Present: RRR. Absent: tachycardia - GI/Abdominal GI/Abdominal exam: Present: soft. Absent: tenderness - Extremities Exam Extremities exam: Present: warm. Absent: tenderness - Neurological Exam Neurological exam: Present: alert Additional comments: Unchanged exam. Flaccid on R and aphasic. - Psychiatric Psychiatric exam: Present: normal affect, normal mood - Skin Skin exam: Present: warm. Absent: rash Internal Medicine: Result - Labs CBC & Chem 7: 12/06/16 04:08 12/07/16 05:03 Labs: BMP 12/07/16 05:03 Sodium 151 H D Potassium 4.2 Chloride 115 H Carbon Dioxide 27 BUN 33 H Creatinine 1.25 Glucose 187 H Calcium 8.6 - ABG Interpretation ABG results: ABG ABG pH 7.47 pH Units (7.32-7.45) H 11/29/16 04:40 ABG pCO2 43 mmHg (35-45) 11/29/16 04:40 ABG pO2 65 mmHg (85-104) L 11/29/16 04:40 ABG O2 Saturation 94 % (95-98) L 11/29/16 04:40 PT/INR, D-dimer PT 12.4 Seconds (9.4-12.1) H 11/25/16 22:30 Consult Discharge Plan - Plan Referrals: NO,PCP [Primary Care Provider] -
[2016-12-07] MEDS: Scopolamine Patch 1.5 MG PATCH.TD72 TD SCH (14:52)
[2016-12-07] MEDS ORDERED: 0.9 % Sodium Chloride 1,000 ML IVC SCH (15:30)
--- NOTE | 2016-12-07 16:18 | Event Note ---
Date of Encounter: 12/07/16 Time of Encounter: 16:17 Reviewed plan of care with family. Reviewed medications. Family requested no further morphine (they feel it contributes to agitation). Changed to percocet as needed. Will follow.
[2016-12-08] MEDS: Piperacillin/Tazobactam 3.375 GM in D5% in Water (Mini-Bag+) 100 ML IVPB SCH ×4 (00:04→23:25)
[2016-12-08] MEDS: D5% in Water 1,000 ML IVC SCH ×2 (00:05→22:32)
[2016-12-08] MEDS: methylPREDNISolone 125 MG/2 ML VIAL IVP SCH ×2 (00:06→12:46)
[2016-12-08 03:40] LABS: Hematocrit 43.2 % (37.5-50.1); Hemoglobin 13.6 g/dL (12.9-16.9); Mean Corpuscular HGB Conc 31.5 g/dL (31.6-35.5); Mean Corpuscular Hemoglobin 30.6 pg (28.0-33.3); Mean Corpuscular Volume 97.3 fL (83.0-100.0); Platelet Count 200 K/mcL (140-400); Red Blood Count 4.44 M/mcL (4.19-5.50)
[2016-12-08] MEDS: Ipratropium/Albuterol Neb 3 ML IH SCH ×4 (03:49→21:14)
[2016-12-08 03:53] LABS: BUN/Creatinine Ratio 28 (6-26); Blood Urea Nitrogen 31 mg/dL (8-26); Calcium 8.5 mg/dL (8.6-10.8); Carbon Dioxide 27 mEq/L (19-29); Chloride 118 mEq/L (98-109); Glucose 140 mg/dL (70-99); Osmolality,Calculated 321 (280-300); Potassium 4.5 mEq/L (3.5-4.5); Sodium 151 mEq/L (136-145); eGFR For African Americans > 60 (> 60); eGFR For Non-African Americans > 60 (> 60)
[2016-12-08] MEDS: *HR* Enoxaparin 40 MG/0.4 ML SYRINGE SQ SCH (05:01)
--- NOTE | 2016-12-08 08:54 | Palliative Progress Note ---
<Carlos Estrella - Last Filed: 12/08/16 09:11> Date of Encounter: 12/08/16 Time of Encounter: 08:52 - Assessment and plan (1) Goals of care, counseling/discussion Current Visit: Yes Status: Acute Assessment and plan: Continue to keep code status DNR CCA/DNI. Pt tolerating honey thick but remains aspiration risk. (2) Dysphagia Current Visit: Yes Status: Acute Assessment and plan: Modified Barium Swallow as follows: 1. Silent aspiration with nectar thick liquid. Trace penetration with honey thick liquid by cup. - Pt needs close monitor while eating modified diet. Able to move extremities and occasionally feed self, but requires nurse feedings. - Speech Therapy following Qualifiers: Dysphagia type: oropharyngeal phase Qualified Code(s): R13.12 - Dysphagia, oropharyngeal phase (3) Agitation Current Visit: Yes Status: Acute Assessment and plan: Pt continually agitated with 4 hours sleep overnight. Continuously trying to get out of bed and moving around. - Consider increasing nightly Seroquel and adding morning Seroquel. - Time Spent With Patient Total time spent is greater than 50% in coordination of care (as documented) at patient's floor/unit and/or counseling patient: - Subjective Interval history: Pt slept 4 hours overnight. Pt eating breakfast with the help of nurse. The patient has periods of resting followed by periods of severe aggitation and trying to get out of bed. Nurse states concern for patient being left alone. Pt will continue to need 1:1 sitter until aggitation issues resolve. May considering increasing seroquel to help with aggitation and delerium. - Constitutional Vitals: Abnormal lab results WBC 17.8 K/mcL (4.3-11.1) H 12/08/16 03:25 MCHC 31.5 g/dL (31.6-35.5) L 12/08/16 03:25 Neutrophils # 15.4 K/mcL (1.6-8.9) H 12/03/16 18:39 Lymphocytes # 0.5 K/mcL (0.6-4.6) L 12/03/16 18:39 Nucleated RBCs/100 WBC 0.2 /100 WBC (0) H 11/23/16 20:59 PT 12.4 Seconds (9.4-12.1) H 11/25/16 22:30 ABG pH 7.47 pH Units (7.32-7.45) H 11/29/16 04:40 ABG pO2 65 mmHg (85-104) L 11/29/16 04:40 ABG HCO3 31.3 mEQ/L (21-27) H 11/29/16 04:40 ABG Total CO2 32.6 mEq/L (20-26) H 11/29/16 04:40 ABG O2 Saturation 94 % (95-98) L 11/29/16 04:40 ABG Base Excess 6.8 mEq/L (-2.0 to 3.0) H 11/29/16 04:40 VBG pCO2 58 mmHg (41-51) H 12/04/16 00:05 VBG pO2 63 mmHg (25-40) H 12/04/16 00:05 VBG HCO3 35.9 mEq/L (21-27) H 12/04/16 00:05 Sodium 151 mEq/L (136-145) H 12/08/16 03:25 Chloride 118 mEq/L (98-109) H 12/08/16 03:25 BUN 31 mg/dL (8-26) H 12/08/16 03:25 BUN/Creatinine Ratio 28 (6-26) H 12/08/16 03:25 Glucose 140 mg/dL (70-99) H 12/08/16 03:25 POC Glucose 186 (58-89) H 12/07/16 19:52 Calculated Osmolality 321 (280-300) H 12/08/16 03:25 Calcium 8.5 mg/dL (8.6-10.8) L 12/08/16 03:25 Ionized Calcium 1.09 mmol/L (1.15-1.35) L 11/29/16 16:27 AST 67 Units/L (5-34) H 12/03/16 18:39 ALT 73 Units/L (0-55) H 12/03/16 18:39 Troponin I 24.64 ng/mL (0-0.03) H* 11/25/16 22:30 Albumin 3.1 g/dL (3.5-5.0) L 12/03/16 18:39 Globulin 3.7 g/dL (2.4-3.5) H 12/03/16 18:39 Albumin/Globulin Ratio 0.8 (1.1-2.2) L 12/03/16 18:39 Urine Clarity Cloudy (Clear) A 12/04/16 00:15 Ur Specific [place] 1.030 (1.010-1.025) H 12/04/16 00:15 Ur Squamous Epith Cells Many per lpf (None-Few) H 12/04/16 00:15 Urine Total Protein 15 mg/dL (1-14) H 12/04/16 00:15 Vancomycin Trough 7.1 mcg/mL (10-20) L 12/05/16 10:53 - Head Head exam: Present: atraumatic, normal inspection - Neck Neck exam: Present: normal inspection - Respiratory Respiratory exam: Present: rhonchi (anterior upper airway ). Absent: respiratory distress - Cardiovascular Cardiovascular exam: Present: RRR - GI/Abdominal GI/Abdominal exam: Present: soft. Absent: rebound, rigid, tenderness - Neurological Exam Additional comments: Appears to try and talk and communicate with limited sucess. Attempting to feed himself with LUE. Slight right facial droop. Swallowing honey thick with help from nurse. - Psychiatric Psychiatric exam: Present: agitated - Skin Additional comments: Bruising to the anterior chest and extremities. Palliative Quality Palliative Quality: Screen for Code Status: Yes, Screen for Goals of Care: Yes, Screen for Pain: NA, If Pain Regimen Started, Initiate Bowel Regimen: NA, Screen for Nausea/Vomitting: NA Code Status: 11/24/16 11:54 FULL [Resuscitation Status: Active] [RES] Routine Comment: Resuscitation Status: Full Code 11/26/16 19:48 FULL [Resuscitation Status: Active] [RES] Routine Comment: Resuscitation Status: Full Code 11/28/16 11:19 CODE [Resuscitation Status: Active] [RES] Routine Comment: currently intubated, but do not RE-intubate Resuscitation Status: [id number] - Labs CBC & Chem 7: 12/08/16 03:25 12/08/16 03:25 Labs: Laboratory Results - last 24 hr 12/07/16 12/08/16 12/08/16 19:52 03:25 03:25 WBC 17.8 H RBC 4.44 Hgb 13.6 Hct 43.2 MCV 97.3 MCH 30.6 MCHC 31.5 L RDW 14.0 Plt Count 200 MPV 10.0 Sodium 151 H Potassium 4.5 Chloride 118 H Carbon Dioxide 27 BUN 31 H Creatinine 1.11 Est GFR ( Amer) > 60 Est GFR (Non-Af Amer) > 60 BUN/Creatinine Ratio 28 H Glucose 140 H POC Glucose 186 H Calculated Osmolality 321 H Calcium 8.5 L - ABG Interpretation ABG results: ABG ABG pH 7.47 pH Units (7.32-7.45) H 11/29/16 04:40 ABG pCO2 43 mmHg (35-45) 11/29/16 04:40 ABG pO2 65 mmHg (85-104) L 11/29/16 04:40 ABG O2 Saturation 94 % (95-98) L 11/29/16 04:40 PT/INR, D-dimer PT 12.4 Seconds (9.4-12.1) H 11/25/16 22:30 Consult Discharge Plan - Plan Referrals: NO,PCP [Primary Care Provider] - <Reed Garnica - Last Filed: 12/08/16 09:20> Date of Encounter: 12/08/16 - Time Spent With Patient Total time spent is greater than 50% in coordination of care (as documented) at patient's floor/unit and/or counseling patient: - Constitutional Vitals: Abnormal lab results WBC 17.8 K/mcL (4.3-11.1) H 12/08/16 03:25 MCHC 31.5 g/dL (31.6-35.5) L 12/08/16 03:25 Neutrophils # 15.4 K/mcL (1.6-8.9) H 12/03/16 18:39 Lymphocytes # 0.5 K/mcL (0.6-4.6) L 12/03/16 18:39 Nucleated RBCs/100 WBC 0.2 /100 WBC (0) H 11/23/16 20:59 PT 12.4 Seconds (9.4-12.1) H 11/25/16 22:30 ABG pH 7.47 pH Units (7.32-7.45) H 11/29/16 04:40 ABG pO2 65 mmHg (85-104) L 11/29/16 04:40 ABG HCO3 31.3 mEQ/L (21-27) H 11/29/16 04:40 ABG Total CO2 32.6 mEq/L (20-26) H 11/29/16 04:40 ABG O2 Saturation 94 % (95-98) L 11/29/16 04:40 ABG Base Excess 6.8 mEq/L (-2.0 to 3.0) H 11/29/16 04:40 VBG pCO2 58 mmHg (41-51) H 12/04/16 00:05 VBG pO2 63 mmHg (25-40) H 12/04/16 00:05 VBG HCO3 35.9 mEq/L (21-27) H 12/04/16 00:05 Sodium 151 mEq/L (136-145) H 12/08/16 03:25 Chloride 118 mEq/L (98-109) H 12/08/16 03:25 BUN 31 mg/dL (8-26) H 12/08/16 03:25 BUN/Creatinine Ratio 28 (6-26) H 12/08/16 03:25 Glucose 140 mg/dL (70-99) H 12/08/16 03:25 POC Glucose 186 (58-89) H 12/07/16 19:52 Calculated Osmolality 321 (280-300) H 12/08/16 03:25 Calcium 8.5 mg/dL (8.6-10.8) L 12/08/16 03:25 Ionized Calcium 1.09 mmol/L (1.15-1.35) L 11/29/16 16:27 AST 67 Units/L (5-34) H 12/03/16 18:39 ALT 73 Units/L (0-55) H 12/03/16 18:39 Troponin I 24.64 ng/mL (0-0.03) H* 11/25/16 22:30 Albumin 3.1 g/dL (3.5-5.0) L 12/03/16 18:39 Globulin 3.7 g/dL (2.4-3.5) H 12/03/16 18:39 Albumin/Globulin Ratio 0.8 (1.1-2.2) L 12/03/16 18:39 Urine Clarity Cloudy (Clear) A 12/04/16 00:15 Ur Specific [place] 1.030 (1.010-1.025) H 12/04/16 00:15 Ur Squamous Epith Cells Many per lpf (None-Few) H 12/04/16 00:15 Urine Total Protein 15 mg/dL (1-14) H 12/04/16 00:15 Vancomycin Trough 7.1 mcg/mL (10-20) L 12/05/16 10:53 - Attending Attestation I examined this patient and my medical decision-making was reviewed with the Resident Physician. I agree with the documented findings, disposition and treatment plan as described except to the extent set forth below. Palliative Quality Code Status: 11/24/16 11:54 FULL [Resuscitation Status: Active] [RES] Routine Comment: Resuscitation Status: Full Code 11/26/16 19:48 FULL [Resuscitation Status: Active] [RES] Routine Comment: Resuscitation Status: Full Code 11/28/16 11:19 CODE [Resuscitation Status: Active] [RES] Routine Comment: currently intubated, but do not RE-intubate Resuscitation Status: [id number] - Labs CBC & Chem 7: 12/08/16 03:25 12/08/16 03:25 Labs: Laboratory Results - last 24 hr 12/06/16 12/07/16 12/07/16 19:55 07:22 11:37 WBC RBC Hgb Hct MCV MCH MCHC RDW Plt Count MPV Sodium Potassium Chloride Carbon Dioxide BUN Creatinine Est GFR ( Amer) Est GFR (Non-Af Amer) BUN/Creatinine Ratio Glucose POC Glucose 148 H 153 H 125 H Calculated Osmolality Calcium 12/07/16 12/08/16 12/08/16 19:52 03:25 03:25 WBC 17.8 H RBC 4.44 Hgb 13.6 Hct 43.2 MCV 97.3 MCH 30.6 MCHC 31.5 L RDW 14.0 Plt Count 200 MPV 10.0 Sodium 151 H Potassium 4.5 Chloride 118 H Carbon Dioxide 27 BUN 31 H Creatinine 1.11 Est GFR ( Amer) > 60 Est GFR (Non-Af Amer) > 60 BUN/Creatinine Ratio 28 H Glucose 140 H POC Glucose 186 H Calculated Osmolality 321 H Calcium 8.5 L - ABG Interpretation ABG results: ABG ABG pH 7.47 pH Units (7.32-7.45) H 11/29/16 04:40 ABG pCO2 43 mmHg (35-45) 11/29/16 04:40 ABG pO2 65 mmHg (85-104) L 11/29/16 04:40 ABG O2 Saturation 94 % (95-98) L 11/29/16 04:40 PT/INR, D-dimer PT 12.4 Seconds (9.4-12.1) H 11/25/16 22:30
[2016-12-08] MEDS: *HR* Amiodarone 200 MG TABLET PO SCH ×2 (10:08→20:59)
[2016-12-08] MEDS: Bisacodyl 10 MG RECTAL SUPPOSITORY RC SCH (10:09)
[2016-12-08] MEDS: *HR* OxyCODONE/APAP 5/325 TABLET PO PRN (10:09)
[2016-12-08] MEDS: Aspirin 81 MG TAB.CHEW PO SCH (10:09)
[2016-12-08] MEDS: *HR* Ticagrelor 90 MG TABLET PO SCH ×2 (10:10→20:59)
[2016-12-08] MEDS: Nicotine 14 MG PATCH.TD24 TD SCH (10:10)
--- NOTE | 2016-12-08 15:43 | Internal Med Progress Note ---
Date of Encounter: 12/08/16 Time of Encounter: 09:45 - Assessment and plan (1) Acute and chronic respiratory failure Current Visit: Yes Status: Acute Assessment and plan: Changing to PO steroids. Maintaining oxygen saturation at this time. Qualifiers: Respiratory failure complication: hypoxia and hypercapnia Qualified Code(s) : J96.21 - Acute and chronic respiratory failure with hypoxia; J96.22 - Acute and chronic respiratory failure with hypercapnia (2) Pneumonia Current Visit: Yes Status: Suspected Assessment and plan: Nearly completed 7 days of abx. Will d/c when complete. Qualifiers: Pneumonia type: aspiration pneumonia Aspiration pneumonia type: due to gastric secretions Laterality: bilateral Lung location: lower lobe of lung Qualified Code(s): J69.0 - Pneumonitis due to inhalation of food and vomit (3) Hypokalemia Current Visit: Yes Status: Resolved Assessment and plan: Rsolved (4) Acute ischemic left MCA stroke Current Visit: Yes Status: Acute Assessment and plan: More verbal today but speech garbled. Continue supportive care. Working on discharge planning. (5) Hypernatremia Current Visit: Yes Status: Acute Assessment and plan: Persists. On low rate of D5W. Recheck in AM. (6) STEMI (ST elevation myocardial infarction) Current Visit: Yes Status: Acute Assessment and plan: Appears to be tolerating oral Brilinta. Qualifiers: Involved coronary artery: LAD coronary artery Qualified Code(s): I21.02 - ST elevation (STEMI) myocardial infarction involving left anterior descending coronary artery (7) Dysphagia Current Visit: Yes Status: Acute Assessment and plan: On PO diet. Not really taking much PO though. May ultimately need a PEG for additional nutrition. Qualifiers: Dysphagia type: oropharyngeal phase Qualified Code(s): R13.12 - Dysphagia, oropharyngeal phase (8) Agitation Current Visit: Yes Status: Acute Assessment and plan: PRN Ativan and Benadryl. Tolerated Seroquel so will continue. (9) Generalized pain Current Visit: Yes Status: Acute Assessment and plan: Related to CPR/resususcitation. Has hx of chronic pain. (10) Steroid-induced hyperglycemia Current Visit: Yes Status: Acute Assessment and plan: Improved (11) Discharge planning issues Current Visit: Yes Status: Chronic Assessment and plan: Working on d/c planning - needs SNF. - Subjective Interval history: Mr. Syed is currently admitted for acute cardiac arrest due to acute STEMI and cardiogenic shock. Subsequently he has had a large MCA CVA. He is high risk due to potential for aspiration and worsening respiratory and cardiac status. Mr. Syed is making more verbalizations today but more garbled than anything. He slept about 4 hours with Seroquel last night. He remains restless in bed and at times appears to have back discomfort. Still tries to sit up and get out of bed. No fever or chills. No GI symptoms. - Constitutional Vitals: Temp Pulse Resp BP Pulse Ox 98.0 F 73 18 142/109 96 12/08/16 05:40 12/08/16 08:06 12/08/16 10:20 12/08/16 08:06 12/08/16 10:20 General appearance: Present: disheveled - Head Head exam: Present: normocephalic - Eye Eye exam: Present: conjuntiva pink - ENT ENT exam: Present: mucous membranes dry - Respiratory Respiratory exam: Present: decreased breath sounds. Absent: rhonchi Additional comments: Less wheeze and respiratory distress today. - Cardiovascular Cardiovascular exam: Present: RRR. Absent: tachycardia - GI/Abdominal GI/Abdominal exam: Present: normal bowel sounds, soft. Absent: mass, tenderness - Extremities Exam Extremities exam: Present: warm. Absent: tenderness - Neurological Exam Neurological exam: Present: alert Additional comments: Essentially unchanged neuro exam. - Skin Skin exam: Present: warm. Absent: rash Internal Medicine: Result - Labs CBC & Chem 7: 12/08/16 03:25 12/08/16 03:25 Labs: Short CBC 12/08/16 Range/Units 03:25 WBC 17.8 H (4.3-11.1) K/mcL Hgb 13.6 (12.9-16.9) g/dL Hct 43.2 (37.5-50.1) % Plt Count 200 (140-400) K/mcL BMP 12/08/16 03:25 Sodium 151 H Potassium 4.5 Chloride 118 H Carbon Dioxide 27 BUN 31 H Creatinine 1.11 Glucose 140 H Calcium 8.5 L - ABG Interpretation ABG results: ABG ABG pH 7.47 pH Units (7.32-7.45) H 11/29/16 04:40 ABG pCO2 43 mmHg (35-45) 11/29/16 04:40 ABG pO2 65 mmHg (85-104) L 11/29/16 04:40 ABG O2 Saturation 94 % (95-98) L 11/29/16 04:40 PT/INR, D-dimer PT 12.4 Seconds (9.4-12.1) H 11/25/16 22:30 Consult Discharge Plan - Plan Referrals: NO,PCP [Primary Care Provider] -
[2016-12-08] MEDS: predniSONE 20 MG TABLET PO SCH (16:02)
[2016-12-09] MEDS ORDERED: Water for inj. (sterile) 10 ML IV ONE (01:38)
[2016-12-09] MEDS: *HR* LORazepam 2 MG/ML VIAL IVP PRN (01:42)
[2016-12-09] MEDS: *HR* Enoxaparin 40 MG/0.4 ML SYRINGE SQ SCH (06:29)
[2016-12-09] MEDS: Ipratropium/Albuterol Neb 3 ML IH SCH ×4 (06:32→22:38)
[2016-12-09 08:55] LABS: Hematocrit 43.6 % (37.5-50.1); Immature Platelets 5.8 % (1.1-6.1); Mean Corpuscular HGB Conc 31.7 g/dL (31.6-35.5); Mean Platelet Volume 10.3 fL (9.4-12.4); Red Blood Count 4.45 M/mcL (4.19-5.50)
[2016-12-09 09:05] LABS: Hemoglobin 13.8 g/dL (12.9-16.9)
[2016-12-09 09:29] LABS: Alanine Aminotransferase 89 Units/L (0-55); Albumin/Globulin Ratio 0.9 (1.1-2.2); Alkaline Phosphatase 80 Units/L (38-126); Aspartate Amino Transferase 63 Units/L (5-34); BUN/Creatinine Ratio 23 (6-26); Bilirubin,Total 0.9 mg/dL (0.2-1.2); Blood Urea Nitrogen 28 mg/dL (8-26); Carbon Dioxide 28 mEq/L (19-29); Chloride 114 mEq/L (98-109); Globulin 3.4 g/dL (2.4-3.5); Glucose 142 mg/dL (70-99); Magnesium 3.4 mg/dL (1.6-2.6); Osmolality,Calculated 316 (280-300); eGFR For African Americans > 60 (> 60); eGFR For Non-African Americans 58 (> 60)
[2016-12-09 09:35] LABS: Albumin 2.9 g/dL (3.5-5.0); Calcium 8.6 mg/dL (8.6-10.8); Sodium 149 mEq/L (136-145); Total Protein 6.3 g/dL (6.0-8.3)
[2016-12-09 09:36] LABS: Potassium 5.2 mEq/L (3.5-4.5)
[2016-12-09] MEDS: *HR* Ticagrelor 90 MG TABLET PO SCH ×2 (10:48→21:06)
[2016-12-09] MEDS: Nicotine 14 MG PATCH.TD24 TD SCH (10:48)
[2016-12-09] MEDS: *HR* OxyCODONE/APAP 5/325 TABLET PO PRN (10:48)
[2016-12-09] MEDS: *HR* Amiodarone 200 MG TABLET PO SCH ×2 (10:48→21:06)
[2016-12-09] MEDS: predniSONE 20 MG TABLET PO SCH (10:48)
[2016-12-09] MEDS: Piperacillin/Tazobactam 3.375 GM in D5% in Water (Mini-Bag+) 100 ML IVPB SCH ×2 (10:49→17:47)
[2016-12-09] MEDS: Aspirin 81 MG TAB.CHEW PO SCH (10:49)
[2016-12-09] MEDS: Bisacodyl 10 MG RECTAL SUPPOSITORY RC SCH (10:49)
--- NOTE | 2016-12-09 15:49 | Internal Med Progress Note ---
Date of Encounter: 12/09/16 Time of Encounter: 08:30 - Assessment and plan (1) Acute and chronic respiratory failure Current Visit: Yes Status: Acute Assessment and plan: Maintaining oxygen saturation. Qualifiers: Respiratory failure complication: hypoxia and hypercapnia Qualified Code(s) : J96.21 - Acute and chronic respiratory failure with hypoxia; J96.22 - Acute and chronic respiratory failure with hypercapnia (2) Pneumonia Current Visit: Yes Status: Suspected Assessment and plan: Completed 7 days of IV abx. Intermittently dyspneic. Follow clinically. Qualifiers: Pneumonia type: aspiration pneumonia Aspiration pneumonia type: due to gastric secretions Laterality: bilateral Lung location: lower lobe of lung Qualified Code(s): J69.0 - Pneumonitis due to inhalation of food and vomit (3) Acute ischemic left MCA stroke Current Visit: Yes Status: Acute Assessment and plan: Remains flaccid on R. Continue therapy. D/C planning. (4) Hypernatremia Current Visit: Yes Status: Acute Assessment and plan: Slowly improving with IV D5W. (5) STEMI (ST elevation myocardial infarction) Current Visit: Yes Status: Acute Assessment and plan: Appears to be tolerating oral Brilinta. Qualifiers: Involved coronary artery: LAD coronary artery Qualified Code(s): I21.02 - ST elevation (STEMI) myocardial infarction involving left anterior descending coronary artery (6) Dysphagia Current Visit: Yes Status: Acute Assessment and plan: On PO diet. Ate better at lunch today. May need to revisit PEG (button PEG) for additional nutrition. Qualifiers: Dysphagia type: oropharyngeal phase Qualified Code(s): R13.12 - Dysphagia, oropharyngeal phase (7) Agitation Current Visit: Yes Status: Acute Assessment and plan: Decrease PM Seroquel. Add AM Seroquel. (8) Generalized pain Current Visit: Yes Status: Acute Assessment and plan: Related to CPR/resususcitation. Has hx of chronic pain. (9) Steroid-induced hyperglycemia Current Visit: Yes Status: Acute Assessment and plan: Improved (10) Discharge planning issues Current Visit: Yes Status: Chronic Assessment and plan: Working on d/c planning - needs SNF. - Subjective Interval history: Mr. Syed is currently admitted for acute cardiac arrest due to acute STEMI and cardiogenic shock. Subsequently he has had a large MCA CVA. He is high risk due to potential for aspiration and worsening respiratory and cardiac status. Mr. Syed was more agitated last night and got Ativan as well as the increased dose of Seroquel. He is more somnolent this morning and is not eating much though he ate better at lunch. No fever noted. Abx stopped yesterday. On D5W due to hypernatremia. K high today but hemolysis noted. - Constitutional Vitals: Temp Pulse Resp BP Pulse Ox 98.2 F 63 20 136/76 94 12/09/16 15:04 12/09/16 15:04 12/09/16 15:04 12/09/16 15:04 12/09/16 15:04 General appearance: Present: disheveled - Head Head exam: Present: normocephalic - Eye Eye exam: Present: conjuntiva pink - ENT ENT exam: Present: mucous membranes dry - Respiratory Respiratory exam: Present: decreased breath sounds, wheezes - Cardiovascular Cardiovascular exam: Present: RRR. Absent: tachycardia - GI/Abdominal GI/Abdominal exam: Present: soft. Absent: mass - Extremities Exam Extremities exam: Present: warm. Absent: pedal edema, tenderness - Neurological Exam Neurological exam: Present: alert Additional comments: Less alert this AM. Verbalizes at times but garbled. Otherwise unchanged. - Skin Skin exam: Present: dry, warm. Absent: rash Internal Medicine: Result - Labs CBC & Chem 7: 12/09/16 08:46 12/09/16 08:46 Labs: Short CBC 12/09/16 Range/Units 08:46 WBC 17.6 H (4.3-11.1) K/mcL Hgb 13.8 (12.9-16.9) g/dL Hct 43.6 (37.5-50.1) % Plt Count 185 (140-400) K/mcL BMP 12/09/16 08:46 Sodium 149 H Potassium 5.2 H Chloride 114 H Carbon Dioxide 28 BUN 28 H Creatinine 1.23 Glucose 142 H Calcium 8.6 Liver Function 12/09/16 Range/Units 08:46 Total Bilirubin 0.9 (0.2-1.2) mg/dL AST 63 H (5-34) Units/L ALT 89 H (0-55) Units/L Alkaline Phosphatase 80 (38-126) Units/L Albumin 2.9 L (3.5-5.0) g/dL - ABG Interpretation ABG results: ABG ABG pH 7.47 pH Units (7.32-7.45) H 11/29/16 04:40 ABG pCO2 43 mmHg (35-45) 11/29/16 04:40 ABG pO2 65 mmHg (85-104) L 11/29/16 04:40 ABG O2 Saturation 94 % (95-98) L 11/29/16 04:40 PT/INR, D-dimer PT 12.4 Seconds (9.4-12.1) H 11/25/16 22:30 Consult Discharge Plan - Plan Referrals: NO,PCP [Primary Care Provider] -
[2016-12-09] MEDS ORDERED: *HR* LORazepam 2 MG/ML VIAL ONE ×2 (17:46→18:15)
[2016-12-09] MEDS: D5% in Water 1,000 ML IVC SCH (17:47)
[2016-12-10] MEDS: Ipratropium/Albuterol Neb 3 ML IH SCH ×4 (04:00→22:19)
[2016-12-10] MEDS: *HR* Enoxaparin 40 MG/0.4 ML SYRINGE SQ SCH (05:07)
[2016-12-10 07:38] LABS: Hematocrit 42.5 % (37.5-50.1); Hemoglobin 13.5 g/dL (12.9-16.9); Mean Corpuscular HGB Conc 31.8 g/dL (31.6-35.5); Mean Corpuscular Hemoglobin 31.5 pg (28.0-33.3); Mean Corpuscular Volume 99.1 fL (83.0-100.0); Mean Platelet Volume 10.7 fL (9.4-12.4); Platelet Count 163 K/mcL (140-400); Red Blood Count 4.29 M/mcL (4.19-5.50); Red Cell Distribution Width 14.2 % (11.5-14.5)
--- NOTE | 2016-12-10 07:55 | Pain Management Progress Note ---
Date of Encounter: 12/10/16 Time of Encounter: 07:53 - Assessment and Plan (1) Goals of care, counseling/discussion Current Visit: Yes Status: Acute Continue to keep code status DNR CCA/DNI. Pt tolerating honey thick but remains aspiration risk. Continue to monitor respiratory status. In regards to placement, the patient is requiring a one-to-one sitter has been unsuccessful in obtaining admission to the rehabilitation/jail facility. Recommend continued medication management and working with PT/OT. (2) Dysphagia Current Visit: Yes Status: Acute Modified Barium Swallow as follows: 1. Silent aspiration with nectar thick liquid. Trace penetration with honey thick liquid by cup. - Pt needs close monitor while eating modified diet. Able to move extremities and occasionally feed self, but requires nurse feedings. - Speech Therapy following Qualifiers: Dysphagia type: oropharyngeal phase Qualified Code(s): R13.12 - Dysphagia, oropharyngeal phase (3) Agitation Current Visit: Yes Status: Acute Pt with intermittent episodes of agitation. Nursing staff continuing to need one-to-one sitter. Seroquel modifications with minimal to modest effect. During episodes of agitation, the patient responds well to Ativan. Continue management per primary team. Subjective Narrative: Patient with continued increased agitation and restlessness. Primary team has added morning Seroquel x1 day without significant difference at this point. Patient's required several doses of Ativan throughout the day. Patient has been eating well. Patient with slight increased worker breathing and upper airway noises this am. Patient continues to require one-to-one sitter. Objective Vital Signs - Last 8 Hours Temp Pulse Resp BP Pulse Ox 12/10/16 04:00 18 93 12/10/16 03:20 98.1 F 59 19 124/80 92 Intake and Output 12/09/16 12/09/16 12/10/16 15:59 23:59 07:59 Intake Total 370 / 370 1050 / 1050 Balance 370 / 370 1050 / 1050 Intake: IV Fluids 90 / 90 950 / 950 Dextrose 5% 1,000 ML @ 50 950 / 950 mls/hr IVC .Q20H [facility] Rx# :[id number] Zosyn 3.375 GM In 90 / 90 Dextrose 5% (Minibag+) 100 ML 100 ML @ 25 mls/hr IVPB Q8HR [facility] Rx#: [id number] Oral 280 / 280 100 / 100 Other: Meal Lunch Dinner Percent of Meal Consumed 50% 90% Stool Size Small Large Stool Consistency soft formed Stool Color Brown Brown Yellow # Urine Diapers 1 1 1 # Bowel Movement Diapers 1 Weight 113.8 kg Blood Glucose* 104 163 88 Patient Weight 12/10/16 23:59 Weight 113.8 kg - General physical appearance other (Resting in bed comfortably.. The vegetation involving the left upper and lower extremity. Right upper and lower extremity without purposeful movement.) - ENT Other (Dry mucous membranes) - Respiratory other (Rhonchi bilaterally most notable on the anterior chest) - Cardiovascular Cardiovascular exam: Present: RRR - Abdomen Abdomen: Present: soft, non tender - Integumentary no rash - Neurologic confused, other (Agitated) - Musculoskeletal other (Spontaneously moves left extremities. Right extremities with no movement.) - Labs 12/09/16 08:46 12/09/16 08:46 Diabetes panel 12/09/16 Range/Units 08:46 Sodium 149 H (136-145) mEq/L Potassium 5.2 H (3.5-4.5) mEq/L Chloride 114 H (98-109) mEq/L Carbon Dioxide 28 (19-29) mEq/L BUN 28 H (8-26) mg/dL Creatinine 1.23 (0.72-1.25) mg/dL Glucose 142 H (70-99) mg/dL Calcium 8.6 (8.6-10.8) mg/dL AST 63 H (5-34) Units/L ALT 89 H (0-55) Units/L Alkaline Phosphatase 80 (38-126) Units/L Albumin 2.9 L (3.5-5.0) g/dL Calcium panel 12/09/16 Range/Units 08:46 Calcium 8.6 (8.6-10.8) mg/dL Albumin 2.9 L (3.5-5.0) g/dL Pituitary panel 12/09/16 Range/Units 08:46 Sodium 149 H (136-145) mEq/L Potassium 5.2 H (3.5-4.5) mEq/L Chloride 114 H (98-109) mEq/L Carbon Dioxide 28 (19-29) mEq/L BUN 28 H (8-26) mg/dL Creatinine 1.23 (0.72-1.25) mg/dL Glucose 142 H (70-99) mg/dL Calcium 8.6 (8.6-10.8) mg/dL Adrenal panel 12/09/16 Range/Units 08:46 Sodium 149 H (136-145) mEq/L Potassium 5.2 H (3.5-4.5) mEq/L Chloride 114 H (98-109) mEq/L Carbon Dioxide 28 (19-29) mEq/L BUN 28 H (8-26) mg/dL Creatinine 1.23 (0.72-1.25) mg/dL Glucose 142 H (70-99) mg/dL Calcium 8.6 (8.6-10.8) mg/dL Total Bilirubin 0.9 (0.2-1.2) mg/dL AST 63 H (5-34) Units/L ALT 89 H (0-55) Units/L Alkaline Phosphatase 80 (38-126) Units/L Albumin 2.9 L (3.5-5.0) g/dL Consult Discharge Plan - Plan Referrals: NO,PCP [Primary Care Provider] -
--- NOTE | 2016-12-10 08:08 | Palliative Progress Note ---
<Carlos Estrella - Last Filed: 12/10/16 08:14> Date of Encounter: 12/10/16 Time of Encounter: 08:06 - Assessment and plan (1) Goals of care, counseling/discussion Current Visit: Yes Status: Acute Assessment and plan: - Continue current CODE STATUS of DNR CCA/DNI. - Patient tolerating honey thick remains aspiration risk. -Patient attempts to be placed at rehabilitation or long-term facility because case secondary to one-to-one sitter needed. Recommend continuing medical management as well as optimizing on pharmacologic means - PT/OT. (2) Dysphagia Current Visit: Yes Status: Acute Assessment and plan: Modified barium swallow as follows: 1. Silent aspiration with nectar thick liquid. Trace penetration with honey thick liquid by cup. - Patient with close monitoring while eating modified diet. Able to move the extremity on left and occasionally feeding himself but requires nurse feedings. - Speech therapy following. Qualifiers: Dysphagia type: oropharyngeal phase Qualified Code(s): R13.12 - Dysphagia, oropharyngeal phase (3) Agitation Current Visit: Yes Status: Acute Assessment and plan: Patient continues to have episodes of agitation requiring a one-to-one sitter. Patient with minimal response to Seroquel change. Patient has responded during acute agitation episodes to Ativan. - Time Spent With Patient Total time spent is greater than 50% in coordination of care (as documented) at patient's floor/unit and/or counseling patient: - Subjective Interval history: Patient with continued increased agitation and restlessness. Primary team has added morning Seroquel x1 day without significant difference at this point. Patient's required several doses of Ativan throughout the day. Patient has been eating well. Patient with slight increased worker breathing and upper airway noises this am. Patient continues to require one-to-one sitter. - Constitutional Vitals: Abnormal lab results WBC 15.1 K/mcL (4.3-11.1) H 12/10/16 06:37 Neutrophils # 15.4 K/mcL (1.6-8.9) H 12/03/16 18:39 Lymphocytes # 0.5 K/mcL (0.6-4.6) L 12/03/16 18:39 Nucleated RBCs/100 WBC 0.2 /100 WBC (0) H 11/23/16 20:59 PT 12.4 Seconds (9.4-12.1) H 11/25/16 22:30 ABG pH 7.47 pH Units (7.32-7.45) H 11/29/16 04:40 ABG pO2 65 mmHg (85-104) L 11/29/16 04:40 ABG HCO3 31.3 mEQ/L (21-27) H 11/29/16 04:40 ABG Total CO2 32.6 mEq/L (20-26) H 11/29/16 04:40 ABG O2 Saturation 94 % (95-98) L 11/29/16 04:40 ABG Base Excess 6.8 mEq/L (-2.0 to 3.0) H 11/29/16 04:40 VBG pCO2 58 mmHg (41-51) H 12/04/16 00:05 VBG pO2 63 mmHg (25-40) H 12/04/16 00:05 VBG HCO3 35.9 mEq/L (21-27) H 12/04/16 00:05 Sodium 149 mEq/L (136-145) H 12/09/16 08:46 Potassium 5.2 mEq/L (3.5-4.5) H 12/09/16 08:46 Chloride 114 mEq/L (98-109) H 12/09/16 08:46 BUN 28 mg/dL (8-26) H 12/09/16 08:46 Est GFR (Non-Af Amer) 58 (> 60) L 12/09/16 08:46 Glucose 142 mg/dL (70-99) H 12/09/16 08:46 POC Glucose 246 (58-89) H 12/08/16 19:49 Calculated Osmolality 316 (280-300) H 12/09/16 08:46 Ionized Calcium 1.09 mmol/L (1.15-1.35) L 11/29/16 16:27 Magnesium 3.4 mg/dL (1.6-2.6) H 12/09/16 08:46 AST 63 Units/L (5-34) H 12/09/16 08:46 ALT 89 Units/L (0-55) H 12/09/16 08:46 Troponin I 24.64 ng/mL (0-0.03) H* 11/25/16 22:30 Albumin 2.9 g/dL (3.5-5.0) L 12/09/16 08:46 Albumin/Globulin Ratio 0.9 (1.1-2.2) L 12/09/16 08:46 Urine Clarity Cloudy (Clear) A 12/04/16 00:15 Ur Specific [place] 1.030 (1.010-1.025) H 12/04/16 00:15 Ur Squamous Epith Cells Many per lpf (None-Few) H 12/04/16 00:15 Urine Total Protein 15 mg/dL (1-14) H 12/04/16 00:15 Vancomycin Trough 7.1 mcg/mL (10-20) L 12/05/16 10:53 - Head Head exam: Present: atraumatic, normal inspection - Neck Neck exam: Present: normal inspection - Respiratory Respiratory exam: Present: rhonchi (Anterior chest) - Cardiovascular Cardiovascular exam: Present: RRR - GI/Abdominal GI/Abdominal exam: Present: soft. Absent: rebound, rigid, tenderness - Extremities Exam Extremities exam: Absent: calf tenderness, pedal edema - Neurological Exam Additional comments: Patient moves left side without deficit. Patient unable to move right side. Patient was not able to talk or communicate. - Psychiatric Psychiatric exam: Present: agitated - Skin Skin exam: Absent: abrasion, rash Palliative Quality Palliative Quality: Screen for Code Status: Yes, Screen for Goals of Care: Yes, Screen for Pain: NA, If Pain Regimen Started, Initiate Bowel Regimen: NA, Screen for Nausea/Vomitting: NA Code Status: 11/24/16 11:54 FULL [Resuscitation Status: Active] [RES] Routine Comment: Resuscitation Status: Full Code 11/26/16 19:48 FULL [Resuscitation Status: Active] [RES] Routine Comment: Resuscitation Status: Full Code 11/28/16 11:19 CODE [Resuscitation Status: Active] [RES] Routine Comment: currently intubated, but do not RE-intubate Resuscitation Status: [id number] - Labs CBC & Chem 7: 12/10/16 06:37 12/09/16 08:46 Labs: Laboratory Results - last 24 hr 12/09/16 12/09/16 12/09/16 08:32 08:46 08:46 WBC 17.6 H RBC 4.45 Hgb 13.8 Hct 43.6 MCV 98.0 MCH 31.0 MCHC 31.7 RDW 14.0 Plt Count 185 MPV 10.3 Immature Plt Fraction 5.8 Sodium 149 H Potassium 5.2 H Chloride 114 H Carbon Dioxide 28 BUN 28 H Creatinine 1.23 Est GFR ( Amer) > 60 Est GFR (Non-Af Amer) 58 L BUN/Creatinine Ratio 23 Glucose 142 H Calculated Osmolality 316 H Calcium 8.6 Magnesium 3.4 H Total Bilirubin 0.9 AST 63 H ALT 89 H Alkaline Phosphatase 80 Serum Total Protein 6.3 Albumin 2.9 L Globulin 3.4 Albumin/Globulin Ratio 0.9 L Specimen Rejected Contaminated 12/10/16 06:37 WBC 15.1 H RBC 4.29 Hgb 13.5 Hct 42.5 MCV 99.1 MCH 31.5 MCHC 31.8 RDW 14.2 Plt Count 163 MPV 10.7 Immature Plt Fraction Sodium Potassium Chloride Carbon Dioxide BUN Creatinine Est GFR ( Amer) Est GFR (Non-Af Amer) BUN/Creatinine Ratio Glucose Calculated Osmolality Calcium Magnesium Total Bilirubin AST ALT Alkaline Phosphatase Serum Total Protein Albumin Globulin Albumin/Globulin Ratio Specimen Rejected - ABG Interpretation ABG results: ABG ABG pH 7.47 pH Units (7.32-7.45) H 11/29/16 04:40 ABG pCO2 43 mmHg (35-45) 11/29/16 04:40 ABG pO2 65 mmHg (85-104) L 11/29/16 04:40 ABG O2 Saturation 94 % (95-98) L 11/29/16 04:40 PT/INR, D-dimer PT 12.4 Seconds (9.4-12.1) H 11/25/16 22:30 Consult Discharge Plan - Plan Referrals: NO,PCP [Primary Care Provider] - <Reed Garnica - Last Filed: 12/11/16 07:06> Date of Encounter: 12/11/16 - Time Spent With Patient Total time spent is greater than 50% in coordination of care (as documented) at patient's floor/unit and/or counseling patient: - Constitutional Vitals: Abnormal lab results WBC 12.4 K/mcL (4.3-11.1) H 12/11/16 04:12 RBC 3.88 M/mcL (4.19-5.50) L 12/11/16 04:12 Hgb 11.9 g/dL (12.9-16.9) L D 12/11/16 04:12 MCHC 31.3 g/dL (31.6-35.5) L 12/11/16 04:12 Neutrophils # 15.4 K/mcL (1.6-8.9) H 12/03/16 18:39 Lymphocytes # 0.5 K/mcL (0.6-4.6) L 12/03/16 18:39 Nucleated RBCs/100 WBC 0.2 /100 WBC (0) H 11/23/16 20:59 PT 12.4 Seconds (9.4-12.1) H 11/25/16 22:30 ABG pH 7.47 pH Units (7.32-7.45) H 11/29/16 04:40 ABG pO2 65 mmHg (85-104) L 11/29/16 04:40 ABG HCO3 31.3 mEQ/L (21-27) H 11/29/16 04:40 ABG Total CO2 32.6 mEq/L (20-26) H 11/29/16 04:40 ABG O2 Saturation 94 % (95-98) L 11/29/16 04:40 ABG Base Excess 6.8 mEq/L (-2.0 to 3.0) H 11/29/16 04:40 VBG pCO2 58 mmHg (41-51) H 12/04/16 00:05 VBG pO2 63 mmHg (25-40) H 12/04/16 00:05 VBG HCO3 35.9 mEq/L (21-27) H 12/04/16 00:05 Potassium 4.6 mEq/L (3.5-4.5) H 12/11/16 04:12 Chloride 111 mEq/L (98-109) H 12/11/16 04:12 BUN 27 mg/dL (8-26) H 12/11/16 04:12 BUN/Creatinine Ratio 28 (6-26) H 12/11/16 04:12 Glucose 133 mg/dL (70-99) H 12/11/16 04:12 Calculated Osmolality 301 (280-300) H 12/11/16 04:12 Calcium 8.0 mg/dL (8.6-10.8) L 12/11/16 04:12 Ionized Calcium 1.09 mmol/L (1.15-1.35) L 11/29/16 16:27 Magnesium 3.4 mg/dL (1.6-2.6) H 12/09/16 08:46 AST 63 Units/L (5-34) H 12/09/16 08:46 ALT 89 Units/L (0-55) H 12/09/16 08:46 Troponin I 24.64 ng/mL (0-0.03) H* 11/25/16 22:30 Albumin 2.9 g/dL (3.5-5.0) L 12/09/16 08:46 Albumin/Globulin Ratio 0.9 (1.1-2.2) L 12/09/16 08:46 Urine Clarity Cloudy (Clear) A 12/04/16 00:15 Ur Specific [place] 1.030 (1.010-1.025) H 12/04/16 00:15 Ur Squamous Epith Cells Many per lpf (None-Few) H 12/04/16 00:15 Urine Total Protein 15 mg/dL (1-14) H 12/04/16 00:15 Vancomycin Trough 7.1 mcg/mL (10-20) L 12/05/16 10:53 - Attending Attestation I examined this patient and my medical decision-making was reviewed with the Resident Physician. I agree with the documented findings, disposition and treatment plan as described except to the extent set forth below. Palliative Quality Code Status: 11/24/16 11:54 FULL [Resuscitation Status: Active] [RES] Routine Comment: Resuscitation Status: Full Code 11/26/16 19:48 FULL [Resuscitation Status: Active] [RES] Routine Comment: Resuscitation Status: Full Code 11/28/16 11:19 CODE [Resuscitation Status: Active] [RES] Routine Comment: currently intubated, but do not RE-intubate Resuscitation Status: [id number] - Labs CBC & Chem 7: 12/11/16 04:12 12/11/16 04:12 Labs: Laboratory Results - last 24 hr 12/09/16 12/09/16 12/09/16 07:24 11:58 17:27 WBC RBC Hgb Hct MCV MCH MCHC RDW Plt Count MPV Sodium Potassium Chloride Carbon Dioxide BUN Creatinine Est GFR ( Amer) Est GFR (Non-Af Amer) BUN/Creatinine Ratio Glucose POC Glucose 117 H 104 H 169 H Calculated Osmolality Calcium 12/09/16 12/10/16 12/10/16 23:29 05:36 06:37 WBC 15.1 H RBC 4.29 Hgb 13.5 Hct 42.5 MCV 99.1 MCH 31.5 MCHC 31.8 RDW 14.2 Plt Count 163 MPV 10.7 Sodium Potassium Chloride Carbon Dioxide BUN Creatinine Est GFR ( Amer) Est GFR (Non-Af Amer) BUN/Creatinine Ratio Glucose POC Glucose 163 H 88 Calculated Osmolality Calcium 12/10/16 12/11/16 12/11/16 06:37 04:12 04:12 WBC 12.4 H RBC 3.88 L Hgb 11.9 L D Hct 38.0 MCV 97.9 MCH 30.7 MCHC 31.3 L RDW 14.1 Plt Count 149 MPV 11.0 Sodium 145 142 Potassium 5.1 H 4.6 H Chloride 113 H 111 H Carbon Dioxide 24 24 BUN 25 27 H Creatinine 1.07 0.98 Est GFR ( Amer) > 60 > 60 Est GFR (Non-Af Amer) > 60 > 60 BUN/Creatinine Ratio 23 28 H Glucose 102 H 133 H POC Glucose Calculated Osmolality 305 H 301 H Calcium 8.4 L 8.0 L - ABG Interpretation ABG results: ABG ABG pH 7.47 pH Units (7.32-7.45) H 11/29/16 04:40 ABG pCO2 43 mmHg (35-45) 11/29/16 04:40 ABG pO2 65 mmHg (85-104) L 11/29/16 04:40 ABG O2 Saturation 94 % (95-98) L 11/29/16 04:40 PT/INR, D-dimer PT 12.4 Seconds (9.4-12.1) H 11/25/16 22:30
[2016-12-10 08:30] LABS: BUN/Creatinine Ratio 23 (6-26); Blood Urea Nitrogen 25 mg/dL (8-26); Calcium 8.4 mg/dL (8.6-10.8); Carbon Dioxide 24 mEq/L (19-29); Chloride 113 mEq/L (98-109); Glucose 102 mg/dL (70-99); Osmolality,Calculated 305 (280-300); Sodium 145 mEq/L (136-145); eGFR For African Americans > 60 (> 60); eGFR For Non-African Americans > 60 (> 60)
[2016-12-10 08:31] LABS: Potassium 5.1 mEq/L (3.5-4.5)
[2016-12-10] MEDS: predniSONE 20 MG TABLET PO SCH (10:46)
[2016-12-10] MEDS: Bisacodyl 10 MG RECTAL SUPPOSITORY RC SCH (10:46)
[2016-12-10] MEDS: *HR* Amiodarone 200 MG TABLET PO SCH ×2 (10:46→20:29)
[2016-12-10] MEDS: Nicotine 14 MG PATCH.TD24 TD SCH (10:47)
[2016-12-10] MEDS: Aspirin 81 MG TAB.CHEW PO SCH (10:47)
[2016-12-10] MEDS: *HR* Ticagrelor 90 MG TABLET PO SCH ×2 (10:47→20:29)
[2016-12-10] MEDS: D5% in Water 1,000 ML IVC SCH (10:59)
--- NOTE | 2016-12-10 14:51 | Internal Med Progress Note ---
Date of Encounter: 12/10/16 Time of Encounter: 08:15 - Assessment and plan (1) Acute and chronic respiratory failure Current Visit: Yes Status: Acute Assessment and plan: Maintaining oxygen saturation. No acute issues. Qualifiers: Respiratory failure complication: hypoxia and hypercapnia Qualified Code(s) : J96.21 - Acute and chronic respiratory failure with hypoxia; J96.22 - Acute and chronic respiratory failure with hypercapnia (2) Pneumonia Current Visit: Yes Status: Suspected Assessment and plan: Completed 7 days of IV abx. Continues to have intermittent dyspnea.. Qualifiers: Pneumonia type: aspiration pneumonia Aspiration pneumonia type: due to gastric secretions Laterality: bilateral Lung location: lower lobe of lung Qualified Code(s): J69.0 - Pneumonitis due to inhalation of food and vomit (3) Acute ischemic left MCA stroke Current Visit: Yes Status: Acute Assessment and plan: Remains flaccid on R. Continue therapy. D/C planning. (4) Hypernatremia Current Visit: Yes Status: Acute Assessment and plan: Improving with IV fluid. (5) STEMI (ST elevation myocardial infarction) Current Visit: Yes Status: Acute Assessment and plan: Appears to be tolerating oral Brilinta. Qualifiers: Involved coronary artery: LAD coronary artery Qualified Code(s): I21.02 - ST elevation (STEMI) myocardial infarction involving left anterior descending coronary artery (6) Dysphagia Current Visit: Yes Status: Acute Assessment and plan: Amount of PO intake varies. Continue diet. Qualifiers: Dysphagia type: oropharyngeal phase Qualified Code(s): R13.12 - Dysphagia, oropharyngeal phase (7) Agitation Current Visit: Yes Status: Acute Assessment and plan: Decrease PM Seroquel. Add AM Seroquel. (8) Generalized pain Current Visit: Yes Status: Acute Assessment and plan: Related to CPR/resususcitation. Has hx of chronic pain. (9) Steroid-induced hyperglycemia Current Visit: Yes Status: Acute Assessment and plan: Improved (10) Discharge planning issues Current Visit: Yes Status: Chronic Assessment and plan: Working on d/c planning - needs SNF. - Subjective Interval history: Mr. Syed is currently admitted for acute cardiac arrest due to acute STEMI and cardiogenic shock. Subsequently he has had a large MCA CVA. He is high risk due to potential for aspiration and worsening respiratory and cardiac status. Mr. Syed is waking up. He has been agitated at times and calling out. No fever or chills. No GI symptoms. No other issues. - Constitutional Vitals: Temp Pulse Resp BP Pulse Ox 98.0 F 79 19 126/81 97 12/10/16 11:38 12/10/16 11:38 12/10/16 11:38 12/10/16 11:38 12/10/16 11:38 General appearance: Present: disheveled - Head Head exam: Present: normocephalic - Eye Eye exam: Present: conjuntiva pink - ENT ENT exam: Present: mucous membranes moist - Respiratory Respiratory exam: Present: prolonged expiratory phase, wheezes - Cardiovascular Cardiovascular exam: Present: RRR. Absent: tachycardia - GI/Abdominal GI/Abdominal exam: Present: soft. Absent: tenderness - Extremities Exam Extremities exam: Present: warm. Absent: pedal edema - Neurological Exam Neurological exam: Present: alert, motor sensory deficit Additional comments: Unchanged - Skin Skin exam: Present: warm. Absent: rash Internal Medicine: Result - Labs CBC & Chem 7: 12/10/16 06:37 12/10/16 06:37 Labs: Short CBC 12/10/16 Range/Units 06:37 WBC 15.1 H (4.3-11.1) K/mcL Hgb 13.5 (12.9-16.9) g/dL Hct 42.5 (37.5-50.1) % Plt Count 163 (140-400) K/mcL [facility] 12/10/16 06:37 Sodium 145 Potassium 5.1 H Chloride 113 H Carbon Dioxide 24 BUN 25 Creatinine 1.07 Glucose 102 H Calcium 8.4 L - ABG Interpretation ABG results: ABG ABG pH 7.47 pH Units (7.32-7.45) H 11/29/16 04:40 ABG pCO2 43 mmHg (35-45) 11/29/16 04:40 ABG pO2 65 mmHg (85-104) L 11/29/16 04:40 ABG O2 Saturation 94 % (95-98) L 11/29/16 04:40 PT/INR, D-dimer PT 12.4 Seconds (9.4-12.1) H 11/25/16 22:30 Consult Discharge Plan - Plan Referrals: NO,PCP [Primary Care Provider] -
[2016-12-11] MEDS: Ipratropium/Albuterol Neb 3 ML IH SCH ×4 (03:47→21:17)
[2016-12-11 04:56] LABS: BUN/Creatinine Ratio 28 (6-26); Blood Urea Nitrogen 27 mg/dL (8-26); Carbon Dioxide 24 mEq/L (19-29); Chloride 111 mEq/L (98-109); Glucose 133 mg/dL (70-99); Osmolality,Calculated 301 (280-300); Potassium 4.6 mEq/L (3.5-4.5); Sodium 142 mEq/L (136-145); eGFR For African Americans > 60 (> 60); eGFR For Non-African Americans > 60 (> 60)
[2016-12-11 04:59] LABS: Mean Corpuscular HGB Conc 31.3 g/dL (31.6-35.5); Mean Corpuscular Hemoglobin 30.7 pg (28.0-33.3); Mean Corpuscular Volume 97.9 fL (83.0-100.0); Platelet Count 149 K/mcL (140-400); Red Blood Count 3.88 M/mcL (4.19-5.50); Red Cell Distribution Width 14.1 % (11.5-14.5)
[2016-12-11 05:00] LABS: Hemoglobin 11.9 g/dL (12.9-16.9)
[2016-12-11] MEDS: *HR* Enoxaparin 40 MG/0.4 ML SYRINGE SQ SCH (05:12)
[2016-12-11] MEDS: D5% in Water 1,000 ML IVC SCH (08:57)
[2016-12-11] MEDS: Bisacodyl 10 MG RECTAL SUPPOSITORY RC SCH (08:58)
[2016-12-11] MEDS: Nicotine 14 MG PATCH.TD24 TD SCH (08:59)
[2016-12-11] MEDS: *HR* Amiodarone 200 MG TABLET PO SCH ×3 (08:59→20:46)
[2016-12-11] MEDS: *HR* Ticagrelor 90 MG TABLET PO SCH ×3 (08:59→20:46)
[2016-12-11] MEDS: predniSONE 20 MG TABLET PO SCH (08:59)
[2016-12-11] MEDS: Aspirin 81 MG TAB.CHEW PO SCH (09:00)
--- NOTE | 2016-12-11 19:24 | Internal Med Progress Note ---
Date of Encounter: 12/11/16 Time of Encounter: 08:00 - Assessment and plan (1) Acute and chronic respiratory failure Current Visit: Yes Status: Acute Assessment and plan: Wore bipap all night and breathing seems better today. Will continue bipap at night and naps. Qualifiers: Respiratory failure complication: hypoxia and hypercapnia Qualified Code(s) : J96.21 - Acute and chronic respiratory failure with hypoxia; J96.22 - Acute and chronic respiratory failure with hypercapnia (2) Pneumonia Current Visit: Yes Status: Resolved Assessment and plan: Completed 7 days of IV abx. Doing OK at this time. Qualifiers: Pneumonia type: aspiration pneumonia Aspiration pneumonia type: due to gastric secretions Laterality: bilateral Lung location: lower lobe of lung Qualified Code(s): J69.0 - Pneumonitis due to inhalation of food and vomit (3) Acute ischemic left MCA stroke Current Visit: Yes Status: Acute Assessment and plan: Remains flaccid on R. Continue therapy. D/C planning. (4) Hypernatremia Current Visit: Yes Status: Resolved Assessment and plan: Improved. PO intake increased now. Will d/c IV fluids and monitor. (5) STEMI (ST elevation myocardial infarction) Current Visit: Yes Status: Acute Assessment and plan: Appears to be tolerating oral Brilinta. Qualifiers: Involved coronary artery: LAD coronary artery Qualified Code(s): I21.02 - ST elevation (STEMI) myocardial infarction involving left anterior descending coronary artery (6) Dysphagia Current Visit: Yes Status: Acute Assessment and plan: Amount of PO intake varies. Has been doing better recently. Qualifiers: Dysphagia type: oropharyngeal phase Qualified Code(s): R13.12 - Dysphagia, oropharyngeal phase (7) Agitation Current Visit: Yes Status: Acute Assessment and plan: Doing well on low dose BID Seroquel. (8) Generalized pain Current Visit: Yes Status: Acute Assessment and plan: Related to CPR/resususcitation. Has hx of chronic pain. (9) Steroid-induced hyperglycemia Current Visit: Yes Status: Acute Assessment and plan: Improved (10) Discharge planning issues Current Visit: Yes Status: Chronic Assessment and plan: Working on d/c planning. Seems to be doing better. Would be a good candidate for a trial of acute rehab. - Subjective Interval history: Mr. Seyd is currently admitted for acute cardiac arrest due to acute STEMI and cardiogenic shock. Subsequently he has had a large MCA CVA. He is high risk due to potential for aspiration and worsening respiratory and cardiac status. Mr. Syed is doing much better this AM. He is eating breakfast and really trying to talk. He gets frustrated with aphasia. He gave me a "thumbs up" when I asked if he wanted water. Still seems to be having some back pain. Wore bipap all night and slept well. Tolerating meds. Working on d/c planning. - Constitutional Vitals: Temp Pulse Resp BP Pulse Ox 97.5 F L 57 17 107/56 95 12/11/16 15:50 12/11/16 15:50 12/11/16 15:50 12/11/16 15:50 12/11/16 15:50 General appearance: Present: disheveled - Head Head exam: Present: normocephalic - Eye Eye exam: Present: conjuntiva pink - ENT ENT exam: Present: mucous membranes moist - Neck Neck exam general surgery: Absent: tenderness - Respiratory Respiratory exam: Present: decreased breath sounds. Absent: wheezes - Cardiovascular Cardiovascular exam: Present: RRR. Absent: tachycardia - GI/Abdominal GI/Abdominal exam: Present: soft. Absent: tenderness - Extremities Exam Extremities exam: Present: warm. Absent: pedal edema - Neurological Exam Neurological exam: Present: alert, motor sensory deficit, speech deficit - Skin Skin exam: Present: warm. Absent: rash Internal Medicine: Result - Labs CBC & Chem 7: 12/11/16 04:12 12/11/16 04:12 Labs: Short CBC 12/11/16 Range/Units 04:12 WBC 12.4 H (4.3-11.1) K/mcL Hgb 11.9 L D (12.9-16.9) g/dL Hct 38.0 (37.5-50.1) % Plt Count 149 (140-400) K/mcL BMP 12/11/16 04:12 Sodium 142 Potassium 4.6 H Chloride 111 H Carbon Dioxide 24 BUN 27 H Creatinine 0.98 Glucose 133 H Calcium 8.0 L - ABG Interpretation ABG results: ABG ABG pH 7.47 pH Units (7.32-7.45) H 11/29/16 04:40 ABG pCO2 43 mmHg (35-45) 11/29/16 04:40 ABG pO2 65 mmHg (85-104) L 11/29/16 04:40 ABG O2 Saturation 94 % (95-98) L 11/29/16 04:40 PT/INR, D-dimer PT 12.4 Seconds (9.4-12.1) H 11/25/16 22:30 Consult Discharge Plan - Plan Referrals: NO,PCP [Primary Care Provider] -
[2016-12-12] MEDS: *HR* Enoxaparin 40 MG/0.4 ML SYRINGE SQ SCH (04:51)
[2016-12-12] MEDS: Ipratropium/Albuterol Neb 3 ML IH SCH ×3 (05:02→16:26)
[2016-12-12 05:18] LABS: BUN/Creatinine Ratio 28 (6-26); Blood Urea Nitrogen 22 mg/dL (8-26); Carbon Dioxide 25 mEq/L (19-29); Chloride 108 mEq/L (98-109); Glucose 99 mg/dL (70-99); Osmolality,Calculated 289 (280-300); Potassium 4.4 mEq/L (3.5-4.5); Sodium 138 mEq/L (136-145); eGFR For African Americans > 60 (> 60); eGFR For Non-African Americans > 60 (> 60)
[2016-12-12] MEDS: *HR* Ticagrelor 90 MG TABLET PO SCH ×2 (09:24→22:56)
[2016-12-12] MEDS: Aspirin 81 MG TAB.CHEW PO SCH (09:25)
[2016-12-12] MEDS: *HR* Amiodarone 200 MG TABLET PO SCH ×2 (09:25→23:23)
[2016-12-12] MEDS: predniSONE 20 MG TABLET PO SCH (09:25)
[2016-12-12] MEDS: Nicotine 14 MG PATCH.TD24 TD SCH (09:25)
[2016-12-12] MEDS: Bisacodyl 10 MG RECTAL SUPPOSITORY RC SCH (12:31)
--- NOTE | 2016-12-12 13:34 | Internal Med Progress Note ---
Date of Encounter: 12/12/16 Time of Encounter: 13:32 - Assessment and plan (1) Discharge planning issues Current Visit: Yes Status: Chronic Assessment and plan: Working on d/c planning. Seems to be doing better. Would be a good candidate for a trial of acute rehab. 12/12/2016 Health detailed discussion with the transition social worker. There is active efforts going on to place this gentleman in a rehabilitation. (2) Acute and chronic respiratory failure Current Visit: Yes Status: Acute Assessment and plan: Wore bipap all night and breathing seems better today. Will continue bipap at night and naps. Qualifiers: Respiratory failure complication: hypoxia and hypercapnia Qualified Code(s) : J96.21 - Acute and chronic respiratory failure with hypoxia; J96.22 - Acute and chronic respiratory failure with hypercapnia (3) Pneumonia Current Visit: Yes Status: Resolved Assessment and plan: Completed 7 days of IV abx. Doing OK at this time. Qualifiers: Pneumonia type: aspiration pneumonia Aspiration pneumonia type: due to gastric secretions Laterality: bilateral Lung location: lower lobe of lung Qualified Code(s): J69.0 - Pneumonitis due to inhalation of food and vomit (4) Acute ischemic left MCA stroke Current Visit: Yes Status: Acute Assessment and plan: Remains flaccid on R. Continue therapy. D/C planning. (5) STEMI (ST elevation myocardial infarction) Current Visit: Yes Status: Acute Assessment and plan: Appears to be tolerating oral Brilinta. Qualifiers: Involved coronary artery: LAD coronary artery Qualified Code(s): I21.02 - ST elevation (STEMI) myocardial infarction involving left anterior descending coronary artery - Subjective Interval history: Patient seen and examined. Chart reviewed. Present is comfortably lying in bed. Patient's is at bedside. Patient follows 2 steps, and. Patient denies chest pain, shortness of breath, dizziness, vomiting and diarrhea. - Constitutional Vitals: Temp Pulse Resp BP Pulse Ox 97.4 F L 67 17 112/60 97 12/12/16 07:00 12/12/16 11:00 12/12/16 11:00 12/12/16 11:00 12/12/16 11:00 General appearance: Present: disheveled, A&O X 2, obese - Head Head exam: Present: atraumatic, normocephalic - Eye Eye exam: Present: PERRL, conjuntiva pink, sclera anicteric Pupils: Present: PERRL - Neck Neck exam general surgery: Present: supple, trachea midline. Absent: lymphadenopathy - Respiratory Respiratory exam: Present: CTAB. Absent: accessory muscle use, rales, rhonchi, wheezes - Cardiovascular Cardiovascular exam: Present: RRR, +S1, +S2. Absent: diastolic murmur, gallop, rubs, systolic murmur - GI/Abdominal GI/Abdominal exam: Present: normal bowel sounds, soft, no peritoneal signs. Absent: distended, tenderness - Extremities Exam Extremities exam: Present: warm, radial pulses palpable and symetrical. Absent : calf tenderness, cyanotic, pedal edema - Neurological Exam Neurological exam: Present: CN II-XII intact, oriented X3, no focal deficits. Absent: pronater drift, facial droop, speech deficit - Skin Skin exam: Present: dry, intact Internal Medicine: Result - Labs CBC & Chem 7: 12/11/16 04:12 12/12/16 04:45 Labs: BMP 12/12/16 04:45 Sodium 138 Potassium 4.4 Chloride 108 Carbon Dioxide 25 BUN 22 Creatinine 0.79 Glucose 99 Calcium 8.0 L - ABG Interpretation ABG results: ABG ABG pH 7.47 pH Units (7.32-7.45) H 11/29/16 04:40 ABG pCO2 43 mmHg (35-45) 11/29/16 04:40 ABG pO2 65 mmHg (85-104) L 11/29/16 04:40 ABG O2 Saturation 94 % (95-98) L 11/29/16 04:40 PT/INR, D-dimer PT 12.4 Seconds (9.4-12.1) H 11/25/16 22:30 Consult Discharge Plan - Plan Referrals: NO,PCP [Primary Care Provider] -
[2016-12-13] MEDS: Ipratropium/Albuterol Neb 3 ML IH SCH ×5 (00:11→22:55)
[2016-12-13] MEDS: *HR* Enoxaparin 40 MG/0.4 ML SYRINGE SQ SCH (06:43)
[2016-12-13] MEDS: predniSONE 20 MG TABLET PO SCH (09:45)
[2016-12-13] MEDS: Aspirin 81 MG TAB.CHEW PO SCH (09:46)
[2016-12-13] MEDS: *HR* Amiodarone 200 MG TABLET PO SCH ×2 (09:46→22:19)
[2016-12-13] MEDS: *HR* Ticagrelor 90 MG TABLET PO SCH ×2 (09:46→22:19)
[2016-12-13] MEDS: Nicotine 14 MG PATCH.TD24 TD SCH (09:50)
--- NOTE | 2016-12-13 16:54 | Internal Med Progress Note ---
Date of Encounter: 12/13/16 Time of Encounter: 16:52 - Assessment and plan (1) Discharge planning issues Current Visit: Yes Status: Chronic Assessment and plan: Working on d/c planning. Seems to be doing better. Would be a good candidate for a trial of acute rehab. 12/12/2016 Had detailed discussion with the director social welfare. There is active efforts going on to place this gentleman in a rehabilitation. 12/13/2016 Patient was seen by director social welfare. Multiple attempts are ongoing regarding placement. Possible placement/discharge tomorrow (2) Acute and chronic respiratory failure Current Visit: Yes Status: Acute Assessment and plan: Wore bipap all night and breathing seems better today. Will continue bipap at night and naps. Qualifiers: Respiratory failure complication: hypoxia and hypercapnia Qualified Code(s) : J96.21 - Acute and chronic respiratory failure with hypoxia; J96.22 - Acute and chronic respiratory failure with hypercapnia (3) Pneumonia Current Visit: Yes Status: Resolved Assessment and plan: Completed 7 days of IV abx. Doing OK at this time. Qualifiers: Pneumonia type: aspiration pneumonia Aspiration pneumonia type: due to gastric secretions Laterality: bilateral Lung location: lower lobe of lung Qualified Code(s): J69.0 - Pneumonitis due to inhalation of food and vomit (4) Acute ischemic left MCA stroke Current Visit: Yes Status: Acute Assessment and plan: Remains flaccid on R. Continue therapy. D/C planning. (5) STEMI (ST elevation myocardial infarction) Current Visit: Yes Status: Acute Assessment and plan: Appears to be tolerating oral Brilinta. Qualifiers: Involved coronary artery: LAD coronary artery Qualified Code(s): I21.02 - ST elevation (STEMI) myocardial infarction involving left anterior descending coronary artery - Subjective Interval history: Patient seen and examined. Chart reviewed. Present is comfortably lying in bed. Patient's is at bedside. Patient follows 2 steps, and. Patient denies chest pain, shortness of breath, dizziness, vomiting and diarrhea. 12/13/2016 Seen and examined. Chart reviewed. Patient is awake and sitting comfortably in the bed. Patient's is at bedside. - Constitutional Vitals: Temp Pulse Resp BP Pulse Ox 98.1 F 59 18 123/82 95 12/13/16 15:12 12/13/16 15:12 12/13/16 15:26 12/13/16 15:12 12/13/16 15:26 General appearance: Present: disheveled, A&O X 2, obese - Head Head exam: Present: atraumatic, normocephalic - Eye Eye exam: Present: PERRL, conjuntiva pink, sclera anicteric Pupils: Present: PERRL - Neck Neck exam general surgery: Present: supple, trachea midline. Absent: lymphadenopathy - Respiratory Respiratory exam: Present: CTAB. Absent: accessory muscle use, rales, rhonchi, wheezes - Cardiovascular Cardiovascular exam: Present: RRR, +S1, +S2. Absent: diastolic murmur, gallop, rubs, systolic murmur - GI/Abdominal GI/Abdominal exam: Present: normal bowel sounds, soft, no peritoneal signs. Absent: distended, tenderness - Extremities Exam Extremities exam: Present: warm, radial pulses palpable and symetrical. Absent : calf tenderness, cyanotic, pedal edema - Neurological Exam Neurological exam: Present: CN II-XII intact, oriented X3, no focal deficits. Absent: pronater drift, facial droop, speech deficit - Skin Skin exam: Present: dry, intact Internal Medicine: Result - Labs CBC & Chem 7: 12/11/16 04:12 12/12/16 04:45 - ABG Interpretation ABG results: ABG ABG pH 7.47 pH Units (7.32-7.45) H 11/29/16 04:40 ABG pCO2 43 mmHg (35-45) 11/29/16 04:40 ABG pO2 65 mmHg (85-104) L 11/29/16 04:40 ABG O2 Saturation 94 % (95-98) L 11/29/16 04:40 PT/INR, D-dimer PT 12.4 Seconds (9.4-12.1) H 11/25/16 22:30 Consult Discharge Plan - Plan Referrals: NO,PCP [Primary Care Provider] -
[2016-12-14] MEDS: Ipratropium/Albuterol Neb 3 ML IH SCH ×2 (04:33→10:00)
[2016-12-14 07:15] VITALS: BP 118/66
[2016-12-14] MEDS: *HR* Enoxaparin 40 MG/0.4 ML SYRINGE SQ SCH (07:17)
--- NOTE | 2016-12-14 09:07 | Discharge Summary ---
Date of Encounter: 12/14/16 Time of Encounter: 09:01 - Discharge Diagnosis (1) STEMI (ST elevation myocardial infarction) Priority: Primary Status: Acute Qualifiers: Involved coronary artery: LAD coronary artery Qualified Code(s): I21.02 - ST elevation (STEMI) myocardial infarction involving left anterior descending coronary artery (2) Acute ischemic left MCA stroke Priority: Primary Status: Acute (3) Acute and chronic respiratory failure Priority: Primary Status: Acute Qualifiers: Respiratory failure complication: hypoxia and hypercapnia Qualified Code(s) : J96.21 - Acute and chronic respiratory failure with hypoxia; J96.22 - Acute and chronic respiratory failure with hypercapnia (4) Pneumonia Priority: Primary Status: Resolved Qualifiers: Pneumonia type: aspiration pneumonia Aspiration pneumonia type: due to gastric secretions Laterality: bilateral Lung location: lower lobe of lung Qualified Code(s): J69.0 - Pneumonitis due to inhalation of food and vomit (5) Discharge planning issues Priority: Secondary Status: Chronic - Discharge Medications Prescriptions: OxyCODONE/APAP 5/325 [Percocet 5/325 MG] 1 each PO Q8HR PRN #10 tablet PRN Reason: Moderate to Severe Pain Amiodarone [Cordarone] 200 mg PO BID #60 tablet Aspirin 81 mg PO DAILY #30 tab.chew Atorvastatin [Lipitor] 80 mg PO HS #30 tablet Metoprolol [Lopressor] 12.5 mg PO BID #60 tablet Nicotine Patch [Nicoderm] 14 mg TD DAILY #30 patch.td24 Omeprazole [PriLOSEC] 20 mg PO DAILY@0630 #30 capsule. PredniSONE 40 mg PO DAILY #5 tablet Quetiapine Fumarate [Seroquel] 25 mg PO HS #30 tablet Ticagrelor [Brilinta] 90 mg PO BID #60 tablet Home Medications: Celecoxib [Celebrex] 200 mg PO BID 11/24/16 [History] Duloxetine HCl [Cymbalta] 60 mg PO DAILY 11/24/16 [History] Furosemide [Lasix] 20 mg PO DAILY PRN 11/24/16 [History] Umeclidinium Brm/Vilanterol Tr [Anoro Ellipta 62.5-25 Mcg INH] 1 puff IH DAILY 11/24/16 [History] Amiodarone [Cordarone] 200 mg PO BID #60 tablet 12/14/16 [Rx] Aspirin 81 mg PO DAILY #30 tab.chew 12/14/16 [Rx] Atorvastatin [Lipitor] 80 mg PO HS #30 tablet 12/14/16 [Rx] Metoprolol [Lopressor] 12.5 mg PO BID #60 tablet 12/14/16 [Rx] Nicotine Patch [Nicoderm] 14 mg TD DAILY #30 patch.td24 12/14/16 [Rx] Omeprazole [PriLOSEC] 20 mg PO DAILY@0630 #30 capsule.dr 12/14/16 [Rx] OxyCODONE/APAP 5/325 [Percocet 5/325 MG] 1 each PO Q8HR PRN #10 tablet 12/14/16 [Rx] PredniSONE 40 mg PO DAILY #5 tablet 12/14/16 [Rx] Quetiapine Fumarate [Seroquel] 25 mg PO HS #30 tablet 12/14/16 [Rx] Ticagrelor [Brilinta] 90 mg PO BID #60 tablet 12/14/16 [Rx] Allergies/Adverse Reactions: Allergies No Known Allergies Allergy (Verified 11/23/16 21:45) Procedures/tests Complete & Pending: Procedures Performed prior 72 hours Category Date Time Status US bladder/limited pelvis [US] Stat Exams 12/14/16 07:38 Completed Date of admission: 11/23/16 22:46 Primary care physician: PCP NO Consults: 11/24/16 08:48 Consult to Critical Care [CONS] Stat Consulting Provider: [facility] Reason for Consult: vent management; hypothermia protocol Call Completed: No 11/26/16 10:56 Consult to Neurology [CONS] Routine Consulting Provider: [facility] Reason for Consult: 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 Please evaluate and advise Time Notified: 02:54 Call Completed: No 11/29/16 14:02 Consult to Speech Therapy [CONS] Routine Comment: Evaluate, develop and implement POC Reason for Consult: swallow eval. Time Notified: 14:03 Call Completed: No 11/30/16 08:24 Consult to Occupational Therapy [CONS] Routine Comment: Evaluate, develop and implement POC Consult to Physical Therapy [CONS] Routine Comment: Evaluate, develop and implement POC 12/04/16 07:00 Consult to Speech Therapy [CONS] Routine Comment: Evaluate, develop and implement POC Reason for Consult: Please reassess. Thx. Call Completed: No 12/10/16 14:27 Consult to Retail Director [CONS] Routine Reason for SW Consult: discharge planning Discharging clinician: Trever Terrell - Patient Status Disposition: Transfer Inpatient Rehab Fac Condition: Critical Functional capacity at discharge: bed bound Overall status at discharge: patient is progressing back to baseline - Discharge Instructions Follow Up With: ALESSANDRA,PCP [Primary Care Provider] - Arjun Denis DO [Partnered Physician] - Evelio Zimmerman DO [Partnered Physician] - - Diet and Activity Activity: as per physical therapy Diet: low fat, low cholesterol, low salt diet Interval History: Mr. Syed is a 71 year old male with no previous cardiac history who arrived to [facility] emergency department after collapsing prior to arrival in 's vehicle. states that he was complaining of epigastric pain radiating into his back just prior to arrival and has had ongoing chest discomfort for more than a week. The patient was found unresponsive and was pulled out of his 's vehicle area and the patient was brought into the emergency Department immediately and it was noted the patient was pulseless. He underwent ACLS for approximately 15 minutes. The patient was chosen to be intubated at that time. The patient continued to receive ACLS protocol. The patient did note to have fine ventricular fibrillation on monitor. The patient was shocked 4 times in total starting to 300 J doses and 2 with 360 doses. The patient also received 3 doses of epinephrine as well as 1 amp of bicarb, 1 bag of magnesium, a bolus of amiodarone, and 1 L fluid. The patient did have spontaneous return of circulation with a pulse in the upper 50s. The patient's blood pressure initially was in the 130s systolic. The patient was started on Levothroid, EKG was obtained. EKG was suggestive of anterior current of injury and STEMI page was activated. Hospital course: Patient had acute ST elevation myocardial infarction, patient had a cardiac arrest,S/P ACLS, emergent left heart catheterization was done. Drug-eluting stent was placed in LAD. Patient has a resultant ischemic cardiomyopathy. Ejection fraction by ventriculogram is around 30%. Patient was intubated and sedated in ICU. Noted that patient had a acute left cerebral hemispheric infarct secondary to hypoperfusion. Neurology on the board. Patient had a prolonged stay in intensive care unit. Eventually patient got extubated. Patient was sent to the stepdown unit. Physical therapy/occupational therapy was consult. Patient was transferred to medical floor. Patient did participate in physical therapy/occupational therapy. conduit worker was involved in the care. Initially there was a placement or difficulty issue but now patient has a placement. Plan Patient can go to inpatient rehabilitation. Medications prescribed and family oriented with medications. All QUESTIONS answered. Code Status : DNR A DNI - Time Spent with Patient Total time spent providing and/or coordinating discharge services: - Constitutional Vitals: Temp Pulse Resp BP Pulse Ox 97.5 F L 57 18 118/66 98 12/14/16 07:15 12/14/16 07:15 12/14/16 07:15 12/14/16 07:15 12/14/16 07:15 General appearance: Present: disheveled, A&O X 2, obese - Head Head exam: Present: atraumatic, normocephalic - Eye Eye exam: Present: PERRL, conjuntiva pink, sclera anicteric Pupils: Present: PERRL - Neck Neck exam general surgery: Present: supple, trachea midline. Absent: lymphadenopathy - Respiratory Respiratory exam: Present: CTAB. Absent: accessory muscle use, rales, rhonchi, wheezes - Cardiovascular Cardiovascular exam: Present: RRR, +S1, +S2. Absent: diastolic murmur, gallop, rubs, systolic murmur - GI/Abdominal GI/Abdominal exam: Present: normal bowel sounds, soft, no peritoneal signs. Absent: distended, tenderness - Extremities Exam Extremities exam: Present: warm, radial pulses palpable and symetrical. Absent : calf tenderness, cyanotic, pedal edema - Neurological Exam Neurological exam: Present: CN II-XII intact, oriented X3, no focal deficits. Absent: pronater drift, facial droop, speech deficit - Skin Skin exam: Present: dry, intact
[2016-12-14] MEDS: Nicotine 14 MG PATCH.TD24 TD SCH (09:08)
[2016-12-14] MEDS: predniSONE 20 MG TABLET PO SCH (09:08)
[2016-12-14] MEDS: *HR* Ticagrelor 90 MG TABLET PO SCH (09:08)
[2016-12-14] MEDS: *HR* Amiodarone 200 MG TABLET PO SCH (09:09)
[2016-12-14] MEDS: Aspirin 81 MG TAB.CHEW PO SCH (09:09)
--- NOTE | 2016-12-14 09:18 | Physician Discharge Referral ---
ExtendedCare Referral Info Transfer To: [facility] [place] - Diagnosis (1) STEMI (ST elevation myocardial infarction) Priority: Primary Status: Acute (2) Acute ischemic left MCA stroke Priority: Primary Status: Acute (3) Acute and chronic respiratory failure Priority: Primary Status: Acute (4) Pneumonia Priority: Primary Status: Resolved (5) Discharge planning issues Priority: Secondary Status: Chronic - Transfer Medications Prescriptions: OxyCODONE/APAP 5/325 [Percocet 5/325 MG] 1 each PO Q8HR PRN #10 tablet PRN Reason: Moderate to Severe Pain Amiodarone [Cordarone] 200 mg PO BID #60 tablet Aspirin 81 mg PO DAILY #30 tab.chew Atorvastatin [Lipitor] 80 mg PO HS #30 tablet Metoprolol [Lopressor] 12.5 mg PO BID #60 tablet Nicotine Patch [Nicoderm] 14 mg TD DAILY #30 patch.td24 Omeprazole [PriLOSEC] 20 mg PO DAILY@0630 #30 capsule. PredniSONE 40 mg PO DAILY #5 tablet Quetiapine Fumarate [Seroquel] 25 mg PO HS #30 tablet Ticagrelor [Brilinta] 90 mg PO BID #60 tablet Home Medications: Celecoxib [Celebrex] 200 mg PO BID 11/24/16 [History] Duloxetine HCl [Cymbalta] 60 mg PO DAILY 11/24/16 [History] Furosemide [Lasix] 20 mg PO DAILY PRN 11/24/16 [History] Umeclidinium Brm/Vilanterol Tr [Anoro Ellipta 62.5-25 Mcg INH] 1 puff IH DAILY 11/24/16 [History] Amiodarone [Cordarone] 200 mg PO BID #60 tablet 12/14/16 [Rx] Aspirin 81 mg PO DAILY #30 tab.chew 12/14/16 [Rx] Atorvastatin [Lipitor] 80 mg PO HS #30 tablet 12/14/16 [Rx] Metoprolol [Lopressor] 12.5 mg PO BID #60 tablet 12/14/16 [Rx] Nicotine Patch [Nicoderm] 14 mg TD DAILY #30 patch.td24 12/14/16 [Rx] Omeprazole [PriLOSEC] 20 mg PO DAILY@0630 #30 capsule. 12/14/16 [Rx] OxyCODONE/APAP 5/325 [Percocet 5/325 MG] 1 each PO Q8HR PRN #10 tablet 12/14/16 [Rx] PredniSONE 40 mg PO DAILY #5 tablet 12/14/16 [Rx] Quetiapine Fumarate [Seroquel] 25 mg PO HS #30 tablet 12/14/16 [Rx] Ticagrelor [Brilinta] 90 mg PO BID #60 tablet 12/14/16 [Rx] Allergies/Adverse Reactions: Allergies No Known Allergies Allergy (Verified 11/23/16 21:45) - Respiratory Orders Smoking Cessation: Smoking cessation has been advised. For more information, call the [place] Tobacco Quit Line at 8-043-IDSY-NOW. - Mobility Orders Chair - Rehabiliation Orders Rehab Potential: Fair Rehab Orders: ROM Exercises, Evaluation for Physical Therapy, Evaluation for Occupational Therapy - Treatments Fleet enema rectally every other day PRN cleansing purposes - Diet Orders Pureed CERTIFICATION: I certify that the transfer of the above named patient to an Extended Care Facility is necessary for the continuing treatment of the diagnosis listed. The above information is true and accurate reflection of patient's current condition. ST elevation myocardial infarction, acute left cerebral ischemia. Confidential - Redisclosure prohibited without a patient's written consent.
== END 2016-12-14 10:41 | disposition other institution (70) | DRG 246 ==
LOC: EMEROO 20:48 → ICNU 21:53 → SUATTDRO 22:46 → 2NENU 12-01 08:28
PROVIDERS: ADMIT Emergency Medicine; ATTEND Internal Medicine

== ENCOUNTER 2022-06-18 13:48 | Inpatient (IN) ==
[2022-06-18] MEDS ORDERED: methylPREDNISolone 125 MG/2 ML VIAL IVP ONE (13:54)
[2022-06-18] MEDS ORDERED: Ipratropium/Albuterol Neb 3 ML IH ONE (13:54)
[2022-06-18] MEDS ORDERED: 0.9 % Sodium Chloride 1,000 ML ONE ×3 (13:55→17:44)
[2022-06-18 14:15] LABS: Basophils % 0.3 %; Eosinophils # 0.1 K/mcL (0.0-0.6); Hematocrit 45.5 % (37.5-50.1); Hemoglobin 13.7 g/dL (12.9-16.9); Immature Granulocytes % 0.4 % (0-4); Lymphocytes # 1.4 K/mcL (0.6-4.6); Mean Corpuscular HGB Conc 30.1 g/dL (31.6-35.5); Mean Corpuscular Volume 99.8 fL (83.0-100.0); Mean Platelet Volume 8.6 fL (9.4-12.4); Monocytes % 9.1 %; Neutrophils # 8.1 K/mcL (1.6-8.9); Platelet Count 195 K/mcL (140-400); Red Blood Count 4.56 M/mcL (4.19-5.50); Red Cell Distribution Width 15.4 % (11.5-14.5); Segmented Neutrophils % 76.2 %; White Blood Count 10.6 K/mcL (4.3-11.1)
[2022-06-18] MEDS: 0.9 % Sodium Chloride 1,000 ML IVC SCH ×3 (14:15→18:07)
[2022-06-18 14:33] LABS: VBG HCO3 39 mEq/L (21-27); VBG PCO2 101 mmHg (41-51); VBG PH 7.19 pH Units (7.32-7.42); VBG PO2 185 mmHg (25-50)
[2022-06-18] MEDS ORDERED: Piperacillin/Tazobactam 3.375 GM in 0.9 % Sodium Chloride Mini Bag 100 ML IVPB ONE (14:33)
[2022-06-18] MEDS ORDERED: Norepinephrine 4 MG/254 ML IV.SOLN IVC ONE (14:34)
[2022-06-18 14:36] LABS: Bacteria,Urine Many per hpf (None-Few); Bilirubin,Urine Negative (Negative); Blood,Urine Moderate (Negative); Clarity,Urine Turbid (Clear); Color,Urine Yellow (Yellow); Glucose,Urine (UA) Normal (Normal); Hyaline Casts,Urine Moderate per lpf (None Seen); Ketones,Urine Negative (Negative); Leukocyte Esterase,Urine Moderate (Negative); Mucus,Urine Few per lpf (None-Few); Nitrite,Urine Negative (Negative); PH,Urine 5.5 pH Units (5.0-8.0); Protein,Urine Trace mg/dL (Neg-Trace); RBC,Urine TNTC per hpf (0-3); Renal Epithelial Cells,Urine Few per hpf (None-Few); Specific Gravity,Urine 1.023 (1.010-1.025); Squamous Epithelial Cell,Urine Moderate per hpf (None-Few); WBC,Urine 50-100 per hpf (0-3)
[2022-06-18 14:40] LABS: Alanine Aminotransferase 16 Units/L (7-52); Albumin 3.3 g/dL (3.5-5.7); Albumin/Globulin Ratio 1.2 (1.1-2.2); Alkaline Phosphatase 105 Units/L (34-104); Aspartate Amino Transferase 12 Units/L (13-39); BUN/Creatinine Ratio 12 (6-26); Bilirubin,Direct 0.1 mg/dL (0.0-0.2); Bilirubin,Indirect 0.3 mg/dL (0.0-1.0); Bilirubin,Total 0.4 mg/dL (0.3-1.0); Blood Urea Nitrogen 12 mg/dL (8-23); Calcium 8.1 mg/dL (8.6-10.3); Carbon Dioxide 37 mEq/L (23-29); Chloride 91 mEq/L (98-107); Globulin 2.7 g/dL (2.4-3.5); Glucose 150 mg/dL (70-105); Osmolality,Calculated 271 (280-300); Sodium 129 mEq/L (136-145); Troponin I < 0.03 ng/mL (< 0.04)
[2022-06-18] MEDS ORDERED: Norepinephrine 4 MG/254 ML IV.SOLN IVC SCH (14:45)
[2022-06-18] MEDS ORDERED: Vancomycin 1,750 MG/517.5 ML IV.SOLN IVPB ONE (15:00)
[2022-06-18 15:18] LABS: Influenza A PCR Negative (Negative); Influenza B PCR Negative (Negative); Resp. Syncytial Virus PCR Negative (Negative); SARS-CoV-2 by PCR (In House) Negative (Negative)
[2022-06-18] MEDS ORDERED: Naloxone 0.4 MG/ML INJ IVP PRN (15:37)
[2022-06-18] MEDS ORDERED: Albuterol 2.5 MG/3 ML NEBULIZER IH PRN (15:37)
[2022-06-18 15:39] LABS: ABG Base Excess 4 mEq/L (-2 to 3); ABG Chloride 96 mEq/L (98-107); ABG Glucose 154 mg/dL (60-95); ABG HCO3 39 mEq/L (21-27); ABG Ionized Calcium 1.19 mmol/L (1.15-1.35); ABG Oxygen Saturation 95 % (95-98); ABG PCO2 123 mmHg (35-45); ABG PH 7.11 pH Units (7.32-7.45); ABG PO2 105 mmHg (85-104); ABG TCO2 43 mEq/L (20-26)
[2022-06-18] MEDS ORDERED: Vancomycin (wt based) 1,000 MG VIAL IVPB SCH (16:00)
[2022-06-18 17:21] LABS: ABG Base Excess 5 mEq/L (-2 to 3); ABG HCO3 40 mEq/L (21-27); ABG Oxygen Saturation 95 % (95-98); ABG PCO2 117 mmHg (35-45); ABG PH 7.14 pH Units (7.32-7.45); ABG PO2 106 mmHg (85-104); ABG TCO2 43 mEq/L (20-26)
[2022-06-18] MEDS: Ipratropium/Albuterol Neb 3 ML IH SCH ×2 (17:36→19:58)
[2022-06-18] MEDS ORDERED: *HR* FentaNYL (PF) 100 MCG/2 ML VIAL ONE (17:49)
[2022-06-18] MEDS ORDERED: *HR* FentaNYL (PF) 100 MCG/2 ML VIAL IVP ONE (18:02)
[2022-06-18] MEDS ORDERED: Artificial Tears SOLN 15 ML BOTTLE BOTH EYES PRN (18:03)
[2022-06-18] MEDS: FentaNYL (PF) 1,000 MCG/100 ML IV.SOLN IVC SCH (18:13)
[2022-06-18] MEDS: methylPREDNISolone 125 MG/2 ML VIAL IVP SCH (18:35)
[2022-06-18] MEDS: Pantoprazole 40 MG VIAL IVP SCH (18:35)
[2022-06-18] MEDS: Artificial Tears SOLN 15 ML BOTTLE BOTH EYES SCH ×2 (19:44→23:18)
[2022-06-18] MEDS: Chlorhexidine Rinse 15 ML MOUTHWASH MM SCH (19:45)
[2022-06-18 20:53] LABS: ABG Base Excess 3 mEq/L (-2 to 3); ABG HCO3 28 mEq/L (21-27); ABG Oxygen Saturation 94 % (95-98); ABG PCO2 43 mmHg (35-45); ABG PH 7.43 pH Units (7.32-7.45); ABG PO2 68 mmHg (85-104); ABG TCO2 30 mEq/L (20-26); Blood Gas Modality AF; Blood Gas VT 500 cc
[2022-06-18] MEDS: Piperacillin/Tazobactam 3.375 GM in 0.9 % Sodium Chloride Mini Bag 100 ML IVPB SCH (21:15)
[2022-06-18] MEDS: *HR* Heparin 5,000 UNIT/ML VIAL SQ SCH (21:16)
[2022-06-18] MEDS ORDERED: *HR* Etomidate 20 MG/10 ML AMPUL IVP ONE (23:58)
[2022-06-18] MEDS ORDERED: *HR* Rocuronium Bromide 50 MG/5 ML VIAL IVP ONE (23:58)
[2022-06-19] MEDS: Ipratropium/Albuterol Neb 3 ML IH SCH ×6 (00:25→20:15)
[2022-06-19 01:30] LABS: Basophils % 0.1 %; Eosinophils % 0.1 %; Hematocrit 41.5 % (37.5-50.1); Hemoglobin 12.9 g/dL (12.9-16.9); Immature Granulocytes % 0.3 % (0-4); Lymphocytes # 0.7 K/mcL (0.6-4.6); Lymphocytes % 7.7 %; Mean Corpuscular HGB Conc 31.1 g/dL (31.6-35.5); Mean Corpuscular Hemoglobin 29.5 pg (28.0-33.3); Mean Platelet Volume 8.8 fL (9.4-12.4); Monocytes # 0.2 K/mcL (0.0-1.3); Monocytes % 1.6 %; Neutrophils # 8.7 K/mcL (1.6-8.9); Platelet Count 193 K/mcL (140-400); Red Blood Count 4.37 M/mcL (4.19-5.50); Segmented Neutrophils % 90.2 %; White Blood Count 9.6 K/mcL (4.3-11.1)
[2022-06-19 01:53] LABS: Alanine Aminotransferase 17 Units/L (7-52); Albumin 2.9 g/dL (3.5-5.7); Albumin/Globulin Ratio 1.3 (1.1-2.2); Alkaline Phosphatase 93 Units/L (34-104); Aspartate Amino Transferase 13 Units/L (13-39); BUN/Creatinine Ratio 14 (6-26); Bilirubin,Direct 0.3 mg/dL (0.0-0.2); Bilirubin,Indirect 0.4 mg/dL (0.0-1.0); Bilirubin,Total 0.7 mg/dL (0.3-1.0); Blood Urea Nitrogen 11 mg/dL (8-23); Calcium 7.8 mg/dL (8.6-10.3); Carbon Dioxide 29 mEq/L (23-29); Chloride 96 mEq/L (98-107); Globulin 2.3 g/dL (2.4-3.5); Glucose 159 mg/dL (70-105); Magnesium 1.6 mg/dL (1.6-2.6); Osmolality,Calculated 273 (280-300); Phosphorous 1.3 mg/dL (2.7-4.5); Potassium 4.2 mEq/L (3.5-5.1); Sodium 130 mEq/L (136-145); Total Protein 5.2 g/dL (6.4-8.9)
[2022-06-19] MEDS: FentaNYL (PF) 1,000 MCG/100 ML IV.SOLN IVC SCH ×2 (02:01→21:47)
[2022-06-19] MEDS ORDERED: Vancomycin 1,500 MG/265 ML IV.SOLN IVPB SCH (03:00)
[2022-06-19] MEDS: Artificial Tears SOLN 15 ML BOTTLE BOTH EYES SCH ×5 (03:05→20:11)
[2022-06-19 04:29] LABS: ABG Base Excess 6 mEq/L (-2 to 3); ABG HCO3 29 mEq/L (21-27); ABG Oxygen Saturation 94 % (95-98); ABG PCO2 35 mmHg (35-45); ABG PH 7.52 pH Units (7.32-7.45); ABG PO2 61 mmHg (85-104); ABG TCO2 30 mEq/L (20-26); Blood Gas Modality AF; Blood Gas VT 500 cc
[2022-06-19] MEDS: methylPREDNISolone 125 MG/2 ML VIAL IVP SCH ×2 (05:05→18:35)
[2022-06-19] MEDS: Piperacillin/Tazobactam 3.375 GM in 0.9 % Sodium Chloride Mini Bag 100 ML IVPB SCH ×3 (05:06→21:31)
[2022-06-19] MEDS: *HR* Heparin 5,000 UNIT/ML VIAL SQ SCH ×3 (05:06→21:02)
[2022-06-19 06:09] LABS: ABG Base Excess 2 mEq/L (-2 to 3); ABG HCO3 27 mEq/L (21-27); ABG Oxygen Saturation 96 % (95-98); ABG PCO2 42 mmHg (35-45); ABG PH 7.42 pH Units (7.32-7.45); ABG PO2 81 mmHg (85-104); ABG TCO2 28 mEq/L (20-26); Blood Gas Modality AF; Blood Gas VT 420 cc
[2022-06-19] MEDS: Chlorhexidine Rinse 15 ML MOUTHWASH MM SCH ×2 (07:33→20:11)
[2022-06-19] MEDS: Pantoprazole 40 MG VIAL IVP SCH (07:33)
[2022-06-19] MEDS ORDERED: Bisacodyl 10 MG RECTAL SUPPOSITORY RC ONE (12:40)
[2022-06-19] MEDS ORDERED: Sennosides/Docusate Sodium TABLET PO ONE (12:42)
[2022-06-19 13:40] VITALS: TEMP 96.2
[2022-06-19] MEDS: Lactulose Oral Soln 20 GM/30 ML UDC PO SCH ×2 (13:43→18:35)
[2022-06-19 21:34] VITALS: BP 112/57
[2022-06-19 21:50] VITALS: PULSE 120; O2SAT 95
[2022-06-19] MEDS ORDERED: Vancomycin 1,750 MG/517.5 ML IV.SOLN IVPB SCH (22:00)
[2022-06-19] MEDS ORDERED: FENTANYL IVC ONE (23:58)
== END 2022-06-19 23:59 | disposition other institution (70) | DRG 871 ==
LOC: EMEROOARM 13:48 → ICNU 16:15
PROVIDERS: ADMIT Pediatrics; ATTEND Pediatrics